=== PATIENT | female | born 1955 | race Caucasian/White ===

== ENCOUNTER → 2016-10-29 | Outpatient (CLI) | payer OTHER ==
[~2016-10-29] MED LIST: ALBU18002 INH; ASPI81TA28 PO; ATOR10TA88 PO; AZITTAB PO; BENZ100C18 PO; BISO10TA14 PO; CHOL20009 PO; CINN1CAP2 PO; CTP/1 PO; DILT120C68 PO; DILT240C9 PO; EFFSR150 PO; EZET10TA47 PO; FLAX1CAP11 PO; GARL500C5 PO; JANUMET PO; LISI-725 PO; LISI40TA PO; LPR50X PO; LRT5 PO; METF1000 PO; METO25TA56 PO; MICARDIS PO; MISCCAP80 PO; MULT-506 PO; NEBI20TA2 PO; OMEP20CA59 PO; POTA550T4 PO; PROAIR INH; SPIR25TA PO; SPR25 PO
[2016-10-29 11:20] LABS: BASO % 0.5 %; BASO ABS # 0.02 K/uL (0-0.2); COMPLETE YES; EOS % 3.2 %; HEMATOCRIT 39.1 % (37-47); IG% 0.2 %; LYMPH % 22.8 %; LYMPH ABS # 0.99 K/uL (1.2-3.4); MEAN CELL VOLUME 82.7 fL (80-100); MEAN CORPUSCULAR HEMOGLOBIN 26.6 pg (25-34); MEAN CORPUSCULAR HGB CONC 32.2 g/dl (32-36); MEAN PLATELET VOLUME 11.6 fL (7.4-10.4); MONO % 7.8 %; NEUT % 65.5 %; PLATELET COUNT 182 K/uL (130-400); RED BLOOD COUNT 4.73 M/uL (4.2-5.4); WHITE BLOOD COUNT 4.35 K/uL (4.8-10.8)
[2016-10-29 11:47] LABS: ESTIMATED AVERAGE GLUCOSE 117 mg/dl; HA1C FLAG Normal (Normal)
[2016-10-29 11:52] LABS: ALT/SGPT 25 U/L (12-78); AST/SGOT 41 U/L (15-37); BLOOD UREA NITROGEN 6 mg/dl (7-18); BUN/CREATININE RATIO 10.2 (10-20); CALCIUM 8.9 mg/dl (8.5-10.1); CARBON DIOXIDE 28 mmol/L (21-32); CHLORIDE 101 mmol/L (98-107); CHOLESTEROL 117 mg/dl (0-200); CREATININE 0.58 mg/dl (0.60-1.20); GLUCOSE 107 mg/dl (70-99); MAGNESIUM 1.5 mg/dl (1.8-2.4); POTASSIUM 3.3 mmol/L (3.5-5.1); SODIUM 138 mmol/L (136-145); TRIGLYCERIDES 93 mg/dl (0-150); VERY LOW DENSITY LIPOPROT CALC 19 mg/dl
[2016-10-29 11:56] LABS: ALB/GLOB RATIO 0.8 (0.9-2); ALKALINE PHOSPHATASE 107 U/L (45-117); CHOLESTEROL/HDL RATIO 5.3; HDL CHOLESTEROL 22 mg/dl; LDL CHOLESTEROL CALCULATED 76 mg/dl
[2016-11-07 15:01] LABS: O&P SOURCE OTHER
== END | disposition home or self-care (01) ==
LOC: C.LAB1850 09:46
PROVIDERS: ATTEND Nurse Practitioner Adult Health
DX: Z00.00 Encounter for general adult medical examination without abnormal findings (principal); Z11.59 Encounter for screening for other viral diseases; R19.7 Diarrhea, unspecified; K21.9 Gastro-esophageal reflux disease without esophagitis; Z51.81 Encounter for therapeutic drug level monitoring

== ENCOUNTER 2016-11-12 19:09 | Inpatient (IN) | payer OTHER ==
[~2016-11-12] VITALS: Ht 167.6 cm; Wt 85.6 kg
[~2016-11-12 19:09] MED LIST changes: -ALBU18002 INH; -ASPI81TA28 PO; -ATOR10TA82 PO; -AZITTAB PO; -BENZ100C18 PO; -BISO10TA14 PO; -CHOL20009 PO; -CINN1CAP2 PO; -CTP/1 PO; -DILT120C68 PO; -EFFSR150 PO; -FLAX1CAP11 PO; -GARL500C5 PO; -LISI-725 PO; -LPR50X PO; -METF1000 PO; -METO25TA56 PO; -MISCCAP80 PO; -OMEP20CA59 PO; -POTA550T4 PO; -PROAIR INH; -SPIR25TA PO; -SPR25 PO
[2016-11-12 20:38] LABS: CKMB/CK RATIO 1.2 (0-3.0)
[2016-11-12] MEDS ORDERED: PROAIR INH (21:00)
[2016-11-12] MEDS ORDERED: ASPI81TA28 PO (21:04)
[2016-11-12] MEDS ORDERED: MISCCAP80 PO (21:04)
[2016-11-12] MEDS ORDERED: ATOR10TA82 PO (21:04)
[2016-11-12] MEDS ORDERED: AZITTAB PO (21:04)
[2016-11-12] MEDS ORDERED: CTP/1 PO (21:13)
[2016-11-12] MEDS ORDERED: LISI-725 PO (21:13)
[2016-11-12] MEDS ORDERED: METO25TA56 PO (21:13)
[2016-11-12] MEDS ORDERED: METF1000 PO (21:13)
[2016-11-12] MEDS ORDERED: BENZ100C18 PO (21:13)
[2016-11-12] MEDS ORDERED: GARL500C5 PO (21:13)
[2016-11-12] MEDS ORDERED: CINN1CAP2 PO (21:13)
[2016-11-12] MEDS ORDERED: FLAX1CAP11 PO (21:13)
[2016-11-12] MEDS ORDERED: DILT120C68 PO (21:13)
[2016-11-12] MEDS ORDERED: POTA550T4 PO (21:13)
[2016-11-12] MEDS ORDERED: OPTIRAY 320 IV PRN (21:15)
[2016-11-12] MEDS ORDERED: ZOLPIDEM TARTRATE 5 MG TAB PO PRN (21:30)
[2016-11-12] MEDS ORDERED: BENZONATATE 100MG CAP PO PRN (21:30)
[2016-11-12] MEDS ORDERED: NITROGLYCERIN 0.4 MG SL PER TAB CHARGE SL PRN (21:30)
[2016-11-12] MEDS ORDERED: LISINOPRIL 20 MG TAB PO STA (21:32)
--- NOTE | 2016-11-12 21:32 | DIAGNOSTIC IMAGING REPORT ---
CT OF THE CHEST WITH IV CONTRAST CLINICAL HISTORY: Unexplained pleural effusion COMPARISON STUDY: Chest x-ray dated 11/12/2016 TECHNIQUE: Following the IV administration of 117 mL of Optiray-320, CT of the thorax was performed from the thoracic inlet to the lung bases. Images are reviewed in the axial, sagittal, and coronal planes. IV contrast was administered without complication. CT DOSE: FINDINGS: Thyroid: There is a large complex left lobe thyroid nodule containing calcifications. This was previously described on sonography. Thoracic aorta: The thoracic aorta is normal in course and caliber, noting standard 3-vessel arch anatomy. No aneurysm or dissection is seen. Pulmonary vasculature: The pulmonary trunk is normal in caliber. There are no central filling defects identified to suggest pulmonary embolus. Note that this examination was not protocoled for the evaluation of pulmonary emboli. HEART: The heart is normal in size and configuration, without pericardial effusion. Lungs and pleural spaces: There is a large right pleural effusion with compressive atelectasis of the right lower middle and upper lobes. There are groundglass opacities within the left upper lobe, statistically inflammatory. Short-term follow-up is recommended. Mediastinum: There is no mediastinal lymphadenopathy. Samira: Clear. Axilla: Clear. Upper abdomen: The liver has a cirrhotic morphology. The spleen is enlarged. There is ascites. Skeletal structures: There are no lytic or blastic osseous lesions. IMPRESSION: 1. Large right pleural effusion with compressive right lung atelectasis 2. Multifocal left upper lobe groundglass opacities, likely inflammatory. Radiographic follow-up is recommended 3. Large complex left lobe thyroid nodule 4. Hepatic steatosis. Cirrhotic morphology of the liver. Splenomegaly. Ascites. Electronically signed by: Jef Viera M.D. 11/12/2016 9:29 PM Dictated Date/Time: 11/12/2016 9:25 PM
[2016-11-12] MEDS ORDERED: METOPROLOL TARTRATE 50 MG TAB PO STA (21:35)
--- NOTE | 2016-11-12 21:40 | DIAGNOSTIC IMAGING REPORT ---
CT ABD/PELVIS IV CONTRAST ONLY CLINICAL HISTORY: Right pleural effusion. Hepatic cirrhosis. COMPARISON STUDY: None. TECHNIQUE: Following the IV administration of 117 mL of Optiray-320, CT scan of the abdomen and pelvis was performed from the lung bases to the proximal femurs. Images are reviewed in the axial, sagittal, and coronal planes. IV contrast was administered without complication. CT DOSE: 1242.49 mGy.cm FINDINGS: Lower chest: There is a large right pleural effusion with compressive right lower lobe atelectasis. Liver: There is hepatic steatosis. The liver has a cirrhotic morphology. The portal vein appears patent. Multiple varices are visualized. Gallbladder: Unremarkable. Spleen: The spleen is enlarged measuring 14.3 cm. Pancreas: Unremarkable. Adrenal glands: Unremarkable. Kidneys: There is symmetric renal cortical enhancement. The kidneys are normal in size without hydronephrosis. Bowel: There are no transition zones indicate bowel obstruction. Inflammatory changes are difficult to assess due to the ascites and mesenteric infiltration Peritoneum: There is a small to moderate amount of ascites present. There is ascitic fluid within an umbilical hernia. Vasculature: The abdominal aorta is normal in course and caliber. Multiple varices are visualized. These are most pronounced in the region of the right paracolic gutter. There are also multiple anterior varices. Multiple varices would elevate the complication risk of paracentesis. Adenopathy: None. Pelvic viscera: The uterus appears surgically absent Skeletal structures: No destructive osseous lesions are seen. IMPRESSION: 1. Hepatic cirrhosis, splenomegaly, and multiple varices. There is also a small to moderate amount of ascites present. Paracentesis would not be recommended, unless strongly indicated due to the relatively low volume of ascites and the multiple varices. Electronically signed by: Jef Viera M.D. 11/12/2016 9:38 PM Dictated Date/Time: 11/12/2016 9:29 PM
[2016-11-12] MEDS ORDERED: CLONIDINE HCL 0.1 MG TAB PO STA (21:42)
[2016-11-12] MEDS ORDERED: DILTIAZEM HCL 120 MG ER CAP PO STA (21:42)
[2016-11-12] MEDS ORDERED: DILTIAZEM HCL 120 MG EXT REL CAP PO STA (21:47)
--- NOTE | 2016-11-12 21:49 | EMERGENCY ROOM VISIT NOTE ---
History Report prepared by Raji: Fei Miller Under the Supervision of: Dr. Remigio Harrington M.D. First contact with patient: 19:38 Chief Complaint: RESPIRATORY PROBLEMS Stated Complaint: LIQUID IN LEFT LUNG History of Present Illness The patient is a 61 year old female who presents to the Emergency Room with complaints of persistent shortness of breath beginning a few days ago. She was seen by her PCP, Dr. Mackenzie at [facility] and had an x-ray , EKG, and blood work. She was noted to have fluid in her right lung. She went to see Dr. Mackenzie for shortness of breath and a cough. Dr. Mackenzie called her later today indicating she needed to present to the ER. She did received prescriptions for an antibiotic. The patient has never had this before. She notes having tightness upon breathing, and some leg swelling. She admits to a history of asthma, bronchitis, and hypertension for which she takes 4 different medications. She adds that she has a hysterectomy. The patient is a former smoker of 25 years. She admits to drinking 2 to 3 glasses of wine each night. Pt denies LOC, headache, fevers, chills, diaphoresis, visual changes, neck pain , chest pain, nausea, vomiting, abdominal pain, back pain, melena, hematochezia , urinary symptoms, numbness, weakness, lymphadenopathy, rash, or other complaints. Source of History: patient Onset: a few days ago Position: other (lungs) Quality: other (shortness of breath) Timing: other (persistent ) Associated Symptoms: + cough Note: The patient notes having leg swelling. Review of Systems See HPI for pertinent positives and negatives. A total of ten systems were reviewed and were otherwise negative. Past Medical & Surgical Medical Problems: (1) Asthma (2) History of asthma (3) History of bronchitis (4) History of hypertension (5) Hypertensive urgency (6) Pleural effusion, right Family History No pertinent family history stated. Social History Smoking Status: Former Smoker Marital Status: Current/Historical Medications Scheduled Aspirin (Aspirin Ec), 81 MG PO HS Atorvastatin (Lipitor), 10 MG PO HS Azithromycin (Zithromax Z-Sathish), 1 PKT PO UD Bisoprolol/Hctz (Ziac 10MG/6.25MG), 1 TAB PO HS Cinnamon (Cinnamon), 500 MG PO DAILY Clonidine Hcl (Catapres), 1 TAB PO HS Diltiazem Hcl Ext Rel (Tiazac), 120 MG PO HS Flaxseed (Linseed) (Flax Seed Oil), 1,000 MG PO HS Garlic (Garlic), 500 MG PO AMPM Lisinopril (Zestril), 20 MG PO BID Metformin Hcl (Glucophage), 1,000 MG PO HS Metoprolol Tartrate (Lopressor) (Lopressor), 25 MG PO BID Omeprazole (Prilosec), 20 MG PO DAILY Potassium Gluconate (Potassium Gluconate), 550 MG PO HS Probiotic Product (Probiotic), 1 CAP PO DAILY Venlafaxine Hcl (Effexor Extended Rel), 150 MG PO DAILY Scheduled PRN Benzonatate (Tessalon Perles), 100 MG PO TID PRN for Cough [Proair], 1-2 PUFFS INH Q4-6HRS PRN for SOB/Wheezing Allergies Coded Allergies: No Known Allergies (Unverified , 11/12/16) Physical Exam Vital Signs Date Time Temp Pulse Resp B/P Pulse Ox O2 Delivery O2 Flow Rate FiO2 11/12/16 19:31 37.0 71 21 219/95 92 Room Air Physical Exam GENERAL: Awake, alert, anxious-appearing, in no distress HENT: Normocephalic, atraumatic. Oropharynx unremarkable. EYES: Normal conjunctiva. Sclera non-icteric. NECK: Supple. No nuchal rigidity. FROM. No JVD. RESPIRATORY: Decreased breath sounds on the right. CARDIAC: Regular rate, normal rhythm. Extremities warm and well perfused. Pulses equal. ABDOMEN: Soft, non-distended. No tenderness to palpation. No rebound or guarding. No masses. RECTAL: Deferred. MUSCULOSKELETAL: Chest examination reveals no tenderness. The back is symmetrical on inspection without obvious abnormality. There is no CVA tenderness to palpation. No joint edema. LOWER EXTREMITIES: Calves are equal size bilaterally and non-tender. No edema. No discoloration. NEURO: Normal sensorium. No sensory or motor deficits noted. SKIN: No rash or jaundice noted. Medical Decision & Procedures Laboratory Results Test 11/12/16 20:00 Total Creatine Kinase 113 U/L (26-192) Creatine Kinase MB 1.4 ng/ml (0.5-3.6) Creatine Kinase MB Ratio 1.2 (0-3.0) Troponin I 0.028 ng/ml (0-0.045) Pro-B-Type Natriuretic Peptide 774 pg/ml (0-900) Laboratory results reviewed by me ECG Indication: SOB/dyspnea Rate (beats per minute): 64 Rhythm: normal sinus Findings: no acute ischemic change, no ectopy, other (Septal Q waves) ED Course 1940: The patient was evaluated in room B12B. A complete history and physical exam was performed. 2044: Discussed the patient's case with Dr. Moy. The patient will be evaluated for further treatment and disposition. Medical Decision Triage Nursing notes reviewed. The patient's presentation and history were concerning for shortness of breath and pleural effusion. Etiologies such as transudate effusion, malignant effusion, pneumonia, COPD, reactive airway disease, CHF, cardiac ischemia, pulmonary embolism, pneumothorax , musculoskeletal, infections, gastrointestinal, as well as others were entertained. The patient was evaluated. She had symptoms of shortness of breath that started recently. She admits to drinking about 2-3 alcoholic beverages a day. She had decreased breath sounds in the right side. X-ray imaging and blood work earlier today revealed a large right-sided pleural effusion. Cardiac markers were unremarkable. ECG was unremarkable. The patient is going to need an extensive workup and treatment for this. Consultation was made with internal medicine. The patient was evaluated in the Emergency Room for further management. The chart was completed utilizing [employer] Speech voice recognition software. Grammatical errors, random word insertions, pronoun errors, and incomplete sentences are an occasional consequence of this system due to software limitations, ambient noise, and hardware issues. Any formal questions or concerns about the content, text, or information contained within the body of this dictation should be directly addressed to the physician for clarification. Consults Time Called: 2029 Consulting Physician: Dr. Moy, [facility] [place] Returned Call: 2044 Discussed the patient's case with Dr. Moy. The patient will be evaluated for further treatment and disposition. Impression Primary Impression: Pleural effusion on right Additional Impression: SOB (shortness of breath) Scribe Attestation The scribe's documentation has been prepared under my direction and personally reviewed by me in its entirety. I confirm that the note above accurately reflects all work, treatment, procedures, and medical decision making performed by me. Departure Information Dispostion Being Evaluated By Hospitalist Referrals Ale Mackenzie CRNP (PCP) Patient Instructions My [facility] Problem Qualifiers
[2016-11-12] MEDS ORDERED: LISINOPRIL 5 MG TAB ONE (21:51)
[2016-11-12] MEDS: MAGNESIUM SULFATE 1GM / D5W 1 GM in PREMIXED IN D5W 100 ML IV SCH ×2 (21:53→23:04)
[2016-11-12] MEDS ORDERED: ONDANSETRON INJ 2 MG/ML 2 ML VIAL IV PRN (22:00)
[2016-11-12 22:35] VITALS: BP 204/71; PULSE 61; TEMP 37; O2SAT 95; Ht 167.6 cm; Wt 85.6 kg
[2016-11-12] MEDS ORDERED: LEVALBUTEROL 1.25MG/0.5ML NEB INH PRN (22:45)
[2016-11-12] MEDS ORDERED: IPRATROPIUM BROMIDE NEB SOLN 0.02% 2.5 ML VIAL INH PRN (22:45)
[2016-11-12] MEDS ORDERED: CEFTRIAXONE SOD INJ 1 GM in DEXTROSE 5% ADD-VANTAGE 50ML 50 ML IV SCH (23:00)
[2016-11-12] MEDS ORDERED: BISO10TA14 PO (23:19)
[2016-11-12] MEDS ORDERED: EFFSR150 PO (23:22)
--- NOTE | 2016-11-12 23:45 | History and Physical ---
History & Physical Date & Time of Service: Nov 12, 2016 at 23:45 Chief Complaint: Hypertensive Urgency, Pleural Effusion, Right Primary Care Physician: Ale Mackenzie CRNP History of Present Illness Source: patient, spouse The patient is a 61-year-old female who presents to the emergency department after being referred by her PCP for abnormal lab work and chest x-ray, performed due to her complaint of shortness of breath over the previous few days. She notes chest tightness at rest and when she is mobile, and has also noted bilateral leg swelling. She reports no recent change in diet, activity level, travel or sick exposures. She is a former smoker 25 years, and has a history of asthma and asthmatic bronchitis. She does drink 2-3 glasses of wine each night. Past Medical/Surgical History Medical Problems: (1) Asthma Status: Chronic Social History Smoking Status: Former Smoker Smokeless Tobacco Use: No Alcohol Use: as noted in the history of present illness, reports 2-3 glasses of wine daily. Drug Use: none Marital Status: Housing status: lives with family Multi-Drug Resistant Organisms History of MDRO: No Allergies Coded Allergies: No Known Allergies (Unverified , 11/12/16) Home Medications Scheduled Aspirin (Aspirin Ec), 81 MG PO HS Atorvastatin (Lipitor), 10 MG PO HS Azithromycin (Zithromax Z-Sathish), 1 PKT PO UD Bisoprolol/Hctz (Ziac 10MG/6.25MG), 1 TAB PO HS Cinnamon (Cinnamon), 500 MG PO DAILY Clonidine Hcl (Catapres), 1 TAB PO HS Diltiazem Hcl Ext Rel (Tiazac), 120 MG PO HS Flaxseed (Linseed) (Flax Seed Oil), 1,000 MG PO HS Garlic (Garlic), 500 MG PO AMPM Lisinopril (Zestril), 20 MG PO BID Metformin Hcl (Glucophage), 1,000 MG PO HS Metoprolol Tartrate (Lopressor) (Lopressor), 25 MG PO BID Omeprazole (Prilosec), 20 MG PO DAILY Potassium Gluconate (Potassium Gluconate), 550 MG PO HS Probiotic Product (Probiotic), 1 CAP PO DAILY Venlafaxine Hcl (Effexor Extended Rel), 150 MG PO DAILY Scheduled PRN Benzonatate (Tessalon Perles), 100 MG PO TID PRN for Cough [Proair], 1-2 PUFFS INH Q4-6HRS PRN for SOB/Wheezing Review of Systems The patient denies palpitations, vision change, hearing change, sore throat, fevers, chills, sweats, weight change, nausea, vomiting, abdominal pain, pelvic pain, blood in urine or stool, dysuria, urinary frequency or urgency, lightheadedness, dizziness, headache, memory loss, rash, abnormal bruising or bleeding, imbalance, focal weakness, numbness or tingling in arms or legs, arthralgias or myalgias, back or neck pain, night sweats, or allergy symptoms. The review of systems is otherwise negative other than for that already noted above, and at least 10 systems have been reviewed. Physical Exam Vital Signs Date Time Temp Pulse Resp B/P Pulse Ox O2 Delivery O2 Flow Rate FiO2 11/12/16 22:35 37.0 61 22 204/71 95 Nasal Cannula 2.0 11/12/16 22:15 82 20 190/95 96 11/12/16 21:50 84 20 208/103 94 Nasal Cannula 2.0 11/12/16 19:31 37.0 71 21 219/95 92 Room Air The patient is awake, well-developed and adequately nourished, alert and oriented 3, normocephalic and atraumatic, lying in bed and in no acute distress. She has a frequent nonproductive cough. HEENT--PERRL, EOMI, mucous membranes and oropharynx dry. Neck--supple, no JVD or bruits, thyroid normal, trachea midline, no adenopathy. Heart--normal S1 and S2, no extra beats, no murmurs, rubs or gallops. Lungs--decreased breath sounds on right side only, no respiratory distress, no accessory muscle use. Abdomen--normal bowel sounds and soft, nontender and mildly distended, umbilical hernia, splenomegaly. Extremities--no cyanosis, clubbing. There is bilaterally pretibial 1+ Edema. There are good distal pulses b/l. Dermatologic--normal skin turgor, normal color, warm and dry, no abnormal lymph nodes, no rash. Neurologic--cranial nerves II through XII grossly intact, motor and sensory examination normal. Rheumatologic--normal range of motion, nontender, muscles and joints. Psychiatric--normal affect. Diagnostics Laboratory Results Results Past 24 Hours Test 11/12/16 20:00 Range/Units Total Creatine Kinase 113 26-192 U/L Creatine Kinase MB 1.4 0.5-3.6 ng/ml Creatine Kinase MB Ratio 1.2 0-3.0 Troponin I 0.028 0-0.045 ng/ml Pro-B-Type Natriuretic Peptide 774 0-900 pg/ml Diagnostic Radiology Patient Name: STEPHAN SUE Unit Number: [id number] Dictated: 11/12/162124 Transcribed: 11/12/162124 ARG Printed Date/Time: [~ rep prt dt]/[~ rep prt tm] [~ rep ct labl] - [~ rep ct ivnm] [facility] Radiology Department [place], [place] [id number] Dictated: 11/12/162124 Transcribed: 11/12/162124 ARG Printed Date/Time: [~ rep prt dt]/[~ rep prt tm] [~ rep ct labl] - [~ rep ct ivnm] CT OF THE CHEST WITH IV CONTRAST CLINICAL HISTORY: Unexplained pleural effusion COMPARISON STUDY: Chest x-ray dated 11/12/2016 TECHNIQUE: Following the IV administration of 117 mL of Optiray-320, CT of the thorax was performed from the thoracic inlet to the lung bases. Images are reviewed in the axial, sagittal, and coronal planes. IV contrast was administered without complication. CT DOSE: FINDINGS: Thyroid: There is a large complex left lobe thyroid nodule containing calcifications. This was previously described on sonography. Thoracic aorta: The thoracic aorta is normal in course and caliber, noting standard 3-vessel arch anatomy. No aneurysm or dissection is seen. Pulmonary vasculature: The pulmonary trunk is normal in caliber. There are no central filling defects identified to suggest pulmonary embolus. Note that this examination was not protocoled for the evaluation of pulmonary emboli. HEART: The heart is normal in size and configuration, without pericardial effusion. Lungs and pleural spaces: There is a large right pleural effusion with compressive atelectasis of the right lower middle and upper lobes. There are groundglass opacities within the left upper lobe, statistically inflammatory. Short-term follow-up is recommended. Mediastinum: There is no mediastinal lymphadenopathy. Samira: Clear. Axilla: Clear. Upper abdomen: The liver has a cirrhotic morphology. The spleen is enlarged. There is ascites. Skeletal structures: There are no lytic or blastic osseous lesions. IMPRESSION: 1. Large right pleural effusion with compressive right lung atelectasis 2. Multifocal left upper lobe groundglass opacities, likely inflammatory. Radiographic follow-up is recommended 3. Large complex left lobe thyroid nodule 4. Hepatic steatosis. Cirrhotic morphology of the liver. Splenomegaly. Ascites. Electronically signed by: Jef Viera M.D. 11/12/2016 9:29 PM Dictated Date/Time: 11/12/2016 9:25 PM The status of this report is Signed. Draft = Not yet reviewed or approved by Radiologist. Signed = Reviewed and approved by Radiologist. <AttendingPhy></AttendingPhy> <FamilyPhy>Ale Mackenzie CRNP</FamilyPhy> < PrimaryPhy>Ale Mackenzie CRNP</PrimaryPhy> <UnitNumber>[id number]</ UnitNumber> <VisitNumber>[id number]</VisitNumber> <PatientName>STEPHAN SUE< /PatientName> <DateOfBirth>1955</DateOfBirth> <Location>C[facility]B</Location> < ServiceDate>11/12/16</ServiceDate> <MNE>ESINDI</MNE> <OrderingPhy>Lan Moy M.D.</OrderingPhy> <OrderingPhyMNE>f rep ord dr diop</OrderingPhyMNE> < DictatingPhyMNE>f rep dict dr diop</DictatingPhyMNE> <CCListMNE>f rep ct chikis</ CCListMNE> <AdmittingPhyMNE>f pt admit dr diop</AdmittingPhyMNE> <AttendingPhyMNE >f pt attend dr diop</AttendingPhyMNE> <ConsultingPhyMNE>f pt consult dr diop</ConsultingPhyMNE> <FamilyPhyMNE>f pt fam dr diop</FamilyPhyMNE> <OtherPhyMNE>f pt other dr diop</OtherPhyMNE> < PrimaryPhyMNE>f pt prim care dr diop</PrimaryPhyMNE> <ReferringPhyMNE>f pt referring dr diop</ReferringPhyMNE> Patient Name: STEPHAN SUE Unit Number: [id number] Dictated: 11/12/162128 Transcribed: 11/12/162128 ARG Printed Date/Time: [~ rep prt dt]/[~ rep prt tm] [~ rep ct labl] - [~ rep ct ivnm] [facility] Radiology Department [place] [id number] Dictated: 11/12/162128 Transcribed: 11/12/162128 ARG Printed Date/Time: [~ rep prt dt]/[~ rep prt tm] [~ rep ct labl] - [~ rep ct ivnm] [~ rep ct add3]] CT ABD/PELVIS IV CONTRAST ONLY CLINICAL HISTORY: Right pleural effusion. Hepatic cirrhosis. COMPARISON STUDY: None. TECHNIQUE: Following the IV administration of 117 mL of Optiray-320, CT scan of the abdomen and pelvis was performed from the lung bases to the proximal femurs. Images are reviewed in the axial, sagittal, and coronal planes. IV contrast was administered without complication. CT DOSE: 1242.49 mGy.cm FINDINGS: Lower chest: There is a large right pleural effusion with compressive right lower lobe atelectasis. Liver: There is hepatic steatosis. The liver has a cirrhotic morphology. The portal vein appears patent. Multiple varices are visualized. Gallbladder: Unremarkable. Spleen: The spleen is enlarged measuring 14.3 cm. Pancreas: Unremarkable. Adrenal glands: Unremarkable. Kidneys: There is symmetric renal cortical enhancement. The kidneys are normal in size without hydronephrosis. Bowel: There are no transition zones indicate bowel obstruction. Inflammatory changes are difficult to assess due to the ascites and mesenteric infiltration Peritoneum: There is a small to moderate amount of ascites present. There is ascitic fluid within an umbilical hernia. Vasculature: The abdominal aorta is normal in course and caliber. Multiple varices are visualized. These are most pronounced in the region of the right paracolic gutter. There are also multiple anterior varices. Multiple varices would elevate the complication risk of paracentesis. Adenopathy: None. Pelvic viscera: The uterus appears surgically absent Skeletal structures: No destructive osseous lesions are seen. IMPRESSION: 1. Hepatic cirrhosis, splenomegaly, and multiple varices. There is also a small to moderate amount of ascites present. Paracentesis would not be recommended, unless strongly indicated due to the relatively low volume of ascites and the multiple varices. Electronically signed by: Jef Viera M.D. 11/12/2016 9:38 PM Dictated Date/Time: 11/12/2016 9:29 PM The status of this report is Signed. Draft = Not yet reviewed or approved by Radiologist. Signed = Reviewed and approved by Radiologist. <AttendingPhy></AttendingPhy> <FamilyPhy>Ale Mackenzie CRNP</FamilyPhy> < PrimaryPhy>Ale Mackenzie CRNP</PrimaryPhy> <UnitNumber>[id number]</ UnitNumber> <VisitNumber>[id number]</VisitNumber> <PatientName>STEPHAN SUE< /PatientName> <DateOfBirth>1955</DateOfBirth> <Location>C.EDB</Location> < ServiceDate>11/12/16</ServiceDate> <MNE>ESINDI</MNE> <OrderingPhy>Lan Moy M.D.</OrderingPhy> <OrderingPhyMNE>f rep ord dr diop</OrderingPhyMNE> < DictatingPhyMNE>f rep dict dr diop</DictatingPhyMNE> <CCListMNE>f rep ct mne</ CCListMNE> <AdmittingPhyMNE>f pt admit dr diop</AdmittingPhyMNE> <AttendingPhyMNE >f pt attend dr diop</AttendingPhyMNE> <ConsultingPhyMNE>f pt consult dr diop</ConsultingPhyMNE> <FamilyPhyMNE>f pt fam dr diop</FamilyPhyMNE> <OtherPhyMNE>f pt other dr diop</OtherPhyMNE> < PrimaryPhyMNE>f pt prim care dr diop</PrimaryPhyMNE> <ReferringPhyMNE>f pt referring dr diop</ReferringPhyMNE> Patient Name: STEPHAN SUE Unit Number: [id number] Dictated: 11/12/16 1109 Transcribed: 11/12/16 1109 MS Printed Date/Time: [~ rep prt dt]/[~ rep prt tm] [~ rep ct labl] - [~ rep ct ivnm] [facility] [place] [place] [address] Dictated: 11/12/161108 Transcribed: 11/12/16 1109 MS Printed Date/Time: [~ rep prt dt]/[~ rep prt tm] [~ rep ct labl] - [~ rep ct ivnm] [~ rep ct add3]] CHEST 2 VIEWS ROUTINE CLINICAL HISTORY: R06.02 SOB (shortness of breath)R05 [id number] dyspnea COMPARISON STUDY: No previous studies for comparison. FINDINGS: Large right pleural effusion. Left lung is generally clear. Pleural thickening right pulmonary apex. Subtle interstitial change throughout the remainder hemithoraces. IMPRESSION: Large right pleural effusion. Electronically signed by: Jamarcus Adkins M.D. 11/12/2016 11:10 AM Dictated Date/Time: 11/12/2016 11:09 AM The status of this report is Signed. Draft = Not yet reviewed or approved by Radiologist. Signed = Reviewed and approved by Radiologist. <AttendingPhy>Ale Mackenzie CRNP</AttendingPhy> <FamilyPhy></FamilyPhy> < PrimaryPhy>Ale Mackenzie CRNP</PrimaryPhy> <UnitNumber>[id number]</ UnitNumber> <VisitNumber>[id number]</VisitNumber> <PatientName>STEPHAN SUE< /PatientName> <DateOfBirth>1955</DateOfBirth> <Location>C.EAB6478</ Location> <ServiceDate>11/12/16</ServiceDate> <MNE>ESINDI</MNE> <OrderingPhy> Ale Mackenzie</OrderingPhy> <OrderingPhyMNE>f rep ord dr diop</ OrderingPhyMNE> <DictatingPhyMNE>f rep dict dr diop</DictatingPhyMNE> <CCListMNE> f rep ct mne</CCListMNE> <AdmittingPhyMNE>f pt admit dr diop</AdmittingPhyMNE> < AttendingPhyMNE>f pt attend dr diop</AttendingPhyMNE> <ConsultingPhyMNE>f pt consult dr idop</ConsultingPhyMNE> <FamilyPhyMNE>f pt fam dr diop</FamilyPhyMNE> <OtherPhyMNE>f pt other dr diop</OtherPhyMNE> < PrimaryPhyMNE>f pt prim care dr diop</PrimaryPhyMNE> <ReferringPhyMNE>f pt referring dr diop</ReferringPhyMNE> EKG EKG shows normal sinus rhythm at 64 bpm, 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 Impression Assessment and Plan Pneumonia--the patient will be placed on vancomycin IV per renal dosing, ceftriaxone 1 g IV daily, levofloxacin 500 mg IV every 24 hours, Solu-Medrol 40 mg IV every 8 hours, guaifenesin extended release 600 mg by mouth twice a day, Xopenex with Atrovent nebulizer every 6 hours while awake and every 2 hours when necessary, nasal cannula 2 L of oxygen titrating to keep pulse ox greater than or equal to 92%. Large right pleural effusion with compressive right lower lobe atelectasis--we' ll consult pulmonology Dr. Castellon to see the patient. Suspect she would benefit from a thoracentesis for both diagnostic and therapeutic purposes. Hypertension/hypertensive urgency--patient has missed her evening medications at this time and will give them now. Continue lisinopril 20 mg by mouth twice a day, diltiazem extended release 120 mg by mouth at at bedtime, clonidine 0.1 mg by mouth at bedtime. Hold bisoprolol/HCTZ 10/6.5 at bedtime. Increase metoprolol tartrate from 25 mg by mouth twice a day to 75 mg by mouth twice a day. Her overall regimen could likely be tightened with a decreased number of medications and increased doses of those medications. Liver cirrhosis/fatty liver/splenomegaly/ascites/multiple varices--we will add acute hepatitis panel to present laboratories, but suspect this may be related to alcohol use. Since it is evident that she has portal hypertension, increasing her beta john as above, and adding spironolactone and furosemide to her regimen will be needed, but will wait until she undergoes possible thoracentesis tomorrow. We'll consult Dr. Al Fernández from gastroenterology. We will hold aspirin 81 mg by mouth at bedtime at this time. Hypercholesterolemia--continue atorvastatin 10 mg by mouth at bedtime. Diabetes mellitus--hold metformin 1000 mg by mouth at bedtime, and cinnamon 500 mg by mouth daily. Place on Accu-Cheks before meals and at bedtime with NovoLog coverage ex GERD--dictated omeprazole 20 mg by mouth daily to pantoprazole 40 mg by mouth daily. Depression--continue venlafaxine ER 150 mg by mouth daily. Level of Care Telemetry Advanced Directives Existing Advance Directive: No Existing Living Will: No Existing Power of Fibreglass Laminator: No Resuscitation Status FULL RESUSCITATION VTE Prophylaxis VTE Risk Assessment Done? Y/N: Yes Risk Level: Low Given or contraindicated: SCD's Social Service Consult None Apply
[2016-11-12] MEDS ORDERED: OMEP20CA59 PO (23:51)
[2016-11-13] VITALS (8 sets, daily range): BP systolic 178–210; BP diastolic 82–90; PULSE 55–67; TEMP 36.4–36.7; O2SAT 91–93
[2016-11-13] MEDS ORDERED: LEVOFLOXACIN / D5W 500 MG in PREMIXED IN D5W 100 ML IV SCH
[2016-11-13] MEDS: METHYLPREDNISOLONE IV 40 MG in SYRINGE 0 ML IV SCH ×3 (00:08→14:29)
[2016-11-13] MEDS: HydrALAZINE HCL 20 MG/ML VIAL IV. PRN ×4 (00:18→16:07)
[2016-11-13] MEDS ORDERED: INFLUENZA ADMINISTRATION CHARGE ONE (01:00)
[2016-11-13] MEDS ORDERED: INFLUENZA VIRUS QUAD VACCINE 0.5 ML SYR IM. ONE (01:00)
[2016-11-13] MEDS: IPRATROPIUM BROMIDE NEB SOLN 0.02% 2.5 ML VIAL INH SCH ×2 (02:28→07:03)
[2016-11-13] MEDS: LEVALBUTEROL 1.25MG/0.5ML NEB INH SCH ×2 (02:28→07:03)
[2016-11-13] MEDS ORDERED: LEVALBUTEROL/IPRATROPIUM NEB INH SCH (03:00)
[2016-11-13] MEDS ORDERED: VANCOMYCIN INJ 1,000 MG in SODIUM CHLORIDE 0.9% 250ML 250 ML IV STA (03:10)
[2016-11-13] MEDS ORDERED: VANCOMYCIN INJ 2,200 MG in SODIUM CHLORIDE 0.9% 500ML 500 ML IV SCH (03:30)
[2016-11-13 07:23] LABS: COMPLETE YES; HEMATOCRIT 38.1 % (37-47); IG% 0.2 %; LYMPH % 10.4 %; LYMPH ABS # 0.53 K/uL (1.2-3.4); MEAN CELL VOLUME 79.9 fL (80-100); MEAN CORPUSCULAR HEMOGLOBIN 26.2 pg (25-34); MEAN CORPUSCULAR HGB CONC 32.8 g/dl (32-36); MEAN PLATELET VOLUME 10.5 fL (7.4-10.4); MONO % 1.4 %; PLATELET COUNT 172 K/uL (130-400); RED BLOOD COUNT 4.77 M/uL (4.2-5.4); WHITE BLOOD COUNT 5.09 K/uL (4.8-10.8)
[2016-11-13 07:36] LABS: INR 1.4 (0.9-1.1); PARTIAL THROMBOPLASTIN RATIO 1.2; PROTHROMBIN TIME (PATIENT) 14.7 SECONDS (9.0-12.0)
[2016-11-13 07:55] LABS: CREATININE 0.45 mg/dl (0.60-1.20)
[2016-11-13 07:56] LABS: CALCIUM 8.6 mg/dl (8.5-10.1); MAGNESIUM 1.9 mg/dl (1.8-2.4); POTASSIUM 3.6 mmol/L (3.5-5.1)
[2016-11-13] MEDS ORDERED: PNEUMOCOCCAL POLYSACCHARIDES 25 MCG/0.5 ML VIAL/SYR IM. ONE (08:00)
[2016-11-13] MEDS ORDERED: PNEUMOCOCCAL ADMINISTRATION CHARGE ONE (08:00)
[2016-11-13] MEDS: LACTOBACILLUS ACIDOPHILUS (FLORANEX) TAB PO SCH ×3 (08:10→17:10)
[2016-11-13] MEDS ORDERED: METOPROLOL TARTRATE 25 MG TAB PO SCH (09:00)
[2016-11-13] MEDS ORDERED: VENLAFAXINE HCL XR 150 MG CAPXR PO SCH (09:00)
[2016-11-13] MEDS ORDERED: LISINOPRIL 20 MG TAB PO SCH (09:00)
[2016-11-13] MEDS ORDERED: PANTOprazole SOD 40 MG TAB PO SCH (09:00)
[2016-11-13] MEDS ORDERED: GUAIFENESIN 600 MG TABCR PO SCH (09:00)
--- NOTE | 2016-11-13 09:02 | Pulmonary Consultation ---
History General Date of Service: Nov 13, 2016. Stated Complaint: Hypertensive Urgency, Pleural Effusion, Right HPI The patient is a 61 year old female who presents to [facility] with complaints of Hypertensive Urgency, Pleural Effusion, Right. The patient's primary care provider is Ale Mackenzie CRNP. 61-year-old female admitted with hypertensive emergency as well as large right- sided pleural effusion. Patient notes increasing dyspnea since Wednesday of last week. Last Wednesday she also experienced chest pressure but associated pain or radiation to the neck or left arm.. Over this time she denies: Fever, chills, pleurisy, classic cardiac chest pain, weight loss, hemoptysis, melena, nausea or vomiting. After reviewing the patient's last twelve-month clinical history the only significant finding per the patient is irritable bowel type symptoms, diarrhea and nausea. Review of Systems Constitutional: reports: weakness Eyes: reports: no symptoms ENT: reports: no symptoms Cardiovascular: reports: as stated in HPI Respiratory: reports: as stated in HPI Gastrointestinal: reports: as stated in HPI Genitourinary - Female: reports: no symptoms Musculoskeletal: reports: no symptoms Integumentary: reports: no symptoms Neurologic: reports: no symptoms Psychiatric: reports: no symptoms Endocrine: no symptoms Hematologic / Lymphatic: no symptoms Allergic / Immunologic: no symptoms Past Medical History Past Medical History: 1. HTN with associated htn urgency 2. GERD 3. Left Ankle Fx 4. DM 5. Asthma 6. Bronchitis 7. right sided pleural effusion 8. Sinus (04/12/2002) Coag Negative Staph/Corynebacterium Species 9. Elevated LFTs 10. Hyperlipidemia 11. Varicose Veins 12. Endometriosis 13. Lymes Disease 14. Thyroid Nodule 15. 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 Nichole Mammogram July 2016: WNL Vaccines: No flu shots. Will need records for other vaccines. Colonoscopy: 2015 Past Surgical History: 1. ORIF of left trimalleolar ankle fracture-dislocation 03/07/2012 2. TAHBO Family History 1. hypertension 2. malignant neoplasm of urinary bladder 3. cerebrovascular accident (CVA) 4. pancreatic cancer 5. ovarian cyst 6. coronary artery disease 7. Elevated cholesterol 8. diabetes mellitus 9. Multiple second-degree relatives with lung cancer Social History Tobacco: : 25 years ago ETOH: 2-3 glass of wine per night Smoking Status: Unknown if Ever Smoked Marital status: Housing status: lives with family History of MDRO History of MDRO: No Allergies Coded Allergies: No Known Allergies (Unverified , 11/12/16) Current Medications Reported Home Medications Medications Dose Route/Sig Max Daily Dose Days Date Category Dose Instructions Potassium Gluconate 550 Mg Tab 550 Mg PO HS 11/12/16 Reported Lopressor (Metoprolol Tartrate) 25 Mg Tab 25 Mg PO BID 11/12/16 Reported Glucophage (Metformin Hcl) 1,000 Mg Tab 1,000 Mg PO HS 11/12/16 Reported Zestril (Lisinopril) 20 Mg Tab 20 Mg PO BID 11/12/16 Reported Garlic 500 Mg Cap 500 Mg PO AMPM 11/12/16 Reported Flax Seed Oil (Flaxseed (Linseed)) 1 Cap Cap 1,000 Mg PO HS 11/12/16 Reported Catapres (Clonidine Hcl) 0.1 Mg Tab 1 Tab PO HS 30 11/12/16 Reported Tiazac (Diltiazem HCl) 120 Mg Capcr 120 Mg PO HS 11/12/16 Reported Cinnamon 500 Mg Cap 500 Mg PO DAILY 11/12/16 Reported Tessalon Perles (Benzonatate) 100 Mg Cap 100 Mg PO TID PRN 11/12/16 Reported Zithromax Z-Sathish (Azithromycin) 250 Mg Tab 1 Pkt PO UD 5 11/12/16 Reported START November Lipitor (Atorvastatin Calcium) 10 Mg Tab 10 Mg PO HS 11/12/16 Reported Aspirin Ec (Aspirin) 81 Mg Tab 81 Mg PO HS 11/12/16 Reported Probiotic (Probiotic Product) 1 Cap Cap 1 Cap PO DAILY 11/12/16 Reported [Proair] 108 (90 BASE)MCG/ACT 1-2 Puffs INH Q4-6HRS PRN 11/12/16 Reported Prilosec (Omeprazole) 20 Mg Capcr 20 Mg PO DAILY 03/05/12 Reported Effexor Extended Rel (Venlafaxine Hcl) 150 Mg Capcr 150 Mg PO DAILY 03/05/12 Reported Ziac 10MG/6.25MG (Bisoprolol Fumarate/HCTZ) Tab 1 Tab PO HS 03/05/12 Reported Physical Physical Exam Vital Signs: Date Time Temp Pulse Resp B/P Pulse Ox O2 Delivery O2 Flow Rate FiO2 11/13/16 07:03 60 16 92 Nasal Cannula 2.0 11/13/16 04:00 Nasal Cannula 2.0 11/13/16 03:08 36.7 58 19 192/82 91 Nasal Cannula 2.0 11/13/16 02:28 58 16 93 Nasal Cannula 2.0 11/13/16 00:00 Nasal Cannula 2.0 11/12/16 22:35 37.0 61 22 204/71 95 Nasal Cannula 2.0 11/12/16 22:35 37.0 61 22 204/71 95 Nasal Cannula 2.0 11/12/16 22:15 82 20 190/95 96 11/12/16 21:50 84 20 208/103 94 Nasal Cannula 2.0 11/12/16 19:31 37.0 71 21 219/95 92 Room Air General Appearance: WELL-APPEARING, WD/WN, NO APPARENT DISTRESS Head: NORMOCEPHALIC, ATRAUMATIC Eyes: PERRLA, NO DISCHARGE, EOMI, SCLERAE NORMAL ENT: NORMAL EAR EXAM, NORMAL NASAL EXAM, NORMAL MOUTH EXAM, NORMAL THROAT EXAM Neck: NORMAL RANGE OF MOTION, NO TENDERNESS, TRACHEA MIDLINE Respiratory: other (right hemithorax clear to auscultation/left hemithorax anteriorly clear to auscultation with dullness to percussion noted approximately mcc up the hemithorax) Cardiovasular: REGULAR RATE/RHYTHM, NORMAL S1S2, NO M/G/R, NO MURMUR, NO GALLOP Abdomen: NON TENDER, NORMAL BOWEL SOUNDS, NO REBOUND, NO MASSES, NO GUARDING Genitourinary - Female: EXTERNAL GENITALIA NORMAL Back: NORMAL INSPECTION, NO MIDLINE TENDERNESS, NO CVA TENDERNESS, NO PARAVERTEBRAL TTP Upper Extremities: NO EDEMA, NO DEFORMITY, NORMAL ROM Lower Extremities: NO EDEMA, other (bilateral lower extremity varicose veins appreciated) Pulses: carotid (R) (2+), carotid (L) (2+), dorsalis pedis (R) (2+), dorsalis pedis (L) (2+) Neuro: ALERT, ORIENTED x 3, NORMAL MOTOR EXAM, NORMAL SENSATION, NORMAL CEREBELLAR EXAM Reflexes: biceps (R) (2+), bicpes (L) (2+), achilles (R) (2+), achilles (L) (2+ ) Babinski Testing: right (downgoing), left (downgoing) Psychiatric: NORMAL AFFECT, NO SUICIDAL IDEATION, CONTRACTS FOR SAFETY Diagnostics Labs Results Past 24 Hours Test 11/12/16 20:00 11/13/16 06:50 Range/Units Total Creatine Kinase 113 26-192 U/L Creatine Kinase MB 1.4 0.5-3.6 ng/ml Creatine Kinase MB Ratio 1.2 0-3.0 Troponin I 0.028 0-0.045 ng/ml Pro-B-Type Natriuretic Peptide 774 0-900 pg/ml White Blood Count 5.09 4.8-10.8 K/uL Red Blood Count 4.77 4.2-5.4 M/uL Hemoglobin 12.5 12.0-16.0 g/dL Hematocrit 38.1 37-47 % Mean Corpuscular Volume 79.9 80-100 fL Mean Corpuscular Hemoglobin 26.2 25-34 pg Mean Corpuscular Hemoglobin Concent 32.8 32-36 g/dl Platelet Count 172 130-400 K/uL Mean Platelet Volume 10.5 7.4-10.4 fL Neutrophils (%) (Auto) 88.0 % Lymphocytes (%) (Auto) 10.4 % Monocytes (%) (Auto) 1.4 % Eosinophils (%) (Auto) 0.0 % Basophils (%) (Auto) 0.0 % Neutrophils # (Auto) 4.48 1.4-6.5 K/uL Lymphocytes # (Auto) 0.53 1.2-3.4 K/uL Monocytes # (Auto) 0.07 0.11-0.59 K/uL Eosinophils # (Auto) 0.00 0-0.5 K/uL Basophils # (Auto) 0.00 0-0.2 K/uL RDW Standard Deviation 48.7 36.4-46.3 fL RDW Coefficient of Variation 16.6 11.5-14.5 % Immature Granulocyte % (Auto) 0.2 % Immature Granulocyte # (Auto) 0.01 0.00-0.02 K/uL Prothrombin Time 14.7 9.0-12.0 SECONDS Prothromb Time International Ratio 1.4 0.9-1.1 Activated Partial Thromboplast Time 30.1 21.0-31.0 SECONDS Partial Thromboplastin Ratio 1.2 Sodium Level 137 136-145 mmol/L Potassium Level 3.6 3.5-5.1 mmol/L Chloride Level 103 98-107 mmol/L Carbon Dioxide Level 25 21-32 mmol/L Anion Gap 9.0 3-11 mmol/L Blood Urea Nitrogen 6 7-18 mg/dl Creatinine 0.45 0.60-1.20 mg/dl Est Creatinine Clear Calc Drug Dose 142.8 ml/min Estimated GFR () 124.5 Estimated GFR (Non- 107.4 BUN/Creatinine Ratio 14.0 10-20 Random Glucose 149 70-99 mg/dl Calcium Level 8.6 8.5-10.1 mg/dl Magnesium Level 1.9 1.8-2.4 mg/dl Total Bilirubin 1.4 0.2-1 mg/dl Direct Bilirubin 0.5 0-0.2 mg/dl Aspartate Amino Transf (AST/SGOT) 35 15-37 U/L Alanine Aminotransferase (ALT/SGPT) 25 12-78 U/L Alkaline Phosphatase 103 45-117 U/L Total Protein 7.2 6.4-8.2 gm/dl Albumin 3.2 3.4-5.0 gm/dl Diagnostic Radiology CT thorax: Large left-sided pleural effusion 1. Large right pleural effusion with compressive right lung atelectasis 2. Multifocal left upper lobe groundglass opacities, likely inflammatory. 3. Large complex left lobe thyroid nodule 4. Hepatic steatosis. Cirrhotic morphology of the liver. Splenomegaly. Ascites. CT abdomen Lower chest: There is a large right pleural effusion with compressive right lower lobe atelectasis. Liver: There is hepatic steatosis. The liver has a cirrhotic morphology. The portal vein appears patent. Multiple varices are visualized. Gallbladder: Unremarkable. Spleen: The spleen is enlarged measuring 14.3 cm. Pancreas: Unremarkable. Impression Assessment and Plan 61-year-old female with acute onset dyspnea: #1 Dyspnea: Dyspnea most likely secondary to large right-sided pleural effusion. Etiology in this age range most likely secondary to infection, malignancy or trauma. As this patient is showing no signs of infection or trauma high likelihood of malignancy from primary lung CA and/or metastatic disease. At this time the patient has agreed to move forward with thoracentesis. We'll initially removed 1.5 L sendoff for evaluation and clinically evaluate the patient's response. I believe this effusion will take 2- 3 thoracentesis to obtain full resolution. It is noted that 3 thoracentesis or equal to one pleural biopsy which will also maximize a workup for cancer at this time. Depending on the reexpansion of the lung bronchoscopy might also be warranted. Thank you very much for this consultation
[2016-11-13] MEDS ORDERED: GLUCAGON FOR INJ 1 MG VIAL SQ PRN (11:15)
[2016-11-13] MEDS ORDERED: GLUCOSE 10 TABS/TUBE PO PRN (11:15)
[2016-11-13] MEDS ORDERED: GLUCOSE 40% GEL 15 GM TUBE PO PRN (11:15)
[2016-11-13] MEDS ORDERED: DEXTROSE 50% 50 ML SYR IV PRN (11:15)
--- NOTE | 2016-11-13 11:29 | Hospitalist Progress Note ---
Hospitalist Progress Note Date of Service Nov 13, 2016. Subjective Pt evaluation today including: conversation w/ patient, physical exam, chart review, lab review, review of studies, review of inpatient medication list Patient seen and evaluated. No acute events overnight. She continues to be orthopneic and short of breath. Plan is for thoracentesis later today. She reports as an outpatient she has taken 2 pills of a Z-Sathish. She has chronic history of allergies/sinusitis. These new symptoms that started Wednesday, she states that she has a productive cough in the morning but as the day goes on it becomes nonproductive. It appears that more likely she is getting postnasal drip in the morning and her current cough is related to her large right pleural effusion. Additional Comments: REVIEW OF SYSTEMS: General/Constitutional: Denies fever/chills, fatigue, weakness, weight gain/loss ENT: + Rhinorrhea, Post-Nasal Drip; Denies visual changes, hearing loss, sore throat, trouble swallowing Cardiovascular: + Chest Tightness; Denies palpitations, edema Respiratory: + Non-productive Cough, SOB, Orthopnea GI: + Chronic IBS Symptoms; Denies nausea, vomiting, abdominal pain, constipation, diarrhea, melena/hematochezia : Denies dysuria, frequency, hematuria Musculoskeletal: Denies joint/muscle aches, weakness, swelling Neurologic: Denies dizziness/lightheadedness, numbness/tingling, weakness Psychiatric: Deferred Endocrine: Deferred Hematologic/Lymphatic: Denies bleeding/clotting abnormalities Skin: Denies rash, itch, new skin changes, easy bruising Allergy/Immunologic: Deferred Medications Current Inpatient Medications Medications (Trade) Dose Ordered Sig/Lisha Route Start Time Stop Time Status Last Admin Dose Admin Ioversol (Optiray 320) 100 ml UD PRN IV 11/12/16 21:15 11/16/16 21:14 Zolpidem Tartrate (Ambien Tab) 5 mg HSZ PRN PO 11/12/16 21:30 12/12/16 21:29 Nitroglycerin (Nitrostat Tab) 0.4 mg UD PRN SL 11/12/16 21:30 12/12/16 21:29 Atorvastatin Calcium (Lipitor Tab) 10 mg HS PO 11/13/16 21:00 12/13/16 20:59 Benzonatate (Tessalon Perles Cap) 100 mg TID PRN PO 11/12/16 21:30 12/12/16 21:29 Clonidine HCl (Catapres Tab) 0.1 mg HS PO 11/13/16 21:00 12/13/16 20:59 Diltiazem HCl (TIAzac CAP) 120 mg HS PO 11/13/16 21:00 12/13/16 20:59 Lisinopril (Zestril Tab) 20 mg BID PO 11/13/16 09:00 12/13/16 08:59 11/13/16 08:12 20 MG Metoprolol Tartrate (Lopressor Tab) 75 mg BID PO 11/13/16 09:00 12/13/16 08:59 11/13/16 08:11 75 MG Venlafaxine HCl (effeXOR EXTENDED REL CAP) 150 mg DAILY PO 11/13/16 09:00 12/13/16 08:59 11/13/16 08:11 150 MG Pantoprazole Sodium (Protonix Tab) 40 mg QAM PO 11/13/16 09:00 12/13/16 08:59 11/13/16 08:12 40 MG Lactobacillus Acidophilus (Floranex Tab) 4 tab TIDM PO 11/13/16 07:30 12/13/16 07:59 11/13/16 08:10 4 TAB Hydralazine HCl 10 mg 10 mg Q4H PRN IV. 11/12/16 21:45 12/12/16 21:44 11/13/16 04:40 10 MG Methylprednisolone Sodium Succinate 40 mg/Syringe 0.64 ml @ 1.5 mls/min Q8H IV 11/12/16 23:00 12/12/16 22:59 11/13/16 06:28 1.5 MLS/MIN Ceftriaxone Sodium 1 gm/ Dextrose 50 ml @ 100 mls/hr Q24H IV 11/12/16 23:00 11/19/16 22:59 11/13/16 00:09 100 MLS/HR Levofloxacin/Prmx (Levaquin / D5W/ Premixed D5W) 100 ml @ 100 mls/hr Q24H IV 11/13/16 00:00 11/20/16 00:00 11/13/16 00:08 100 MLS/HR Guaifenesin (Mucinex Contr Rel Tab) 600 mg Q12 PO 11/13/16 09:00 12/13/16 08:59 11/13/16 08:11 600 MG Ondansetron HCl (Zofran Inj) 4 mg Q6H PRN IV 11/12/16 22:00 12/12/16 21:59 Ipratropium [place] (Atrovent 0.02% 0.5MG/2.5ML Neb) 0.5 mg Q6R INH 11/13/16 03:00 12/13/16 02:59 11/13/16 07:03 0.5 MG Levalbuterol (Xopenex 1.25MG/ 0.5ML Neb) 1.25 mg Q6R INH 11/13/16 03:00 12/13/16 02:59 11/13/16 07:03 1.25 MG Ipratropium [place] (Atrovent 0.02% 0.5MG/2.5ML Neb) 0.5 mg Q2H PRN INH 11/12/16 22:45 12/12/16 22:44 Levalbuterol 1.25 mg 1.25 mg Q2H PRN INH 11/12/16 22:45 12/12/16 22:44 Vancomycin HCl/ Sodium Chloride (Vancomycin Inj/ Nss 250ml) 274 ml @ 125 mls/hr Q10H IV 11/13/16 14:00 11/20/16 13:59 Objective Vital Signs Date Time Temp Pulse Resp B/P Pulse Ox O2 Delivery O2 Flow Rate FiO2 11/13/16 08:47 36.7 60 20 198/89 91 Nasal Cannula 2.0 184/87 11/13/16 08:00 Nasal Cannula 2.0 11/13/16 07:03 60 16 92 Nasal Cannula 2.0 11/13/16 04:00 Nasal Cannula 2.0 11/13/16 03:08 36.7 58 19 192/82 91 Nasal Cannula 2.0 11/13/16 02:28 58 16 93 Nasal Cannula 2.0 11/13/16 00:00 Nasal Cannula 2.0 11/12/16 22:35 37.0 61 22 204/71 95 Nasal Cannula 2.0 11/12/16 22:35 37.0 61 204/71 95 Nasal Cannula 2.0 11/12/16 22:15 82 20 190/95 96 11/12/16 21:50 84 20 208/103 94 Nasal Cannula 2.0 11/12/16 19:31 37.0 71 21 219/95 92 Room Air Physical Exam Notes: PHYSICAL EXAM:: General Appearance: WDWN in NAD who is A&O x 3 HEENT: Head is normocephalic/atraumatic; EOMI; PERRLA; Hearing grossly intact; Mucous membranes moist; Pharynx negative for exudate/lesions Neck: Supple; Trachea midline; Neg JVD; Neg lymphadenopathy Heart: RRR with no M/G/R Lungs: CTA in all lung osborn with diminished breath sounds of R mid-lung to base; Respirations unlabored; Neg accessory muscle use Abdomen: Soft, non-tender, non-distended; Tympanic to percussion; Positive BS x 4 quadrants; Neg organomegaly; Neg caput medusa on visualization Extremities: Capillary refill < 2 seconds; Neg cyanosis or edema Neurological: Speech clear; Gross motor/sensory function intact; Neg focal neurologic deficits Psychiatric: Appropriate mood/affect Skin: Normal Color; Warm/Dry; Neg rashes, ecchymosis, lacerations/ulcerations Laboratory Results Last 24 Hours Test 11/12/16 20:00 11/13/16 06:50 Total Creatine Kinase 113 U/L Creatine Kinase MB 1.4 ng/ml Creatine Kinase MB Ratio 1.2 Troponin I 0.028 ng/ml Pro-B-Type Natriuretic Peptide 774 pg/ml White Blood Count 5.09 K/uL Red Blood Count 4.77 M/uL Hemoglobin 12.5 g/dL Hematocrit 38.1 % Mean Corpuscular Volume 79.9 fL Mean Corpuscular Hemoglobin 26.2 pg Mean Corpuscular Hemoglobin Concent 32.8 g/dl Platelet Count 172 K/uL Mean Platelet Volume 10.5 fL Neutrophils (%) (Auto) 88.0 % Lymphocytes (%) (Auto) 10.4 % Monocytes (%) (Auto) 1.4 % Eosinophils (%) (Auto) 0.0 % Basophils (%) (Auto) 0.0 % Neutrophils # (Auto) 4.48 K/uL Lymphocytes # (Auto) 0.53 K/uL Monocytes # (Auto) 0.07 K/uL Eosinophils # (Auto) 0.00 K/uL Basophils # (Auto) 0.00 K/uL RDW Standard Deviation 48.7 fL RDW Coefficient of Variation 16.6 % Immature Granulocyte % (Auto) 0.2 % Immature Granulocyte # (Auto) 0.01 K/uL Prothrombin Time 14.7 SECONDS Prothromb Time International Ratio 1.4 Activated Partial Thromboplast Time 30.1 SECONDS Partial Thromboplastin Ratio 1.2 Sodium Level 137 mmol/L Potassium Level 3.6 mmol/L Chloride Level 103 mmol/L Carbon Dioxide Level 25 mmol/L Anion Gap 9.0 mmol/L Blood Urea Nitrogen 6 mg/dl Creatinine 0.45 mg/dl Est Creatinine Clear Calc Drug Dose 142.8 ml/min Estimated GFR () 124.5 Estimated GFR (Non- 107.4 BUN/Creatinine Ratio 14.0 Random Glucose 149 mg/dl Calcium Level 8.6 mg/dl Magnesium Level 1.9 mg/dl Total Bilirubin 1.4 mg/dl Direct Bilirubin 0.5 mg/dl Aspartate Amino Transf (AST/SGOT) 35 U/L Alanine Aminotransferase (ALT/SGPT) 25 U/L Alkaline Phosphatase 103 U/L Total Protein 7.2 gm/dl Albumin 3.2 gm/dl Hepatitis B Surface Antigen NEG Hepatitis C Antibody NEG Assessment and Plan Large R Pleural Effusion and Inflammatory vs Infectious Ground Glass Opacity: - DC ceftriaxone and obtain MRSA swab - will DC vancomycin if negative - Continue with levofloxacin 500 mg IV daily - Methylprednisolone 40 mg IV Q8H - Xopenex and Atrovent nebulizers - Wean O2 as necessary to maintain saturations greater than or equal to 92% - Pulmonology following - recommendations reviewed - Dr. Castellon for thoracentesis today -- Will need multiple taps - question malignancy Portal HTN/Varieces/Liver Cirrhosis/Ascites: - Drinks 2-3 glasses wine each night - Increased beta john - Metoprolol 75 mg BID - consideration for adding spironolactone and lasix? - Consult GI HTN/Hypertensive Urgency: Systolic Elevation - Question adjustment of dosing to eliminate multiple medications - Clonidine 0.1 mg daily, diltiazem 120 mg daily, lisinopril 20 mg BID T2DM: - Hold Metformin - BSG AC HS with SSI coverage DVT Prophylaxis: TANMAY/SCDs Code Status: FULL RESUSCITATION Disposition: Hopeful D/C home in 1-2 days
--- NOTE | 2016-11-13 11:53 | Pharmacy Progress Note ---
Pharmacy Antibiotic Consult Date of Service: Nov 13, 2016. Pharmacy Dosing Scope Pharmacy is consulted to initiate Vancomycin IV dosing therapy, order appropriate labs and adjust drug dose/frequency. Subjective The patient is a 61 year old female admitted on Nov 12, 2016 at 21:24 with hypertension urgency & right sided pleural effusion started on Vancomycin and Levaquin for Pneumonia by Dr. Moy. Objective Height (Feet): 5 Height (Inches): 6.00 Weight (Kilograms): 85.600 Lab Results (24hrs): Laboratory Tests Test 11/13/16 06:50 BUN/Creatinine Ratio 14.0 Blood Urea Nitrogen 6 mg/dl Creatinine 0.45 mg/dl White Blood Count 5.09 K/uL Red Blood Count 4.77 M/uL Hemoglobin 12.5 g/dL Hematocrit 38.1 % Mean Corpuscular Volume 79.9 fL Mean Corpuscular Hemoglobin 26.2 pg Mean Corpuscular Hemoglobin Concent 32.8 g/dl Platelet Count 172 K/uL Mean Platelet Volume 10.5 fL Neutrophils (%) (Auto) 88.0 % Lymphocytes (%) (Auto) 10.4 % Monocytes (%) (Auto) 1.4 % Eosinophils (%) (Auto) 0.0 % Basophils (%) (Auto) 0.0 % Neutrophils # (Auto) 4.48 K/uL Lymphocytes # (Auto) 0.53 K/uL Monocytes # (Auto) 0.07 K/uL Eosinophils # (Auto) 0.00 K/uL Basophils # (Auto) 0.00 K/uL Recent Pertinent Medications Item Value Date Time Levofloxacin 500 100 ml @ 100 mls/hr 11/13/16 0000 mg/Prmx Q24H/IV 11/13/16 0008 Assessment & Plan Loading dose: Vancomycin 2200mg (~25mg/kg) IV X 1 dose then: Vancomycin 1200mg (~14mg/kg) IV every 10 hours thereafter. Will check trough level prior to 1000 dose on 11/14/16. Goal trough level estimate: between 15-20 mcg/mL. Pharmacy will continue to follow and will adjust dose/frequency as necessary. Thank you
[2016-11-13] MEDS ORDERED: VANCOMYCIN INJ 1,200 MG in SODIUM CHLORIDE 0.9% 250ML 250 ML IV SCH (14:00)
--- NOTE | 2016-11-13 14:10 | Procedure Note ---
Procedure Note Date of Service Nov 13, 2016. Procedure Note Procedure: Thoracentesis Consent: Obtained to the patient placed into the chart Preprocedural diagnosis: Right pleural effusion Postprocedural diagnosis: Right pleural effusion Analgesia: 7 cc of 1% liquid lidocaine Procedure: Patient was placed in the upright sitting position and ultrasound used for thoracic guidance and marker placement on the right hemithorax. The procedure was performed at the posterior axillary line approximately the seventh intercostal space. After the site was marked a modified Seldinger technique was then used for thoracentesis catheter placement. Mildly ferrara pleural fluid was removed. Approximately 1.5 L was removed. There was no active bleeding at the end of the procedure. Postprocedural evaluation of the apical subsegment of the right upper lobe showed the presence of fluid. Complications: None Follow-up: Patient be followed up in her inpatient room
[2016-11-13 14:37] LABS: PLEURAL FLUID APPEARANCE HAZY; PLEURAL FLUID COLOR YELLOW; PLEURAL FLUID SOURCE RIGHT LUNG; PLEURAL FLUID WBC (A) 1258 /uL
--- NOTE | 2016-11-13 14:56 | DIAGNOSTIC IMAGING REPORT ---
CHEST ONE VIEW PORTABLE CLINICAL HISTORY: S/P Thoracentesis postprocedural evaluation COMPARISON STUDY: 11/12/2016 FINDINGS: Interval right thoracentesis. Interval decrease in volume of a right pleural effusion. No evidence for postprocedural pneumothorax. IMPRESSION: No evidence for postprocedural pneumothorax status post right thoracentesis Electronically signed by: Jamarcus Adkins M.D. 11/13/2016 2:54 PM Dictated Date/Time: 11/13/2016 2:53 PM
[2016-11-13 15:01] LABS: PLEURAL FLUID TOTAL PROTEIN 2.8 g/dl
[2016-11-13] MEDS ORDERED: LPR50X PO (15:59)
[2016-11-13] MEDS ORDERED: SPR25 PO (15:59)
[2016-11-13] MEDS ORDERED: INSULIN ASPART 100 UNITS/ML 3 ML PEN SC SCH (16:15)
--- NOTE | 2016-11-13 16:16 | Discharge Instructions ---
Discharge Instructions Date of Service Nov 13, 2016. Admission Reason for Admission: Hypertensive Urgency, Pleural Effusion, Right Discharge Discharge Diagnosis / Problem: Pleural Effusion Discharge Goals Goal(s): Decrease discomfort, Improve function, Increase independence Activity Recommendations Activity Limitations: as noted below Lifting Limitations: gradually increase as tolerated Exercise/Sports Limitations: gradually increase as tolerated May Resume Sexual Activity: when tolerated Shower/Bathe: no limitations Driving or Machine Use: no limitations . Instructions / Follow-Up Instructions / Follow-Up Right Lung Pleural Effusion: - You were seen by Pulmonology - Dr. Castellon - You had fluid removed from your lung for culturing and further testing to help determine the underlying cause of this fluid accumulation - Initially concern placed for pneumonia. However, your symptoms are related to this fluid and not an infectious source and it would be best to stop further antibiotic use at this time - You may continue to use Tessalon perles to help with the cough as this may continue as there is still fluid to be removed - Continue using the inhaler you were prescribed if you develop intermittent shortness of breath - Due to the amount of fluid in your chest you are not breathing as you normally do. -- At this time you will require oxygen - the two step you performed recommends oxygen at 2 L with rest and 3 L with ambulation Portal Hypertension: - CT of your abdomen revealed some varices (enlarged veins) in the liver which suggests high pressure placed on these vessels - To help reduce this pressure your Metoprolol was increased to 50 mg twice a day and Spironolactone 50 mg daily was added - these medications can help with your blood pressure too Diabetes: - You received contrast to obtain imaging today. - You may resume this on Wednesday11/15/2016 - in the meantime continue a low carbohydrate (sugar) diet and avoid sweets until you can continue your Metformin Follow-Up: - You will be contacted with a follow-up appointment by Dr. Castellon's office -- His office is [address] [place] [address], [place] [id number] - Keep your previously established GI appointment with Dr. Martinez and your family doctor Current Hospital Diet Patient's current hospital diet: Diabetes Type 2 Diet Discharge Diet Recommended Diet: Diabetes Type 2 Diet Pending Studies Studies pending at discharge: yes List of pending studies: Cytology and Culture of Pleural Fluid obtained from Thoracentesis Laboratory Results Hemoglobin A1c Test 10/29/16 09:53 Range/Units Estimated Average Glucose 117 mg/dl Hemoglobin A1c 5.7 H 4.5-5.6 % Lipid Panel Test 10/29/16 09:53 Range/Units Triglycerides Level 93 0-150 mg/dl Cholesterol Level 117 0-200 mg/dl HDL Cholesterol 22 mg/dl Cholesterol/HDL Ratio 5.3 LDL Cholesterol, Calculated 76 mg/dl Medical Emergencies . Who to Call and When: Medical Emergencies: If at any time you feel your situation is an emergency, please call 911 immediately. . Non-Emergent Contact Non-Emergency issues call your: Primary Care Provider Call Non-Emergent contact if: you have a fever, your pain is concerning you, you have any medication questions . . "Provider Documentation" section prepared by Marielena Uriarte. VTE Core Measure Inpt VTE Proph given/why not?: SCD's
--- NOTE | 2016-11-13 16:30 | GASTROINTESTINAL CONSULTATION ---
DATE OF CONSULTATION: 11/13/2016 REASON FOR EVALUATION: Cirrhosis. HISTORY OF PRESENT ILLNESS: The patient is a 61-year-old who I had seen in July for screening colonoscopy and had some polyps removed. The patient was scheduled to see me later this month as a new patient in the office to evaluate her possible liver disease. The patient prior to this was admitted to the hospital here with a right-sided pleural effusion that was drained today, and the results are pending. The patient reports no previous pulmonary disease. She did have a CAT scan that shows a nodular liver and evidence of portal hypertension. There is a scant amount of ascites but not enough to tap. She reports no GI Symptoms. No prior history of liver disease, although she does have metabolic syndrome with hypertension, elevated lipids, diabetes, and elevated BMI. Of 90% of patients with metabolic syndrome end up with fatty liver which can progress to steatohepatitis and this is most likely the underlying cause for her liver disease. Regardless, she needs to be evaluated for other potential causes. She is having no encephalopathy. There is no evidence of hepatoma on her CT scan. There is trace ascites and there is evidence of portal hypertension on her CAT scan. PAST MEDICAL HISTORY: Remarkable for asthma, bronchitis, hypertension, diabetes, elevated lipids, elevated BMI. MEDICATIONS: Per list including metoprolol. ALLERGIES: None. FAMILY HISTORY: Noncontributory. SOCIAL HISTORY: Former smoker. She is , lives at home. REVIEW OF SYSTEMS: Positive for some shortness of breath and some ankle swelling. PHYSICAL EXAMINATION: GENERAL: The patient appears in no acute distress with nasal oxygen on. VITAL SIGNS: Blood pressure is 178/82, pulse 55, temperature is 36.4, O2 saturation is 91% on 2 liters. SKIN: Shows palmar erythema and spider angioma on her face and chest. LUNGS: Showed decreased breath sounds. HEART: Showed a normal S1 and S2, regular rate and rhythm. ABDOMEN: Soft, no palpable ascites. EXTREMITIES: Showed trace edema in her ankles and some stasis dermatitis. NECK: Showed no evidence of encephalopathy or asterixis. LABORATORY DATA: Shows creatinine of 0.45, INR of 1.4 and a bilirubin of 1.4 yielding a relatively low MELD score. Albumin is 3.2. IMPRESSION: The patient appears to have cirrhosis based on CT findings and evidence of nodular liver and portal hypertension, and minimal ascites. The patient has metabolic syndrome and this is a significant risk factor for steatohepatitis, which can lead to cirrhosis. I am planning to order several other tests for potential cause of liver disease including hepatitis B and C serologies, alpha 1 antitrypsin level, iron studies, antinuclear antibody. I will get an alpha fetoprotein and also screen for hepatoma. In addition, I plan on beginning her on Aldactone 50 mg once a day for minimal ascites. We will start her on vitamin E 400 units a day for antioxidant effect. She should also be on a multiple vitamin once a day. We will check vitamin D as well and I would recommend that she change from metoprolol which is a selective beta john to a nonselective beta john to help reduce splanchnic pressure to reduce risks in her portal vein. The nonselective beta john can be propranolol, carvedilol or nadolol. As an outpatient, she will need to have an EGD to evaluate for esophageal varices. Dr. Alvarado will be covering through the weekend.
[2016-11-13 17:02] LABS: FERRITIN 79.2 ng/ml (8.0-388.0)
--- NOTE | 2016-11-13 17:08 | Discharge Summary ---
Discharge Summary Date of Service Nov 13, 2016. (Marielena Uriarte PA-C) Discharge Summary Admission Date: Nov 12, 2016 at 21:24 Discharge Date: Nov 13, 2016 Discharge Disposition: Home Principal Diagnosis: Right Pleural Effusion Problems/Secondary Diagnoses: Medical Problems: (1) Asthma (2) History of asthma (3) History of bronchitis (4) History of hypertension (5) Hypertensive urgency (6) Pleural effusion, right Procedures: 1. CT OF THE CHEST WITH IV CONTRAST CLINICAL HISTORY: Unexplained pleural effusion COMPARISON STUDY: Chest x-ray dated 11/12/2016 TECHNIQUE: Following the IV administration of 117 mL of Optiray-320, CT of the thorax was performed from the thoracic inlet to the lung bases. Images are reviewed in the axial, sagittal, and coronal planes. IV contrast was administered without complication. CT DOSE: FINDINGS: Thyroid: There is a large complex left lobe thyroid nodule containing calcifications. This was previously described on sonography. Thoracic aorta: The thoracic aorta is normal in course and caliber, noting standard 3-vessel arch anatomy. No aneurysm or dissection is seen. Pulmonary vasculature: The pulmonary trunk is normal in caliber. There are no central filling defects identified to suggest pulmonary embolus. Note that this examination was not protocoled for the evaluation of pulmonary emboli. HEART: The heart is normal in size and configuration, without pericardial effusion. Lungs and pleural spaces: There is a large right pleural effusion with compressive atelectasis of the right lower middle and upper lobes. There are groundglass opacities within the left upper lobe, statistically inflammatory. Short-term follow-up is recommended. Mediastinum: There is no mediastinal lymphadenopathy. Samira: Clear. Axilla: Clear. Upper abdomen: The liver has a cirrhotic morphology. The spleen is enlarged. There is ascites. Skeletal structures: There are no lytic or blastic osseous lesions. IMPRESSION: 1. Large right pleural effusion with compressive right lung atelectasis 2. Multifocal left upper lobe groundglass opacities, likely inflammatory. Radiographic follow-up is recommended 3. Large complex left lobe thyroid nodule 4. Hepatic steatosis. Cirrhotic morphology of the liver. Splenomegaly. Ascites. 2. CT ABD/PELVIS IV CONTRAST ONLY CLINICAL HISTORY: Right pleural effusion. Hepatic cirrhosis. COMPARISON STUDY: None. TECHNIQUE: Following the IV administration of 117 mL of Optiray-320, CT scan of the abdomen and pelvis was performed from the lung bases to the proximal femurs. Images are reviewed in the axial, sagittal, and coronal planes. IV contrast was administered without complication. CT DOSE: 1242.49 mGy.cm FINDINGS: Lower chest: There is a large right pleural effusion with compressive right lower lobe atelectasis. Liver: There is hepatic steatosis. The liver has a cirrhotic morphology. The portal vein appears patent. Multiple varices are visualized. Gallbladder: Unremarkable. Spleen: The spleen is enlarged measuring 14.3 cm. Pancreas: Unremarkable. Adrenal glands: Unremarkable. Kidneys: There is symmetric renal cortical enhancement. The kidneys are normal in size without hydronephrosis. Bowel: There are no transition zones indicate bowel obstruction. Inflammatory changes are difficult to assess due to the ascites and mesenteric infiltration Peritoneum: There is a small to moderate amount of ascites present. There is ascitic fluid within an umbilical hernia. Vasculature: The abdominal aorta is normal in course and caliber. Multiple varices are visualized. These are most pronounced in the region of the right paracolic gutter. There are also multiple anterior varices. Multiple varices would elevate the complication risk of paracentesis. Adenopathy: None. Pelvic viscera: The uterus appears surgically absent Skeletal structures: No destructive osseous lesions are seen. IMPRESSION: 1. Hepatic cirrhosis, splenomegaly, and multiple varices. There is also a small to moderate amount of ascites present. Paracentesis would not be recommended, unless strongly indicated due to the relatively low volume of ascites and the multiple varices. 3. CHEST ONE VIEW PORTABLE CLINICAL HISTORY: S/P Thoracentesis postprocedural evaluation COMPARISON STUDY: 11/12/2016 FINDINGS: Interval right thoracentesis. Interval decrease in volume of a right pleural effusion. No evidence for postprocedural pneumothorax. IMPRESSION: No evidence for postprocedural pneumothorax status post right thoracentesis 4. THORACENTESIS Procedure: Thoracentesis Consent: Obtained to the patient placed into the chart Preprocedural diagnosis: Right pleural effusion Postprocedural diagnosis: Right pleural effusion Analgesia: 7 cc of 1% liquid lidocaine Procedure: Patient was placed in the upright sitting position and ultrasound used for thoracic guidance and marker placement on the right hemithorax. The procedure was performed at the posterior axillary line approximately the seventh intercostal space. After the site was marked a modified Seldinger technique was then used for thoracentesis catheter placement. Mildly ferrara pleural fluid was removed. Approximately 1.5 L was removed. There was no active bleeding at the end of the procedure. Postprocedural evaluation of the apical subsegment of the right upper lobe showed the presence of fluid. Complications: None Follow-up: Patient be followed up in her inpatient room Consultations: 1. Pulmonology - Dr. Oreilly 2. Gastroenterology - Dr. Martinez (Marielena Uriarte, TANI) Medication Reconciliation New Medications: Metoprolol Tartrate (Metoprolol Tartrate) 50 Mg Tab 50 MG PO BID for 14 Days Spironolactone (Spironolactone) 25 Mg Tab 50 MG PO QAM for 14 Days, #28 TAB Continued Medications: Aspirin (Aspirin Ec) 81 Mg Tab 81 MG PO HS Atorvastatin (Lipitor) 10 Mg Tab 10 MG PO HS, TAB Benzonatate (Tessalon Perles) 100 Mg Cap 100 MG PO TID PRN for Cough, CAP Bisoprolol/Hctz (Ziac 10MG/6.25MG) Tab 1 TAB PO HS, TAB Cinnamon (Cinnamon) 500 Mg Cap 500 MG PO DAILY Clonidine Hcl (Catapres) 0.1 Mg Tab 1 TAB PO HS for 30 Days, #30 TAB 1 Refill Diltiazem Hcl Ext Rel (Tiazac) 120 Mg Capcr 120 MG PO HS, CAP Flaxseed (Linseed) (Flax Seed Oil) 1 Cap Cap 1000 MG PO HS Garlic (Garlic) 500 Mg Cap 500 MG PO AMPM Lisinopril (Zestril) 20 Mg Tab 20 MG PO BID, TAB Metformin Hcl (Glucophage) 1,000 Mg Tab 1000 MG PO HS, TAB Omeprazole (Prilosec) 20 Mg Capcr 20 MG PO DAILY Potassium Gluconate (Potassium Gluconate) 550 Mg Tab 550 MG PO HS Probiotic Product (Probiotic) 1 Cap Cap 1 CAP PO DAILY Venlafaxine Hcl (Effexor Extended Rel) 150 Mg Capcr 150 MG PO DAILY [Proair] () 108 (90 BASE)MCG/ACT 1-2 PUFFS INH Q4-6HRS PRN for SOB/Wheezing Discontinued Medications: Azithromycin (Zithromax Z-Sathish) 250 Mg Tab 1 PKT PO UD for 5 Days, #1 PKT START November Metoprolol Tartrate (Lopressor) (Lopressor) 25 Mg Tab 25 MG PO BID, TAB Discharge Exam REVIEW OF SYSTEMS: General/Constitutional: Denies fever/chills, fatigue, weakness, weight gain/loss ENT: + Rhinorrhea; Denies visual changes, hearing loss, sore throat, trouble swallowing Cardiovascular: + Chest Tightness; Denies palpitations, edema Respiratory: + Non-productive cough, SOB, orthopnea; Denies sputum, wheezing GI: Denies nausea, vomiting, abdominal pain, constipation, diarrhea, melena/ hematochezia : Denies dysuria, frequency, hematuria Musculoskeletal: Denies joint/muscle aches, weakness, swelling Neurologic: Denies dizziness/lightheadedness, numbness/tingling, weakness Psychiatric: Deferred Endocrine: Deferred Hematologic/Lymphatic: Denies bleeding/clotting abnormalities Skin: Denies rash, itch, new skin changes, easy bruising Allergy/Immunologic: Deferred PHYSICAL EXAM:: General Appearance: WDWN in NAD who is A&O x 3 HEENT: Head is normocephalic/atraumatic; EOMI; PERRLA; Hearing grossly intact; Mucous membranes moist; Pharynx negative for exudate/lesions Neck: Supple; Trachea midline; Neg JVD; Neg lymphadenopathy Heart: RRR with no M/G/R Lungs: Lung lung osborn CTA, R lung osborn from base to mid-lung diminished; Respirations unlabored; Neg accessory muscle use Abdomen: Soft, non-tender, non-distended; Positive BS x 4 quadrants; Neg organomegaly Extremities: Capillary refill < 2 seconds; Neg cyanosis or edema Neurological: Speech clear; Gross motor/sensory function intact; Neg focal neurologic deficits Psychiatric: Appropriate mood/affect Skin: Normal Color; Warm/Dry; Neg rashes, ecchymosis, lacerations/ulcerations (Marielena Uriarte, PADioneC) Hospital Course ADMISSION: The patient is a 61-year-old female who presents to the emergency department after being referred by her PCP for abnormal lab work and chest x-ray , performed due to her complaint of shortness of breath over the previous few days. She notes chest tightness at rest and when she is mobile, and has also noted bilateral leg swelling. She reports no recent change in diet, activity level, travel or sick exposures. She is a former smoker 25 years, and has a history of asthma and asthmatic bronchitis. She does drink 2-3 glasses of wine each night. HOSPITAL COURSE: Ms. Zapien was admitted for R Pleural Effusion. CT with contrast of the chest and abdomen/pelvis performed which suggested large right pleural effusion, groundglass opacity likely inflammatory, and liver cirrhosis/ portal hypertension/varices. Pulmonology and gastroenterology consulted. She was initially started on antibiotic treatment however findings in clinical presentation does not support infectious source. Procalcitonin was negative and patient is afebrile without leukocytosis. Therapeutic and diagnostic thoracentesis completed for approximately 1.5 L. Question of underlying malignancy. Follow-up x-ray revealing no evidence of iatrogenic pneumothorax. Patient will be followed as an outpatient for continued thoracentesis and monitoring. Cytology is pending. Due to the extent of pleural effusions patient is hypoxic. She participated in a two-step which revealed a need for 2 L oxygen at rest and 3 L with ambulation. She was instructed to continue her inhaler and nebulizers as needed if asthma symptoms occur. Reinforced that her current symptoms are related to the fluid in her chest. She was not continued on antibiotics at this time. In addition, exploration of liver cirrhosis, ascites, portal hypertension, varices initiated. Patient is to follow-up with Dr. Martinez as previously established. At this time her metoprolol was increased to 50 mg BID and was initiated on spironolactone 50 mg daily. Hopefully, these conditions will also have added benefit on her blood pressure. Patient noted to be systolically hypertensive however diastolic is largely normal. All other home medications were continued as previously prescribed. Due to IV contrast patient was instructed to stop metformin for 48 hours and to avoid high carbohydrate foods. Patient is stable, oxygenating adequately on supplemental oxygen, and without acute complaints. Patient is optimal for discharge home with outpatient follow-up. Recommendations from GI - Dr. Martinez: Were not initiated in hospital as D/C process finished - Start Vitamin E 400 units a day - Start Multivitamin - Check Vit D - Change Metoprolol to non-selective beta john to reduce splanchnic pressure to reduce risks in portal vein (Propranolol, Carvedilol, Nadolol) - Outpatient EGD - evaluate for esophageal varices Total Time Spent: Greater than 30 minutes This includes examination of the patient, discharge planning, medication reconciliation, and communication with other providers. (Marielena Uriarte, PA-C) i personally examined pt and verified all castano points w A Chapito PAC feeling better wants to go home d/w dr oreilly, f/u CXR no pneumothorax. set up for home O2 A Chapito PAC extensive d/w pt and on f/u care vitals noted, nad breathing unlabored on O2, pleasant, no pallor or icterus, no significant apperance of pain hypoxia / large effusion - worrisome for malignancy but wait on cytology and further pulmonary w/u -w O2 stable for home HTN - ongoing active adjustment of meds, although asymptomatic w markedly high numbers here and likely systolic HTN in some degree acute due to stress. ongoign f/u in short order w PCP for this as well. meds increased here portal HTN -increase in BP meds in part to try to also deal with this - did not yet change to nonselective beta john as felt better done as outpt (than on day of discharge) in case of any side effects stable for home otherwise as above (Stanford Stephens, D.O.) Discharge Instructions Please refer to the electronic Patient Visit Report (Discharge Instructions) for additional information. (Marielena Uriarte, PADioneC) Additional Copies To Ale Mackenzie CRNP
[2016-11-13] MEDS ORDERED: ATORVASTATIN 10 MG TAB PO SCH (21:00)
[2016-11-13] MEDS ORDERED: CLONIDINE HCL 0.1 MG TAB PO SCH (21:00)
[2016-11-13] MEDS ORDERED: DILTIAZEM HCL 120 MG EXT REL CAP PO SCH (21:00)
[2016-11-14] MEDS ORDERED: MULTIVITAMIN TAB PO SCH (09:00)
[2016-11-14] MEDS ORDERED: SPIRONOLACTONE 25 MG TAB PO SCH (09:00)
[2016-11-14] MEDS ORDERED: TOCOPHERYL, DL-ALPHA 400 INTER.UNIT CAP PO SCH (09:00)
[2016-11-14] MEDS ORDERED: VANCOMYCIN TROUGH SCH (09:30)
[2016-11-17 10:09] LABS: AFP TUMOR MARKER SERUM 2.8 NG/ML (<6.1); ALPHA-1-ANTITRYPSIN TC 67710E 345 MG/DL (83-199)
[2016-11-30] MEDS ORDERED: ALBU18002 INH (10:31)
[2016-11-30] MEDS ORDERED: MULT-506 PO (10:31)
[2016-11-30] MEDS ORDERED: CHOL20009 PO (10:31)
[2016-11-30] MEDS ORDERED: SPIR25TA PO (10:31)
== END 2016-11-13 19:38 | disposition home or self-care (01) | DRG 186 ==
LOC: ENRESERVTM → ENRESERVDT → C.EDB 19:10 → C.2T 21:24
PROVIDERS: ADMIT Hospitalist; ATTEND Hospitalist
PROC: 0W993ZX Drainage of Right Pleural Cavity, Percutaneous Approach, Diagnostic (ICD-10-PCS; principal; 2016-11-13)
DX: J90 Pleural effusion, not elsewhere classified (principal); J18.9 Pneumonia, unspecified organism; I85.10 Secondary esophageal varices without bleeding; R18.8 Other ascites; J98.11 Atelectasis; K76.6 Portal hypertension; J45.909 Unspecified asthma, uncomplicated; F32.9 Major depressive disorder, single episode, unspecified; K21.9 Gastro-esophageal reflux disease without esophagitis; K76.0 Fatty (change of) liver, not elsewhere classified; E78.00 Pure hypercholesterolemia, unspecified; E78.5 Hyperlipidemia, unspecified; I16.0 Hypertensive urgency; I10 Essential (primary) hypertension; E11.9 Type 2 diabetes mellitus without complications; K74.60 Unspecified cirrhosis of liver; R09.02 Hypoxemia; R16.1 Splenomegaly, not elsewhere classified; Z79.82 Long term (current) use of aspirin; Z79.84 Long term (current) use of oral hypoglycemic drugs; Z68.30 Body mass index [BMI] 30.0-30.9, adult; Z87.891 Personal history of nicotine dependence; Z79.899 Other long term (current) drug therapy

== ENCOUNTER → 2016-11-12 | Outpatient (CLI) | payer OTHER ==
[~2016-11-12] MED LIST changes: +ATOR10TA82 PO; -ATOR10TA88 PO
--- NOTE | 2016-11-12 11:12 | DIAGNOSTIC IMAGING REPORT ---
CHEST 2 VIEWS ROUTINE CLINICAL HISTORY: R06.02 SOB (shortness of breath)R05 [id number] dyspnea COMPARISON STUDY: No previous studies for comparison. FINDINGS: Large right pleural effusion. Left lung is generally clear. Pleural thickening right pulmonary apex. Subtle interstitial change throughout the remainder hemithoraces. IMPRESSION: Large right pleural effusion. Electronically signed by: Jamarcus Adkins M.D. 11/12/2016 11:10 AM Dictated Date/Time: 11/12/2016 11:09 AM
[2016-11-12 12:22] LABS: BASO % 0.3 %; BASO ABS # 0.02 K/uL (0-0.2); COMPLETE YES; EOS % 2.1 %; HEMATOCRIT 37.8 % (37-47); IG% 0.2 %; LYMPH % 16.3 %; LYMPH ABS # 1.08 K/uL (1.2-3.4); MEAN CELL VOLUME 81.5 fL (80-100); MEAN CORPUSCULAR HEMOGLOBIN 26.1 pg (25-34); MONO % 6.6 %; NEUT % 74.5 %; PLATELET COUNT 186 K/uL (130-400); RED BLOOD COUNT 4.64 M/uL (4.2-5.4); WHITE BLOOD COUNT 6.64 K/uL (4.8-10.8)
[2016-11-12 12:37] LABS: ALT/SGPT 24 U/L (12-78); BLOOD UREA NITROGEN 6 mg/dl (7-18); CALCIUM 8.4 mg/dl (8.5-10.1); CARBON DIOXIDE 27 mmol/L (21-32); CHLORIDE 101 mmol/L (98-107); CREATININE 0.61 mg/dl (0.60-1.20); GLUCOSE 118 mg/dl (70-99); MAGNESIUM 1.6 mg/dl (1.8-2.4); POTASSIUM 3.5 mmol/L (3.5-5.1); SODIUM 136 mmol/L (136-145)
[2016-11-12 12:39] LABS: ALB/GLOB RATIO 0.8 (0.9-2); ALKALINE PHOSPHATASE 105 U/L (45-117); AST/SGOT 40 U/L (15-37)
== END | disposition home or self-care (01) ==
LOC: C.RAD1850 10:42
PROVIDERS: ATTEND Nurse Practitioner Adult Health
DX: R06.02 Shortness of breath (principal); R05 Cough; E83.42 Hypomagnesemia; J90 Pleural effusion, not elsewhere classified

== ENCOUNTER 2016-11-18 07:14 | Day surgery (SDC) | payer OTHER ==
[~2016-11-18] VITALS: Ht 168.9 cm; Wt 85.5 kg
--- NOTE | 2016-11-18 06:44 | History and Physical ---
History & Physical Date Nov 18, 2016. Chief Complaint Right sided pleural effusion History of Present Illness The patient is a 61 year old female with complaints of right sided pleural effusion: 61-year-old female admitted with hypertensive emergency and large right-sided pleural effusion with associated SOB. She underwent right sided thoracentesis with notable relief of her SOB. The fluid is transudative. She represents to day for follow-up transthoracic US evaluation and possible repeat thoracentesis. Past Medical/Surgical History Medical Problems: 1. HTN with associated htn urgency 2. GERD 3. Left Ankle Fx 4. DM 5. Asthma 6. Bronchitis 7. right sided pleural effusion 8. Sinus (04/12/2002) Coag Negative Staph/Corynebacterium Species 9. Elevated LFTs 10. Hyperlipidemia 11. Varicose Veins 12. Endometriosis 13. Lymes Disease 14. Thyroid Nodule 15. 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 Nichole Mammogram July 2016: WNL Vaccines: No flu shots. Will need records for other vaccines. Colonoscopy: 2015 Past Surgical History: 1. ORIF of left trimalleolar ankle fracture-dislocation 03/07/2012 2. TAHBO Additional History Hepatic Disease: No Endocrine Disorder: Yes Kidney Disease: No Hypertension: Yes Heart Disease: No Bleeding Tendencies: No Infectious Diseases: Yes (Lymes ) Allergies Coded Allergies: No Known Allergies (Unverified , 11/12/16) Home Medications Scheduled Aspirin (Aspirin Ec), 81 MG PO HS Atorvastatin (Lipitor), 10 MG PO HS Bisoprolol/Hctz (Ziac 10MG/6.25MG), 1 TAB PO HS Cinnamon (Cinnamon), 500 MG PO DAILY Clonidine Hcl (Catapres), 1 TAB PO HS Diltiazem Hcl Ext Rel (Tiazac), 120 MG PO HS Flaxseed (Linseed) (Flax Seed Oil), 1,000 MG PO HS Garlic (Garlic), 500 MG PO AMPM Lisinopril (Zestril), 20 MG PO BID Metformin Hcl (Glucophage), 1,000 MG PO HS Metoprolol Tartrate (Metoprolol Tartrate), 50 MG PO BID Omeprazole (Prilosec), 20 MG PO DAILY Potassium Gluconate (Potassium Gluconate), 550 MG PO HS Probiotic Product (Probiotic), 1 CAP PO DAILY Spironolactone (Spironolactone), 50 MG PO QAM Venlafaxine Hcl (Effexor Extended Rel), 150 MG PO DAILY Scheduled PRN Benzonatate (Tessalon Perles), 100 MG PO TID PRN for Cough [Proair], 1-2 PUFFS INH Q4-6HRS PRN for SOB/Wheezing Physical Examination Skin: warm/dry, no rash Eyes: normal inspection, EOMI, sclerae normal ENT: normal ENT inspection, pharynx normal Head: normocephalic, atraumatic Neck: supple, no adenopathy, trachea midline Respiratory/Chest: + pertinent finding (decreased BS RLLL) Cardiovascular: regular rate, rhythm, no edema, no murmur Abdomen / GI: normal bowel sounds, non tender Back: normal inspection Extremities: normal inspection, normal range of motion Neurologic/Psych: no motor/sensory deficits, alert, normal reflexes, oriented x 3 Diagnosis Large right sided pleural effusion ASA Classification: ASA Class II Plan of Treatment Right sided thoracentesis
[~2016-11-18 07:14] MED LIST changes: +ASPI81TA28 PO; +ATOR10TA82 PO; +BENZ100C18 PO; +BISO10TA14 PO; +CINN1CAP2 PO; +CTP/1 PO; +DILT120C68 PO; -DILT240C9 PO; +EFFSR150 PO; -EZET10TA47 PO; +FLAX1CAP11 PO; +GARL500C5 PO; -JANUMET PO; +LISI-725 PO; -LISI40TA PO; +LPR50X PO; -LRT5 PO; +METF1000 PO; -MICARDIS PO; +MISCCAP80 PO; -MULT-506 PO; -NEBI20TA2 PO; +OMEP20CA59 PO; +POTA550T4 PO; +PROAIR INH; +SPR25 PO
[2016-11-18 07:58] VITALS: BP 184/80; PULSE 52; TEMP 36.7; O2SAT 97; Ht 168.9 cm; Wt 85.5 kg
[2016-11-18 09:20] VITALS: BP 179/84; PULSE 59; O2SAT 96
--- NOTE | 2016-11-18 09:27 | Procedure Note ---
Procedure Note Date of Service Nov 18, 2016. Procedure Note Procedure: Right Thoracentesis Consent: Obtained to the patient placed into the chart Preprocedural diagnosis: Right pleural effusion Postprocedural diagnosis: Right pleural effusion Analgesia: 7 cc of 1% liquid lidocaine Procedure: Patient was placed in the upright sitting position and ultrasound used for thoracic guidance and marker placement on the right hemithorax. The procedure was performed at the posterior axillary line approximately the seventh intercostal space. After the site was marked a modified Seldinger technique was then used for thoracentesis catheter placement. Mildly ferrara pleural fluid was removed. Approximately 1.6 L was removed. There was no active bleeding at the end of the procedure. Postprocedural thoracic US had pleural motion with b- lines and starry night signs bu M-mode . Complications: None CXR: pending Follow-up: [facility]
[2016-11-18 09:33] VITALS: BP 174/74; PULSE 65; O2SAT 97
--- NOTE | 2016-11-18 09:47 | DIAGNOSTIC IMAGING REPORT ---
CHEST ONE VIEW PORTABLE CLINICAL HISTORY: Status post thoracentesis. COMPARISON STUDY: Chest radiograph November 13, [address] November 12, 2016 FINDINGS: No pneumothorax is identified status post thoracentesis. The right pleural effusion is decreased in size. There is a residual pleural effusion with hazy right hemithorax opacification. Cardiac size is normal. IMPRESSION: No pneumothorax following right thoracentesis. Electronically signed by: Kurtis Rosa M.D. 11/18/2016 9:45 AM Dictated Date/Time: 11/18/2016 9:43 AM
[2016-11-18 09:53] VITALS: BP 188/89; PULSE 56; O2SAT 94
[2016-11-18 10:24] VITALS: BP 161/85; PULSE 54; O2SAT 95
--- NOTE | 2016-11-18 10:51 | Discharge Instructions ---
Discharge Instructions Date of Service Nov 18, 2016. Admission Reason for Admission: Right Pleural Effusion W/Us Guidance Discharge Discharge Diagnosis / Problem: transitive right-sided pleural effusion Discharge Goals Goal(s): Improve function, Diagnostic testing Activity Recommendations Activity Limitations: resume your previous activity . Instructions / Follow-Up Instructions / Follow-Up Follow-up in the [facility] Current Hospital Diet Patient's current hospital diet: Discharge Diet Recommended Diet: Regular Diet Procedures Procedures Performed: Right-sided thoracentesis Pending Studies Studies pending at discharge: yes List of pending studies: Cytologic evaluation of the pleural fluid Laboratory Results Hemoglobin A1c Test 10/29/16 09:53 Range/Units Estimated Average Glucose 117 mg/dl Hemoglobin A1c 5.7 H 4.5-5.6 % Lipid Panel Test 10/29/16 09:53 Range/Units Triglycerides Level 93 0-150 mg/dl Cholesterol Level 117 0-200 mg/dl HDL Cholesterol 22 mg/dl Cholesterol/HDL Ratio 5.3 LDL Cholesterol, Calculated 76 mg/dl Medical Emergencies . Who to Call and When: Medical Emergencies: If at any time you feel your situation is an emergency, please call 911 immediately. . Non-Emergent Contact Non-Emergency issues call your: Road Train Driver Call Non-Emergent contact if: temperature is above 101.5 . . "Provider Documentation" section prepared by Antione Castellon. VTE Core Measure Inpt VTE Proph given/why not?: Treatment not indicated
[2016-11-18 12:22] LABS: PLEURAL FLUID APPEARANCE HAZY; PLEURAL FLUID COLOR PALE YELLOW; PLEURAL FLUID SOURCE RIGHT LUNG; PLEURAL FLUID WBC (A) 929 /uL
[2016-11-18 12:23] LABS: PLEURAL FLUID MONONUC RELAT 98.2 %; PLEURAL FLUID POLYNUC 1.8 %
--- NOTE | 2016-11-18 16:05 | Pulmonology Progress Note ---
Pulmonary Progress Note Date of Service Nov 18, 2016. Attending Dr. Castellon Subjective new onset submandibular fullness Objective patient doing well with no signs of respiratory insufficiency. Mild odynophagia but improving. Denies: fever, chills, productive cough VS: stable on RA Mouth: no signs of active infection Resp: left carmina-thorax: CTA right carmina-thorax: US showing large right pleural effusion Cardiac: S1S2 RRR US: Thorax: large right sided pleural effusion Submandibular region: inflammation and blood flow but no signs of fluid collection Assessment & Plan Submandibular Fullness: The patient has her not this is resolving( starting 4 days prior), she has no airway compromise and no signs of infection. I have consulted ENT at this time and will have her f/u in my office. She is to call my office or go to the ED if her odynophagia increases, she notes dysphagia, aspiration or difficulty breathing Data Vital Signs: Date Time Temp Pulse Resp B/P Pulse Ox O2 Delivery O2 Flow Rate FiO2 11/18/16 10:24 54 20 161/85 95 Nasal Cannula 2 11/18/16 09:53 56 20 188/89 94 Nasal Cannula 2 11/18/16 09:33 65 20 174/74 97 Nasal Cannula 2 11/18/16 09:20 59 20 179/84 96 Nasal Cannula 2 11/18/16 07:58 36.7 52 21 184/80 97 Nasal Cannula 2 Laboratory Results: Last 24 Hours Test 11/18/16 00:00 Pleural Fluid Source RIGHT LUNG Pleural Fluid Color PALE YELLOW Pleural Fluid Appearance HAZY Pleural Fluid WBC 929 /uL Pleural Fluid RBC < 3000 /uL Pleural Fluid Polynuclear WBCs % 1.8 % Pleural Fluid Mononuclear WBCs % 98.2 %
[2016-11-30] MEDS ORDERED: ALBU18002 INH (10:31)
[2016-11-30] MEDS ORDERED: SPIR25TA PO (10:31)
[2016-11-30] MEDS ORDERED: MULT-506 PO (10:31)
[2016-11-30] MEDS ORDERED: CHOL20009 PO (10:31)
== END 2016-11-18 11:03 | disposition home or self-care (01) ==
LOC: C.ACU 07:14
PROVIDERS: ATTEND Internal Medicine Critical Care Medicine
DX: J90 Pleural effusion, not elsewhere classified (principal); I10 Essential (primary) hypertension; E11.9 Type 2 diabetes mellitus without complications; J45.909 Unspecified asthma, uncomplicated; E78.5 Hyperlipidemia, unspecified; Z79.899 Other long term (current) drug therapy

== ENCOUNTER → 2016-11-27 | Outpatient (CLI) | payer OTHER ==
[~2016-11-27] MED LIST changes: +ALBU18002 INH; +CHOL20009 PO; +MULT-506 PO; +SPIR25TA PO
== END | disposition home or self-care (01) ==
LOC: C.PAPS 14:07
PROVIDERS: ATTEND Obstetrics & Gynecology
DX: Z01.419 Encounter for gynecological examination (general) (routine) without abnormal findings (principal)

== ENCOUNTER → 2016-11-30 | Day surgery (SDC) | payer OTHER ==
[~2016-11-30] VITALS: Ht 167.6 cm; Wt 81.8 kg
[~2016-11-30] MED LIST changes: +LIDOCAINE HCL 2% 2 ML VIAL (20MG/ML) ONE; +PROPOFOL IV EMULSION 10 MG/ML 20 ML VIAL IV ONE
[2016-11-30 10:32] VITALS: BMI 29.0
--- NOTE | 2016-11-30 14:03 | Endo History and Physical ---
History & Physical Date of Service: Nov 30, 2016. Chief Complaint: Cirrhosis, dyspepsia Referring Physician: sebastian mari History of Present Illness For EGD Past Surgical History Hx Cardiac Surgery: No Hx Internal Defibrillator: No Hx Pacemaker: No Hx Abdominal Surgery: Yes (LOREN BSO, D&C) Hx of Implantable Prosthesis: No Hx Post-Op Nausea and Vomiting: No Hx Cancer Surgery: No Hx Thoracic Surgery: No Hx Orthopedic: Yes (ORIF LEFT ANKLE) Hx Urinary Tract Surgery: No Family History None Social History Smoking Status: Former Smoker Hx Substance Use: No Hx Alcohol Use: Yes (2 GLASSES OF WINE DAILY) Allergies Coded Allergies: No Known Allergies (Unverified , 11/30/16) Current Medications Reported Home Medications Medications Dose Route/Sig Max Daily Dose Days Date Category Proair Respiclick (Albuterol Sulfate) 108 Mcg/Act Aer 2 Puff INH Q6H PRN 11/30/16 Reported Vitamin D (Cholecalciferol) 2,000 Unit Tab 1 Tab PO QAM 11/30/16 Reported Multivitamin (Multivitamins) Tab 1 Tab PO HS 11/30/16 Reported Aldactone (Spironolactone) 25 Mg Tab 25 Mg PO BID 11/30/16 Reported Metoprolol Tartrate 50 Mg Tab 50 Mg PO BID 14 11/13/16 Rx Potassium Gluconate 550 Mg Tab 550 Mg PO HS 11/12/16 Reported Glucophage (Metformin Hcl) 1,000 Mg Tab 1,000 Mg PO HS 11/12/16 Reported Zestril (Lisinopril) 20 Mg Tab 20 Mg PO BID 11/12/16 Reported Garlic 500 Mg Cap 500 Mg PO AMPM 11/12/16 Reported Flax Seed Oil (Flaxseed (Linseed)) 1 Cap Cap 1,000 Mg PO HS 11/12/16 Reported Catapres (Clonidine Hcl) 0.1 Mg Tab 1 Tab PO HS 30 11/12/16 Reported Tiazac (Diltiazem HCl) 120 Mg Capcr 120 Mg PO HS 11/12/16 Reported Cinnamon 500 Mg Cap 500 Mg PO HS 11/12/16 Reported Lipitor (Atorvastatin Calcium) 10 Mg Tab 10 Mg PO HS 11/12/16 Reported Aspirin Ec (Aspirin) 81 Mg Tab 81 Mg PO HS 11/12/16 Reported Probiotic (Probiotic Product) 1 Cap Cap 1 Cap PO QAM 11/12/16 Reported Prilosec (Omeprazole) 20 Mg Capcr 20 Mg PO QAM 03/05/12 Reported Effexor Extended Rel (Venlafaxine Hcl) 150 Mg Capcr 150 Mg PO HS 03/05/12 Reported Ziac 10MG/6.25MG (Bisoprolol Fumarate/HCTZ) Tab 1 Tab PO HS 03/05/12 Reported Vital Signs Weight (Kilograms): 81.82 Height (Feet): 5 Height (Inches): 6 Physical Exam General Appearance: WD/WN Respiratory/Chest: Respiratory effort: no dyspnea Cardiovascular: Heart Auscultation: RRR Abdomen: Bowel Sounds: pertinent finding (Hepatomegaly) Assessment and Plan Cirrhosis, dyspepsia for EGD
[2016-11-30 14:04] VITALS: Ht 167.6 cm; Wt 81.8 kg
--- NOTE | 2016-11-30 14:38 | Discharge Instructions ---
Endoscopy Patient Instructions Date / Procedure(s) Performed Nov 30, 2016. EGD Allergy Information Coded Allergies: No Known Allergies (Unverified , 11/30/16) Discharge Date / Findings Nov 30, 2016. Grade 1 varices, portal HTN gastropathy, gastric polyp-bx Medication Instructions Restart Stopped Medication(s): resume meds Reported Home Medications Medications Dose Route/Sig Max Daily Dose Days Date Category Proair Respiclick (Albuterol Sulfate) 108 Mcg/Act Aer 2 Puff INH Q6H PRN 11/30/16 Reported Vitamin D (Cholecalciferol) 2,000 Unit Tab 1 Tab PO QAM 11/30/16 Reported Multivitamin (Multivitamins) Tab 1 Tab PO HS 11/30/16 Reported Aldactone (Spironolactone) 25 Mg Tab 25 Mg PO BID 11/30/16 Reported Metoprolol Tartrate 50 Mg Tab 50 Mg PO BID 14 11/13/16 Rx Potassium Gluconate 550 Mg Tab 550 Mg PO HS 11/12/16 Reported Glucophage (Metformin Hcl) 1,000 Mg Tab 1,000 Mg PO HS 11/12/16 Reported Zestril (Lisinopril) 20 Mg Tab 20 Mg PO BID 11/12/16 Reported Garlic 500 Mg Cap 500 Mg PO AMPM 11/12/16 Reported Flax Seed Oil (Flaxseed (Linseed)) 1 Cap Cap 1,000 Mg PO HS 11/12/16 Reported Catapres (Clonidine Hcl) 0.1 Mg Tab 1 Tab PO HS 30 11/12/16 Reported Tiazac (Diltiazem HCl) 120 Mg Capcr 120 Mg PO HS 11/12/16 Reported Cinnamon 500 Mg Cap 500 Mg PO HS 11/12/16 Reported Lipitor (Atorvastatin Calcium) 10 Mg Tab 10 Mg PO HS 11/12/16 Reported Aspirin Ec (Aspirin) 81 Mg Tab 81 Mg PO HS 11/12/16 Reported Probiotic (Probiotic Product) 1 Cap Cap 1 Cap PO QAM 11/12/16 Reported Prilosec (Omeprazole) 20 Mg Capcr 20 Mg PO QAM 03/05/12 Reported Effexor Extended Rel (Venlafaxine Hcl) 150 Mg Capcr 150 Mg PO HS 03/05/12 Reported Ziac 10MG/6.25MG (Bisoprolol Fumarate/HCTZ) Tab 1 Tab PO HS 03/05/12 Reported Provider Instructions Activity Restrictions - No exercising or heavy lifting for 24 hours. - Do not drink alcohol the day of the procedure. - Do not drive a car or operate machinery until the day after the procedure. - Do not make any important decisions or sign important papers in 24 hours after the procedure. Following Day: - Return to full activity which may include returning to work/school. Diet Start your diet with liquids and light foods (jello, soup, juice, toast). Then eat your usual diet if not nauseated. Treatment For Common After Affects For mild abdominal pain, bloating, or excessive gas: - Rest - Eat lightly - Lie on right side Follow-Up Information Follow-up with as scheduled Anesthesia Information What You Should Know You have had a procedure that required some medicine to reduce anxiety and discomfort. This treatment is called moderate sedation. After receiving the treatment, you may be sleepy, but you will be able to breathe on your own. The effects of the treatment may last for several hours. Follow these instructions along with Activity/Diet recommendations noted above: * Do NOT do anything where dizziness or clumsiness would be dangerous. * Rest quietly at home today, then you can be up and about tomorrow. * Have a responsible person stay with you the rest of today. * You may have had an I.V. today. If so, you may take the dressing off later today. Recommendations Call your doctor if: * Trouble breathing * Continuous vomiting for more than 24 hours * Temperature above 101 degrees * Severe abdominal pain or bloating * Pain not relieved by pain medicine ordered * There is increased drainage or redness from any incision * A large amount of rectal bleeding greater than 2-3 tablespoons. (If you had a polyp/s removed or have hemorrhoids, a small amount of blood - from the rectum is to be expected.) * You have any unanswered questions or concerns. IN THE EVENT OF A SERIOUS EMERGENCY, GO TO THE NEAREST EMERGENCY ROOM Your discharge instructions were prepared by provider Quan Martinez. Patient Instructions Signature Page Harjinder Zapien Patient (or Guardian) Signature/Date: I have read and understand the instructions given to me by my caregivers. Caregiver/RN/Doctor Signature/Date: The above-named patient and/or guardian has received patient instructions on this date. + Original Patient Signature Page (only) stays with chart. Please make copy for patient.
--- NOTE | 2016-11-30 14:43 | GI REPORT ---
Procedure Date: 11/30/2016 2:27 PM Procedure: Upper GI endoscopy Indications: Dyspepsia, Cirrhosis Medicines: Propofol total dose 270 mg IV, Lidocaine 40 mg IV Complications: No immediate complications. Estimated Blood Loss: Estimated blood loss was minimal. Procedure: Pre-Anesthesia Assessment: - Prior to the procedure, a History and Physical was performed, and patient medications, allergies and sensitivities were reviewed. The patient's tolerance of previous anesthesia was reviewed. - The risks and benefits of the procedure and the sedation options and risks were discussed with the patient. All questions were answered and informed consent was obtained. After obtaining informed consent, the endoscope was passed under direct vision. Throughout the procedure, the patient's blood pressure, pulse, and oxygen saturations were monitored continuously. The scope was introduced through the mouth, and advanced to the second part of duodenum. The upper GI endoscopy was accomplished without difficulty. The patient tolerated the procedure well. Findings: Grade I varices were found in the lower third of the esophagus. One 7 mm pedunculated polyp with no bleeding and no stigmata of recent bleeding was found in the cardia. Biopsies were taken with a cold forceps for histology. Estimated blood loss was minimal. Diffuse mildly erythematous mucosa without bleeding was found in the entire examined stomach. The examined duodenum was normal. Impression: - Grade I esophageal varices. - One gastric polyp. Biopsied. - Erythematous mucosa in the stomach. - Normal examined duodenum. Recommendation: - Discharge patient to home (ambulatory). - Continue present medications. - Await pathology results. - Return to GI office as previously scheduled. Quan Martinez M.D. Quan Martinez MD 11/30/2016 2:41:45 PM This report has been signed electronically. Note Initiated On: 11/30/2016 2:27 PM I attest to the content of the Intraoperative Record and orders documented therein, exceptions below
--- NOTE | 2016-11-30 15:08 | Anesthesiology Progress Note ---
Anesthesia Post Op Note Date & Time Nov 30, 2016 at 15:07 Vital Signs Pain Intensity: 0 Vital Signs Past 12 Hours Date Time Temp Pulse Resp B/P Pulse Ox O2 Delivery O2 Flow Rate FiO2 11/30/16 14:57 58 20 139/67 95 Room Air 11/30/16 14:42 64 20 135/54 96 Room Air 11/30/16 14:03 36.7 56 20 165/86 98 Room Air Notes Mental Status: alert / awake / arousable, participated in evaluation Pt Amnestic to Procedure: Yes Nausea / Vomiting: adequately controlled Pain: adequately controlled Airway Patency, RR, SpO2: stable & adequate BP & HR: stable & adequate Hydration State: stable & adequate Anesthetic Complications: no major complications apparent
[2016-11-30 15:16] VITALS: BP 179/80; PULSE 53; O2SAT 97
== END | disposition home or self-care (01) ==
LOC: C.GI 13:41
PROVIDERS: ATTEND Internal Medicine Gastroenterology
DX: R10.13 Epigastric pain (principal); K74.60 Unspecified cirrhosis of liver; I85.00 Esophageal varices without bleeding; K31.7 Polyp of stomach and duodenum; E11.9 Type 2 diabetes mellitus without complications; J45.909 Unspecified asthma, uncomplicated; F17.200 Nicotine dependence, unspecified, uncomplicated

== ENCOUNTER → 2016-12-08 | Day surgery (SDC) | payer OTHER ==
[~2016-12-08] VITALS: Ht 167.6 cm; Wt 81.7 kg
[~2016-12-08] MED LIST changes: -BENZ100C18 PO; -LIDOCAINE HCL 2% 2 ML VIAL (20MG/ML) ONE; -PROAIR INH; -PROPOFOL IV EMULSION 10 MG/ML 20 ML VIAL IV ONE; -SPR25 PO
--- NOTE | 2016-12-08 06:01 | History and Physical ---
History & Physical Date December 08, 2016. Chief Complaint The patient is a 61 year old female with complaints of transudative right-sided pleural effusion of unknown etiology History of Present Illness The patient is a 61 year old female with complaints of transudative right-sided pleural effusion of unknown etiology: 61-year-old female with transudative right-sided pleural effusion: Right-sided transudative pleural effusion: Etiology of the pleural effusion is not known at this time. It is possible secondary to cirrhotic changes but liver does not show any signs of severe portal hypertension or end-stage liver disease at this time. I do suggest that we repeat thoracentesis as 3 thoracentesis or equal to 1 pleural biopsy for ruling out malignant etiologies. After the next thoracentesis I suggest we obtain a noncontract CT of the chest for full evaluation of the carmina-thorax. Past Medical/Surgical History Medical Problems: (1) Asthma (2) History of asthma (3) History of bronchitis (4) History of hypertension (5) Hypertensive urgency (6) Pleural effusion, right Additional History Hepatic Disease: Yes (SANCHEZ) Endocrine Disorder: No Kidney Disease: No Hypertension: Yes Heart Disease: No Bleeding Tendencies: No Infectious Diseases: No Allergies Coded Allergies: No Known Allergies (Verified , 11/30/16) Home Medications Scheduled Aspirin (Aspirin Ec), 81 MG PO HS Atorvastatin (Lipitor), 10 MG PO HS Bisoprolol/Hctz (Ziac 10MG/6.25MG), 1 TAB PO HS Cholecalciferol (Vitamin D), 1 TAB PO QAM Cinnamon (Cinnamon), 500 MG PO HS Clonidine Hcl (Catapres), 1 TAB PO HS Diltiazem Hcl Ext Rel (Tiazac), 120 MG PO HS Flaxseed (Linseed) (Flax Seed Oil), 1,000 MG PO HS Garlic (Garlic), 500 MG PO AMPM Lisinopril (Zestril), 20 MG PO BID Metformin Hcl (Glucophage), 1,000 MG PO HS Metoprolol Tartrate (Metoprolol Tartrate), 50 MG PO BID Multivitamin (Multivitamin), 1 TAB PO HS Omeprazole (Prilosec), 20 MG PO QAM Potassium Gluconate (Potassium Gluconate), 550 MG PO HS Probiotic Product (Probiotic), 1 CAP PO QAM Spironolactone (Aldactone), 25 MG PO BID Venlafaxine Hcl (Effexor Extended Rel), 150 MG PO HS Scheduled PRN Albuterol Sulfate (Proair Respiclick), 2 PUFF INH Q6H PRN for Shortness of Breath Physical Examination Skin: warm/dry, no rash Eyes: normal inspection, EOMI, sclerae normal ENT: normal ENT inspection, pharynx normal Head: normocephalic, atraumatic Neck: supple, no adenopathy, trachea midline Respiratory/Chest: + pertinent finding (decreased BS with dullnees to percution of the RLL ) Cardiovascular: regular rate, rhythm, no edema, no murmur Abdomen / GI: normal bowel sounds, non tender Back: normal inspection Extremities: normal inspection, normal range of motion Neurologic/Psych: no motor/sensory deficits, alert, normal reflexes, oriented x 3 Diagnosis Transudative right-sided pleural effusion of unknown etiology ASA Classification: ASA Class II Plan of Treatment Right sided thoracentesis and thoracic US evaluation
[2016-12-08 11:04] VITALS: BP 141/57; PULSE 48; TEMP 36.5; O2SAT 97; Ht 167.6 cm; Wt 81.7 kg
--- NOTE | 2016-12-08 12:20 | Procedure Note ---
Procedure Note Date of Service December 08, 2016. Procedure Note Procedure: Right sided thoracentesis Consent: obtained via the patient and placed into the chart Pre-procedural Dx: Transudative Right sided pleural effusion Post-procedural Dx: Transudative Right sided pleural effusion Analgesia: 8cc of 1% liquid lidocaine Procedure: Thoracic US was used to define the entri-point. While the patient was in an up right position a sight, with the US, was marked at the posterior right axillary line at the 8th inter-costal space. The patient was then draped and prepped in a sterile fashion. A modified Seldinger technique was then used for catheter placement. Approximally 1.5L of ferrara pleural fluid was removed. Post procedural US and CXR should no signs of right sided PTX. Complications: none EBL: 2cc F/U: at the [facility]
--- NOTE | 2016-12-08 12:59 | Discharge Instructions ---
Discharge Instructions Date of Service December 08, 2016. Admission Reason for Admission: *Dr Castellon Doing* Right Pleural Effusion Discharge Discharge Diagnosis / Problem: Right sided pleural effusion Discharge Goals Goal(s): Improve function, Diagnostic testing Activity Recommendations Activity Limitations: resume your previous activity . Instructions / Follow-Up Instructions / Follow-Up Follow-up Pulmonary Clinic Current Hospital Diet Patient's current hospital diet: Discharge Diet Recommended Diet: Regular Diet Procedures Procedures Performed: Right sided thoracentesis Pending Studies Studies pending at discharge: yes List of pending studies: cytologic analysis of pleural fluid Laboratory Results Hemoglobin A1c Test 10/29/16 09:53 Range/Units Estimated Average Glucose 117 mg/dl Hemoglobin A1c 5.7 H 4.5-5.6 % Lipid Panel Test 10/29/16 09:53 Range/Units Triglycerides Level 93 0-150 mg/dl Cholesterol Level 117 0-200 mg/dl HDL Cholesterol 22 mg/dl Cholesterol/HDL Ratio 5.3 LDL Cholesterol, Calculated 76 mg/dl Medical Emergencies . Who to Call and When: Medical Emergencies: If at any time you feel your situation is an emergency, please call 911 immediately. . Non-Emergent Contact Non-Emergency issues call your: Operating Room Coordinator Call Non-Emergent contact if: temperature is above 101.5 . . "Provider Documentation" section prepared by Antione Castellon. . VTE Core Measure Inpt VTE Proph given/why not?: Treatment not indicated
[2016-12-08 13:06] VITALS: BP 137/76; PULSE 55; TEMP 37; O2SAT 97
--- NOTE | 2016-12-08 13:13 | DIAGNOSTIC IMAGING REPORT ---
CHEST ONE VIEW PORTABLE CLINICAL HISTORY: S/P Thoracentesis COMPARISON STUDY: 11/18/2016 FINDINGS: The cardiac and mediastinal contours remain stable. There is a decreasing right pleural effusion. There are persistent right basilar airspace opacities, likely atelectatic. The left lung is clear. No pneumothorax is visualized.[ IMPRESSION: No evidence of pneumothorax status post thoracentesis. Electronically signed by: Jef Viera M.D. 12/08/2016 1:11 PM Dictated Date/Time: 12/08/2016 1:11 PM
== END | disposition home or self-care (01) ==
LOC: C.ACU 10:20
PROVIDERS: ATTEND Internal Medicine Critical Care Medicine
DX: J90 Pleural effusion, not elsewhere classified (principal); J45.909 Unspecified asthma, uncomplicated; I10 Essential (primary) hypertension; Z79.82 Long term (current) use of aspirin; Z79.899 Other long term (current) drug therapy

== ENCOUNTER → 2016-12-08 | Outpatient (CLI) | payer OTHER ==
--- NOTE | 2016-12-08 14:22 | DIAGNOSTIC IMAGING REPORT ---
CT OF THE CHEST WITHOUT IV CONTRAST CLINICAL HISTORY: COUGH, SOB, PLEURAL EFFUSION COMPARISON STUDY: 11/12/2016 CT DOSE: 351.59 mGycm TECHNIQUE: CT of the thorax was performed from the thoracic inlet to the lung bases. Images are reviewed in the axial, sagittal, and coronal planes. IV contrast was not administered for this examination. FINDINGS: Thyroid: The left of the thyroid gland remains enlarged Thoracic aorta: The thoracic aorta is normal in course and caliber, noting standard 3 vessel arch anatomy. Heart: The heart is normal in size and configuration, without pericardial effusion. Lungs and pleural spaces: There is a small right pleural effusion which is markedly decreased in volume as compared the preceding study. There are right lower lobe airspace opacities likely representing compressive atelectasis. The lungs are otherwise clear. No pneumothorax is visualized. Mediastinum: There is a minimally enlarged precarinal lymph node measuring 11 mm in short axis. Samira: There is no evidence of pathologic hilar adenopathy given the limitations of a noncontrast study Axilla: Clear. Upper abdomen: Possible splenomegaly, there is suspected hepatic cirrhosis Skeletal structures: There are no lytic or blastic osseous lesions. IMPRESSION: 1. Marked interval decrease in the size of the right pleural effusion status post thoracentesis 2. No evidence of pneumothorax 3. Suspected hepatic cirrhosis and splenomegaly 4. Minimally enlarged precarinal lymph node 5. Enlarged left lobe of the thyroid gland. Electronically signed by: Jef Viera M.D. 12/08/2016 2:21 PM Dictated Date/Time: 12/08/2016 2:11 PM
== END | disposition home or self-care (01) ==
LOC: C.CTS 13:19
PROVIDERS: ATTEND Internal Medicine Critical Care Medicine
DX: J90 Pleural effusion, not elsewhere classified (principal); R59.0 Localized enlarged lymph nodes; E04.9 Nontoxic goiter, unspecified

== ENCOUNTER → 2017-03-12 | Outpatient (CLI) | payer OTHER ==
[~2017-03-12] MED LIST changes: -ATOR10TA82 PO; +ATOR10TA88 PO
--- NOTE | 2017-03-12 11:00 | DIAGNOSTIC IMAGING REPORT ---
CHEST 2 VIEWS ROUTINE CLINICAL HISTORY: R06.02 SOB (shortness of breath)[id number] Pleural effusion, [id number] COMPARISON STUDY: 12/08/2016 FINDINGS: Small right pleural effusion. Lungs otherwise appear clear. Mild stable cardiomegaly. Left hemidiaphragm is smooth. IMPRESSION: Minimal pleural effusion right base. Otherwise negative study The above report was generated using voice recognition software. It may contain grammatical, syntax or spelling errors. Electronically signed by: Jamarcus Adkins M.D. 03/12/2017 10:59 AM Dictated Date/Time: 03/12/2017 10:58 AM
== END | disposition home or self-care (01) ==
LOC: C.RAD1850 10:39
PROVIDERS: ATTEND Internal Medicine Critical Care Medicine
DX: J90 Pleural effusion, not elsewhere classified (principal); R06.02 Shortness of breath

== ENCOUNTER → 2017-04-01 | Outpatient (CLI) | payer OTHER ==
--- NOTE | 2017-04-01 15:42 | DIAGNOSTIC IMAGING REPORT ---
CHEST 2 VIEWS ROUTINE HISTORY: 61 years-old Female acute cough. COMPARISON: Chest radiograph 03/12/2017. TECHNIQUE: Portable AP view of the chest. FINDINGS: Cardiomediastinal and hilar silhouettes are within normal limits. There is atherosclerosis of the aorta. No pneumothorax or focal airspace consolidation. Persistent small right pleural effusion is seen. Bones are grossly intact. IMPRESSION: Unchanged small right pleural effusion with otherwise negative study. The above report was generated using voice recognition software. It may contain grammatical, syntax or spelling errors. Electronically signed by: Fred Kerr M.D. 04/01/2017 3:40 PM Dictated Date/Time: 04/01/2017 3:39 PM
== END | disposition home or self-care (01) ==
LOC: C.RAD1850 13:13
PROVIDERS: ATTEND Physician Assistant
DX: J90 Pleural effusion, not elsewhere classified (principal)

== ENCOUNTER → 2017-09-09 | Outpatient (CLI) | payer OTHER ==
[~2017-09-09] MED LIST changes: +ATOR10TA82 PO; -ATOR10TA88 PO
[2017-09-09 15:40] LABS: BASO % 0.4 %; BASO ABS # 0.02 K/uL (0-0.2); EOS % 4.9 %; EOS ABS # 0.24 K/uL (0-0.5); HEMATOCRIT 38.8 % (37-47); HEMOGLOBIN 13.1 g/dL (12.0-16.0); IG# 0.01 K/uL (0.00-0.02); LYMPH % 27.8 %; LYMPH ABS # 1.36 K/uL (1.2-3.4); MEAN CELL VOLUME 91.9 fL (80-100); MEAN CORPUSCULAR HGB CONC 33.8 g/dl (32-36); MEAN PLATELET VOLUME 11.2 fL (7.4-10.4); MONO % 9.8 %; MONO ABS # 0.48 K/uL (0.11-0.59); NEUT % 56.9 %; NEUT ABS # 2.79 K/uL (1.4-6.5); PLATELET COUNT 139 K/uL (130-400); RED CELL DISTRIBUTION WIDTH CV 15.6 % (11.5-14.5); RED CELL DISTRIBUTION WIDTH SD 52.8 fL (36.4-46.3)
[2017-09-09 16:02] LABS: ALBUMIN 3.6 gm/dl (3.4-5.0); ALT/SGPT 38 U/L (12-78); BLOOD UREA NITROGEN 17 mg/dl (7-18); CALCIUM 9.4 mg/dl (8.5-10.1); CARBON DIOXIDE 28 mmol/L (21-32); CHOLESTEROL 151 mg/dl (0-200); CREATININE 0.94 mg/dl (0.60-1.20); GLUCOSE 101 mg/dl (70-99); SODIUM 134 mmol/L (136-145)
[2017-09-09 16:10] LABS: ALKALINE PHOSPHATASE 62 U/L (45-117); AST/SGOT 40 U/L (15-37); LDL CHOLESTEROL CALCULATED 82 mg/dl; TOTAL PROTEIN 7.7 gm/dl (6.4-8.2)
[2017-09-10 06:45] LABS: HEMOGLOBIN A1C 5.9 % (4.5-5.6)
== END | disposition home or self-care (01) ==
LOC: C.LAB1850 14:08
PROVIDERS: ATTEND Nurse Practitioner Adult Health
DX: E78.5 Hyperlipidemia, unspecified (principal); I10 Essential (primary) hypertension; E11.9 Type 2 diabetes mellitus without complications; E87.6 Hypokalemia; R74.8 Abnormal levels of other serum enzymes; K75.81 Nonalcoholic steatohepatitis (NASH); F41.9 Anxiety disorder, unspecified; R06.02 Shortness of breath; E83.42 Hypomagnesemia

== ENCOUNTER → 2017-09-30 | Outpatient (CLI) | payer OTHER ==
--- NOTE | 2017-10-01 14:44 | MAMMOGRAPHY REPORT ---
BILATERAL DIGITAL SCREENING MAMMOGRAM TOMOSYNTHESIS WITH CAD: 09/30/2017 CLINICAL HISTORY: Routine screening. Patient has no complaints. TECHNIQUE: Breast tomosynthesis in addition to standard 2D mammography was performed. Current study was also evaluated with a Computer Aided Detection (CAD) system. COMPARISON: Comparison is made to exams dated: 07/24/2016 mammogram, 07/22/2015 mammogram, 4 mammogram, 05/22/2013 mammogram, 05/19/2012 mammogram, and 05/12/2011 mammogram - [facility]. BREAST COMPOSITION: The tissue of both breasts is almost entirely fatty. FINDINGS: There is a stable intramammary lymph node in the upper outer middle one third of the left b reast, unchanged in size and appearance dating back to at least 06/15/2008, therefore likely benign. There are a few small benign oil cysts scattered in the breasts, and minimal vascular calcification. No suspicious mass, architectural distortion or cluster of microcalcifications is seen. IMPRESSION: ACR BI-RADS CATEGORY 1: NEGATIVE There is no mammographic evidence of malignancy. A 1 year screening mammogram is recommended. The pa tient will receive written notification of the results. Approximately 10% of breast cancers are not detected with mammography. A negative mammographic report should not delay biopsy if a clinically suggestive mass is present. Deepali Woodruff M.D. ay/:09/30/2017 15:50:47 Blender Laborer: Maeve LOPEZ)(Pema), [facility] letter sent: Normal 1/2 BI-RADS Code: ACR BI-RADS Category 1: Negative
== END | disposition home or self-care (01) ==
LOC: C.MAMM 14:32
PROVIDERS: ATTEND Obstetrics & Gynecology
DX: Z12.31 Encounter for screening mammogram for malignant neoplasm of breast (principal)

== ENCOUNTER → 2017-12-02 | Outpatient (CLI) | payer OTHER | END | disposition home or self-care (01) | LOC: C.PAPS 16:34 | PROVIDERS: ATTEND Obstetrics & Gynecology | DX: Z12.4 Encounter for screening for malignant neoplasm of cervix (principal) ==

== ENCOUNTER → 2018-03-28 | Outpatient (CLI) | payer OTHER ==
--- NOTE | 2018-03-28 14:18 | DIAGNOSTIC IMAGING REPORT ---
CHEST 2 VIEWS ROUTINE CLINICAL HISTORY: [id number] COMPARISON STUDY: June 10, 2017 FINDINGS: The cardiac and mediastinal contours remain stable. There is slight tracheal shift to the right the thoracic inlet consistent with the patient's known thyroid goiter. There is an increasing right pleural effusion with associated right basilar airspace opacities likely atelectatic.[ IMPRESSION: Further increase in the size of the small right pleural effusion with associated right basilar airspace opacities likely atelectatic Electronically signed by: Jef Viera M.D. 03/28/2018 2:16 PM Dictated Date/Time: 03/28/2018 2:15 PM
[2018-03-28 16:00] LABS: BASO % 0.4 %; BASO ABS # 0.02 K/uL (0-0.2); EOS ABS # 0.28 K/uL (0-0.5); HEMATOCRIT 36.9 % (37-47); HEMOGLOBIN 12.3 g/dL (12.0-16.0); IG# 0.01 K/uL (0.00-0.02); LYMPH % 20.1 %; LYMPH ABS # 0.93 K/uL (1.2-3.4); MEAN CELL VOLUME 97.1 fL (80-100); MEAN CORPUSCULAR HEMOGLOBIN 32.4 pg (25-34); MEAN CORPUSCULAR HGB CONC 33.3 g/dl (32-36); MEAN PLATELET VOLUME 11.1 fL (7.4-10.4); MONO % 13.8 %; MONO ABS # 0.64 K/uL (0.11-0.59); NEUT % 59.5 %; NEUT ABS # 2.75 K/uL (1.4-6.5); PLATELET COUNT 141 K/uL (130-400); RED CELL DISTRIBUTION WIDTH CV 13.3 % (11.5-14.5); RED CELL DISTRIBUTION WIDTH SD 47.1 fL (36.4-46.3); WHITE BLOOD COUNT 4.63 K/uL (4.8-10.8)
[2018-03-28 16:11] LABS: ALBUMIN 3.5 gm/dl (3.4-5.0); ALKALINE PHOSPHATASE 86 U/L (45-117); ALT/SGPT 52 U/L (12-78); AST/SGOT 59 U/L (15-37); BLOOD UREA NITROGEN 13 mg/dl (7-18); CALCIUM 8.9 mg/dl (8.5-10.1); CARBON DIOXIDE 27 mmol/L (21-32); CREATININE 0.96 mg/dl (0.60-1.20); GLUCOSE 116 mg/dl (70-99); POTASSIUM 4.5 mmol/L (3.5-5.1); SODIUM 129 mmol/L (136-145); TOTAL PROTEIN 7.6 gm/dl (6.4-8.2)
== END | disposition home or self-care (01) ==
LOC: C.RAD1850 14:05
PROVIDERS: ATTEND Nurse Practitioner Adult Health
DX: R05 Cough (principal)

== ENCOUNTER 2022-02-02 07:27 | Inpatient (IN) ==
[~2022-02-02 07:27] MED LIST changes: -ALBU18002 INH; -ASPI81TA28 PO; -ATOR10TA82 PO; -BISO10TA14 PO; -CHOL20009 PO; -CINN1CAP2 PO; -CTP/1 PO; -DILT120C68 PO; -EFFSR150 PO; +ETOMIDATE 2 MG/ML 20 ML VIAL IV ONE; -FLAX1CAP11 PO; -GARL500C5 PO; -LISI-725 PO; -LPR50X PO; -METF1000 PO; -MISCCAP80 PO; -MULT-506 PO; -OMEP20CA59 PO; -POTA550T4 PO; +ROCURONIUM BROMIDE 10 MG/ML 5 ML VIAL IV ONE; -SPIR25TA PO
[2022-02-02] MEDS ORDERED: RAPID SEQUENCE INDUCTION BAG ONE (07:29)
[2022-02-02] MEDS ORDERED: PIPERACILLIN/TAZOBACTAM 4.5 GM/120 ML BAG IV ONE (07:49)
--- NOTE | 2022-02-02 07:50 | Emergency Department Note ---
Impression & Plan Acute hypoxemic respiratory failure, Acidosis, Acute hyponatremia, Seizure, Hypomagnesemia ED Provider Note NAME: STEPHAN SUE AGE: 66 SEX: F : 1955 ARRIVES VIA: Ambulance INFORMANT: Patient, ED PROVIDER(S): Edgard Chapin MD Chief Complaint: Altered mental status, seizure HPI: Patient presents due to concern for altered mental status. The patient's last known well was sometime last evening per report to EMS. He had tried to awaken her this morning but was unable to do so. No reported falls or trauma the patient does not take any blood thinning medications. Patient's BSG at the time of EMS was 190s. The patient did have a 2-minute generalized tonic- clonic seizure for which the patient did receive IM Versed 5 mg in route. Patient did have more sonorous breath sounds and there was concern upon arrival for the patient's respiratory status. Review of the patient's chart she has a history of type 2 diabetes, esophageal varices GERD, hepatic cirrhosis secondary to [place]. upon presentation states that she had a scream like episode but was unable to be aroused thereafter. He called 911. Patient did have a seizure- like episode and was subsequently brought to the emergency department ROS: Unable to obtain secondary to the patient's clinical status GCS 3 Past medical history: See below Surgical history: See below Social history: See below Physical Exam: GENERAL: Ill in appearance, sonorous breath sounds. Nasal cannula in place EYE EXAM: Normal conjunctiva. PERRL, no anisocoria and EOM's grossly intact w/o pain. OROPHARYNX: Moist mucus membranes. Grossly normal dentition. NECK: Supple, no nuchal rigidity, no adenopathy, non-tender. No signs of meningismus. LUNGS: Sonorous breath sounds. Bradypnic. HEART: NSR, no MRG. ABDOMEN: Abdomen soft, non-tender, normo-active bowel sounds, no masses, no rebound or guarding. BACK: No CVA TTP. SKIN: No rashes and no bruising. UPPER EXTREMITIES: Upper extremities are grossly normal. LOWER EXTREMITIES: Grossly normal, no edema. NEURO EXAM: GCS of 3. Differential diagnoses: Infection, dehydration, metabolic abnormality, hypo/hyperglycemia, electrolyte disturbance, anemia, hypoxia, cardiac sources, intracerebral event, toxicologic, neurologic, as well as other pathologies. Course: Patient was seen and evaluated the bedside. Full history physical exam was performed. EKG interpreted by me Normal sinus rhythm, rate of 65, normal intervals, normal axis, no obvious ST elevations. Imaging Studies: See Below Cardiac monitoring: An order was placed for continuous cardiac monitoring. The monitor shows a rate of 64 with sinus rhythm. Procedures: Endotracheal Intubation performed by Dr. Chapin Indication: Airway protection, altered mental status. The patient was on 100% oxygen via NRB prior to the procedure. Suction, airway equipment, RSI drugs, respiratory equipment, and appropriate personnel were prepared prior to the initiation of the procedure. A time out was taken. Induction was performed with etomidate 30 mg and 100 mg of rocuronium After observing the clinical benefit of the medications, the airway was easily visualized utilizing a MAC 4 video laryngoscope. Patient did have amount of secretions. A 7.5 size ETT tube was placed atraumatically to 27 cm using standard technique. The cuff inflated without signs of malfunction. Patient had good color change. Initially there were decreased breath sounds in the left side so the patient's endotracheal tube was retracted 2 cm and then there were bilateral breath sounds, positive colormetric change, no gastric sounds, a good capnography waveform, and post procedure pulse oximetry was 100%. Post intubation sedation and paralysis was administered using propofol gtt and fentanyl PRN boluses. There were no complications. MDM Patient was seen due to concern for seizure and altered mental status. A stroke alert was initiated after intubating the patient. Blood work was obtained. Patient did have a lower bicarb and low sodium at 122. I did contact her she telestroke neurology immediately and the patient was to be taken over for CT head and CT angiography of the head and neck. ABG obtained. Patient did have a lower bicarb which may be secondary to seizure but given the concern of possibility of infection blood cultures were ordered and Zosyn was ordered. I did briefly speak with the patient's who stated that she had woken up with a screaming type episode or at least he thought that she was awake but he was unable to arouse her after the screaming like episode. No reported headache no issues last evening. No falls or trauma. [id number] BMP showed the hyponatremia 122 with a bicarb of 18. The patient's ABG showed a pH is 7.25 PCO2 of 43 and a PO2 of 169. I did ask respiratory to obtain a repeat in 1 hour to increase her rate. I discussed the case with the on-call telestroke neurologist Bhupendra Nichole and that the patient had negative imaging studies thus far. No additional intervention at this time. Patient's blood work does show the hyponatremia. Patient did have urine and serum electrolytes and osms ordered. The patient was ordered additional IV fluids.The patient does have chronic elevations in her bilirubin. The patient did have mild hypomagnesemia which was ordered for replacement. Troponin is not detectable. The patient's repeat ABG showed improvement in her pH. CT head and CT angiography head and neck were negative. I did speak with on-call neurology Dr. Garcia who stated that given the patient's clinical history did not think she was necessarily in status and did not require transfer for continuous EEG monitoring. I subsequently did speak the on-call hospitalist Dr. Paredes. Patient was admitted to the medicine service in the intensive care unit. I did speak and convey all the findings to the at bedside. He is comfortable with plan of care. Critical Care: I have personally spent 125 minutes of critical care time in direct management of this patient. This includes bedside care, interpretation of diagnostic studies, and testing, discussion with consultants, patient, and family members, and other require inpatient management activities. This 125 minutes is in excess of all separately billable procedures. Past Med/Surg History Medical History Anemia Asthma USES PRN INH 3 X WK ON AVG Diabetes mellitus, type 2 NIDDM Esophageal varices 2016 GERD (gastroesophageal reflux disease) Hepatic cirrhosis History of benign breast biopsy History of pleural effusion RT 2/2 HEPATIC CIRRHOSIS - S/P THORACENTESIS CAMARENA (nonalcoholic steatohepatitis) Pleural effusion associated with hepatic disorder Right-2017 Surgical History History of ankle surgery LT History of cataract surgery bilt History of colonoscopy W/ POLYPECTOMY History of esophagogastroduodenoscopy (EGD) History of thoracentesis RT 2017 History of tooth extraction History of total abdominal hysterectomy and bilateral salpingo-oophorectomy History of tubal ligation Family History Grandfather (Maternal) Diabetes Coronary heart disease Dyslipidemia Hypercholesterolemia Hypertension Grandmother (Maternal) Ovarian cyst Stroke Father Pancreatic cancer Hypertension Stroke Mother Bladder cancer Hypertension Sister Hypertension Other No family history of adverse response to anesthesia Denies family history of Ovarian cancer Prostate cancer Myocardial infarction Breast cancer Social History Smoking Status: Former smoker Second Hand Exposure: Yes ( A CHILD); Hx Alcohol Use: Yes Alcohol type: wine Hx Substance Use: No Preferred Language: Indonesian Communication Ability: Effective Visual Impairment: No Limitations Hearing Ability: Normal Assistant Portfolio Manager Required: No Beliefs That Will Affect Care: None marital status: Current Living Situation: Spouse current occupational status: employed Feels Safe at Home: Yes Physical Activity Frequency: 1-2 Times per Week Seatbelt Use: always Assistive Devices: Glasses Allergies Allergies Allergy/AdvReac Type Severity Reaction Status Date / Time CASANDRA Inhibitors Allergy Severe Angioedema Verified 01/31/21 15:30 Home Meds Home Medications Medication Instructions Recorded Confirmed cholecalciferol (vitamin D3) 25 1,000 unit PO HS 10/28/19 01/31/21 mcg (1,000 unit) tablet garlic 1,000 mg capsule 1,000 mg PO HS 11/05/20 01/31/21 cinnamon bark 500 mg capsule 1,000 mg PO HS cap 11/29/20 01/31/21 turmeric root extract 500 mg 500 mg PO HS 11/29/20 01/31/21 capsule ascorbic acid (vitamin C) 500 mg 500 mg PO HS 12/23/20 01/31/21 tablet (Vitamin C) ferrous sulfate 325 mg (65 mg 325 mg PO HS 12/23/20 01/31/21 iron) tablet loratadine 10 mg tablet 10 mg PO HS 12/23/20 01/31/21 Previous Rx's Medication Instructions Recorded albuterol sulfate 90 mcg/actuation 2 puff INHALATION Q6H PRN #18 gm 10/23/19 aerosol inhaler (Ventolin HFA) metformin 500 mg tablet,extended 1,000 mg PO HS #180 tab 01/13/21 release 24 hr venlafaxine 150 mg 150 mg PO HS #90 cap 01/13/21 capsule,extended release 24 hr fluticasone propionate 50 2 spray INTRANASAL DAILY #9.9 ml 01/14/21 mcg/actuation nasal spray,suspension (Flonase Allergy Relief) propranolol 40 mg tablet 40 mg PO BID #60 tab 11/07/21 omeprazole 20 mg capsule,delayed 20 mg PO QAM #90 cap 12/08/21 release hydrochlorothiazide 25 mg tablet 25 mg PO QAM #90 tab 01/19/22 spironolactone 50 mg tablet 50 mg PO BID #180 tab 01/19/22 Results & Data (ED) Vital Signs Vital Signs - 24 hr 02/02/22 07:46 02/02/22 07:50 02/02/22 08:09 Pulse Rate 78 71 68 Pulse Rate from SpO2 Sensor 68 Pulse Rhythm Regular Pulse Strength Normal Respiratory Rate 16 18 18 Blood Pressure Blood Pressure Mean Blood Pressure Position Lying Pulse Oximetry 90 99 98 Oxygen Delivery Method Non-rebreather Mechanical Vent Fraction of Inspired Oxygen 60 Sepsis Recent Fever Within 48 Hours No Sepsis New/Unexplained Change in Mental Status Yes Sepsis Action Taken by Nursing No Action Required End-Tidal CO2 40 41 02/02/22 08:10 02/02/22 08:15 02/02/22 08:17 Pulse Rate 71 65 Pulse Rate from SpO2 Sensor 71 66 Pulse Rhythm Pulse Strength Respiratory Rate 18 18 18 Blood Pressure 191/85 H Blood Pressure Mean 120 Blood Pressure Position Pulse Oximetry 99 98 Oxygen Delivery Method Fraction of Inspired Oxygen 40 Sepsis Recent Fever Within 48 Hours Sepsis New/Unexplained Change in Mental Status Sepsis Action Taken by Nursing End-Tidal CO2 43 40 41 02/02/22 08:20 02/02/22 08:30 02/02/22 08:31 Pulse Rate 66 66 Pulse Rate from SpO2 Sensor 66 66 64 Pulse Rhythm Pulse Strength Respiratory Rate 18 18 18 Blood Pressure 198/96 H 210/100 H Blood Pressure Mean 130 136 Blood Pressure Position Pulse Oximetry 97 99 99 Oxygen Delivery Method Fraction of Inspired Oxygen Sepsis Recent Fever Within 48 Hours Sepsis New/Unexplained Change in Mental Status Sepsis Action Taken by Nursing End-Tidal CO2 40 34 35 02/02/22 08:33 02/02/22 08:40 02/02/22 08:45 Pulse Rate 60 60 57 L Pulse Rate from SpO2 Sensor 61 60 58 L Pulse Rhythm Pulse Strength Respiratory Rate 18 18 18 Blood Pressure 213/90 H 206/90 H Blood Pressure Mean 131 128 Blood Pressure Position Pulse Oximetry 98 99 99 Oxygen Delivery Method Fraction of Inspired Oxygen Sepsis Recent Fever Within 48 Hours Sepsis New/Unexplained Change in Mental Status Sepsis Action Taken by Nursing End-Tidal CO2 39 37 36 02/02/22 08:50 02/02/22 09:00 02/02/22 09:06 Pulse Rate 58 L 56 L Pulse Rate from SpO2 Sensor 58 L 55 L Pulse Rhythm Pulse Strength Respiratory Rate 18 18 Blood Pressure 200/85 H 192/85 H Blood Pressure Mean 123 120 Blood Pressure Position Pulse Oximetry 98 98 Oxygen Delivery Method Fraction of Inspired Oxygen 35 Sepsis Recent Fever Within 48 Hours Sepsis New/Unexplained Change in Mental Status Sepsis Action Taken by Nursing End-Tidal CO2 35 34 02/02/22 09:11 02/02/22 09:15 02/02/22 09:20 Pulse Rate 54 L 54 L 55 L Pulse Rate from SpO2 Sensor 54 L 54 L 54 L Pulse Rhythm Pulse Strength Respiratory Rate 18 18 18 Blood Pressure 184/84 H 185/82 H Blood Pressure Mean 117 116 Blood Pressure Position Pulse Oximetry 97 97 97 Oxygen Delivery Method Fraction of Inspired Oxygen Sepsis Recent Fever Within 48 Hours Sepsis New/Unexplained Change in Mental Status Sepsis Action Taken by Nursing End-Tidal CO2 36 35 32 Home Medications Current Medication List: was personally reviewed by me Laboratory Data Attestation: I reviewed the patient's lab results. Result diagrams: 02/02/22 07:40 02/02/22 07:40 Lab Results 02/02/22 02/02/22 02/02/22 Range/Units 07:40 07:40 07:40 WBC 5.18 (4.8-10.8) K/uL RBC 3.55 L (4.2-5.4) M/uL Hgb 12.4 (12.0-16.0) g/dL POC Hgb (12.0-16.0) g/dl Hct 35.3 L (37-47) % POC Hct (37-47) % MCV 99.4 (80-100) fL MCH 34.9 H (25-34) pg MCHC 35.1 (32-36) g/dL RDW Std Deviation 49.4 H (36.4-46.3) fL RDW Coeff of Bianca 13.6 (11.5-14.5) % Plt Count 112 L (130-400) K/uL MPV 11.1 H (7.4-10.4) fL Immature Gran % (Auto) 0.4 % Neut % (Auto) 78.3 % Lymph % (Auto) 9.1 % [place] % (Auto) 6.8 % Eos % (Auto) 5.0 % Baso % (Auto) 0.4 % Neut # (Auto) 4.06 (1.4-6.5) K/uL Lymph # (Auto) 0.47 L (1.2-3.4) K/uL [place] # (Auto) 0.35 (0.11-0.59) K/uL Eos # (Auto) 0.26 (0-0.5) K/uL Baso # (Auto) 0.02 (0-0.2) K/uL Immature Gran # (Auto) 0.02 (0.00-0.02) K/uL PT 12.1 H (9.0-12.0) Seconds INR 1.1 (0.9-1.1) APTT 26.9 (21.0-31.0) Seconds PTT Ratio 1.0 POC pH (7.35-7.45) POC pCO2 (35-46) mmHg POC pO2 (80-95) mmHg POC HCO3 (19-24) ger/L POC Base Excess (-9-1.8) ger/L POC ABG O2 Sat (90-95) % POC Sodium (135-144) mmol/L Sodium 122 L (136-145) mmol/L POC Potassium (3.3-5.0) mmol/L Potassium 5.0 (3.5-5.1) mmol/L POC Chloride (101-112) mmol/L Chloride 89 L (98-107) mmol/L Carbon Dioxide 17 L (21-32) mmol/L POC Total CO2 (24-31) mmol/L Anion Gap 16 H (3-11) POC Anion Gap (16-25) mmol/L POC BUN (7-18) mg/dl BUN 20 (6-23) mg/dl Creatinine 1.02 (0.6-1.2) mg/dl POC Creatinine (0.6-1.3) mg/dl Est Cr Clr Drug Dosing Not Reportable Est GFR ( Amer) 65.9 ml/min Est GFR (Non-Af Amer) 56.9 ml/min BUN/Creatinine Ratio 19.6 (10-20) Glucose 224 H (70-99(Fasting)) mg/dl POC Glucose (other) (70-99) mg/dl Osmolality (280-300) mOsm/kg Calcium 9.3 (8.5-10.1) mg/dl POC Ioniz Calcium Augusto (1.12-1.32) mmol/l Phosphorus 3.2 (2.5-4.9) mg/dl Magnesium 1.3 L (1.7-2.4) mg/dl Total Bilirubin 1.8 H (0.2-1.0) mg/dl AST 56 H (13-39) U/L ALT 34 (7-52) U/L Alkaline Phosphatase 44 (34-104) U/L Troponin I High Sens 7.2 (0-14) pg/ml Total Protein 6.9 (6.0-8.3) gm/dl Albumin 3.9 (3.4-5.0) gm/dl Globulin 3.0 (2.5-4.0) gm/dl Albumin/Globulin Ratio 1.3 (0.9-2) SARS-CoV-2, RNA, NAAT (NEGATIVE) Blood Type Antibody Screen 02/02/22 02/02/22 02/02/22 Range/Units 07:40 07:43 07:50 WBC (4.8-10.8) K/uL RBC (4.2-5.4) M/uL Hgb (12.0-16.0) g/dL POC Hgb 12.6 (12.0-16.0) g/dl Hct (37-47) % POC Hct 37 (37-47) % MCV (80-100) fL MCH (25-34) pg MCHC (32-36) g/dL RDW Std Deviation (36.4-46.3) fL RDW Coeff of Bianca (11.5-14.5) % Plt Count (130-400) K/uL MPV (7.4-10.4) fL Immature Gran % (Auto) % Neut % (Auto) % Lymph % (Auto) % [place] % (Auto) % Eos % (Auto) % Baso % (Auto) % Neut # (Auto) (1.4-6.5) K/uL Lymph # (Auto) (1.2-3.4) K/uL [place] # (Auto) (0.11-0.59) K/uL Eos # (Auto) (0-0.5) K/uL Baso # (Auto) (0-0.2) K/uL Immature Gran # (Auto) (0.00-0.02) K/uL PT (9.0-12.0) Seconds INR (0.9-1.1) APTT (21.0-31.0) Seconds PTT Ratio POC pH (7.35-7.45) POC pCO2 (35-46) mmHg POC pO2 (80-95) mmHg POC HCO3 (19-24) ger/L POC Base Excess (-9-1.8) ger/L POC ABG O2 Sat (90-95) % POC Sodium 122 L (135-144) mmol/L Sodium (136-145) mmol/L POC Potassium 5.1 H (3.3-5.0) mmol/L Potassium (3.5-5.1) mmol/L POC Chloride 91 L (101-112) mmol/L Chloride (98-107) mmol/L Carbon Dioxide (21-32) mmol/L POC Total CO2 18 L (24-31) mmol/L Anion Gap (3-11) POC Anion Gap 20.0 (16-25) mmol/L POC BUN 20 H (7-18) mg/dl BUN (6-23) mg/dl Creatinine (0.6-1.2) mg/dl POC Creatinine 0.8 (0.6-1.3) mg/dl Est Cr Clr Drug Dosing Est GFR ( Amer) ml/min Est GFR (Non-Af Amer) ml/min BUN/Creatinine Ratio (10-20) Glucose (70-99(Fasting)) mg/dl POC Glucose (other) 231 H (70-99) mg/dl Osmolality 274 L (280-300) mOsm/kg Calcium (8.5-10.1) mg/dl POC Ioniz Calcium Augusto 1.16 (1.12-1.32) mmol/l Phosphorus (2.5-4.9) mg/dl Magnesium (1.7-2.4) mg/dl Total Bilirubin (0.2-1.0) mg/dl AST (13-39) U/L ALT (7-52) U/L Alkaline Phosphatase (34-104) U/L Troponin I High Sens (0-14) pg/ml Total Protein (6.0-8.3) gm/dl Albumin (3.4-5.0) gm/dl Globulin (2.5-4.0) gm/dl Albumin/Globulin Ratio (0.9-2) SARS-CoV-2, RNA, NAAT (NEGATIVE) Blood Type A Positive Antibody Screen NEGATIVE 02/02/22 02/02/22 Range/Units 08:17 08:58 WBC (4.8-10.8) K/uL RBC (4.2-5.4) M/uL Hgb (12.0-16.0) g/dL POC Hgb 11.6 L (12.0-16.0) g/dl Hct (37-47) % POC Hct 34 L (37-47) % MCV (80-100) fL MCH (25-34) pg MCHC (32-36) g/dL RDW Std Deviation (36.4-46.3) fL RDW Coeff of Bianca (11.5-14.5) % Plt Count (130-400) K/uL MPV (7.4-10.4) fL Immature Gran % (Auto) % Neut % (Auto) % Lymph % (Auto) % [place] % (Auto) % Eos % (Auto) % Baso % (Auto) % Neut # (Auto) (1.4-6.5) K/uL Lymph # (Auto) (1.2-3.4) K/uL [place] # (Auto) (0.11-0.59) K/uL Eos # (Auto) (0-0.5) K/uL Baso # (Auto) (0-0.2) K/uL Immature Gran # (Auto) (0.00-0.02) K/uL PT (9.0-12.0) Seconds INR (0.9-1.1) APTT (21.0-31.0) Seconds PTT Ratio POC pH 7.32 L (7.35-7.45) POC pCO2 40 (35-46) mmHg POC pO2 104 H (80-95) mmHg POC HCO3 20 (19-24) ger/L POC Base Excess -6.0 (-9-1.8) ger/L POC ABG O2 Sat 97.0 H (90-95) % POC Sodium 120 L (135-144) mmol/L Sodium (136-145) mmol/L POC Potassium 4.7 (3.3-5.0) mmol/L Potassium (3.5-5.1) mmol/L POC Chloride (101-112) mmol/L Chloride (98-107) mmol/L Carbon Dioxide (21-32) mmol/L POC Total CO2 21 L (24-31) mmol/L Anion Gap (3-11) POC Anion Gap (16-25) mmol/L POC BUN (7-18) mg/dl BUN (6-23) mg/dl Creatinine (0.6-1.2) mg/dl POC Creatinine (0.6-1.3) mg/dl Est Cr Clr Drug Dosing Est GFR ( Amer) ml/min Est GFR (Non-Af Amer) ml/min BUN/Creatinine Ratio (10-20) Glucose (70-99(Fasting)) mg/dl POC Glucose (other) (70-99) mg/dl Osmolality (280-300) mOsm/kg Calcium (8.5-10.1) mg/dl POC Ioniz Calcium Augusot (1.12-1.32) mmol/l Phosphorus (2.5-4.9) mg/dl Magnesium (1.7-2.4) mg/dl Total Bilirubin (0.2-1.0) mg/dl AST (13-39) U/L ALT (7-52) U/L Alkaline Phosphatase (34-104) U/L Troponin I High Sens (0-14) pg/ml Total Protein (6.0-8.3) gm/dl Albumin (3.4-5.0) gm/dl Globulin (2.5-4.0) gm/dl Albumin/Globulin Ratio (0.9-2) SARS-CoV-2, RNA, NAAT NEGATIVE (NEGATIVE) Blood Type Antibody Screen Administered Medications Fentanyl Citrate (Fentanyl Citrate 100 Mcg/2 Ml Vial) 50 mcg IV Q15M PRN PRN Reason: Pain Stop: 02/16/22 09:11 Last Admin: 02/02/22 12:07 Dose: 50 mcg Documented by: [id number] Admin: 02/02/22 09:57 Dose: 50 mcg Documented by: [id number] Admin: 02/02/22 09:33 Dose: 50 mcg Documented by: [id number] Propofol (Diprivan) 1,000 mg in 100 mls @ 14.85 mls/hr IV .Q6H45M [facility]; Protocol Stop: 02/05/22 07:44 Last Titration: 02/02/22 11:24 Dose: 30 mcg/kg/min, 17.8 mls/hr Documented by: [id number] Admin: 02/02/22 10:25 Dose: 30 mcg/kg/min, 17.8 mls/hr Documented by: [id number] Cosigned by: [id number] Discontinued Medications Levetiracetam 2,000 mg/ Sodium (Chloride) 270 mls @ 999 mls/hr IV NOW STA Stop: 02/02/22 07:58 Last Infusion: 02/02/22 08:32 Dose: 0 mls/hr Documented by: [id number] Admin: 02/02/22 08:15 Dose: 999 mls/hr Documented by: [id number] Piperacillin Sod/Tazobactam Sod (Zosyn) 4.5 gm in 120 mls @ 240 mls/hr IV NOW ONE Stop: 02/02/22 08:18 Last Infusion: 02/02/22 09:07 Dose: 0 mls/hr Documented by: [id number] Admin: 02/02/22 08:37 Dose: 240 mls/hr Documented by: [id number] Magnesium Sulfate/Dextrose (Magnesium Sulfate / D5w) 1 gm in 100 mls @ 200 mls/hr IV Q30M [facility] Stop: 02/02/22 09:44 Last Infusion: 02/02/22 10:25 Dose: 0 mls/hr Documented by: [id number] Admin: 02/02/22 09:53 Dose: 200 mls/hr Documented by: [id number] Infusion: 02/02/22 09:47 Dose: 0 mls/hr Documented by: [id number] Admin: 02/02/22 09:17 Dose: 200 mls/hr Documented by: [id number] Sodium Chloride (Nss 1000ml) 1,000 mls @ 999 mls/hr IV .Q1H1M ONE Stop: 02/02/22 09:45 Last Infusion: 02/02/22 10:02 Dose: 0 mls/hr Documented by: [id number] Admin: 02/02/22 09:01 Dose: 999 mls/hr Documented by: [id number] Sodium Chloride (Nss 1000ml) 1,000 mls @ 999 mls/hr IV .Q1H1M ONE Stop: 02/02/22 10:18 Last Infusion: 02/02/22 12:28 Dose: 0 mls/hr Documented by: [id number] Admin: 02/02/22 09:33 Dose: 999 mls/hr Documented by: [id number] Ioversol (Optiray 320 125ml) 120 ml IV ONCE ONE Stop: 02/02/22 07:57 Last Admin: 02/02/22 08:03 Dose: 120 ml Documented by: [id number] Miscellaneous (Rapid Sequence Induction Bag) Confirm Administered Dose 1 ea .ROUTE .STK-MED ONE Stop: 02/02/22 07:30 Last Admin: 02/02/22 12:27 Dose: Not Given Documented by: [id number] Propofol (Propofol Iv Emulsion 10 Mg/Ml 100 Ml Vial) Confirm Administered Dose 1,000 mg IV .STK-MED ONE Stop: 02/02/22 08:25 Last Admin: 02/02/22 08:38 Dose: 1,000 mg Documented by: [id number] Cosigned by: [id number] Imaging Data Radiologist's Impression: Chest X-Ray 02/02/22 07:42 XR chest 1V portable CLINICAL HISTORY: post intubation TECHNIQUE: Single frontal radiograph of the chest was obtained. Comparison: Comparison is made to chest radiograph 10/28/2019 FINDINGS: Endotracheal tube tip is 16 mm from the eusebia. The cardiomediastinal silhouette is stable. There is prominence and cephalization of the vasculature with Kanwal B lines seen. No evidence of pleural effusion or pneumothorax. IMPRESSION: Endotracheal tube tip is 16 mm from the eusebia and can be withdrawn approximately 1.5 cm for improved positioning. ACT 112: Negative or not required by law. Electronically signed by: Gary Shaffer M.D. 02/02/2022 8:[address] 02/02/22 07:42 CT head/brain wo con CLINICAL HISTORY: 66 years-old Female with Stroke Like Symptoms. Acute strokelike symptoms TECHNIQUE: Multiple axial CT images of the head were obtained without contrast. A dose lowering technique was utilized adhering to the principles of ALARA. COMPARISON: CTA head and neck of same day FINDINGS: No acute intracranial hemorrhage, midline shift, intracranial mass, hydroce phalus, territorial ischemia or abnormal extra-axial collection. Involutional changes. White matter hypodensities are suggestive of chronic microvascular ischemic disease. There is a subcentimeter chronic appearing lacunar infarct of the mid right cerebellar hemisphere. The calvarium is intact. Prior bilateral lens replacement. The paranasal sinuses, mastoid air cells, and middle ear cavities are clear. IMPRESSION: No acute intracranial abnormality. ACT 112: Negative or not required by law. The above report was generated using voice recognition software. It may contain grammatical, syntax or spelling errors. Electronically signed by: Rodolfo Kerr M.D. 02/02/2022 8:20 AM Head CTA 02/02/22 07:42 CT angio neck with con, CT angio head w con CLINICAL HISTORY: Stroke Like Symptoms TECHNIQUE: CT angiography of the head and neck was performed following intravenous administration of iodinated contrast. Coronal and sagittal MIPS were obtained from the axial data set and were submitted for review. Automated dose lowering techniques and/or adjustment according to patient size were utilized for this examination. All measurements were calculated based on NASCET criteria. CT DOSE: 1176.67 mGy.cm Comparison: None available at the time of this dictation. FINDINGS: Small thyroid nodules are seen which do not require follow-up by ACR criteria. CTA Neck: Direct origin of the left vertebral artery from the aortic arch is seen. There is no significant atherosclerotic plaque in the aortic arch or the origins of the innominate, left common carotid, and left subclavian arteries. The common carotid, external carotid, cervical segments of the internal carotid arteries, and the cervical segments of the vertebral arteries are patent without hemodynamically significant stenosis. The left vertebral artery is dominant. CTA Head: The anterior and posterior cerebral circulations are patent. No hemodynamically significant stenosis, aneurysm, dissection, or arteriovenous malformation is shown. origin of the bilateral posterior cerebral arteries noted. IMPRESSION: 1. No occlusion, hemodynamically significant stenosis, aneurysm, dissection, or arteriovenous malformation in the major intracranial arteries. 2. No occlusion, hemodynamically significant stenosis, or dissection in the major cervical arteries. Assessment of stenosis of the internal carotid arteries is based on NASCET criteria. ACT 112: Negative or not required by law. Electronically signed by: Gary Shaffer M.D. 02/02/2022 8:28 AM Neck CTA 02/02/22 07:42 CT angio neck with con, CT angio head w con CLINICAL HISTORY: Stroke Like Symptoms TECHNIQUE: CT angiography of the head and neck was performed following intravenous administration of iodinated contrast. Coronal and sagittal MIPS were obtained from the axial data set and were submitted for review. Automated dose lowering techniques and/or adjustment according to patient size were utilized for this examination. All measurements were calculated based on NASCET criteria. CT DOSE: 1176.67 mGy.cm Comparison: None available at the time of this dictation. FINDINGS: Small thyroid nodules are seen which do not require follow-up by ACR criteria. CTA Neck: Direct origin of the left vertebral artery from the aortic arch is seen. There is no significant atherosclerotic plaque in the aortic arch or the origins of the innominate, left common carotid, and left subclavian arteries. The common carotid, external carotid, cervical segments of the internal carotid arteries, and the cervical segments of the vertebral arteries are patent without hemodynamically significant stenosis. The left vertebral artery is dominant. CTA Head: The anterior and posterior cerebral circulations are patent. No hemodynamically significant stenosis, aneurysm, dissection, or arteriovenous malformation is shown. origin of the bilateral posterior cerebral arteries noted. IMPRESSION: 1. No occlusion, hemodynamically significant stenosis, aneurysm, dissection, or arteriovenous malformation in the major intracranial arteries. 2. No occlusion, hemodynamically significant stenosis, or dissection in the major cervical arteries. Assessment of stenosis of the internal carotid arteries is based on NASCET criteria. ACT 112: Negative or not required by law. Electronically signed by: Gary Shaffer M.D. 02/02/2022 8:28 AM Discharge Plan Visit Data Chief Complaint: Seizure ED Provider: Edgard Chapin Discharge Problem: Acute hypoxemic respiratory failure, Acidosis, Acute hyponatremia, Seizure, Hypomagnesemia Patient Disposition: Admitted As Inpatient Discharge Instructions Interventions: ED Discharge Assessment Last Done: 02/02/22 10:45
[2022-02-02 07:56] LABS: iSTAT Creatinine 0.8 mg/dl (0.6-1.3); iSTAT Hemoglobin 12.6 g/dl (12.0-16.0); iSTAT Ionized Calcium 1.16 mmol/l (1.12-1.32); iSTAT Potassium 5.1 mmol/L (3.3-5.0)
[2022-02-02] MEDS ORDERED: OPTIRAY 320 125ml IV ONE (07:56)
[2022-02-02 08:03] LABS: Basophils # (auto) 0.02 K/uL (0-0.2); Basophils % (auto) 0.4 %; Eosinophils # (auto) 0.26 K/uL (0-0.5); Hematocrit (blood only) 35.3 % (37-47); Hemoglobin 12.4 g/dL (12.0-16.0); Immature Granulocytes # (auto) 0.02 K/uL (0.00-0.02); Immature Granulocytes % (auto) 0.4 %; Lymphocytes # (auto) 0.47 K/uL (1.2-3.4); Lymphocytes % (auto) 9.1 %; Mean Corpuscular Hemoglobin 34.9 pg (25-34); Mean Corpuscular Hgb Conc 35.1 g/dL (32-36); Mean Corpuscular Volume 99.4 fL (80-100); Mean Platelet Volume 11.1 fL (7.4-10.4); Monocytes # (auto) 0.35 K/uL (0.11-0.59); Monocytes % (auto) 6.8 %; Neutrophils # (auto) 4.06 K/uL (1.4-6.5); Neutrophils % (auto) 78.3 %; Platelet Count 112 K/uL (130-400); RDW Coefficient of Variation 13.6 % (11.5-14.5); RDW Standard Deviation 49.4 fL (36.4-46.3); Red Blood Count 3.55 M/uL (4.2-5.4); White Blood Count 5.18 K/uL (4.8-10.8)
--- NOTE | 2022-02-02 08:21 | CT Scan Report ---
CT head/brain wo con CLINICAL HISTORY: 66 years-old Female with Stroke Like Symptoms. Acute strokelike symptoms TECHNIQUE: Multiple axial CT images of the head were obtained without contrast. A dose lowering tech nique was utilized adhering to the principles of ALARA. COMPARISON: CTA head and neck of same day FINDINGS: No acute intracranial hemorrhage, midline shift, intracranial mass, hydrocephalus, territorial ischem ia or abnormal extra-axial collection. Involutional changes. White matter hypodensities are suggestiv e of chronic microvascular ischemic disease. There is a subcentimeter chronic appearing lacunar infar ct of the mid right cerebellar hemisphere. The calvarium is intact. Prior bilateral lens replacement. The paranasal sinuses, mastoid air cells, and middle ear cavities are clear. IMPRESSION: No acute intracranial abnormality. ACT 112: Negative or not required by law. The above report was generated using voice recognition software. It may contain grammatical, syntax o r spelling errors. Electronically signed by: Rodolfo Kerr M.D. 02/02/2022 8:20 AM
[2022-02-02 08:23] LABS: INR 1.1 (0.9-1.1); Partial Thromboplastin Time 26.9 Seconds (21.0-31.0); Prothrombin Time 12.1 Seconds (9.0-12.0)
[2022-02-02] MEDS ORDERED: PROPOFOL IV EMULSION 10 MG/ML 100 ML VIAL IV ONE (08:24)
[2022-02-02 08:25] LABS: Alanine Aminotransferase 34 U/L (7-52); Albumin Globulin Ratio 1.3 (0.9-2); Albumin Level 3.9 gm/dl (3.4-5.0); Alkaline Phosphatase 44 U/L (34-104); Anion Gap 16 (3-11); Aspartate Aminotransferase 56 U/L (13-39); BUN Creatinine Ratio 19.6 (10-20); Bilirubin,Total 1.8 mg/dl (0.2-1.0); Blood Urea Nitrogen 20 mg/dl (6-23); Calcium 9.3 mg/dl (8.5-10.1); Carbon Dioxide 17 mmol/L (21-32); Chloride 89 mmol/L (98-107); Est GFR (African American) 65.9 ml/min; Est GFR (Non-African American) 56.9 ml/min; Glucose 224 mg/dl (70-99(Fasting)); Magnesium 1.3 mg/dl (1.7-2.4); Phosphorus 3.2 mg/dl (2.5-4.9); Sodium 122 mmol/L (136-145); Total Protein 6.9 gm/dl (6.0-8.3)
--- NOTE | 2022-02-02 08:30 | CT Scan Report ---
CT angio neck with con, CT angio head w con CLINICAL HISTORY: Stroke Like Symptoms TECHNIQUE: CT angiography of the head and neck was performed following intravenous administration of iodinated contrast. Coronal and sagittal MIPS were obtained from the axial data set and were submitte d for review. Automated dose lowering techniques and/or adjustment according to patient size were ut ilized for this examination. All measurements were calculated based on NASCET criteria. CT DOSE: 1176.67 mGy.cm Comparison: None available at the time of this dictation. FINDINGS: Small thyroid nodules are seen which do not require follow-up by ACR criteria. CTA Neck: Direct origin of the left vertebral artery from the aortic arch is seen. There is no signi ficant atherosclerotic plaque in the aortic arch or the origins of the innominate, left common caroti d, and left subclavian arteries. The common carotid, external carotid, cervical segments of the int ernal carotid arteries, and the cervical segments of the vertebral arteries are patent without hemody namically significant stenosis. The left vertebral artery is dominant. CTA Head: The anterior and posterior cerebral circulations are patent. No hemodynamically significan t stenosis, aneurysm, dissection, or arteriovenous malformation is shown. origin of the bilater al posterior cerebral arteries noted. IMPRESSION: 1. No occlusion, hemodynamically significant stenosis, aneurysm, dissection, or arteriovenous malfor mation in the major intracranial arteries. 2. No occlusion, hemodynamically significant stenosis, or dissection in the major cervical arteries. Assessment of stenosis of the internal carotid arteries is based on NASCET criteria. ACT 112: Negative or not required by law. Electronically signed by: Gary Shaffer M.D. 02/02/2022 8:28 AM
[2022-02-02 08:31] LABS: Troponin I High Sensitivity 7.2 pg/ml (0-14)
--- NOTE | 2022-02-02 08:41 | XRay Report ---
XR chest 1V portable CLINICAL HISTORY: post intubation TECHNIQUE: Single frontal radiograph of the chest was obtained. Comparison: Comparison is made to chest radiograph 10/28/2019 FINDINGS: Endotracheal tube tip is 16 mm from the eusebia. The cardiomediastinal silhouette is stable. There is prominence and cephalization of the vasculature with Kanwal B lines seen. No evidence of pleural effu shantanu or pneumothorax. IMPRESSION: Endotracheal tube tip is 16 mm from the eusebia and can be withdrawn approximately 1.5 cm for improved positioning. ACT 112: Negative or not required by law. Electronically signed by: Gary Shaffer M.D. 02/02/2022 8:40 AM
[2022-02-02] MEDS ORDERED: SODIUM CHLORIDE 0.9% 1000ML 1,000 ML IV ONE ×2 (08:45→09:18)
[2022-02-02 09:16] LABS: iSTAT Arterial Blood Gas HCO3 20 meg/L (19-24); iSTAT Arterial Blood Gas pCO2 40 mmHg (35-46); iSTAT Arterial Blood Gas pH 7.32 (7.35-7.45); iSTAT Arterial Blood Gas pO2 104 mmHg (80-95); iSTAT Carbon Dioxide 21 mmol/L (24-31); iSTAT Hematocrit 34 % (37-47); iSTAT Hemoglobin 11.6 g/dl (12.0-16.0); iSTAT Potassium 4.7 mmol/L (3.3-5.0); iSTAT Sodium 120 mmol/L (135-144)
[2022-02-02] MEDS: MAGNESIUM SULFATE / D5W 1 GM/100 ML BAG IV SCH ×2 (09:17→09:53)
[2022-02-02] MEDS: fentaNYL citrate 100 MCG/2 ML VIAL IV PRN ×3 (09:33→12:07)
[2022-02-02 10:15] LABS: Appearance Urine Clear (Clear); Bilirubin Urine Negative (Negative); Blood Urine Negative (Negative); Color Urine Yellow; Glucose Urine UA Negative (Negative); Ketones Urine Negative (Negative); Leukocyte Esterase Urine Negative (Negative); Nitrite Urine Negative (Negative); Protein Urine Negative (Negative); Specific Gravity Urine 1.026 (1.000-1.030); Urobilinogen Urine Negative (Negative); pH Urine 5.5 (4.5-7.5)
[2022-02-02] MEDS: propofoL 1,000 MG/100 ML VIAL IV SCH ×2 (10:25→13:41)
--- NOTE | 2022-02-02 10:39 | Electrocardiogram Report ---
Test Reason : Blood Pressure : / mmHG Vent. Rate : 065 BPM Atrial Rate : 065 BPM P-R Int : 178 ms QRS Dur : 100 ms QT Int : 414 ms P-R-T Axes : 049 -20 017 degrees QTc Int : 430 ms Poor data quality, interpretation may be adversely affected Normal sinus rhythm Left ventricular hypertrophy with QRS widening Abnormal ECG When compared with ECG of 28-OCT-2019 15:33, QRS duration has increased Confirmed by Ty Chan ([id number]) on 02/02/2022 10:38:46 AM Referred By: REFERRED SELF Confirmed By:Ty Chan
[2022-02-02 10:41] LABS: Urine Potassium 21.3 mmol/L
[2022-02-02] MEDS ORDERED: CARBOHYDRATES FOR HYPOGLYCEMIA PO PRN (12:01)
[2022-02-02] MEDS ORDERED: ONDANSETRON INJ 2 MG/ML 2 ML VIAL IV PRN (12:01)
[2022-02-02] MEDS ORDERED: DEXTROSE 50% 50 ML SYRINGE IV PRN (12:01)
[2022-02-02] MEDS ORDERED: GLUCOSE 40% GEL 15 GM TUBE PO PRN (12:01)
[2022-02-02] MEDS ORDERED: ACETAMINOPHEN 325 MG TAB PO PRN (12:01)
[2022-02-02] MEDS ORDERED: GLUCAGON FOR INJ 1 MG VIAL SQ PRN (12:01)
[2022-02-02] MEDS ORDERED: GLUCOSE 10 TABS/TUBE PO PRN (12:01)
[2022-02-02] MEDS ORDERED: GADOBUTROL 65ML VIAL IV ONE (13:38)
[2022-02-02] MEDS: INSULIN ASPART PER UNIT SC SCH ×3 (13:45→20:34)
--- NOTE | 2022-02-02 14:01 | Magnetic Resonance Report ---
MRI OF THE BRAIN COMBO CLINICAL HISTORY: Seizure. COMPARISON STUDY: CT of the brain dated 02/02/2022. TECHNIQUE: MRI of the brain was performed utilizing various T1 and T2-weighted sequences in the axial , sagittal, and coronal planes. Contrast-enhanced sequences were acquired following the administratio n of 10 cc of Gadavist. FINDINGS: Brain parenchyma: There is age-advanced involutional change noting advanced confluent subcortical and periventricular microangiopathic disease. There is no hemorrhage or mass effect. There is no restric elizabeth diffusion to suggest acute ischemia. No enhancing mass lesion is identified on the postcontrast i mages. Ibanez-white matter differentiation is preserved. 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 No extra-axial fluid collection is seen. The cerebellar ton sils are normal in configuration. Ventricles, sulci, and cisterns: Prominent secondary to involutional change. Pituitary and sella: Unremarkable. Intracranial vasculature: Normal flow voids are maintained at the skull base. Orbits: The bony orbits are grossly intact. Orbital contents are normal in appearance noting bilatera l ocular lens implants. Sinuses and mastoids: There is trace fluid in the right maxillary antrum. Mild mucosal thickening is seen in the right sphenoid sinus. The remaining paranasal sinuses are clear. The mastoid air cells ar e well pneumatized. Fluid is noted in the pharynx. Calvarium: Unremarkable. Cervical cord: Partially visualized cervical spinal cord is normal in morphology and signal intensity . IMPRESSION: No acute intracranial abnormality is identified. ACT 112: Negative or not required by law. Electronically signed by: Austin Ward M.D. 02/02/2022 2:00 PM
--- NOTE | 2022-02-02 14:07 | History & Physical Report ---
Date of Service February 02, 2022 Assessment & Plan (1) Seizure: Plan: Witnessed by EMS. Received IM Versed en route to ER. Loaded with Keppra in ER per neurology. - Continue Keppra - Intubated for airway protection in ER -> Transfer to ICU - MRI brain pending - Correct Na per ICU team (2) Acute hyponatremia: Plan: Has chronic hyponatremia per prior nephrology notes. However, usually in the 129 - 134 range. - Correction per ICU team (3) Hypertension: Plan: BP was 160/80 in the ER. - Hold HCTZ for hyponatremia - Continue beta-john (4) SANCHEZ (nonalcoholic steatohepatitis): Plan: With cirrhosis and varices on EGD on 12/24/2020. - Continue PPI (5) Diabetes mellitus, type 2: Plan: Last A1c was 6.0% in 2020. - Sliding scale insulin - Repeat A1c (6) Hyperlipidemia: Plan: Not on statin at baseline. - No acute needs (7) DVT prophylaxis: Plan: SCDs - Heparin per ICU team Admission and Anticipated Discharge Date Admission Date: February 02, 2022 History of Present Illness Primary Care Provider: AMELIA Carpio 66yo F w/ hx of HTN, cirrhosis who presents with likely seizure. Per the 's report, she was in a normal state of health yesterday. Overnight, he felt she was more twitchy than usual. This morning, she had a "screaming" incident and the could not wake her up. He called EMS, and when she was getting loaded up in the car, there is a report she had a generalized tonic- clonic seizure. She received IM Versed. In the ER, she was obtunded with a lowe red GCS. Though her oxygenation was good, the ER physician felt her airway was compromised, and she required intubation. Allergies Allergy/AdvReac Type Severity Reaction Status Date / Time CASANDRA Inhibitors Allergy Severe Angioedema Verified 01/31/21 15:30 Home Medications Medication Instructions Recorded Confirmed Type albuterol sulfate 90 mcg/actuation 2 puff INHALATION Q6H PRN #18 gm 10/23/19 01/31/21 Rx aerosol inhaler (Ventolin HFA) cholecalciferol (vitamin D3) 25 1,000 unit PO HS 10/28/19 01/31/21 History mcg (1,000 unit) tablet garlic 1,000 mg capsule 1,000 mg PO HS 11/05/20 01/31/21 History cinnamon bark 500 mg capsule 1,000 mg PO HS cap 11/29/20 01/31/21 History turmeric root extract 500 mg 500 mg PO HS 11/29/20 01/31/21 History capsule ascorbic acid (vitamin C) 500 mg 500 mg PO HS 12/23/20 01/31/21 History tablet (Vitamin C) ferrous sulfate 325 mg (65 mg 325 mg PO HS 12/23/20 01/31/21 History iron) tablet loratadine 10 mg tablet 10 mg PO HS 12/23/20 01/31/21 History metformin 500 mg tablet,extended 1,000 mg PO HS #180 tab 01/13/21 01/31/21 Rx release 24 hr venlafaxine 150 mg 150 mg PO HS #90 cap 01/13/21 01/31/21 Rx capsule,extended release 24 hr fluticasone propionate 50 2 spray INTRANASAL DAILY #9.9 ml 01/14/21 01/31/21 Rx mcg/actuation nasal spray,suspension (Flonase Allergy Relief) propranolol 40 mg tablet 40 mg PO BID #60 tab 11/07/21 Rx omeprazole 20 mg capsule,delayed 20 mg PO QAM #90 cap 12/08/21 Rx release hydrochlorothiazide 25 mg tablet 25 mg PO QAM #90 tab 01/19/22 Rx spironolactone 50 mg tablet 50 mg PO BID #180 tab 01/19/22 Rx Past Med/Surg History Medical History Anemia Asthma USES PRN INH 3 X WK ON AVG Diabetes mellitus, type 2 NIDDM Esophageal varices 2016 GERD (gastroesophageal reflux disease) Hepatic cirrhosis History of benign breast biopsy History of pleural effusion RT 2/2 HEPATIC CIRRHOSIS - S/P THORACENTESIS SANCHEZ (nonalcoholic steatohepatitis) Pleural effusion associated with hepatic disorder Right-2017 Surgical History History of ankle surgery LT History of cataract surgery bilt History of colonoscopy W/ POLYPECTOMY History of esophagogastroduodenoscopy (EGD) History of thoracentesis RT 2017 History of tooth extraction History of total abdominal hysterectomy and bilateral salpingo-oophorectomy History of tubal ligation Family History Grandfather (Maternal) Diabetes Coronary heart disease Dyslipidemia Hypercholesterolemia Hypertension Grandmother (Maternal) Ovarian cyst Stroke Father Pancreatic cancer Hypertension Stroke Mother Bladder cancer Hypertension Sister Hypertension Other No family history of adverse response to anesthesia Denies family history of Ovarian cancer Prostate cancer Myocardial infarction Breast cancer Social History Smoking Status: Former smoker Second Hand Exposure: Yes ( A CHILD); Hx Alcohol Use: Yes Alcohol type: wine Hx Substance Use: No Preferred Language: Dutch Communication Ability: Unable Communication Ability Comment: intubated and sedated Visual Impairment: No Limitations Hearing Ability: Normal Hospital Nurse Liaison Required: No Beliefs That Will Affect Care: None marital status: Current Living Situation: Spouse Current Living Situation Comment: unknown current occupational status: employed Feels Safe at Home: Yes Physical Activity Frequency: 1-2 Times per Week Seatbelt Use: always Assistive Devices: Glasses Review of Systems Review of Systems: Unobtainable due to endotracheal tube and Unobtainable due to reduced consciousness Physical Exam Constitutional: WD/WN, vitals as above Eyes: no conjunctival abnormality and + EOM not intact (But only due to participation, no deviation noted.) ENMT: external ear and nose normal, oropharynx normal Intubated Neck: trachea midline, no thyromegaly normal visual inspection Respiratory: normal respiratory effort, lungs clear to auscultation no respiratory distress Cardiovascular: Rate/Rhythm: regular rate and regular rhythm Gastrointestinal (Abdomen): Inspection/Auscultation: abdomen normal to inspection; abdomen not distended Musculoskeletal: no cyanosis or clubbing, extremities motor strength 5/5 Skin: no rashes, warm and dry Neurologic: + does not move all extremities and + not awake Psychiatric: Orientation: + not alert and + not oriented to place Results & Data Results & Data ([facility]) Vital Signs (Past 12 Hours) Vital Signs Pulse Resp BP Pulse Ox 02/02/22 13:45 53 L 18 158/79 H 02/02/22 13:42 53 L 18 165/77 H 02/02/22 13:31 14 02/02/22 12:00 50 L 18 131/64 100 02/02/22 11:45 50 L 18 127/63 100 02/02/22 11:31 51 L 18 143/67 H 100 02/02/22 11:30 51 L 18 100 02/02/22 11:19 56 L 20 161/74 H 84 L 02/02/22 11:15 53 L 16 88 L 02/02/22 11:05 54 L 18 171/77 H 100 02/02/22 10:45 47 L 18 97 02/02/22 10:41 48 L 18 188/78 H 97 02/02/22 10:30 47 L 22 180/81 H 98 02/02/22 10:21 48 L 18 153/72 H 98 02/02/22 10:15 48 L 18 96 02/02/22 10:10 49 L 18 180/73 H 96 02/02/22 10:01 48 L 20 156/71 H 97 02/02/22 10:00 48 L 18 98 02/02/22 09:50 49 L 18 172/80 H 97 02/02/22 09:45 49 L 18 97 02/02/22 09:40 50 L 18 169/77 H 97 02/02/22 09:31 54 L 18 173/83 H 97 02/02/22 09:30 54 L 18 97 02/02/22 09:20 55 L 18 185/82 H 97 02/02/22 09:15 54 L 18 97 02/02/22 09:11 54 L 18 184/84 H 97 02/02/22 09:00 56 L 18 192/85 H 98 02/02/22 08:50 58 L 18 200/85 H 98 02/02/22 08:45 57 L 18 99 02/02/22 08:40 60 18 206/90 H 99 02/02/22 08:33 60 18 213/90 H 98 02/02/22 08:31 18 210/100 H 99 02/02/22 08:30 66 18 99 02/02/22 08:20 66 18 198/96 H 97 02/02/22 08:17 18 02/02/22 08:15 65 18 98 02/02/22 08:10 71 18 191/85 H 99 02/02/22 08:09 68 18 98 02/02/22 07:50 71 18 99 02/02/22 07:46 78 16 90 Code Status & VTE Plan VTE Prophylaxis Plan VTE Prophylaxis will be ordered: Yes PG Care Time/CCT Total # of Minutes Spent Total Time Spent with Patient: Total time spent is greater than 50% in coordination of care (as documented) at patient's floor/unit and/or counseling patient: Coding Level of Care Code 14467 Initial Inpt Care Lvl 3 Diagnoses Seizure R56.9 Acute hyponatremia E87.1 Hypertension I10 SANCHEZ (nonalcoholic steatohepatitis) K75.81 Diabetes mellitus, type 2 E11.9 Hyperlipidemia E78.5 DVT prophylaxis Z29.9
--- NOTE | 2022-02-02 14:15 | Critical Care Consultation ---
Date of Consultation February 02, 2022 Assessment & Plan (1) Acute hyponatremia: Reason Critically Ill: 66-year-old female with a history of nonalcoholic steatohepatitis, hypertension, diabetes, who presented with seizure-like activity and somnolence requiring intubation. PLAN: Neuro: Acute encephalopathy -MRI: Unremarkable CTA and CT of head: Unremarkable -EEG pending -Sedation vacation to evaluate for baseline mental status Resp: Respiratory failure -On minimal settings, anticipate being able to liberate from ventilator soon CV: Troponins negative Fluids/Renal: Acidosis -Repeat VBG pending Acute hyponatremia -Every 6 hours BMPs Hypomagnesemia -Received supplementation in ED ID: No white count, no fever -LP attempted: Unsuccessful -Anaplasmosis screen and Lyme titers GI/Nutrition: N.p.o. Heme: Relative thrombocytopenia: Mild DVT prophylaxis: Heparin 5000 units twice daily Endocrine: ICU hyperglycemia protocol Vascular access: Peripheral IVs Code Status: Full code Disposition: ICU (2) Acute encephalopathy: (3) Seizure-like activity: Supervising Physician Co-Signing Physician Notes I have personally spent 65 minutes of critical care time in the direct management of this patient. This is a life/limb threatening event. This includes time spent evaluating patient, direct bedside care, chart review, placing orders, interpretation of diagnostic studies, discussion with consultants, patient, and/or family members regarding treatment decisions, as well as other required patient management activities. This time is exclusive of all separately billable procedures, and teaching time and separate from and in addition to any other critical care service time. History of Present Illness Reason for Consultation: Acute respiratory failure Requesting Physician: Ty Paredes MD Attending Physician: Ty Paredes MD History of Present Illness History is obtained from prior records, additional information obtained from patient's . reports that patient was in her normal state of health none this morning she was in bed partially awakening and then started screaming. He was unable to reorient the patient's and she had violent arm thrashing. She was unresponsive, reports that she opened her eyes for paramedics however was not able to be reoriented. In the emergency department she was intubated. She was found to have a low sodium. She has received a CT of the head, CTA as well as MRI which did not demonstrate acute findings. Ar[place] and [place] she [place] not go out frequently, she was treated for Lyme disease several years ago after she developed a target lesion after tick bite. They do have a dog which goes outside and then returns and they checked the dog for ticks regularly. did not believe she soiled her self during this event. Allergies Allergy/AdvReac Type Severity Reaction Status Date / Time CASANDRA Inhibitors Allergy Severe Angioedema Verified 01/31/21 15:30 Home Medications Medication Instructions Recorded Confirmed Type albuterol sulfate 90 mcg/actuation 2 puff INHALATION Q6H PRN #18 gm 10/23/19 01/31/21 Rx aerosol inhaler (Ventolin HFA) cholecalciferol (vitamin D3) 25 1,000 unit PO HS 10/28/19 01/31/21 History mcg (1,000 unit) tablet garlic 1,000 mg capsule 1,000 mg PO HS 11/05/20 01/31/21 History cinnamon bark 500 mg capsule 1,000 mg PO HS cap 11/29/20 01/31/21 History turmeric root extract 500 mg 500 mg PO HS 11/29/20 01/31/21 History capsule ascorbic acid (vitamin C) 500 mg 500 mg PO HS 12/23/20 01/31/21 History tablet (Vitamin C) ferrous sulfate 325 mg (65 mg 325 mg PO HS 12/23/20 01/31/21 History iron) tablet loratadine 10 mg tablet 10 mg PO HS 12/23/20 01/31/21 History metformin 500 mg tablet,extended 1,000 mg PO HS #180 tab 01/13/21 01/31/21 Rx release 24 hr venlafaxine 150 mg 150 mg PO HS #90 cap 01/13/21 01/31/21 Rx capsule,extended release 24 hr fluticasone propionate 50 2 spray INTRANASAL DAILY #9.9 ml 01/14/21 01/31/21 Rx mcg/actuation nasal spray,suspension (Flonase Allergy Relief) propranolol 40 mg tablet 40 mg PO BID #60 tab 11/07/21 Rx omeprazole 20 mg capsule,delayed 20 mg PO QAM #90 cap 12/08/21 Rx release hydrochlorothiazide 25 mg tablet 25 mg PO QAM #90 tab 01/19/22 Rx spironolactone 50 mg tablet 50 mg PO BID #180 tab 01/19/22 Rx Patient History Medical History Anemia Asthma USES PRN INH 3 X WK ON AVG Diabetes mellitus, type 2 NIDDM Esophageal varices 2017 GERD (gastroesophageal reflux disease) Hepatic cirrhosis History of benign breast biopsy History of pleural effusion RT 2/2 HEPATIC CIRRHOSIS - S/P THORACENTESIS SANCHEZ (nonalcoholic steatohepatitis) Pleural effusion associated with hepatic disorder Right-2017 Surgical History History of ankle surgery LT History of cataract surgery bilt History of colonoscopy W/ POLYPECTOMY History of esophagogastroduodenoscopy (EGD) History of thoracentesis RT 2017 History of tooth extraction History of total abdominal hysterectomy and bilateral salpingo-oophorectomy History of tubal ligation Family History Grandfather (Maternal) Diabetes Coronary heart disease Dyslipidemia Hypercholesterolemia Hypertension Grandmother (Maternal) Ovarian cyst Stroke Father Pancreatic cancer Hypertension Stroke Mother Bladder cancer Hypertension Sister Hypertension Other No family history of adverse response to anesthesia Denies family history of Ovarian cancer Prostate cancer Myocardial infarction Breast cancer Social History Smoking Status: Former smoker Second Hand Exposure: Yes ( A CHILD); Hx Alcohol Use: Yes Alcohol type: wine Hx Substance Use: No Preferred Language: Botswan[place] Communication Ability: Unable Communication Ability Comment: intubated and sedated Visual Impairment: No Limitations Hearing Ability: Normal Fire Regulator Required: No Beliefs That Will Affect Care: None marital status: Current Living Situation: Spouse Current Living Situation Comment: unknown current occupational status: employed Feels Safe at Home: Yes Physical Activity Frequency: 1-2 Times per Week Seatbelt Use: always Assistive Devices: Glasses Review of Systems Review of Systems: Unobtainable due to endotracheal tube Physical Exam Physical Exam: General: Sedated. nontoxic. Skin: Warm, dry, Head: Atraumatic Ears, nose, mouth and throat: airway obscured by endotracheal tube Cardiovascular: Normal peripheral perfusion Respiratory: Ventilator settings reviewed Gastrointestinal: Non distended Musculoskeletal: No deformity Results & Data Results & Data ([facility]) Vital Signs (Past 12 Hours) Vital Signs Pulse Resp BP Pulse Ox 02/02/22 13:45 53 L 18 158/79 H 02/02/22 13:42 53 L 18 165/77 H 02/02/22 13:31 14 02/02/22 12:00 50 L 18 131/64 100 02/02/22 11:45 50 L 18 127/63 100 02/02/22 11:31 51 L 18 143/67 H 100 02/02/22 11:30 51 L 18 100 02/02/22 11:19 56 L 20 161/74 H 84 L 02/02/22 11:15 53 L 16 88 L 02/02/22 11:05 54 L 18 171/77 H 100 02/02/22 10:45 47 L 18 97 02/02/22 10:41 48 L 18 188/78 H 97 02/02/22 10:30 47 L 22 180/81 H 98 02/02/22 10:21 48 L 18 153/72 H 98 02/02/22 10:15 48 L 18 96 02/02/22 10:10 49 L 18 180/73 H 96 02/02/22 10:01 48 L 20 156/71 H 97 02/02/22 10:00 48 L 18 98 02/02/22 09:50 49 L 18 172/80 H 97 02/02/22 09:45 49 L 18 97 02/02/22 09:40 50 L 18 169/77 H 97 02/02/22 09:31 54 L 18 173/83 H 97 02/02/22 09:30 54 L 18 97 02/02/22 09:20 55 L 18 185/82 H 97 02/02/22 09:15 54 L 18 97 02/02/22 09:11 54 L 18 184/84 H 97 02/02/22 09:00 56 L 18 192/85 H 98 02/02/22 08:50 58 L 18 200/85 H 98 02/02/22 08:45 57 L 18 99 02/02/22 08:40 60 18 206/90 H 99 02/02/22 08:33 60 18 213/90 H 98 02/02/22 08:31 18 210/100 H 99 02/02/22 08:30 66 18 99 02/02/22 08:20 66 18 198/96 H 97 02/02/22 08:17 18 02/02/22 08:15 65 18 98 02/02/22 08:10 71 18 191/85 H 99 02/02/22 08:09 68 18 98 02/02/22 07:50 71 18 99 02/02/22 07:46 78 16 90 Critical Care Results & Data Vital Signs (Past 12 Hours) Vital Signs Temp Pulse Pulse Resp BP BP Pulse Ox 02/02/22 16:00 54 L 20 142/64 H 100 02/02/22 15:05 53 L 18 96 02/02/22 13:45 53 L 18 158/79 H 02/02/22 13:42 53 L 18 165/77 H 02/02/22 13:31 14 02/02/22 12:00 36.5 C 50 L 54 L 18 131/64 171/77 H 98 02/02/22 11:45 50 L 18 127/63 100 02/02/22 11:31 51 L 18 143/67 H 100 02/02/22 11:30 51 L 18 100 02/02/22 11:19 56 L 20 161/74 H 84 L 02/02/22 11:15 53 L 16 88 L 02/02/22 11:05 54 L 18 171/77 H 100 02/02/22 10:45 47 L 18 97 02/02/22 10:41 48 L 18 188/78 H 97 02/02/22 10:30 47 L 22 180/81 H 98 02/02/22 10:21 48 L 18 153/72 H 98 02/02/22 10:15 48 L 18 96 02/02/22 10:10 49 L 18 180/73 H 96 02/02/22 10:01 48 L 20 156/71 H 97 02/02/22 10:00 48 L 18 98 02/02/22 09:50 49 L 18 172/80 H 97 02/02/22 09:45 49 L 18 97 02/02/22 09:40 50 L 18 169/77 H 97 02/02/22 09:31 54 L 18 173/83 H 97 02/02/22 09:30 54 L 18 97 02/02/22 09:20 55 L 18 185/82 H 97 02/02/22 09:15 54 L 18 97 02/02/22 09:11 54 L 18 184/84 H 97 02/02/22 09:00 56 L 18 192/85 H 98 06/27/22 08:50 58 L 18 200/85 H 98 02/02/22 08:45 57 L 18 99 02/02/22 08:40 60 18 206/90 H 99 02/02/22 08:33 60 18 213/90 H 98 02/02/22 08:31 18 210/100 H 99 02/02/22 08:30 66 18 99 02/02/22 08:20 66 18 198/96 H 97 02/02/22 08:17 18 02/02/22 08:15 65 18 98 02/02/22 08:10 71 18 191/85 H 99 02/02/22 08:09 68 18 98 02/02/22 07:50 71 18 99 02/02/22 07:46 78 16 90 Lab & Micro Results (Past 24 Hours) RBC 3.55 M/uL (4.2-5.4) L 02/02/22 WBC 5.18 K/uL (4.8-10.8) 02/02/22 Hgb 12.4 g/dL (12.0-16.0) 02/02/22 Hct 35.3 % (37-47) L 02/02/22 MCV 99.4 fL (80-100) 02/02/22 MCH 34.9 pg (25-34) H 02/02/22 MCHC 35.1 g/dL (32-36) 02/02/22 RDW Standard Deviation 49.4 fL (36.4-46.3) H 02/02/22 RDW Coefficient of Variation 13.6 % (11.5-14.5) 02/02/22 Plt Count 112 K/uL (130-400) L 02/02/22 MPV 11.1 fL (7.4-10.4) H 02/02/22 Neutrophils (%) (Auto) 78.3 % 02/02/22 Lymphocytes (%) (Auto) 9.1 % 02/02/22 Monocytes # (Auto) 0.35 K/uL (0.11-0.59) 02/02/22 Eosinophils # (Auto) 0.26 K/uL (0-0.5) 02/02/22 Immature Granulocyte % (Auto) 0.4 % 02/02/22 Neutrophils # (Auto) 4.06 K/uL (1.4-6.5) 02/02/22 Lymphocytes # (Auto) 0.47 K/uL (1.2-3.4) L 02/02/22 Monocytes # (Auto) 0.35 K/uL (0.11-0.59) 02/02/22 Eosinophils # (Auto) 0.26 K/uL (0-0.5) 02/02/22 Basophils # (Auto) 0.02 K/uL (0-0.2) 02/02/22 Immature Granulocyte # (Auto) 0.02 K/uL (0.00-0.02) 02/02/22 Na 122 mmol/L (136-145) L 02/02/22 K 5.0 mmol/L (3.5-5.1) 02/02/22 Cl 89 mmol/L (98-107) L 02/02/22 CO2 17 mmol/L (21-32) L 02/02/22 Anion Gap 16 (3-11) H 02/02/22 BUN 20 mg/dl (6-23) 02/02/22 Creatinine 1.02 mg/dl (0.6-1.2) 02/02/22 Estimated GFR ( Amer) 65.9 ml/min 02/02/22 Estimated GFR (Non-Af Amer) 56.9 ml/min 02/02/22 BUN/Creatinine Ratio 19.6 (10-20) 02/02/22 Glu 224 mg/dl (70-99(Fasting)) H 02/02/22 Ca 9.3 mg/dl (8.5-10.1) 02/02/22 Phosphorus Level 3.2 mg/dl (2.5-4.9) 02/02/22 Total Bilirubin 1.8 mg/dl (0.2-1.0) H 02/02/22 AST 56 U/L (13-39) H 02/02/22 ALT 34 U/L (7-52) 02/02/22 Alkaline Phosphatase 44 U/L (34-104) 02/02/22 TP 6.9 gm/dl (6.0-8.3) 02/02/22 Albumin 3.9 gm/dl (3.4-5.0) 02/02/22 Globulin 3.0 gm/dl (2.5-4.0) 02/02/22 Albumin/Globulin Ratio 1.3 (0.9-2) 02/02/22 Mg 1.3 mg/dl (1.7-2.4) L 02/02/22 07:40 02/02/22 Calcium Level 9.3 mg/dl (8.5-10.1) 02/02/22 07:40 02/02/22 Prothromb Time International Ratio 1.1 (0.9-1.1) 02/02/22 07:40 02/02/22 Venous Blood pH Pending 02/02/22 16:13 02/02/22 Venous Blood Partial Pressure CO2 Pending 02/02/22 16:13 02/02/22 Venous Blood Partial Pressure O2 Pending 02/02/22 16:13 02/02/22 Venous Blood HCO3 Pending 02/02/22 16:13 02/02/22 Venous Blood Base Excess Pending 02/02/22 16:13 02/02/22 Venous Blood Oxygen Saturation Pending 02/02/22 16:13 02/02/22 Diagnostic Findings (Past 24 Hours) Chest X-Ray 02/02/22 07:42 XR chest 1V portable CLINICAL HISTORY: post intubation TECHNIQUE: Single frontal radiograph of the chest was obtained. Comparison: Comparison is made to chest radiograph 10/28/2019 FINDINGS: Endotracheal tube tip is 16 mm from the eusebia. The cardiomediastinal silhouette is stable. There is prominence and cephalization of the vasculature with Kanwal B lines seen. No evidence of pleural effusion or pneumothorax. IMPRESSION: Endotracheal tube tip is 16 mm from the eusebia and can be withdrawn approximately 1.5 cm for improved positioning. ACT 112: Negative or not required by law. Electronically signed by: Gary Shaffer M.D. 02/02/2022 8:[address] 02/02/22 07:42 CT head/brain wo con CLINICAL HISTORY: 66 years-old Female with Stroke Like Symptoms. Acute strokelike symptoms TECHNIQUE: Multiple axial CT images of the head were obtained without contrast. A dose lowering technique was utilized adhering to the principles of ALARA. COMPARISON: CTA head and neck of same day FINDINGS: No acute intracranial hemorrhage, midline shift, intracranial mass, hydrocephalus, territorial ischemia or abnormal extra-axial collection. Inv olutional changes. White matter hypodensities are suggestive of chronic microvascular ischemic disease. There is a subcentimeter chronic appearing lacunar infarct of the mid right cerebellar hemisphere. The calvarium is intact. Prior bilateral lens replacement. The paranasal sinuses, mastoid air cells, and middle ear cavities are clear. IMPRESSION: No acute intracranial abnormality. ACT 112: Negative or not required by law. The above report was generated using voice recognition software. It may contain grammatical, syntax or spelling errors. Electronically signed by: Rodolfo Kerr M.D. 02/02/2022 8:20 AM Head CTA 02/02/22 07:42 CT angio neck with con, CT angio head w con CLINICAL HISTORY: Stroke Like Symptoms TECHNIQUE: CT angiography of the head and neck was performed following intravenous administration of iodinated contrast. Coronal and sagittal MIPS were obtained from the axial data set and were submitted for review. Automated dose lowering techniques and/or adjustment according to patient size were utilized for this examination. All measurements were calculated based on NASCET criteria. CT DOSE: 1176.67 mGy.cm Comparison: None available at the time of this dictation. FINDINGS: Small thyroid nodules are seen which do not require follow-up by ACR criteria. CTA Neck: Direct origin of the left vertebral artery from the aortic arch is seen. There is no significant atherosclerotic plaque in the aortic arch or the origins of the innominate, left common carotid, and left subclavian arteries. The common carotid, external carotid, cervical segments of the internal carotid arteries, and the cervical segments of the vertebral arteries are patent without hemodynamically significant stenosis. The left vertebral artery is dominant. CTA Head: The anterior and posterior cerebral circulations are patent. No hemodynamically significant stenosis, aneurysm, dissection, or arteriovenous malformation is shown. origin of the bilateral posterior cerebral arteries noted. IMPRESSION: 1. No occlusion, hemodynamically significant stenosis, aneurysm, dissection, or arteriovenous malformation in the major intracranial arteries. 2. No occlusion, hemodynamically significant stenosis, or dissection in the major cervical arteries. Assessment of stenosis of the internal carotid arteries is based on NASCET criteria. ACT 112: Negative or not required by law. Electronically signed by: Gary Shaffer M.D. 02/02/2022 8:28 AM Neck CTA 02/02/22 07:42 CT angio neck with con, CT angio head w con CLINICAL HISTORY: Stroke Like Symptoms TECHNIQUE: CT angiography of the head and neck was performed following intravenous administration of iodinated contrast. Coronal and sagittal MIPS were obtained from the axial data set and were submitted for review. Automated dose lowering techniques and/or adjustment according to patient size were utilized for this examination. All measurements were calculated based on NASCET criteria. CT DOSE: 1176.67 mGy.cm Comparison: None available at the time of this dictation. FINDINGS: Small thyroid nodules are seen which do not require follow-up by ACR criteria. CTA Neck: Direct origin of the left vertebral artery from the aortic arch is seen. There is no significant atherosclerotic plaque in the aortic arch or the origins of the innominate, left common carotid, and left subclavian arteries. The common carotid, external carotid, cervical segments of the internal carotid arteries, and the cervical segments of the vertebral arteries are patent without hemodynamically significant stenosis. The left vertebral artery is dominant. CTA Head: The anterior and posterior cerebral circulations are patent. No hemodynamically significant stenosis, aneurysm, dissection, or arteriovenous malformation is shown. origin of the bilateral posterior cerebral arteries noted. IMPRESSION: 1. No occlusion, hemodynamically significant stenosis, aneurysm, dissection, or arteriovenous malformation in the major intracranial arteries. 2. No occlusion, hemodynamically significant stenosis, or dissection in the major cervical arteries. Assessment of stenosis of the internal carotid arteries is based on NASCET criteria. ACT 112: Negative or not required by law. Electronically signed by: Gary Shaffer M.D. 02/02/2022 8:28 AM Brain MRI 02/02/22 08:53 MRI OF THE BRAIN COMBO CLINICAL HISTORY: Seizure. COMPARISON STUDY: CT of the brain dated 02/02/2022. TECHNIQUE: MRI of the brain was performed utilizing various T1 and T2-weighted sequences in the axial, sagittal, and coronal planes. Contrast-enhanced sequences were acquired following the administration of 10 cc of Gadavist. FINDINGS: Brain parenchyma: There is age-advanced involutional change noting advanced confluent subcortical and periventricular microangiopathic disease. There is no hemorrhage or mass effect. There is no restricted diffusion to suggest acute ischemia. No enhancing mass lesion is identified on the postcontrast images. Ibanez-white matter differentiation is preserved. 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 No extra-axial fluid collection is seen. The cerebellar tonsils are normal in configuration. Ventricles, sulci, and cisterns: Prominent secondary to involutional change. Pituitary and sella: Unremarkable. Intracranial vasculature: Normal flow voids are maintained at the skull base. Orbits: The bony orbits are grossly intact. Orbital contents are normal in appearance noting bilateral ocular lens implants. Sinuses and mastoids: There is trace fluid in the right maxillary antrum. Mild mucosal thickening is seen in the right sphenoid sinus. The remaining paranasal sinuses are clear. The mastoid air cells are well pneumatized. Fluid is noted in the pharynx. Calvarium: Unremarkable. Cervical cord: Partially visualized cervical spinal cord is normal in morphology and signal intensity. IMPRESSION: No acute intracranial abnormality is identified. ACT 112: Negative or not required by law. Electronically signed by: Austin Ward M.D. 02/02/2022 2:00 PM I & O Totals 24 Hours 02/01/22 02/02/22 02/03/22 06:59 06:59 06:59 Intake Total 2648.146 / 2648.146 Output Total 650 / 650 Balance 1997.146 / 1997.146 Cumulative 02/02/22 07:16 thru 02/02/22 13:41 Intake Total 2648.146 Output Total 650 Balance 1997.146 RT Ventilator Mngmt (Last Documented) Ventilator Ordered Settings Ventilator Support Mode Assist Control 02/02/22 15:05 Respiratory Rate 20 02/02/22 16:00 Ventilator Tidal Volume 440 02/02/22 15:05 Setting Minute Ventilation 7.9 02/02/22 15:05 Positive End Expiratory 5 02/02/22 15:05 Pressure Fraction of Inspired Oxygen 30 02/02/22 16:41 Machine Comment changed fio2 after abg 02/02/22 09:06 Ventilator - PT Measurements Respiratory Rate 20 Exhaled Tidal Volume 440 Minute Ventilation 7.9 Peak Inspiratory Airway 20 Pressure Plateau Pressure 16 Respiratory Cycle Inspiratory: 1:3.2 Expiratory Ratio Inspiratory Phase Time 0.8 End-Tidal CO2 29 Static Lung Compliance 40.00 Dynamic Lung Compliance 29.33 Normal Static Lung Compliance 47.00 Patient Measurements Comment No end tidal hooked up Coding Level of Care Code Critical Care 1st 30-74 mins Diagnoses Acute hyponatremia E87.1 Acute encephalopathy G93.40 Seizure-like activity R56.9
[2022-02-02] MEDS ORDERED: LIDOCAINE 2% LOCAL 50 ML VIAL ONE (16:21)
[2022-02-02 16:49] LABS: Base Excess VBG 1.7 mEq/L; HCO3 VBG 27 mmol/L; Oxygen Saturation VBG < 60.0 %; PCO2 VBG 42 mmHg (38-50); PO2 VBG 28 mmHg; pH VBG 7.41 (7.36-7.41)
[2022-02-02 16:54] LABS: BUN Creatinine Ratio 16.3 (10-20); Calcium 8.9 mg/dl (8.5-10.1); Creatinine Clr Calc Pharmacy 62.3 ml/min; Est GFR (African American) 64.4 ml/min; Est GFR (Non-African American) 55.6 ml/min; Magnesium 1.7 mg/dl (1.7-2.4); Phosphorus 2.3 mg/dl (2.5-4.9); Potassium 4.1 mmol/L (3.5-5.1)
--- NOTE | 2022-02-02 17:00 | Procedure Note ---
Procedure Note Date of Service February 02, 2022 Note Procedure Date: Noted above Procedure: Lumbar puncture Pre-procedure Diagnosis: Acute encephalopathy Post-procedure Diagnosis: same as above Prior to Procedure: Informed Consent: The risks, benefits, indications, potential complications, and alternatives were explained to the patient's and informed consent obtained. Attending Staff: Leigha Beaulieu DO Resident/Physician Director Informatics: Not applicable Indications: Patient is a 66-year-old female with acute encephalopathy The identity of the patient was confirmed and a bedside time out was performed. Description of Procedure: Patient was positioned in the right lateral decubitus position, prepped and draped in usual sterile fashion. The L4-5 space located with bilateral iliac crests as landmarks. 1% Lidocaine without epinephrine was used to anesthetize the area. A 20 gauge spinal needle was introduced I was unable to enter the subarachnoid space and further attempts were discontinued, the procedure was aborted Aborted attempted lumbar puncture Coding CPT Codes Neurology - Neurology: 86640 Lumbar Puncture, diagnostic ([id number]) [facility] [place] Procedure Codes (Charges) Neurology Neurology: 13054 Lumbar Puncture, diagnostic (53 modifer)
[2022-02-02 17:10] LABS: Lyme Ab IgM w/WB Rflx Negative (Negative)
[2022-02-02 17:12] LABS: Lyme Ab IgG w/WB Rflx Positive (Negative)
[2022-02-02] MEDS: PROPRANOLOL HCL 20 MG TAB PO SCH ×2 (20:17→21:23)
[2022-02-02] MEDS: levETIRAcetam 500 MG in 0.9 % SODIUM CHLORIDE 100 ML IV SCH (20:17)
[2022-02-02] MEDS: HEPARIN SOD 5,000 UNIT/0.5 ML VIAL SQ SCH (20:17)
[2022-02-02] MEDS ORDERED: LEVETIRACETAM IV SCH (21:00)
[2022-02-02] MEDS ORDERED: SODIUM CHLORIDE 0.9% IV SCH (21:00)
[2022-02-03 00:36] LABS: BUN Creatinine Ratio 17.2 (10-20); Calcium 8.9 mg/dl (8.5-10.1); Creatinine Clr Calc Pharmacy 69.7 ml/min; Est GFR (African American) 73.7 ml/min; Est GFR (Non-African American) 63.6 ml/min; Potassium 4.1 mmol/L (3.5-5.1)
[2022-02-03] MEDS: INSULIN ASPART PER UNIT SC SCH ×7 (01:09→20:46)
[2022-02-03 05:06] LABS: Hemoglobin 11.4 g/dL (12.0-16.0); Mean Corpuscular Hemoglobin 34.9 pg (25-34); Mean Corpuscular Hgb Conc 35.6 g/dL (32-36); Mean Corpuscular Volume 97.9 fL (80-100); RDW Coefficient of Variation 13.9 % (11.5-14.5); RDW Standard Deviation 49.9 fL (36.4-46.3); Red Blood Count 3.27 M/uL (4.2-5.4); White Blood Count 5.21 K/uL (4.8-10.8)
[2022-02-03 05:22] LABS: BUN Creatinine Ratio 16.7 (10-20); Calcium 8.9 mg/dl (8.5-10.1); Est GFR (African American) 76.7 ml/min; Est GFR (Non-African American) 66.2 ml/min; Magnesium 1.4 mg/dl (1.7-2.4); Phosphorus 2.6 mg/dl (2.5-4.9); Potassium 3.8 mmol/L (3.5-5.1)
[2022-02-03 05:28] LABS: Mean Platelet Volume 9.6 fL (7.4-10.4); Platelet Count 83 K/uL (130-400)
[2022-02-03 08:12] LABS: Estimated Average Glucose 120 mg/dl; Hemoglobin A1C 5.8 % (4.5-5.6)
[2022-02-03] MEDS: HEPARIN SOD 5,000 UNIT/0.5 ML VIAL SQ SCH ×2 (08:28→20:25)
[2022-02-03] MEDS: levETIRAcetam 500 MG in 0.9 % SODIUM CHLORIDE 100 ML IV SCH (08:28)
[2022-02-03] MEDS: PROPRANOLOL HCL 20 MG TAB PO SCH ×3 (08:29→20:33)
--- NOTE | 2022-02-03 09:27 | Critical Care Progress Note ---
Date of Service February 03, 2022 Assessment & Plan (1) Acute hyponatremia: Plan: Reason Critically Ill: 66-year-old female with a history of nonalcoholic steatohepatitis, hypertension, diabetes, who presented with seizure-like activity and somnolence requiring intubation. PLAN: Neuro: Acute encephalopathy: Resolved -MRI: Unremarkable CTA and CT of head: Unremarkable -EEG: Formal report pending Resp: Respiratory failure: Resolved CV: Troponins negative Fluids/Renal: Acidosis: Resolved Acute hyponatremia: Improved -Auto correcting Hypomagnesemia -Supplementation: Magnesium oxide 400 mg nightly ID: No white count, no fever -LP attempted: Unsuccessful -Anaplasmosis screen and Lyme titers GI/Nutrition: Diabetic diet Heme: Relative thrombocytopenia: Mild DVT prophylaxis: Heparin 5000 units twice daily Endocrine: ICU hyperglycemia protocol -Checking TSH Vascular access: Peripheral IVs Code Status: Full code Disposition: Stable for downgrade (2) Acute encephalopathy: (3) Seizure-like activity: Admission and Anticipated Discharge Date Admission Date: February 02, 2022 Subjective No events overnight. No complaints of headache chest pain or shortness of breath. Feels at her baseline does not remember any events from yesterday Physical Exam Physical Exam: General: Alert. nontoxic. Skin: Warm, dry, Head: Atraumatic Ears, nose, mouth and throat: airway patent Cardiovascular: Normal peripheral perfusion Respiratory: no respiratory distress Gastrointestinal: Non distended Musculoskeletal: No deformity Results & Data Results & Data ([facility]) Vital Signs (Past 12 Hours) Vital Signs Temp Pulse Resp BP Pulse Ox 02/03/22 08:00 61 18 132/60 93 02/03/22 07:45 60 17 92 02/03/22 07:30 61 14 97 02/03/22 07:15 62 17 97 02/03/22 07:00 61 19 136/62 93 02/03/22 06:45 61 17 96 02/03/22 06:30 61 19 96 02/03/22 06:15 59 L 19 96 02/03/22 06:00 63 21 139/61 97 02/03/22 05:00 37.2 C 61 17 132/63 97 02/03/22 04:00 65 20 150/65 H 95 02/03/22 03:00 66 31 H 145/57 H 02/03/22 02:01 66 19 161/75 H 95 02/03/22 01:01 144/58 H 99 02/03/22 00:00 37.2 C 59 L 137/67 99 02/02/22 23:00 61 19 155/73 H 100 02/02/22 22:05 58 L 15 157/54 H 100 Critical Care Results & Data Vital Signs (Past 12 Hours) Vital Signs Temp Pulse Resp BP Pulse Ox 02/03/22 08:00 61 18 132/60 93 02/03/22 07:45 60 17 92 02/03/22 07:30 61 14 97 02/03/22 07:15 62 17 97 02/03/22 07:00 61 19 136/62 93 02/03/22 06:45 61 17 96 02/03/22 06:30 61 19 96 02/03/22 06:15 59 L 19 96 02/03/22 06:00 63 21 139/61 97 02/03/22 05:00 37.2 C 61 17 132/63 97 02/03/22 04:00 65 20 150/65 H 95 02/03/22 03:00 66 31 H 145/57 H 02/03/22 02:01 66 19 161/75 H 95 02/03/22 01:01 144/58 H 99 02/03/22 00:00 37.2 C 59 L 137/67 99 02/02/22 23:00 61 19 155/73 H 100 02/02/22 22:05 58 L 15 157/54 H 100 Lab & Micro Results (Past 24 Hours) RBC 3.27 M/uL (4.2-5.4) L 02/03/22 WBC 5.21 K/uL (4.8-10.8) 02/03/22 Hgb 11.4 g/dL (12.0-16.0) L 02/03/22 Hct 32.0 % (37-47) L 02/03/22 MCV 97.9 fL (80-100) 02/03/22 MCH 34.9 pg (25-34) H 02/03/22 MCHC 35.6 g/dL (32-36) 02/03/22 RDW Standard Deviation 49.9 fL (36.4-46.3) H 02/03/22 RDW Coefficient of Variation 13.9 % (11.5-14.5) 02/03/22 Plt Count 83 K/uL (130-400) L 02/03/22 MPV 9.6 fL (7.4-10.4) 02/03/22 Na 127 mmol/L (136-145) L 02/03/22 K 3.8 mmol/L (3.5-5.1) 02/03/22 Cl 95 mmol/L (98-107) L 02/03/22 CO2 24 mmol/L (21-32) 02/03/22 Anion Gap 8 (3-11) 02/03/22 BUN 15 mg/dl (6-23) 02/03/22 Creatinine 0.90 mg/dl (0.6-1.2) 02/03/22 Estimated GFR ( Amer) 76.7 ml/min 02/03/22 Estimated GFR (Non-Af Amer) 66.2 ml/min 02/03/22 BUN/Creatinine Ratio 16.7 (10-20) 02/03/22 Glu 139 mg/dl (70-99(Fasting)) H 02/03/22 Ca 8.9 mg/dl (8.5-10.1) 02/03/22 Phosphorus Level 2.6 mg/dl (2.5-4.9) 02/03/22 Mg 1.4 mg/dl (1.7-2.4) L 02/03/22 04:46 02/03/22 Calcium Level 8.9 mg/dl (8.5-10.1) 02/03/22 04:46 02/03/22 Venous Blood pH 7.41 (7.36-7.41) 02/02/22 16:13 02/02/22 Venous Blood Partial Pressure CO2 42 mmHg (38-50) 02/02/22 16:13 02/02/22 Venous Blood Partial Pressure O2 28 mmHg 02/02/22 16:13 02/02/22 Venous Blood HCO3 27 mmol/L 02/02/22 16:13 02/02/22 Venous Blood Base Excess 1.7 mEq/L 02/02/22 16:13 02/02/22 Venous Blood Oxygen Saturation < 60.0 % 02/02/22 16:13 02/02/22 Microbiology 02/02/22 08:16 Aerobic Blood Culture - Preliminary Blood No growth in Aerobic bottle after 24 hours. 02/02/22 08:08 Aerobic Blood Culture - Preliminary Blood No growth in Aerobic bottle after 24 hours. Diagnostic Findings (Past 24 Hours) Brain MRI 02/02/22 08:53 MRI OF THE BRAIN COMBO CLINICAL HISTORY: Seizure. COMPARISON STUDY: CT of the brain dated 02/02/2022. TECHNIQUE: MRI of the brain was performed utilizing various T1 and T2-weighted sequences in the axial, sagittal, and coronal planes. Contrast-enhanced sequences were acquired following the administration of 10 cc of Gadavist. FINDINGS: Brain parenchyma: There is age-advanced involutional change noting advanced confluent subcortical and periventricular microangiopathic disease. There is no hemorrhage or mass effect. There is no restricted diffusion to suggest acute ischemia. No enhancing mass lesion is identified on the postcontrast images. Ibanez-white matter differentiation is preserved. 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 No extra-axial fluid collection is seen. The cerebellar tonsils are normal in configuration. Ventricles, sulci, and cisterns: Prominent secondary to involutional change. Pituitary and sella: Unremarkable. Intracranial vasculature: Normal flow voids are maintained at the skull base. Orbits: The bony orbits are grossly intact. Orbital contents are normal in appearance noting bilateral ocular lens implants. Sinuses and mastoids: There is trace fluid in the right maxillary antrum. Mild mucosal thickening is seen in the right sphenoid sinus. The remaining paranasal sinuses are clear. The mastoid air cells are well pneumatized. Fluid is noted in the pharynx. Calvarium: Unremarkable. Cervical cord: Partially visualized cervical spinal cord is normal in morphology and signal intensity. IMPRESSION: No acute intracranial abnormality is identified. ACT 112: Negative or not required by law. Electronically signed by: Austin Ward M.D. 02/02/2022 2:00 PM I & O Totals 24 Hours 02/02/22 02/03/22 02/04/22 06:59 06:59 06:59 Intake Total 2803.283 / 2803.283 105 / 105 Output Total 2850 / 2850 Balance -46.717 / -46.717 105 / 105 Cumulative 02/02/22 07:16 thru 02/03/22 08:54 Intake Total 2908.283 Output Total 2850 Balance 58.283 RT Ventilator Mngmt (Last Documented) Ventilator Ordered Settings Ventilator Support Mode Assist Control 02/02/22 16:00 Respiratory Rate 18 02/03/22 08:00 Ventilator Tidal Volume 440 02/02/22 16:00 Setting Minute Ventilation 7.9 02/02/22 15:05 Ventilator Positive Pressure 5 02/02/22 16:00 Support Setting Positive End Expiratory 5 02/02/22 15:05 Pressure Fraction of Inspired Oxygen 30 02/02/22 16:41 Machine Comment changed fio2 after abg 02/02/22 09:06 Ventilator - PT Measurements Respiratory Rate 18 Exhaled Tidal Volume 440 Minute Ventilation 7.9 Peak Inspiratory Airway 20 Pressure Plateau Pressure 16 Respiratory Cycle Inspiratory: 1:3.2 Expiratory Ratio Inspiratory Phase Time 0.8 End-Tidal CO2 29 Static Lung Compliance 40.00 Dynamic Lung Compliance 29.33 Normal Static Lung Compliance 47.00 Patient Measurements Comment pt extubated per verbal order from Dr. Beaulieu. no stridor post extubation. placed on oxymask post extubation, pt wouldn't keep mask on. SpO2 remained 92-98% on room air. RN aware Coding Level of Care Code 38085 Subseq Hosp Care Lvl 3 Diagnoses Acute hyponatremia E87.1 Acute encephalopathy G93.40 Seizure-like activity R56.9
--- NOTE | 2022-02-03 10:27 | Electroencephalogram ---
EEG Procedure Note Date of Service February 03, 2022 Start / End Times Start Time: 9:05 AM End Time: 9:[address] Beaulieu History Encephalopathy, seizure-like activity Home Medication List Medication Instructions Recorded Confirmed Type albuterol sulfate 90 mcg/actuation 2 puff INHALATION Q6H PRN #18 gm 10/23/19 01/31/21 Rx aerosol inhaler (Ventolin HFA) cholecalciferol (vitamin D3) 25 1,000 unit PO HS 10/28/19 01/31/21 History mcg (1,000 unit) tablet garlic 1,000 mg capsule 1,000 mg PO HS 11/05/20 01/31/21 History cinnamon bark 500 mg capsule 1,000 mg PO HS cap 11/29/20 01/31/21 History turmeric root extract 500 mg 500 mg PO HS 11/29/20 01/31/21 History capsule ascorbic acid (vitamin C) 500 mg 500 mg PO HS 12/23/20 01/31/21 History tablet (Vitamin C) ferrous sulfate 325 mg (65 mg 325 mg PO HS 12/23/20 01/31/21 History iron) tablet loratadine 10 mg tablet 10 mg PO HS 12/23/20 01/31/21 History metformin 500 mg tablet,extended 1,000 mg PO HS #180 tab 01/13/21 01/31/21 Rx release 24 hr venlafaxine 150 mg 150 mg PO HS #90 cap 01/13/21 01/31/21 Rx capsule,extended release 24 hr fluticasone propionate 50 2 spray INTRANASAL DAILY #9.9 ml 01/14/21 01/31/21 Rx mcg/actuation nasal spray,suspension (Flonase Allergy Relief) propranolol 40 mg tablet 40 mg PO BID #60 tab 11/07/21 Rx omeprazole 20 mg capsule,delayed 20 mg PO QAM #90 cap 12/08/21 Rx release hydrochlorothiazide 25 mg tablet 25 mg PO QAM #90 tab 01/19/22 Rx spironolactone 50 mg tablet 50 mg PO BID #180 tab 01/19/22 Rx Inpatient Medication List Heparin Sodium (Porcine) (Heparin Sod 5,000 Unit/0.5 Ml Vial) 5,000 units SQ Q12 LIANA Stop: 03/04/22 20:59 Last Admin: 02/03/22 08:28 Dose: 5,000 units Documented by: [id number] Admin: 02/02/22 20:17 Dose: 5,000 units Documented by: [id number] Levetiracetam 500 mg/ Sodium (Chloride) 105 mls @ 420 mls/hr IV BID [facility] Stop: 03/04/22 20:59 Last Infusion: 02/03/22 08:54 Dose: 0 mls/hr Documented by: [id number] Admin: 02/03/22 08:28 Dose: 420 mls/hr Documented by: [id number] Infusion: 02/02/22 20:35 Dose: 0 mls/hr Documented by: [id number] Admin: 02/02/22 20:17 Dose: 420 mls/hr Documented by: [id number] Insulin Aspart (Insulin Aspart Per Unit) 0 units SC Q4H [facility] Stop: 03/04/22 12:00 Last Admin: 02/03/22 08:26 Dose: Not Given Documented by: [id number] Cosigned by: [id number] Admin: 02/03/22 04:52 Dose: Not Given Documented by: [id number] Admin: 02/03/22 01:09 Dose: Not Given Documented by: [id number] Admin: 02/02/22 20:34 Dose: Not Given Documented by: [id number] Admin: 02/02/22 17:21 Dose: Not Given Documented by: [id number] Admin: 02/02/22 13:45 Dose: 1 units Documented by: [id number] Cosigned by: [id number] Propranolol HCl (Propranolol Hcl 20 Mg Tab) 40 mg PO BID [facility] Stop: 03/04/22 20:59 Last Admin: 02/03/22 08:29 Dose: 40 mg Documented by: [id number] Admin: 02/02/22 21:23 Dose: Not Given Documented by: [id number] Discontinued Medications Fentanyl Citrate (Fentanyl Citrate 100 Mcg/2 Ml Vial) 50 mcg IV Q15M PRN PRN Reason: Pain Stop: 02/16/22 09:11 Last Admin: 02/02/22 12:07 Dose: 50 mcg Documented by: [id number] Admin: 02/02/22 09:57 Dose: 50 mcg Documented by: [id number] Admin: 02/02/22 09:33 Dose: 50 mcg Documented by: [id number] Gadobutrol (Gadobutrol 65ml Vial) 10 ml IV ONCE ONE Stop: 02/02/22 13:39 Last Admin: 02/02/22 13:10 Dose: 10 ml Documented by: [id number] Levetiracetam 2,000 mg/ Sodium (Chloride) 270 mls @ 999 mls/hr IV NOW STA Stop: 02/02/22 07:58 Last Infusion: 02/02/22 08:32 Dose: 0 mls/hr Documented by: [id number] Admin: 02/02/22 08:15 Dose: 999 mls/hr Documented by: [id number] Propofol (Diprivan) 1,000 mg in 100 mls @ 0 mls/hr IV .Q0M LIANA; Protocol Stop: 02/05/22 07:44 Last Titration: 02/02/22 17:10 Dose: 0 mcg/kg/min, 0 mls/hr Documented by: [id number] Titration: 02/02/22 16:30 Dose: 0 mcg/kg/min, 0 mls/hr Documented by: [id number] Admin: 02/02/22 13:41 Dose: 30 mcg/kg/min, 17.8 mls/hr Documented by: [id number] Cosigned by: [id number] Titration: 02/02/22 13:41 Dose: 30 mcg/kg/min, 17.8 mls/hr Documented by: [id number] Cosigned by: [id number] Titration: 02/02/22 11:24 Dose: 30 mcg/kg/min, 17.8 mls/hr Documented by: [id number] Admin: 02/02/22 10:25 Dose: 30 mcg/kg/min, 17.8 mls/hr Documented by: [id number] Cosigned by: [id number] Piperacillin Sod/Tazobactam Sod (Zosyn) 4.5 gm in 120 mls @ 240 mls/hr IV NOW ONE Stop: 02/02/22 08:18 Last Infusion: 02/02/22 09:07 Dose: 0 mls/hr Documented by: [id number] Admin: 02/02/22 08:37 Dose: 240 mls/hr Documented by: [id number] Magnesium Sulfate/Dextrose (Magnesium Sulfate / D5w) 1 gm in 100 mls @ 200 mls/hr IV Q30M LIANA Stop: 02/02/22 09:44 Last Infusion: 02/02/22 10:25 Dose: 0 mls/hr Documented by: [id number] Admin: 02/02/22 09:53 Dose: 200 mls/hr Documented by: [id number] Infusion: 02/02/22 09:47 Dose: 0 mls/hr Documented by: [id number] Admin: 02/02/22 09:17 Dose: 200 mls/hr Documented by: [id number] Sodium Chloride (Nss 1000ml) 1,000 mls @ 999 mls/hr IV .Q1H1M ONE Stop: 02/02/22 09:45 Last Infusion: 02/02/22 10:02 Dose: 0 mls/hr Documented by: [id number] Admin: 02/02/22 09:01 Dose: 999 mls/hr Documented by: [id number] Sodium Chloride (Nss 1000ml) 1,000 mls @ 999 mls/hr IV .Q1H1M ONE Stop: 02/02/22 10:18 Last Infusion: 02/02/22 12:28 Dose: 0 mls/hr Documented by: [id number] Admin: 02/02/22 09:33 Dose: 999 mls/hr Documented by: [id number] Ioversol (Optiray 320 125ml) 120 ml IV ONCE ONE Stop: 02/02/22 07:57 Last Admin: 02/02/22 08:03 Dose: 120 ml Documented by: [id number] Lidocaine HCl (Lidocaine 2% Local 50 Ml Vial) Confirm Administered Dose 50 ml .ROUTE .STK-MED ONE Stop: 02/02/22 16:22 Last Admin: 02/02/22 17:23 Dose: Not Given Documented by: [id number] Miscellaneous (Rapid Sequence Induction Bag) Confirm Administered Dose 1 ea .ROUTE .STK-MED ONE Stop: 02/02/22 07:30 Last Admin: 02/02/22 12:27 Dose: Not Given Documented by: [id number] Propofol (Propofol Iv Emulsion 10 Mg/Ml 100 Ml Vial) Confirm Administered Dose 1,000 mg IV .STK-MED ONE Stop: 02/02/22 08:25 Last Admin: 02/02/22 08:38 Dose: 1,000 mg Documented by: [id number] Cosigned by: [id number] Description This is a 21 electrode EEG with a single channel dedicated to limited EKG. The electrodes were placed in accordance with the International 10-20 system. The background rhythm consists of low to moderate amplitude 5 to 7 Hz activity throughout the majority of the study. Photic stimulation is unremarkable. Hyperventilation is not performed. There is a prominent symmetric beta rhythm. There is no focal slowing. There are no epileptiform abnormalities. Interpretation Abnormal awake/drowsy EEG with findings suggestive of a mild to moderate encephalopathy. No epileptiform abnormalities. [facility] EEG Procedure Codes Indication for Procedure (1) Acute encephalopathy: (2) Seizure-like activity: Neurology Neurology: 77701 EEG include record awake & drowsy
[2022-02-03 11:53] LABS: BUN Creatinine Ratio 16.9 (10-20); Calcium 8.6 mg/dl (8.5-10.1); Creatinine Clr Calc Pharmacy 72.8 ml/min; Est GFR (African American) 77.7 ml/min; Est GFR (Non-African American) 67.1 ml/min
--- NOTE | 2022-02-03 11:58 | Hospitalist Progress Note ---
Date of Service February 03, 2022 Assessment & Plan (1) Seizure: Plan: Witnessed by EMS. Received IM Versed en route to ER. Loaded with Keppra in ER per neurology. - Continue Keppra 500 mg PO BID - Intubated for airway protection in ER -> Extubated on 02/02. - MRI brain & CTA head/neck on 02/02 without acute issues. - Corrected Na by ~8 mEq over 24 hours -> Now Na is 129. - EEG done this morning; results pending - Consult neurology (2) Acute hyponatremia: Plan: Has chronic hyponatremia per prior nephrology notes. However, usually in the 129 - 134 range. - Corrected to 129 today as above (3) Hypertension: Plan: BP was 160/80 in the ER. Today it is 130/60. - Hold HCTZ for hyponatremia - Continue beta-john (4) SANCHEZ (nonalcoholic steatohepatitis): Plan: With cirrhosis and varices on EGD on 12/24/2020. - Continue PPI (5) Diabetes mellitus, type 2: Plan: Last A1c was 6.0% in 2020. Repeat this admission was 5.8%. - Sliding scale insulin (6) Hyperlipidemia: Plan: Not on statin at baseline. - No acute needs (7) DVT prophylaxis: Plan: Heparin 5,000 units SQ BID Admission and Anticipated Discharge Date Admission Date: February 02, 2022 Subjective Doing well this AM. No pain. Reports no fevers/chills, chest pain, shortness of breath, abdominal pain, nausea, or vomiting. She does not remember yesterday at all, and obviously doesn't remember me as she was intubated. However, she reports being back to her baseline. Her at bedside supports that she is back to her baseline self. Physical Exam Constitutional: WD/WN, vitals as above Eyes: EOM intact bilaterally; no conjunctival abnormality ENMT: external ear and nose normal, oropharynx normal Neck: trachea midline, no thyromegaly normal visual inspection Respiratory: normal respiratory effort, lungs clear to auscultation no respiratory distress Cardiovascular: Rate/Rhythm: regular rate and regular rhythm Gastrointestinal (Abdomen): Inspection/Auscultation: abdomen normal to inspection; abdomen not distended Musculoskeletal: no cyanosis or clubbing, extremities motor strength 5/5 Skin: no rashes, warm and dry Neurologic: moves all extremities and awake Psychiatric: Orientation: alert and oriented to place Results & Data Results & Data ([facility]) Vital Signs (Past 12 Hours) Vital Signs Temp Pulse Resp BP Pulse Ox 02/03/22 08:00 61 18 132/60 93 02/03/22 07:45 60 17 92 02/03/22 07:30 61 14 97 02/03/22 07:15 62 17 97 02/03/22 07:00 61 19 136/62 93 02/03/22 06:45 61 17 96 02/03/22 06:30 61 19 96 02/03/22 06:15 59 L 19 96 02/03/22 06:00 63 21 139/61 97 02/03/22 05:00 37.2 C 61 17 132/63 97 02/03/22 04:00 65 20 150/65 H 95 02/03/22 03:00 66 31 H 145/57 H 02/03/22 02:01 66 19 161/75 H 95 02/03/22 01:01 144/58 H 99 02/03/22 00:00 37.2 C 59 L 137/67 99 PG Care Time/CCT Total # of Minutes Spent Total Time Spent with Patient: Total time spent is greater than 50% in coordination of care (as documented) at patient's floor/unit and/or counseling patient: Coding Level of Care Code 89230 Subseq Hosp Care Lvl 3 Diagnoses Seizure R56.9 Acute hyponatremia E87.1 Hypertension I10 SANCHEZ (nonalcoholic steatohepatitis) K75.81 Diabetes mellitus, type 2 E11.9 Hyperlipidemia E78.5 DVT prophylaxis Z29.9
[2022-02-03] MEDS ORDERED: Nursing to Pharmacy Communication SCH (16:15)
[2022-02-03] MEDS: levETIRAcetam 500 MG TAB PO SCH (20:25)
[2022-02-03] MEDS ORDERED: MAGNESIUM OXIDE 400 MG TAB PO SCH (21:00)
[2022-02-04 04:59] LABS: Hematocrit (blood only) 32.6 % (37-47); Hemoglobin 11.3 g/dL (12.0-16.0); Mean Corpuscular Hemoglobin 35.1 pg (25-34); Mean Corpuscular Hgb Conc 34.7 g/dL (32-36); Mean Corpuscular Volume 101.2 fL (80-100); RDW Coefficient of Variation 13.6 % (11.5-14.5); RDW Standard Deviation 50.9 fL (36.4-46.3); Red Blood Count 3.22 M/uL (4.2-5.4); White Blood Count 6.19 K/uL (4.8-10.8)
[2022-02-04 05:18] LABS: Mean Platelet Volume 10.2 fL (7.4-10.4); Platelet Count 96 K/uL (130-400)
[2022-02-04 05:41] LABS: BUN Creatinine Ratio 18.7 (10-20); Calcium 8.7 mg/dl (8.5-10.1); Creatinine Clr Calc Pharmacy 71.2 ml/min; Est GFR (African American) 75.7 ml/min; Est GFR (Non-African American) 65.3 ml/min; Magnesium 1.4 mg/dl (1.7-2.4); Potassium 3.9 mmol/L (3.5-5.1)
--- NOTE | 2022-02-04 07:35 | Hospitalist Progress Note ---
Date of Service February 04, 2022 Assessment & Plan (1) Seizure: Plan: Witnessed by EMS. Received IM Versed en route to ER. Loaded with Keppra in ER per neurology. - Keppra 500 mg PO BID - Intubated for airway protection in ER -> Extubated on 02/02. - MRI brain & CTA head/neck on 02/02 without acute issues. - Corrected Na by ~8 mEq over 24 hours -> Now Na is 128. - EEG done this morning;abnormal results (2) Acute hyponatremia: Plan: Has chronic hyponatremia per prior nephrology notes. However, usually in the 129 - 134 range. (3) Hypertension: Plan: - Hold HCTZ for hyponatremia - Continue beta-john (4) SANCHEZ (nonalcoholic steatohepatitis): Plan: With cirrhosis and varices on EGD on 12/24/2020. - Continue PPI (5) Diabetes mellitus, type 2: Plan: Last A1c was 6.0% in 2020. Repeat this admission was 5.8%. - Sliding scale insulin (6) Hyperlipidemia: Plan: Not on statin at baseline. - No acute needs (7) DVT prophylaxis: Plan: Heparin 5,000 units SQ BID (8) Acute hypoxemic respiratory failure: Plan: resolved, extubated 02/02/22 now on room air, but slightly tachypneic Admission and Anticipated Discharge Date Admission Date: February 02, 2022 Results & Data Results & Data ([facility]) Vital Signs (Past 12 Hours) Vital Signs Pulse BP Pulse Ox 02/04/22 06:00 56 L 124/63 91 02/04/22 05:00 54 L 95 02/04/22 04:00 53 L 130/64 92 02/04/22 03:00 58 L 96 02/04/22 02:01 57 L 135/67 97 02/04/22 01:00 52 L 97 02/04/22 00:00 60 148/75 H 92 02/03/22 23:00 53 L 97 02/03/22 22:00 59 L 146/68 H 97 02/03/22 21:00 56 L 131/70 96 02/03/22 20:00 56 L 136/59 L 95 PG Care Time/CCT Total # of Minutes Spent Total Time Spent with Patient: Total time spent is greater than 50% in coordination of care (as documented) at patient's floor/unit and/or counseling patient: Coding Diagnoses Seizure R56.9 Acute hyponatremia E87.1 Hypertension I10 SANCHEZ (nonalcoholic steatohepatitis) K75.81 Diabetes mellitus, type 2 E11.9 Hyperlipidemia E78.5 DVT prophylaxis Z29.9 Acute hypoxemic respiratory failure J96.01
[2022-02-04] MEDS: INSULIN ASPART PER UNIT SC SCH ×2 (08:04→12:07)
[2022-02-04] MEDS: levETIRAcetam 500 MG TAB PO SCH (08:07)
[2022-02-04] MEDS: HEPARIN SOD 5,000 UNIT/0.5 ML VIAL SQ SCH (08:07)
[2022-02-04] MEDS: PROPRANOLOL HCL 20 MG TAB PO SCH (08:07)
[2022-02-04] MEDS ORDERED: PANTOprazole 40 MG TAB PO SCH (09:00)
--- NOTE | 2022-02-04 09:38 | Neurology Consultation ---
Date of Consultation February 04, 2022 Assessment & Plan (1) Seizure: (2) Acute hyponatremia: (3) Cerebrovascular disease: First-ever provoked seizure, likely related to acute on chronic hyponatremia. No evidence of acute process on CT of the head or gadolinium enhanced brain MRI. No significant vascular lesion on CT angiography of the head and neck. No epileptiform abnormalities on recent EEG. Patient does have chronic age advanced microvascular ischemic disease on brain MRI. Risk factors for cerebrovascular disease include type 2 diabetes mellitus, hypertension, and hyperlipidemia. Patient is currently back to baseline, neurologically intact. No worrisome neurologic signs or symptoms at this time. No need to continue with Keppra at this point in time. Keppra may be discontinued. The patient or to present with another convulsive episode going forward, would reassess at that time. History of Present Illness Reason for Consultation: seizure Requesting Physician: Ty Paredes MD Attending Physician: Antione Camargo MD History of Present Illness The patient is a 66-year-old female who presented to the emergency department February 02, 2022, 2 mornings ago, for further evaluation and management of a generalized convulsive episode followed by prolonged altered mental status requiring intubation for airway support. The episode was preceded by a loud scream according to her . The patient is amnestic for the episode. She remembers going to bed the night prior and otherwise denies any recent illness or acute medical issue. She denies a prior history of loss of consciousness, syncopal episodes, or seizure. This morning she is feeling well and denies headache, neck stiffness, vision disturbance, focal weakness, poor coordination, or sensory loss. She does not think she bit her tongue although she does appear to have some ecchymosis along the tip of the tongue and may have a mild laceration along the left side of the tongue. Past medical history notable for chronic hyponatremia, hypertension, hyperlipidemia, nonalcoholic steatohepatitis. She is prescribed venlafaxine for mood. She reports that she has been taking her medications consistently. No family history of epilepsy. Allergies Allergy/AdvReac Type Severity Reaction Status Date / Time CASANDRA Inhibitors Allergy Severe Angioedema Verified 01/31/21 15:30 Home Medications Medication Instructions Recorded Confirmed Type albuterol sulfate 90 mcg/actuation 2 puff INHALATION Q6H PRN #18 gm 10/23/19 01/31/21 Rx aerosol inhaler (Ventolin HFA) cholecalciferol (vitamin D3) 25 1,000 unit PO HS 10/28/19 01/31/21 History mcg (1,000 unit) tablet garlic 1,000 mg capsule 1,000 mg PO HS 11/05/20 01/31/21 History cinnamon bark 500 mg capsule 1,000 mg PO HS cap 11/29/20 01/31/21 History turmeric root extract 500 mg 500 mg PO HS 11/29/20 01/31/21 History capsule ascorbic acid (vitamin C) 500 mg 500 mg PO HS 12/23/20 01/31/21 History tablet (Vitamin C) ferrous sulfate 325 mg (65 mg 325 mg PO HS 12/23/20 01/31/21 History iron) tablet loratadine 10 mg tablet 10 mg PO HS 12/23/20 01/31/21 History metformin 500 mg tablet,extended 1,000 mg PO HS #180 tab 01/13/21 01/31/21 Rx release 24 hr venlafaxine 150 mg 150 mg PO HS #90 cap 01/13/21 01/31/21 Rx capsule,extended release 24 hr fluticasone propionate 50 2 spray INTRANASAL DAILY #9.9 ml 01/14/21 01/31/21 Rx mcg/actuation nasal spray,suspension (Flonase Allergy Relief) propranolol 40 mg tablet 40 mg PO BID #60 tab 11/07/21 Rx omeprazole 20 mg capsule,delayed 20 mg PO QAM #90 cap 12/08/21 Rx release hydrochlorothiazide 25 mg tablet 25 mg PO QAM #90 tab 01/19/22 Rx spironolactone 50 mg tablet 50 mg PO BID #180 tab 01/19/22 Rx Patient History Medical History Anemia Asthma USES PRN INH 3 X WK ON AVG Diabetes mellitus, type 2 NIDDM Esophageal varices 2016 GERD (gastroesophageal reflux disease) Hepatic cirrhosis History of benign breast biopsy History of pleural effusion RT 2/2 HEPATIC CIRRHOSIS - S/P THORACENTESIS SANCHEZ (nonalcoholic steatohepatitis) Pleural effusion associated with hepatic disorder Right-2017 Surgical History History of ankle surgery LT History of cataract surgery bilt History of colonoscopy W/ POLYPECTOMY History of esophagogastroduodenoscopy (EGD) History of thoracentesis RT 2017 History of tooth extraction History of total abdominal hysterectomy and bilateral salpingo-oophorectomy History of tubal ligation Family History Grandfather (Maternal) Diabetes Coronary heart disease Dyslipidemia Hypercholesterolemia Hypertension Grandmother (Maternal) Ovarian cyst Stroke Father Pancreatic cancer Hypertension Stroke Mother Bladder cancer Hypertension Sister Hypertension Other No family history of adverse response to anesthesia Denies family history of Ovarian cancer Prostate cancer Myocardial infarction Breast cancer Social History Smoking Status: Former smoker Second Hand Exposure: Yes ( A CHILD); Hx Alcohol Use: Yes Alcohol type: wine Hx Substance Use: No Preferred Language: Malagasy Communication Ability: Unable Visual Impairment: No Limitations Hearing Ability: Normal Counter Person Required: No Beliefs That Will Affect Care: None marital status: Current Living Situation: Spouse Current Living Situation Comment: unknown current occupational status: employed Feels Safe at Home: Yes Physical Activity Frequency: 1-2 Times per Week Seatbelt Use: always Assistive Devices: Glasses Review of Systems Constitutional: no fever and no chills Eyes: no blind spots and no diplopia Ear, Nose, Mouth, Throat: no ear pain and no hearing loss Respiratory: no cough and no dyspnea Cardiovascular: no chest pain and no palpitations Gastrointestinal: no constipation and no diarrhea/loose stools Genitourinary: no urinary urgency and no urinary incontinence Musculoskeletal: no muscle weakness and no muscle atrophy Integumentary: no rash and no lesions Neurologic: as per Subjective / HPI Psychiatric: no behavioral changes, no depression, no abnormal sleep pattern and no anxiety Hematologic / Lymphatic: no easy bruising and no lymphadenopathy Exam (Neuro) Constitutional: well developed and well nourished; no acute distress Eyes: normal visual osborn by confrontation, PERRL, normal accommodation and EOM intact bilaterally; no fundoscopic abnormality, no nystagmus and no papilledema Cardiovascular: Vessels: normal carotid upstroke; no carotid bruit Neurologic: Oriented to:: Person, Place and Time Memory: Short Term Intact and Remote Intact Attention: Span Intact and Concentration Intact Language: Naming Objects and Repeating Phrases Speech Fluency: negative Dysarthria Speech Aphasia: negative Aphasia Fund of Knowledge: Current Events, Past History and Vocabulary Cranial Nerves: Normal II (Visual osborn full to confrontation, visual acuity normal), III, IV, (Pupils equal round reactive to light and accommodation, eye movements normal), V (Facial sensation intact), VII (There is no facial droop or weakness), VIII (Hearing intact), IX, X (Palate elevates to midline), XI (Shoulder shrug intact) and XII (Tongue protrudes to midline) Motor Strength: Normal Lower Extremities and Normal Upper Extremities; negative Pronator Drift Motor Tone: Normal Lower Extremities and Normal Upper Extremities Muscle Bulk/Involuntary Movements: No Involuntary Movements; negative Muscle Atrophy Sensation: Light Touch Intact, Pain/Temperature Intact, Vibration Intact and Proprioception Intact Coordination: Normal; negative Limited Balance, Dysdiadochokinesia, Finger-Nose Abnormal or Heel-Burton Abnormal Deep Tendon Reflexes: Rt Triceps: 1+, Lt Triceps: 1+, Rt Biceps: 1+, Lt Biceps: 1+, Rt Brachioradialis: 1+, Lt Brachioradialis: 1+, Rt Patellar: 1+, Lt Patellar: 1+, Rt Ankle: 1+ and Lt Ankle: 1+ Special Tests: negative Babinski Present Gait: Normal Station and Gait Results & Data ([facility]) Vital Signs (Past 12 Hours) Vital Signs Pulse BP Pulse Ox 02/04/22 09:00 60 95 02/04/22 08:00 58 L 154/83 H 96 02/04/22 07:00 50 L 94 02/04/22 06:00 56 L 124/63 91 02/04/22 05:00 54 L 95 02/04/22 04:00 53 L 130/64 92 02/04/22 03:00 58 L 96 02/04/22 02:01 57 L 135/67 97 02/04/22 01:00 52 L 97 02/04/22 00:00 60 148/75 H 92 02/03/22 23:00 53 L 97 02/03/22 22:00 59 L 146/68 H 97 Laboratory Results WBC 6.19, hemoglobin 11.3, hematocrit 32.6, MCV 101.2, platelet count 96, sodium 128, potassium 3.9, BUN 17, creatinine 0.91, glucose 125, hemoglobin A1c 5.8, calcium 8.7, magnesium 1.4, TSH 1.433, ammonia 37 I do note that patient's serum sodium was 122 at the time of presentation. Her serum sodium was 129 last November, 132 last April, 131 last December, [address] Diagnostic Findings [address] of the head negative for hemorrhage or acute process. CT angiogram of the head and neck unremarkable. 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 There is moderately advanced chronic small vessel ischemic disease throughout the cerebral hemispheres and jose alejandro. I independently reviewed the images as well as the radiologist's interpretation of these tests and was able to appreciate the above findings. Electrocardiogram reveals normal sinus rhythm, left ventricular hypertrophy with QRS widening, 65 bpm. An EEG completed February 03, 2022 revealed a mild to moderate encephalopathy, no epileptiform abnormalities. Coding Level of Care Code 44156 Initial Inpt Care Lvl 3 Diagnoses Seizure R56.9 Acute hyponatremia E87.1 Cerebrovascular disease I67.9
--- NOTE | 2022-02-04 15:15 | Discharge Summary ---
Date of Service February 04, 2022 Admission HPI Per Admitting Provider 66yo F w/ hx of HTN, cirrhosis who presents with likely seizure. Per the 's report, she was in a normal state of health yesterday. Overnight, he felt she was more twitchy than usual. This morning, she had a "screaming" incident and the could not wake her up. He called EMS, and when she was getting loaded up in the car, there is a report she had a generalized tonic- clonic seizure. She received IM Versed. In the ER, she was obtunded with a lowered GCS. Though her oxygenation was good, the ER physician felt her airway was compromised, and she required intubation. Principal Diagnosis Hyponatremia Provoked seizure-like activity Discharge Exam The patient appeared stable Vital signs as documented. Lungs are clear to auscultation and appear unlabored Cardiac exam, Rhythm is regular.. No murmurs, rubs or gallops. Abdominal exam reveals normal bowel sounds, soft non tender, no masses Extremities are nonedematous and both pedal pulses are normal. Neurologic exam is alert and oriented, no focal loss of strength or sensation Skin is without bruises or rashes Psychologically is without concerns for anxiety or depression. Discharge Data Allergies Allergy/AdvReac Type Severity Reaction Status Date / Time CASANDRA Inhibitors Allergy Severe Angioedema Verified 01/31/21 15:30 Consultations 02/02/22 09:18 ED Decision to Admit Stat 02/02/22 12:01 Consult Auto Cleaner Routine 02/03/22 11:58 Consult Neurology Routine Ordered Studies 02/02/22 07:42 CT angio head w con Stat CT angio neck with con Stat CT head/brain wo con Stat 02/02/22 08:53 MR brain wo/w con Stat Hospital Course (1) Transition of care performed with sharing of clinical summary: Patient presented with hyponatremia which is improved but not perfect at time of discharge. She will be asked to avoid free water intake with outpatient blood work checked on February 06 With concern for SIADH the patient had her hydrochlorothiazide stopped and spironolactone reduced to once nightly her volume status will be assessed in the office Neurology saw the patient and feels that she is not can need continued epileptic medications. I asked the patient not to drive until follow-up with primary care (2) Seizure: Witnessed by EMS. Received IM Versed en route to ER. Loaded with Keppra in ER per neurology. - Keppra 500 mg PO BID - Intubated for airway protection in ER -> Extubated on 02/02. - MRI brain & CTA head/neck on 02/02 without acute issues. - Corrected Na by ~8 mEq over 24 hours -> Now Na is 128. Asked to avoid free water intake reduce diuretic use - EEG done this morning; neurology does not feel continued epileptic medication is warranted (3) Acute hyponatremia: Has chronic hyponatremia per prior nephrology notes. However, usually in the 129 - 134 range. (4) Hypertension: - Discontinue HCTZ for hyponatremia - Continue beta-john (5) SANCHEZ (nonalcoholic steatohepatitis): With cirrhosis and varices on EGD on 12/24/2020. - Continue PPI -Reduce spironolactone to once nightly (6) Diabetes mellitus, type 2: Last A1c was 6.0% in 2020. Repeat this admission was 5.8%. -Resume outpatient care (7) Hyperlipidemia: Not on statin at baseline. - No acute needs (8) Acute hypoxemic respiratory failure: resolved, extubated 02/02/22 now on room air, now back to her baseline Total Time Total Time Spent Total Time Spent (In Minutes): greater than 30 minutes were required to complete the discharge process Discharge Plan Discharge Items Patient Disposition: Home - Self-Care Reason For Visit: SEIZURE, HYPOATREMIA Discharge Diagnosis: hyponatremia provoked seizure, neurology does not feel need for continued antiepiliptic medication Activity: Per Instructions section Activity Comment: slowly increase activity , consider no driving until seen in follow up Non-emergency contact: Primary Care Provider Call non-emergency contact if: you have any medication questions and your symptoms worsen Follow-up/Referrals: Ale Mackenzie CRNP [Primary Care Provider] - 02/06/22 11:00 am ([address] with Brenda Flood PA-C) Diet: Carb Consistent or DM2 Ambulatory Orders: Basic Metabolic Panel (Routine) Timeframe: 2 Days Location: Determined by Patient Ordered By: Antione Camargo Magnesium (Routine) Timeframe: 2 Days Location: Determined by Patient Ordered By: Antione Camargo Addtl Attending Provider Instructions: Is believe you had a seizure likely based on your low sodium levels. Your sodium levels are usually not low because of low sodium in your body but because of too much water. Considering limiting your intake of plain water. For liquid intake consider mineral containing substance such as Gatorade Powerade fruit juices or soft drinks but be wary of the carbohydrate content given your sensitivity to sugars. Although your sodium is not perfect at the time of discharge it is improved we will ask you have your blood checked on February 06 with results sent to your primary care provider. Because your medications can affect your body's balance of water and salt we have held your hydrochlorothiazide and reduce your spironolactone to once a day at the time of discharge. Further advice of these medications can be gleaned by your primary care provider as we look at your blood work that will be checked on February 06. Pending Studies at Discharge: No Stand-Alone Forms: My [facility] [employer], Smoking Cessation Medications and DC Order Prescriptions: New magnesium oxide 400 mg (241.3 mg magnesium) Tablet 400 mg PO QPM Qty: 30 RF: 0 Continued albuterol sulfate [Ventolin HFA] 90 mcg/actuation HFA aerosol inhaler 2 puff INHALATION Q6H PRN (Reason: Shortness Of Breath) Qty: 18 RF: 0 fluticasone propionate [Flonase Allergy Relief] 50 mcg/actuation spray,susp ension 2 spray intranasal DAILY Qty: 9.9 RF: 3 propranolol 40 mg tablet 40 mg PO BID Qty: 60 RF: 2 omeprazole 20 mg capsule,delayed release(DR/EC) 20 mg PO QAM Qty: 90 RF: 3 metformin 500 mg tablet extended release 24 hr 1,000 mg PO HS Qty: 180 RF: 3 venlafaxine 150 mg capsule,extended release 24hr 150 mg PO HS Qty: 90 RF: 3 garlic 1,000 mg capsule 1,000 mg PO HS RF: 0 cinnamon bark 500 mg capsule 1,000 mg PO HS RF: 0 turmeric root extract 500 mg capsule 500 mg PO HS RF: 0 cholecalciferol (vitamin D3) 25 mcg (1,000 unit) Tablet 1,000 unit PO HS RF: 0 ascorbic acid (vitamin C) [Vitamin C] 500 mg Tablet 500 mg PO HS RF: 0 loratadine 10 mg Tablet 10 mg PO HS RF: 0 ferrous sulfate 325 mg (65 mg iron) tablet 325 mg PO HS RF: 0 Changed spironolactone 50 mg tablet 50 mg PO HS Qty: 180 RF: 3 Discontinued hydrochlorothiazide 25 mg tablet 25 mg PO QAM Qty: 90 RF: 3 Discharge Orders: Discharge Order (Routine); Ordered 02/04/22 Ordered By: Antione Camargo Admission Data Admit Date/Time: 02/02/22 09:29 Attending Provider: Antione Camargo Admit Provider: Ty Paredes Primary Care Provider: Ale Mackenzie Other Providers: Ty Paredes ; Fei Beaulieu ; Fei Gracia Coding Level of Care Code D/C DAY MANAGEMENT >30 MINS Diagnoses Seizure R56.9 Acute hyponatremia E87.1 Hypertension I10 SANCHEZ (nonalcoholic steatohepatitis) K75.81 Diabetes mellitus, type 2 E11.9 Hyperlipidemia E78.5 Acute hypoxemic respiratory failure J96.01 Transition of care performed with sharing of clinical summary
[2022-02-06 03:46] LABS: 18KDIGG Band NON-REACTIVE; 23KDIGG Band NON-REACTIVE; 23KDIGM Band NON-REACTIVE; 28KDIGG Band NON-REACTIVE; 30KDIGG Band NON-REACTIVE; 39KDIGG Band NON-REACTIVE; 39KDIGM Band NON-REACTIVE; 41KDIGG Band REACTIVE; 41KDIGM Band NON-REACTIVE; 45KDIGG Band NON-REACTIVE; 58KDIGG Band REACTIVE; 66KDIGG Band NON-REACTIVE; 93KDIGG Band NON-REACTIVE; Lyme Antibodies, WB IgG NEGATIVE (NEGATIVE); Lyme Antibodies, WB IgM NEGATIVE (NEGATIVE)
== END 2022-02-04 16:32 | disposition home or self-care (01) | DRG 643 ==
LOC: ED 07:27 → SUATTDRO 09:29 → 1E 09:29 → 3N 02-04 12:46

== ENCOUNTER 2022-03-30 12:17 | Observation (INO) ==
[2022-03-30] MEDS ORDERED: levETIRAcetam 1,000 MG in 0.9 % SODIUM CHLORIDE 100 ML IV STA (12:55)
[2022-03-30] MEDS ORDERED: SODIUM CHLORIDE 0.9% 1000ML 1,000 ML IV SCH (13:00)
[2022-03-30] MEDS ORDERED: levETIRAcetam 1,000 MG in 0.9 % SODIUM CHLORIDE 100 ML IV ONE (13:15)
--- NOTE | 2022-03-30 13:19 | CT Scan Report ---
CT head/brain wo con CLINICAL HISTORY: 66 years-old Female with Seizure. Acute seizure like activity TECHNIQUE: Multiple axial CT images of the head were obtained without contrast. A dose lowering tech nique was utilized adhering to the principles of ALARA. CT DOSE: 537.48 mGy.cm COMPARISON: Head CT 02/02/2022 FINDINGS: No acute intracranial hemorrhage, midline shift, intracranial mass, hydrocephalus, territorial ischem ia or abnormal extra-axial collection. Mild involutional changes. White matter hypodensities suggest chronic microvascular ischemic disease. Cerebral vascular calcifications. Ill-defined hypodensity inv olving the left paramedian jose alejandro is favored be artifactual. The calvarium is intact. Prior bilateral lens repair. The paranasal sinuses, mastoid air cells, and m iddle ear cavities are clear. IMPRESSION: No acute intracranial abnormality. ACT 112: Negative or not required by law. The above report was generated using voice recognition software. It may contain grammatical, syntax o r spelling errors. Electronically signed by: Rodolfo Kerr M.D. 03/30/2022 1:17 PM
[2022-03-30] MEDS ORDERED: MULTI-VITAMIN INFUSION 10 ML, THIAMINE HCL 100 MG, FOLIC ACID 1 MG in SODIUM CHLORIDE 0... IV ONE (13:35)
[2022-03-30 13:54] LABS: INR 1.2 (0.9-1.1); Partial Thromboplastin Time 26.2 Seconds (21.0-31.0); Prothrombin Time 12.4 Seconds (9.0-12.0)
[2022-03-30 14:01] LABS: Appearance Urine Turbid (Clear); Bacteria Urine Automated 2+ (Negative); Bilirubin Urine Negative (Negative); Blood Urine 1+ (Negative); Color Urine Yellow; Epithelial Cell Urine Auto >30 /lpf (0-5); Glucose Urine UA Negative (Negative); Ketones Urine Negative (Negative); Leukocyte Esterase Urine Trace (Negative); Nitrite Urine Negative (Negative); Protein Urine Negative (Negative); Specific Gravity Urine 1.011 (1.000-1.030); Urobilinogen Urine Negative (Negative)
[2022-03-30 14:11] LABS: Albumin Globulin Ratio 1.2 (0.9-2); Albumin Level 3.6 gm/dl (3.4-5.0); BUN Creatinine Ratio 14.4 (10-20); Bilirubin,Total 2.1 mg/dl (0.2-1.0); Calcium 9.4 mg/dl (8.5-10.1); Creatinine Clr Calc Pharmacy 76.2 ml/min; Est GFR (African American) 76.7 ml/min; Est GFR (Non-African American) 66.2 ml/min; Magnesium 1.5 mg/dl (1.7-2.4); Phosphorus 3.1 mg/dl (2.5-4.9); Potassium 4.8 mmol/L (3.5-5.1); Total Protein 6.6 gm/dl (6.0-8.3)
--- NOTE | 2022-03-30 14:17 | Emergency Department Note ---
Impression & Plan Seizure, SANCHEZ (nonalcoholic steatohepatitis), Hypomagnesemia, Hypophosphatemia ED Provider Note CHIEF COMPLAINT: Seizure HISTORY OF PRESENT ILLNESS: This 66-year-old female patient presents to the emergency department with complaints of a seizure episode. The patient was sleeping in bed today and her was downstairs. He heard her snoring and making unusual sounds and went upstairs to check on her. He found her unresponsive in the bed with frothy saliva around her mouth. The patient was fairly unresponsive and confused upon awakening. This happened 1 month ago and the patient was noted to have "electrolyte imbalance." Patient states she does drink 2 glasses of wine daily. Has a history of "fatty liver" but has not seen gastroenterology. REVIEW OF SYSTEMS: A review of systems was performed with positives and pertinent negatives listed in the history of present illness. 10 systems were reviewed and are otherwise negative. ALLERGIES: see below MEDICATIONS: see below PMH: see below SOCIAL HISTORY: see below DDx: Epilepsy, infection, hypoglycemia, electrolyte abnormalities, cardiac sources, intracerebral event, trauma, toxicologic, ETOH w/d, neurologic, syncope, as well as other pathologies. PHYSICAL EXAM: Vital signs reviewed. Hypertension noted. General: Chronically ill-appearing 66-year-old female, in no significant distress. HEENT: No scleral icterus, PERRLA, neck supple. Atraumatic. Cardiovascular: Regular rate and rhythm, no extra sounds. Pulmonary: Clear to auscultation bilaterally, normal work of breathing. Abdomen: Soft, obese, nontender, nondistended, positive bowel sounds. Musculoskeletal: Atraumatic, minimal peripheral edema. Neurologic: Patient awake alert and answers most questions appropriately, but takes a few seconds to focus on questions asked. Skin: Warm, dry, telangiectasias noted to the anterior chest EMERGENCY DEPARTMENT COURSE/MDM: This patient was evaluated and appeared to be in no significant distress. IV access was obtained and laboratory work was drawn. The patient was placed on seizure precautions and noted to be hypertensive. Medical history was reviewed. The patient is noted to be in a normal sinus rhythm at 61 beats per minute. Patient was hydrated with normal saline solution. She was loaded with 1 g of IV Keppra. Patient's laboratory work reveals a hypomagnesemia and she was given IV mag and repletion. Patient was also given a banana bag. CT imaging of the head was performed and reveals no evidence of acute intracranial abnormality. The patient was discussed with the hospitalist service for admission and further management due to the potential for an alcohol withdrawal seizure, hyponatremia and hypomagnesemia. She and her have expressed understanding of the plan and agreed. MONITORING: An order for cardiac monitoring was placed and the patient is noted to be in a NSR at 60 beats per minute. RADIOLOGY: See below EKG: NSR at 60 bpm, LVH, QTc 420, no PVC, no PAC. No significant change from February 02, 2022. DISPOSITION: Admission Past Med/Surg History Medical History Anemia Asthma USES PRN INH 3 X WK ON AVG Diabetes mellitus, type 2 NIDDM Esophageal varices 2016 GERD (gastroesophageal reflux disease) Hepatic cirrhosis History of benign breast biopsy History of pleural effusion RT 09/10 HEPATIC CIRRHOSIS - S/P THORACENTESIS SANCHEZ (nonalcoholic steatohepatitis) Pleural effusion associated with hepatic disorder Right-2017 Surgical History History of ankle surgery LT History of cataract surgery bilt History of colonoscopy W/ POLYPECTOMY History of esophagogastroduodenoscopy (EGD) History of thoracentesis RT 2017 History of tooth extraction History of total abdominal hysterectomy and bilateral salpingo-oophorectomy History of tubal ligation Family History Grandfather (Maternal) Diabetes Coronary heart disease Dyslipidemia Hypercholesterolemia Hypertension Grandmother (Maternal) Ovarian cyst Stroke Father Pancreatic cancer Hypertension Stroke Mother Bladder cancer Hypertension Sister Hypertension Other No family history of adverse response to anesthesia Denies family history of Ovarian cancer Prostate cancer Myocardial infarction Breast cancer Social History Smoking Status: Never smoker Second Hand Exposure: Yes ( A CHILD); Hx Alcohol Use: Yes Alcohol type: wine Hx Substance Use: No Preferred Language: Swedish Communication Ability: Effective Visual Impairment: No Limitations Hearing Ability: Normal Tmh Teacher Required: No Beliefs That Will Affect Care: None marital status: Current Living Situation: Spouse Current Living Situation Comment: unknown current occupational status: employed Feels Safe at Home: Yes Physical Activity Frequency: 1-2 Times per Week Seatbelt Use: always Assistive Devices: None Allergies Allergies Allergy/AdvReac Type Severity Reaction Status Date / Time CASANDRA Inhibitors Allergy Severe Angioedema Verified 03/11/22 14:24 Home Meds Home Medications Medication Instructions Recorded Confirmed cholecalciferol (vitamin D3) 25 1,000 unit PO HS 10/28/19 03/11/22 mcg (1,000 unit) tablet garlic 1,000 mg capsule 1,000 mg PO HS 11/05/20 03/11/22 cinnamon bark 500 mg capsule 1,000 mg PO HS 11/29/20 03/11/22 turmeric root extract 500 mg 500 mg PO HS 11/29/20 03/11/22 capsule ascorbic acid (vitamin C) 500 mg 500 mg PO HS 12/23/20 03/11/22 tablet (Vitamin C) ferrous sulfate 325 mg (65 mg 325 mg PO HS 12/23/20 03/11/22 iron) tablet loratadine 10 mg tablet 10 mg PO HS 12/23/20 03/11/22 Previous Rx's Medication Instructions Recorded fluticasone propionate 50 2 spray intranasal DAILY #9.9 mL 01/14/21 mcg/actuation nasal spray,suspension (Flonase Allergy Relief) magnesium oxide 400 mg (241.3 mg 400 mg PO QPM #30 tabs 02/04/22 magnesium) tablet albuterol sulfate 90 mcg/actuation 2 puff inhalation Q6H PRN 02/06/22 aerosol inhaler (Ventolin HFA) Shortness Of Breath #18 grams propranolol 40 mg tablet 40 mg PO BID #180 tabs 02/11/22 venlafaxine 150 mg 150 mg PO HS #90 caps 02/18/22 capsule,extended release 24 hr famotidine 40 mg tablet 40 mg PO .QOD #30 tabs 03/11/22 metformin 500 mg tablet,extended 1,000 mg PO HS #180 tabs 03/11/22 release 24 hr omeprazole 20 mg capsule,delayed 20 mg PO .QOD #90 caps 03/11/22 release spironolactone 25 mg tablet 25 mg PO BID #60 tabs 03/11/22 levetiracetam 500 mg tablet 500 mg PO BID #60 tabs 03/31/22 (Keppra) Results & Data (ED) Vital Signs Vital Signs - 24 hr 03/30/22 12:27 03/30/22 13:54 03/30/22 13:54 Temperature 36.9 C Temperature Source Oral Pulse Rate 60 Pulse Rate [Apical] 59 L Pulse Rhythm Regular Pulse Strength Normal Respiratory Rate 16 16 Respiratory Effort / Characteristics Non-Labored Spontaneous Non-Labored Spontaneous Respiratory Depth Normal Normal Blood Pressure 175/80 H Blood Pressure [Right Arm] 157/109 H Blood Pressure Mean 111 Blood Pressure Mean [Right Arm] 125 Blood Pressure Position Sitting Pulse Oximetry 93 99 97 Oxygen Delivery Method Room Air Room Air Room Air Sepsis Recent Fever Within 48 Hours No Sepsis New/Unexplained Change in Mental Status N/A Sepsis Action Taken by Nursing No Action Required Home Medications Current Medication List: was personally reviewed by me Laboratory Data Attestation: I reviewed the patient's lab results. Result diagrams: 03/31/22 06:13 03/31/22 06:13 Lab Results 03/30/22 03/30/22 03/30/22 Range/Units 13:21 13:21 13:21 WBC 4.92 (4.8-10.8) K/ul RBC 3.61 L (3.93-5.22) M/uL Hgb 12.0 (12.0-16.0) g/dl Hct 35.6 (34.1-44.9) % MCV 98.6 (80.0-100.0) fL MCH 33.2 (25.0-34.0) pg MCHC 33.7 (32.0-36.0) g/dL RDW Std Deviation 48.7 H (36.4-46.3) fL RDW Coeff of Bianca 13.4 (11.5-14.5) % Plt Count 100 L (130-400) K/uL MPV 11.2 (9.4-12.3) fL Immature Gran % (Auto) 0.4 % Neut % (Auto) 80.0 % Lymph % (Auto) 7.9 % [place] % (Auto) 8.1 % Eos % (Auto) 3.0 % Baso % (Auto) 0.6 % Neut # (Auto) 3.93 (1.4-6.5) K/uL Lymph # (Auto) 0.39 L (1.2-3.4) K/uL [place] # (Auto) 0.40 (0.24-0.82) K/uL Eos # (Auto) 0.15 (0-0.50) K/uL Baso # (Auto) 0.03 (0-0.2) K/uL Immature Gran # (Auto) 0.02 (0.00-0.02) K/uL PT (9.0-12.0) Seconds INR (0.9-1.1) APTT (21.0-31.0) Seconds PTT Ratio Sodium 130 L (136-145) mmol/L Potassium 4.8 (3.5-5.1) mmol/L Chloride 98 (98-107) mmol/L Carbon Dioxide 25 (21-32) mmol/L Anion Gap 7 (3-11) BUN 13 (6-23) mg/dl Creatinine 0.90 (0.6-1.2) mg/dl Est Cr Clr Drug Dosing 76.2 ml/min Est GFR ( Amer) 76.7 ml/min Est GFR (Non-Af Amer) 66.2 ml/min BUN/Creatinine Ratio 14.4 (10-20) Glucose 178 H (70-99(Fasting)) mg/dl Calcium 9.4 (8.5-10.1) mg/dl Phosphorus 3.1 (2.5-4.9) mg/dl Magnesium 1.5 L (1.7-2.4) mg/dl Total Bilirubin 2.1 H (0.2-1.0) mg/dl AST 48 H (13-39) U/L ALT 30 (7-52) U/L Alkaline Phosphatase 64 (34-104) U/L Ammonia (18-72) umol/L Total Protein 6.6 (6.0-8.3) gm/dl Albumin 3.6 (3.4-5.0) gm/dl Globulin 3.0 (2.5-4.0) gm/dl Albumin/Globulin Ratio 1.2 (0.9-2) Urine Color Urine Appearance (Clear) Urine pH (4.5-7.5) Ur Specific [place] (1.000-1.030) Urine Protein (Negative) Urine Glucose (UA) (Negative) Urine Ketones (Negative) Urine Blood (Negative) Urine Nitrite (Negative) Urine Bilirubin (Negative) Urine Urobilinogen (Negative) Ur Leukocyte Esterase (Negative) Urine WBC (Auto) (0-5) /hpf Urine RBC (Auto) (0-4) /hpf U Hyaline Cast (Auto) (0-5) /lpf U Epithel Cells (Auto) (0-5) /lpf Urine Bacteria (Auto) (Negative) Urine Opiates Screen (Neg) Ur Methadone, Qual (Neg) Urine Barbiturates (Neg) Ur Phencyclidine (PCP) (Neg) U Amphetamin/Meth Scrn (Neg) MDMA (Ecstasy) Screen (Neg) U Benzodiazepines Scrn (Neg) Ur Cocaine Metabolite (Neg) U Marijuana (THC) Screen (Neg) U Marijuana THC Carboxy (<5) ng/mL Drug Screen Comment Ethyl Alcohol mg/dL < 10.0 (<10.0) mg/dl SARS-CoV-2, RNA, NAAT (NEGATIVE) 03/30/22 03/30/22 03/30/22 Range/Units 13:21 13:21 13:45 WBC (4.8-10.8) K/ul RBC (3.93-5.22) M/uL Hgb (12.0-16.0) g/dl Hct (34.1-44.9) % MCV (80.0-100.0) fL MCH (25.0-34.0) pg MCHC (32.0-36.0) g/dL RDW Std Deviation (36.4-46.3) fL RDW Coeff of Bianca (11.5-14.5) % Plt Count (130-400) K/uL MPV (9.4-12.3) fL Immature Gran % (Auto) % Neut % (Auto) % Lymph % (Auto) % [place] % (Auto) % Eos % (Auto) % Baso % (Auto) % Neut # (Auto) (1.4-6.5) K/uL Lymph # (Auto) (1.2-3.4) K/uL [place] # (Auto) (0.24-0.82) K/uL Eos # (Auto) (0-0.50) K/uL Baso # (Auto) (0-0.2) K/uL Immature Gran # (Auto) (0.00-0.02) K/uL PT 12.4 H (9.0-12.0) Seconds INR 1.2 H (0.9-1.1) APTT 26.2 (21.0-31.0) Seconds PTT Ratio 1.0 Sodium (136-145) mmol/L Potassium (3.5-5.1) mmol/L Chloride (98-107) mmol/L Carbon Dioxide (21-32) mmol/L Anion Gap (3-11) BUN (6-23) mg/dl Creatinine (0.6-1.2) mg/dl Est Cr Clr Drug Dosing ml/min Est GFR ( Amer) ml/min Est GFR (Non-Af Amer) ml/min BUN/Creatinine Ratio (10-20) Glucose (70-99(Fasting)) mg/dl Calcium (8.5-10.1) mg/dl Phosphorus (2.5-4.9) mg/dl Magnesium (1.7-2.4) mg/dl Total Bilirubin (0.2-1.0) mg/dl AST (13-39) U/L ALT (7-52) U/L Alkaline Phosphatase (34-104) U/L Ammonia 65.0 (18-72) umol/L Total Protein (6.0-8.3) gm/dl Albumin (3.4-5.0) gm/dl Globulin (2.5-4.0) gm/dl Albumin/Globulin Ratio (0.9-2) Urine Color Urine Appearance (Clear) Urine pH (4.5-7.5) Ur Specific [place] (1.000-1.030) Urine Protein (Negative) Urine Glucose (UA) (Negative) Urine Ketones (Negative) Urine Blood (Negative) Urine Nitrite (Negative) Urine Bilirubin (Negative) Urine Urobilinogen (Negative) Ur Leukocyte Esterase (Negative) Urine WBC (Auto) (0-5) /hpf Urine RBC (Auto) (0-4) /hpf U Hyaline Cast (Auto) (0-5) /lpf U Epithel Cells (Auto) (0-5) /lpf Urine Bacteria (Auto) (Negative) Urine Opiates Screen (Neg) Ur Methadone, Qual (Neg) Urine Barbiturates (Neg) Ur Phencyclidine (PCP) (Neg) U Amphetamin/Meth Scrn (Neg) MDMA (Ecstasy) Screen (Neg) U Benzodiazepines Scrn (Neg) Ur Cocaine Metabolite (Neg) U Marijuana (THC) Screen (Neg) U Marijuana THC Carboxy (<5) ng/mL Drug Screen Comment Ethyl Alcohol mg/dL (<10.0) mg/dl SARS-CoV-2, RNA, NAAT NEGATIVE (NEGATIVE) 03/30/22 03/30/22 03/30/22 Range/Units 13:50 13:50 13:50 WBC (4.8-10.8) K/ul RBC (3.93-5.22) M/uL Hgb (12.0-16.0) g/dl Hct (34.1-44.9) % MCV (80.0-100.0) fL MCH (25.0-34.0) pg MCHC (32.0-36.0) g/dL RDW Std Deviation (36.4-46.3) fL RDW Coeff of Bianca (11.5-14.5) % Plt Count (130-400) K/uL MPV (9.4-12.3) fL Immature Gran % (Auto) % Neut % (Auto) % Lymph % (Auto) % [place] % (Auto) % Eos % (Auto) % Baso % (Auto) % Neut # (Auto) (1.4-6.5) K/uL Lymph # (Auto) (1.2-3.4) K/uL [place] # (Auto) (0.24-0.82) K/uL Eos # (Auto) (0-0.50) K/uL Baso # (Auto) (0-0.2) K/uL Immature Gran # (Auto) (0.00-0.02) K/uL PT (9.0-12.0) Seconds INR (0.9-1.1) APTT (21.0-31.0) Seconds PTT Ratio Sodium (136-145) mmol/L Potassium (3.5-5.1) mmol/L Chloride (98-107) mmol/L Carbon Dioxide (21-32) mmol/L Anion Gap (3-11) BUN (6-23) mg/dl Creatinine (0.6-1.2) mg/dl Est Cr Clr Drug Dosing ml/min Est GFR ( Amer) ml/min Est GFR (Non-Af Amer) ml/min BUN/Creatinine Ratio (10-20) Glucose (70-99(Fasting)) mg/dl Calcium (8.5-10.1) mg/dl Phosphorus (2.5-4.9) mg/dl Magnesium (1.7-2.4) mg/dl Total Bilirubin (0.2-1.0) mg/dl AST (13-39) U/L ALT (7-52) U/L Alkaline Phosphatase (34-104) U/L Ammonia (18-72) umol/L Total Protein (6.0-8.3) gm/dl Albumin (3.4-5.0) gm/dl Globulin (2.5-4.0) gm/dl Albumin/Globulin Ratio (0.9-2) Urine Color Yellow Urine Appearance Turbid A (Clear) Urine pH 8.0 H (4.5-7.5) Ur Specific [place] 1.011 (1.000-1.030) Urine Protein Negative (Negative) Urine Glucose (UA) Negative (Negative) Urine Ketones Negative (Negative) Urine Blood 1+ H (Negative) Urine Nitrite Negative (Negative) Urine Bilirubin Negative (Negative) Urine Urobilinogen Negative (Negative) Ur Leukocyte Esterase Trace H (Negative) Urine WBC (Auto) 10-30 H (0-5) /hpf Urine RBC (Auto) 5-10 H (0-4) /hpf U Hyaline Cast (Auto) 1-5 (0-5) /lpf U Epithel Cells (Auto) >30 H (0-5) /lpf Urine Bacteria (Auto) 2+ H (Negative) Urine Opiates Screen Neg (Neg) Ur Methadone, Qual Neg (Neg) Urine Barbiturates Neg (Neg) Ur Phencyclidine (PCP) Neg (Neg) U Amphetamin/Meth Scrn Neg (Neg) MDMA (Ecstasy) Screen Neg (Neg) U Benzodiazepines Scrn Neg (Neg) Ur Cocaine Metabolite Neg (Neg) U Marijuana (THC) Screen Pos H (Neg) U Marijuana THC Carboxy 21 H (<5) ng/mL Drug Screen Comment SEE NOTE Ethyl Alcohol mg/dL (<10.0) mg/dl SARS-CoV-2, RNA, NAAT (NEGATIVE) Administered Medications Discontinued Medications Acetaminophen (Acetaminophen 325 Mg Tab) 650 mg PO Q4H PRN PRN Reason: Pain or Fever Stop: 04/29/22 15:40 Last Admin: 03/31/22 08:22 Dose: 650 mg Documented By: YECENIA Enoxaparin Sodium (Enoxaparin Inj 40 Mg/0.4 Ml Syr) 40 mg SQ Q24H LIANA Stop: 04/29/22 15:59 Last Admin: 03/31/22 16:03 Dose: 40 mg Documented By: Admin: 03/30/22 18:52 Dose: 40 mg Documented By: BHARAT Ferrous Sulfate (Ferrous Sulfate 325 Mg Tab) 325 mg PO QDD LIANA Stop: 04/29/22 16:29 Last Admin: 03/31/22 16:03 Dose: 325 mg Documented By: Admin: 03/30/22 20:03 Dose: 325 mg Documented By: ROSE MARY Fluticasone Propionate (Fluticasone Propionate Na Spr 16 Gm Btl) 2 sprays NA DAILY LIANA Stop: 04/30/22 08:59 Last Admin: 03/31/22 07:59 Dose: Not Given Documented By: YECENIA Folic Acid (Folic Acid 1 Mg Tab) 1 mg PO QAM LIANA Stop: 04/30/22 08:59 Last Admin: 03/31/22 07:58 Dose: 1 mg Documented By: YECENIA Sodium Chloride (Nss 1000ml) 1,000 mls @ 100 mls/hr IV .Q10H LIANA Stop: 03/30/22 22:59 Last Infusion: 03/30/22 17:23 Dose: 0 mls/hr Documented By: Admin: 03/30/22 13:50 Dose: 100 mls/hr Documented By: KENNA Levetiracetam 1,000 mg/ Sodium (Chloride) 110 mls @ 440 mls/hr IV TODAY@1315 ONE Stop: 03/30/22 13:29 Last Infusion: 03/30/22 14:38 Dose: 0 mls/hr Documented By: Admin: 03/30/22 13:50 Dose: 440 mls/hr Documented By: KENNA Multivitamins 10 ml/ Thiamine HCl 100 mg/ Folic Acid 1 mg/Sodium Chloride 1,011.2 mls @ 1,011.2 mls/hr IV .Q1H ONE Stop: 03/30/22 14:34 Last Infusion: 03/30/22 15:34 Dose: 0 mls/hr Documented By: Admin: 03/30/22 13:53 Dose: 1,011.2 mls/hr Documented By: KENNA Magnesium Sulfate/Dextrose (Magnesium Sulfate / D5w) 1 gm in 100 mls @ 200 mls/hr IV Q30M LIANA Stop: 03/30/22 15:11 Last Infusion: 03/30/22 17:23 Dose: 0 mls/hr Documented By: Admin: 03/30/22 15:29 Dose: 200 mls/hr Documented By: Infusion: 03/30/22 15:00 Dose: 200 mls/hr Documented By: Admin: 03/30/22 14:30 Dose: 200 mls/hr Documented By: KENNA Magnesium Sulfate/Dextrose (Magnesium Sulfate / D5w) 1 gm in 100 mls @ 50 mls/hr IV Q2H LIANA Stop: 03/30/22 20:29 Last Infusion: 03/30/22 22:28 Dose: 0 mls/hr Documented By: Admin: 03/30/22 18:52 Dose: 50 mls/hr Documented By: Infusion: 03/30/22 18:52 Dose: 0 mls/hr Documented By: Admin: 03/30/22 16:06 Dose: 50 mls/hr Documented By: ELLIE Thiamine HCl 500 mg/ Sodium (Chloride) 55 mls @ 220 mls/hr IV Q8H LIANA Stop: 04/29/22 15:59 Last Infusion: 03/31/22 16:08 Dose: 0 mls/hr Documented By: Infusion: 03/31/22 15:55 Dose: 220 mls/hr Documented By: Infusion: 03/31/22 15:30 Dose: 0 mls/hr Documented By: Admin: 03/31/22 15:27 Dose: 220 mls/hr Documented By: Infusion: 03/31/22 08:28 Dose: 0 mls/hr Documented By: Admin: 03/31/22 08:13 Dose: 220 mls/hr Documented By: Infusion: 03/31/22 00:10 Dose: 0 mls/hr Documented By: Admin: 03/30/22 23:55 Dose: 220 mls/hr Documented By: Infusion: 03/30/22 17:22 Dose: 0 mls/hr Documented By: Admin: 03/30/22 16:37 Dose: 220 mls/hr Documented By: ELLIE Insulin Aspart (Insulin Aspart Per Unit) 0 units SC ACHS LIANA Stop: 04/29/22 16:29 Last Admin: 03/31/22 16:55 Dose: Not Given Documented By: Admin: 03/31/22 12:12 Dose: 4 units Documented By: CHADD Co-signed By: YECENIA Admin: 03/31/22 08:14 Dose: 2 units Documented By: YECENIA Co-signed By: [id number] Admin: 03/30/22 21:56 Dose: Not Given Documented By: Admin: 03/30/22 19:45 Dose: 4 units Documented By: ROSE MARY Co-signed By: MELVIN Levetiracetam (Levetiracetam 500 Mg Tab) 500 mg PO BID LIANA Stop: 04/29/22 20:59 Last Admin: 03/31/22 07:58 Dose: 500 mg Documented By: Admin: 03/30/22 21:46 Dose: 500 mg Documented By: DOV Loratadine (Loratadine 10 Mg Tab) 10 mg PO HS LIANA Stop: 04/29/22 20:59 Last Admin: 03/30/22 21:45 Dose: 10 mg Documented By: DOV Melatonin (Melatonin 3 Mg Tab) 3 mg PO HS PRN PRN Reason: Sleep Stop: 04/29/22 21:15 Last Admin: 03/30/22 21:52 Dose: 3 mg Documented By: DOV Propranolol HCl (Propranolol Hcl 20 Mg Tab) 40 mg PO BID LIANA Stop: 04/29/22 20:59 Last Admin: 03/31/22 07:59 Dose: 40 mg Documented By: Admin: 03/30/22 21:51 Dose: 40 mg Documented By: DOV Venlafaxine HCl (Venlafaxine Hcl Xr 150 Mg Capxr) 150 mg PO HS LIANA Stop: 04/29/22 20:59 Last Admin: 03/30/22 21:46 Dose: 150 mg Documented By: DOV Vitamin D (Cholecalciferol 1,000 Units 25 Mcg Tab) 1,000 units PO HS LIANA Stop: 04/29/22 20:59 Last Admin: 03/30/22 21:46 Dose: 1,000 units Documented By: DOV Imaging Data Radiologist's Impression: Head CT 03/30/22 12:55 CT head/brain wo con CLINICAL HISTORY: 66 years-old Female with Seizure. Acute seizure like activity TECHNIQUE: Multiple axial CT images of the head were obtained without contrast. A dose lowering technique was utilized adhering to the principles of ALARA. CT DOSE: 537.48 mGy.cm COMPARISON: Head CT 02/02/2022 FINDINGS: No acute intracranial hemorrhage, midline shift, intracranial mass, hydrocephalus, territorial ischemia or abnormal extra-axial collection. Mild involutional changes. White matter hypodensities suggest chronic microvascular ischemic disease. Cerebral vascular calcifications. Ill-defined hypodensity involving the left paramedian jose alejandro is favored be artifactual. The calvarium is intact. Prior bilateral lens repair. The paranasal sinuses, mastoid air cells, and middle ear cavities are clear. IMPRESSION: No acute intracranial abnormality. ACT 112: Negative or not required by law. The above report was generated using voice recognition software. It may contain grammatical, syntax or spelling errors. Electronically signed by: Rodolfo Krer M.D. 03/30/2022 1:17 PM Blood Pressure Blood Pressure Findings: Elevated blood pressure Blood Pressure Disposition: further management by hospitalist Discharge Plan Visit Data Chief Complaint: Seizure ED Provider: Deisy Gregorio Discharge Problem: Seizure, SANCHEZ (nonalcoholic steatohepatitis), Hypomagnesemia, Hypophosphatemia Patient Disposition: Admitted As Inpatient Discharge Instructions Interventions: ED Discharge Assessment Last Done: 03/30/22 20:00
[2022-03-30 14:19] LABS: Amphetamines+Metham, Urine Neg (Neg); Barbiturates, Urine Neg (Neg); Benzodiazepine, Urine Neg (Neg); Cocaine, Urine Neg (Neg); MDMA (Ecstacy), Urine Neg (Neg); Methadone, Urine Neg (Neg); Opiate, Urine Neg (Neg); Phencyclidine, Urine Neg (Neg)
[2022-03-30] MEDS: MAGNESIUM SULFATE / D5W 1 GM/100 ML BAG IV SCH ×4 (14:30→18:52)
[2022-03-30 14:43] LABS: Hematocrit (blood only) 35.6 % (34.1-44.9); Mean Corpuscular Hemoglobin 33.2 pg (25.0-34.0); Mean Corpuscular Hgb Conc 33.7 g/dL (32.0-36.0); Mean Corpuscular Volume 98.6 fL (80.0-100.0); Mean Platelet Volume 11.2 fL (9.4-12.3); Platelet Count 100 K/uL (130-400); RDW Coefficient of Variation 13.4 % (11.5-14.5); RDW Standard Deviation 48.7 fL (36.4-46.3); Red Blood Count 3.61 M/uL (3.93-5.22); White Blood Count 4.92 K/ul (4.8-10.8)
[2022-03-30 14:44] LABS: Basophils # (auto) 0.03 K/uL (0-0.2); Basophils % (auto) 0.6 %; Eosinophils # (auto) 0.15 K/uL (0-0.50); Immature Granulocytes # (auto) 0.02 K/uL (0.00-0.02); Immature Granulocytes % (auto) 0.4 %; Lymphocytes # (auto) 0.39 K/uL (1.2-3.4); Lymphocytes % (auto) 7.9 %; Monocytes % (auto) 8.1 %; Neutrophils # (auto) 3.93 K/uL (1.4-6.5)
--- NOTE | 2022-03-30 14:51 | History & Physical Report ---
Date of Service March 30, 2022 Assessment & Plan (1) Seizure-like activity: Plan: Patient arrives for seizure like activity at home that consisted with loud sonorous respirations and frothy sputum at the mouth- followed by period of confusion is possible. Has returned to baseline without encephalopathy this episode. DDX: Electrolyte related vs. metabolic vs. toxic (drugs/ETOH) - Repeat episode in January 28- Keppra was not recommended to continue at discharge - Keppra 1, 000 mg IV given in EMD- continue with Keppra 500mg PO BID - EEG- pending - MRI will hold as patient just had this performed in January - CT non con without acute process- CTA head and neck - 02/02 without occlusion or significant stenosis/dissection or malformations - Afebrile and without encephalopathy - Causes at this time- electrolyte disturbances, vs. ETOH misuse vs. seizure disorder vs. Other - Neurology consulted appreciate recommendations (2) Acute hyponatremia: Plan: Mild with corrected sodium for glucose level at 132 - previously she was 122 in January - Likely related to potomania however will send Serum OSMO, UOSMO, MEAGAN - Contributing factors- ETOh use, hyperglycemia, Venlafaxine - follow no acute intervention needed at this time (3) Hypomagnesemia: Plan: Patient endorses eating at home Mag 1.5 on admission; may be contributing to #1 but would expect this to be much lower to cause this - replete 4GM Mag IV (4) Hyperlipidemia: Plan: Not on statin hold home herbals (5) Hypertension: Plan: Continnue propranolol Hold Spironalactone tonight- likely able to restart in AM (6) Iron (Fe) deficiency anemia: Plan: Continue Ferrous Sulfate (7) SANCHEZ (nonalcoholic steatohepatitis): Plan: LFTs normal- INR 1.2 - follow in AM - With cirrhosis and hepatic varicies (8) GERD (gastroesophageal reflux disease): Plan: Continue PPI (9) Esophageal varices: Plan: BP control follow INR non acute (10) Asthma: Plan: Cotninue Albuterol, Loratidine, (11) Diabetes mellitus, type 2: Plan: Aspart sliding scale - CF 20; Carb ration 1:12 - hold metformin History of Present Illness Primary Care Provider: Madie Mendieta MD 66 YOF with medical history of: Alcohol use, Seizure like activity, SANCHEZ, Hyponatremia, electrolyte disturbances, DM, Cerebrovascular disease, GERD, DMII. Patient was brought to the EMD today via EMS for concerns of seizure at home. Reportedly the patient's was down stairs reading the paper and heard loud snoring upstairs where Harjinder was sleeping. He went upstairs and found her with "frothy sputum" around her mouth, denies any tonic clonic movements or incontinence. Endorses that she was difficult to arouse so EMS was called. There is some question of whether she did awaken with EMS arrival. Patient states that she woke up in the ambulance " based on the conversations that the elementary classroom teacher were having she figured she had another event." Patient states that she does drink 2-3 glasses of wine daily and her drinking has not increased or decreased. She endorses smoking marijuana once a week and reports she used this on Wednesday. Denies any changes to medications. She reports that she is compliant with medication listing at home. Patient was admitted in January for seizure like activity at that time that was associated with hyponatremia, encephalopathy, and seizure. She had LP attempted at that time without success, MRI of the brain, EEG completed and evaluation by neurology. Her EEG was negative, and MRI of the brain with contrast was negative for any acute process. She was also noted to not have significant vascular lesions on her CTA of the head and neck. In the EMD the patient had CT scan of the head performed, routine blood work completed, and urine tox screen. She was noted to by hyponatremic to 130, and hypomagnesemic at 1.5. She received a banana bag and will replete her magnesium with total of 4GM of mag. Patient will be admitted to medical telemetry. Continue with Keppra 500mg PO BID, increase if another episode occurs. COVID: NEGATIVE on admission Allergies Allergy/AdvReac Type Severity Reaction Status Date / Time CASANDRA Inhibitors Allergy Severe Angioedema Verified 03/11/22 14:24 Home Medications Medication Instructions Recorded Confirmed Type cholecalciferol (vitamin D3) 25 1,000 unit PO HS 10/28/19 03/11/22 History mcg (1,000 unit) tablet garlic 1,000 mg capsule 1,000 mg PO HS 11/05/20 03/11/22 History cinnamon bark 500 mg capsule 1,000 mg PO HS 11/29/20 03/11/22 History turmeric root extract 500 mg 500 mg PO HS 11/29/20 03/11/22 History capsule ascorbic acid (vitamin C) 500 mg 500 mg PO HS 12/23/20 03/11/22 History tablet (Vitamin C) ferrous sulfate 325 mg (65 mg 325 mg PO HS 12/23/20 03/11/22 History iron) tablet loratadine 10 mg tablet 10 mg PO HS 12/23/20 03/11/22 History fluticasone propionate 50 2 spray intranasal DAILY #9.9 mL 01/14/21 03/11/22 Rx mcg/actuation nasal spray,suspension (Flonase Allergy Relief) magnesium oxide 400 mg (241.3 mg 400 mg PO QPM #30 tabs 02/04/22 03/11/22 Rx magnesium) tablet albuterol sulfate 90 mcg/actuation 2 puff inhalation Q6H PRN 02/06/22 03/11/22 Rx aerosol inhaler (Ventolin HFA) Shortness Of Breath #18 grams propranolol 40 mg tablet 40 mg PO BID #180 tabs 02/11/22 03/11/22 Rx venlafaxine 150 mg 150 mg PO HS #90 caps 02/18/22 03/11/22 Rx capsule,extended release 24 hr famotidine 40 mg tablet 40 mg PO .QOD #30 tabs 03/11/22 03/11/22 Rx metformin 500 mg tablet,extended 1,000 mg PO HS #180 tabs 03/11/22 03/11/22 Rx release 24 hr omeprazole 20 mg capsule,delayed 20 mg PO .QOD #90 caps 03/11/22 03/11/22 Rx release spironolactone 25 mg tablet 25 mg PO BID #60 tabs 03/11/22 03/11/22 Rx furosemide 20 mg tablet 20 mg PO DAILY #30 tabs 03/12/22 03/12/22 Rx Past Med/Surg History Medical History Anemia Asthma USES PRN INH 3 X WK ON AVG Diabetes mellitus, type 2 NIDDM Esophageal varices 2016 GERD (gastroesophageal reflux disease) Hepatic cirrhosis History of benign breast biopsy History of pleural effusion RT 2/2 HEPATIC CIRRHOSIS - S/P THORACENTESIS SANCHEZ (nonalcoholic steatohepatitis) Pleural effusion associated with hepatic disorder Right-2017 Surgical History History of ankle surgery LT History of cataract surgery bilt History of colonoscopy W/ POLYPECTOMY History of esophagogastroduodenoscopy (EGD) History of thoracentesis RT 2017 History of tooth extraction History of total abdominal hysterectomy and bilateral salpingo-oophorectomy History of tubal ligation Family History Grandfather (Maternal) Diabetes Coronary heart disease Dyslipidemia Hypercholesterolemia Hypertension Grandmother (Maternal) Ovarian cyst Stroke Father Pancreatic cancer Hypertension Stroke Mother Bladder cancer Hypertension Sister Hypertension Other No family history of adverse response to anesthesia Denies family history of Ovarian cancer Prostate cancer Myocardial infarction Breast cancer Social History Smoking Status: Former smoker Second Hand Exposure: Yes ( A CHILD); Hx Alcohol Use: Yes Alcohol type: wine Hx Substance Use: No Preferred Language: Brazilian Communication Ability: Effective Visual Impairment: No Limitations Hearing Ability: Normal Baker Second Required: No Beliefs That Will Affect Care: None marital status: Current Living Situation: Spouse Current Living Situation Comment: unknown current occupational status: employed Feels Safe at Home: Yes Physical Activity Frequency: 1-2 Times per Week Seatbelt Use: always Assistive Devices: None Review of Systems Review of Systems: REVIEW OF SYSTEMS: Constitutional: No fever, sweats or chills Eyes: No diplopia, no worsening or blurred vision ENT: normal hearing, no trouble swallowing Respiratory: No cough, sputum, dyspnea at rest or on exertion Cardiovascular: No chest pain, tightness or palpitations Abdomen: No pain, nausea, vomiting, diarrhea or constipation Musculoskeletal: No joint pain, calf pain, swelling Neurologic: (+) seizure like activity, no weakness, numbness/tingling, or balance problems Psychiatric: No anxiety or depression Skin: No rash or itch Physical Exam Physical Exam: PHYSICAL EXAM: General: awake, alert, no apparent distress Head: Normocephalic, atraumatic ENT: PERRL, EOMI, no pharyngeal exudate, mucous membranes dry Neuro: AAO x 3, speech clear and appropriate, strength intact bilaterally 5/5, sensation intact and equal all extremities and dermatomes, no pronator drift, endorses front 1/3rd tongue numbness without any other symptom. Negative nystagmus, negative clonus, no visual field deficit Chest: equal rise and fall of the chest, no accessory muscle use, no heaves or thrills, Clear to auscultation, on room air, Cardiac: Regular rate and rhythm, telemetry reviewed, skin warm dry, cap refill <3 seconds, peripheral pulses +2 no JVD, no murmur,, no edema GI: NABS x 4 quadrants, soft, nontender to palpation, no rebound, guarding or tenderness : Spontaneously voiding, no pain, no CVA tenderness, Extremities: Normal inspection, no peripheral edema or erythema, calfs nontender to palpation Psych: Normal mood and affect Skin: no rash or erythema Results & Data Results & Data ([facility]) Vital Signs (Past 12 Hours) Vital Signs Temp Pulse Pulse Resp BP BP Pulse Ox 03/30/22 13:54 97 03/30/22 13:54 59 L 16 157/109 H 99 03/30/22 12:27 36.9 C 60 16 175/80 H 93 O2 Del Method 03/30/22 13:54 Room Air 03/30/22 13:54 Room Air 03/30/22 12:27 Room Air Laboratory Results Laboratory Results - last 24 hr 03/30/22 03/30/22 03/30/22 13:21 13:21 13:21 WBC 4.92 RBC 3.61 L Hgb 12.0 Hct 35.6 MCV 98.6 MCH 33.2 MCHC 33.7 RDW Std Deviation 48.7 H RDW Coeff of Bianca 13.4 Plt Count 100 L MPV 11.2 Immature Gran % (Auto) 0.4 Neut % (Auto) 80.0 Lymph % (Auto) 7.9 [place] % (Auto) 8.1 Eos % (Auto) 3.0 Baso % (Auto) 0.6 Neut # (Auto) 3.93 Lymph # (Auto) 0.39 L [place] # (Auto) 0.40 Eos # (Auto) 0.15 Baso # (Auto) 0.03 Immature Gran # (Auto) 0.02 PT INR APTT PTT Ratio Sodium 130 L Potassium 4.8 Chloride 98 Carbon Dioxide 25 Anion Gap 7 BUN 13 Creatinine 0.90 Est Cr Clr Drug Dosing 76.2 Est GFR ( Amer) 76.7 Est GFR (Non-Af Amer) 66.2 BUN/Creatinine Ratio 14.4 Glucose 178 H Calcium 9.4 Phosphorus 3.1 Magnesium 1.5 L Total Bilirubin 2.1 H AST 48 H ALT 30 Alkaline Phosphatase 64 Ammonia Total Protein 6.6 Albumin 3.6 Globulin 3.0 Albumin/Globulin Ratio 1.2 Urine Color Urine Appearance Urine pH Ur Specific [place] Urine Protein Urine Glucose (UA) Urine Ketones Urine Blood Urine Nitrite Urine Bilirubin Urine Urobilinogen Ur Leukocyte Esterase Urine WBC (Auto) Urine RBC (Auto) U Hyaline Cast (Auto) U Epithel Cells (Auto) Urine Bacteria (Auto) Urine Opiates Screen Ur Methadone, Qual Urine Barbiturates Ur Phencyclidine (PCP) U Amphetamin/Meth Scrn MDMA (Ecstasy) Screen U Benzodiazepines Scrn Ur Cocaine Metabolite U Marijuana (THC) Screen U Marijuana THC Carboxy Drug Screen Comment Ethyl Alcohol mg/dL < 10.0 SARS-CoV-2, RNA, NAAT 03/30/22 03/30/22 03/30/22 13:21 13:21 13:45 WBC RBC Hgb Hct MCV MCH MCHC RDW Std Deviation RDW Coeff of Bianca Plt Count MPV Immature Gran % (Auto) Neut % (Auto) Lymph % (Auto) [place] % (Auto) Eos % (Auto) Baso % (Auto) Neut # (Auto) Lymph # (Auto) [place] # (Auto) Eos # (Auto) Baso # (Auto) Immature Gran # (Auto) PT 12.4 H INR 1.2 H APTT 26.2 PTT Ratio 1.0 Sodium Potassium Chloride Carbon Dioxide Anion Gap BUN Creatinine Est Cr Clr Drug Dosing Est GFR ( Amer) Est GFR (Non-Af Amer) BUN/Creatinine Ratio Glucose Calcium Phosphorus Magnesium Total Bilirubin AST ALT Alkaline Phosphatase Ammonia 65.0 Total Protein Albumin Globulin Albumin/Globulin Ratio Urine Color Urine Appearance Urine pH Ur Specific [place] Urine Protein Urine Glucose (UA) Urine Ketones Urine Blood Urine Nitrite Urine Bilirubin Urine Urobilinogen Ur Leukocyte Esterase Urine WBC (Auto) Urine RBC (Auto) U Hyaline Cast (Auto) U Epithel Cells (Auto) Urine Bacteria (Auto) Urine Opiates Screen Ur Methadone, Qual Urine Barbiturates Ur Phencyclidine (PCP) U Amphetamin/Meth Scrn MDMA (Ecstasy) Screen U Benzodiazepines Scrn Ur Cocaine Metabolite U Marijuana (THC) Screen U Marijuana THC Carboxy Drug Screen Comment Ethyl Alcohol mg/dL SARS-CoV-2, RNA, NAAT NEGATIVE 03/30/22 03/30/22 03/30/22 13:50 13:50 13:50 WBC RBC Hgb Hct MCV MCH MCHC RDW Std Deviation RDW Coeff of Bianca Plt Count MPV Immature Gran % (Auto) Neut % (Auto) Lymph % (Auto) [place] % (Auto) Eos % (Auto) Baso % (Auto) Neut # (Auto) Lymph # (Auto) [place] # (Auto) Eos # (Auto) Baso # (Auto) Immature Gran # (Auto) PT INR APTT PTT Ratio Sodium Potassium Chloride Carbon Dioxide Anion Gap BUN Creatinine Est Cr Clr Drug Dosing Est GFR ( Amer) Est GFR (Non-Af Amer) BUN/Creatinine Ratio Glucose Calcium Phosphorus Magnesium Total Bilirubin AST ALT Alkaline Phosphatase Ammonia Total Protein Albumin Globulin Albumin/Globulin Ratio Urine Color Yellow Urine Appearance Turbid A Urine pH 8.0 H Ur Specific [place] 1.011 Urine Protein Negative Urine Glucose (UA) Negative Urine Ketones Negative Urine Blood 1+ H Urine Nitrite Negative Urine Bilirubin Negative Urine Urobilinogen Negative Ur Leukocyte Esterase Trace H Urine WBC (Auto) 10-30 H Urine RBC (Auto) 5-10 H U Hyaline Cast (Auto) 1-5 U Epithel Cells (Auto) >30 H Urine Bacteria (Auto) 2+ H Urine Opiates Screen Neg Ur Methadone, Qual Neg Urine Barbiturates Neg Ur Phencyclidine (PCP) Neg U Amphetamin/Meth Scrn Neg MDMA (Ecstasy) Screen Neg U Benzodiazepines Scrn Neg Ur Cocaine Metabolite Neg U Marijuana (THC) Screen Pos H U Marijuana THC Carboxy Pending Drug Screen Comment Pending Ethyl Alcohol mg/dL SARS-CoV-2, RNA, NAAT Diagnostic Findings Head CT 03/30/22 12:55 CT head/brain wo con CLINICAL HISTORY: 66 years-old Female with Seizure. Acute seizure like activity TECHNIQUE: Multiple axial CT images of the head were obtained without contrast. A dose lowering technique was utilized adhering to the principles of ALARA. CT DOSE: 537.48 mGy.cm COMPARISON: Head CT 02/02/2022 FINDINGS: No acute intracranial hemorrhage, midline shift, intracranial mass, hydrocephalus, territorial ischemia or abnormal extra-axial collection. Mild involutional changes. White matter hypodensities suggest chronic microvascular ischemic disease. Cerebral vascular calcifications. Ill-defined hypodensity involving the left paramedian jose alejandro is favored be artifactual. The calvarium is intact. Prior bilateral lens repair. The paranasal sinuses, mastoid air cells, and middle ear cavities are clear. IMPRESSION: No acute intracranial abnormality. ACT 112: Negative or not required by law. The above report was generated using voice recognition software. It may contain grammatical, syntax or spelling errors. Electronically signed by: Rodolfo Kerr M.D. 03/30/2022 1:17 PM Medications Administered Home Medications cholecalciferol (vitamin D3) 25 mcg (1,000 unit) tablet 1,000 unit PO HS 10/28/19 [History Confirmed 03/11/22] garlic 1,000 mg capsule 1,000 mg PO HS 11/05/20 [History Confirmed 03/11/22] cinnamon bark 500 mg capsule 1,000 mg PO HS 11/29/20 [History Confirmed 03/11/22] turmeric root extract 500 mg capsule 500 mg PO HS 11/29/20 [History Confirmed 03/11/22] ascorbic acid (vitamin C) 500 mg tablet (Vitamin C) 500 mg PO HS 12/23/20 [History Confirmed 03/11/22] ferrous sulfate 325 mg (65 mg iron) tablet 325 mg PO HS 12/23/20 [History Confirmed 03/11/22] loratadine 10 mg tablet 10 mg PO HS 12/23/20 [History Confirmed 03/11/22] fluticasone propionate 50 mcg/actuation nasal spray,suspension (Flonase Allergy Relief) 2 spray intranasal DAILY #9.9 mL 01/14/21 [Rx Confirmed 03/11/22] magnesium oxide 400 mg (241.3 mg magnesium) tablet 400 mg PO QPM #30 tabs 02/04/22 [Rx Confirmed 03/11/22] albuterol sulfate 90 mcg/actuation aerosol inhaler (Ventolin HFA) 2 puff inhalation Q6H PRN Shortness Of Breath #18 grams 02/06/22 [Rx Confirmed 03/11/22] propranolol 40 mg tablet 40 mg PO BID #180 tabs 02/11/22 [Rx Confirmed 03/11/22] venlafaxine 150 mg capsule,extended release 24 hr 150 mg PO HS #90 caps 02/18/22 [Rx Confirmed 03/11/22] famotidine 40 mg tablet 40 mg PO .QOD #30 tabs 03/11/22 [Rx Confirmed 03/11/22] metformin 500 mg tablet,extended release 24 hr 1,000 mg PO HS #180 tabs 03/11/22 [Rx Confirmed 03/11/22] omeprazole 20 mg capsule,delayed release 20 mg PO .QOD #90 caps 03/11/22 [Rx Confirmed 03/11/22] spironolactone 25 mg tablet 25 mg PO BID #60 tabs 03/11/22 [Rx Confirmed 2] furosemide 20 mg tablet 20 mg PO DAILY #30 tabs 03/12/22 [Rx Confirmed 03/12/22] Active Medications Sodium Chloride (Nss 1000ml) 1,000 mls @ 100 mls/hr IV .Q10H LIANA Stop: 03/30/22 22:59 Last Admin: 03/30/22 13:50 Dose: 100 mls/hr Magnesium Sulfate/Dextrose (Magnesium Sulfate / D5w) 1 gm in 100 mls @ 50 mls/hr IV Q2H LIANA Stop: 03/30/22 20:29 ECG Additional Comments: Normal sinus rhythm Moderate voltage criteria for LVH, may be normal variant Borderline ECG When compared with ECG of 02-FEB-2022 07:32, No significant change was found QT/QTc 420/420 ms Code Status & VTE Plan Code Status CODE: FULL VTE: SCDS, Lovenox 40mg sub q q24 VTE Prophylaxis Plan VTE Prophylaxis will be ordered: Yes Supervising Physician Co-Signing Physician Notes Patient seen and examined, chart reviewed, case discussed with AMELIA Suqires and I agree with the assessment and plan as above except as otherwise noted Labs and images reviewed Harjinder Zapien is a 60-year-old female with a past medical history of alcohol abuse, marijuana use who presents with a episode of nonobserved shaking and frothing with following period of confusion/weakness concerning for seizure. She was in her home when her heard strange noises from above, when he checked on her she was unresponsive and frothing at the mouth and then progressively awoke confused and weak. At ER assessment marijuana THC screen is positive, magnesium is 1.5, patient is mildly hyponatremic to 130, and medical alcohol was negative.Hemodynamically stable on bedside assessment. /At bedside patient reports she feels okay, no further seizure activity. Does not remember the event that brought her in. Is that she drinks 2-3 drinks per day, but does not usually drink more than this. Last drink yesterday. No shortness of breath, difficulty breathing at time of bedside. His shifting legs in bed, is able to pause this with intention but somewhat tired I have an appearance. last drink yesterday seizure: Suspicious for in the setting of history of alcohol use. Patient reports drinking 2 drinks a day and has a negative alcohol on admission. Hypomagnesemic. Loaded with Keppra. Magnesium being repleted. Received banana bag. EEG pending. Continue on CIWA protocol and follow. Continue Keppra. PG Care Time/CCT Total # of Minutes Spent Total Time Spent with Patient: Total time spent is greater than 50% in coordination of care (as documented) at patient's floor/unit and/or counseling patient: Coding Level of Care Code 43920 Initial Inpt Care Lvl 3 Diagnoses Seizure-like activity R56.9 Acute hyponatremia E87.1 Hypomagnesemia E83.42 Hyperlipidemia E78.5 Hypertension I10 Iron (Fe) deficiency anemia D50.9 SANCHEZ (nonalcoholic steatohepatitis) K75.81 GERD (gastroesophageal reflux disease) K21.9 Esophageal varices I85.00 Asthma J45.909 Diabetes mellitus, type 2 E11.9
[2022-03-30] MEDS ORDERED: DEXTROSE 50% 50 ML SYRINGE IV PRN (15:41)
[2022-03-30] MEDS ORDERED: GLUCOSE 10 TAB/TUBE PO PRN (15:41)
[2022-03-30] MEDS ORDERED: ALBUTEROL HFA 8 GM INHALER INH PRN (15:41)
[2022-03-30] MEDS ORDERED: CARBOHYDRATES FOR HYPOGLYCEMIA PO PRN (15:41)
[2022-03-30] MEDS ORDERED: GLUCAGON FOR INJ 1 MG VIAL SQ PRN (15:41)
[2022-03-30] MEDS ORDERED: GLUCOSE 40% GEL 15 GM TUBE PO PRN (15:41)
[2022-03-30] MEDS ORDERED: ACETAMINOPHEN 325 MG TAB PO PRN (15:41)
--- NOTE | 2022-03-30 16:10 | Electrocardiogram Report ---
Test Reason : Blood Pressure : / mmHG Vent. Rate : 060 BPM Atrial Rate : 060 BPM P-R Int : 162 ms QRS Dur : 092 ms QT Int : 420 ms P-R-T Axes : 048 -10 008 degrees QTc Int : 420 ms Normal sinus rhythm Moderate voltage criteria for LVH, may be normal variant Borderline ECG When compared with ECG of 02-FEB-2022 07:32, No significant change was found Confirmed by Ty Chan ([id number]) on 03/30/2022 4:10:12 PM Referred By: REFERRED SELF Confirmed By:Ty Chan
[2022-03-30] MEDS: THIAMINE HCL 500 MG in SODIUM CHLORIDE 0.9% 50 ML IV SCH ×2 (16:37→23:55)
[2022-03-30] MEDS: ENOXAPARIN INJ 40 MG/0.4 ML SYR SQ SCH (18:52)
[2022-03-30] MEDS: INSULIN ASPART PER UNIT SC SCH ×2 (19:45→21:56)
[2022-03-30] MEDS: FERROUS SULFATE 325 MG TAB PO SCH (20:03)
[2022-03-30] MEDS ORDERED: CHOLECALCIFEROL 1,000 UNITS 25 MCG TAB PO SCH (21:00)
[2022-03-30] MEDS ORDERED: LORATADINE 10 MG TAB PO SCH (21:00)
[2022-03-30] MEDS ORDERED: VENLAFAXINE HCL XR 150 MG CAPXR PO SCH (21:00)
[2022-03-30] MEDS ORDERED: MELATONIN 3 MG TAB PO PRN (21:16)
[2022-03-30] MEDS: levETIRAcetam 500 MG TAB PO SCH (21:46)
[2022-03-30] MEDS: PROPRANOLOL HCL 20 MG TAB PO SCH (21:51)
[2022-03-31 06:52] LABS: Hemoglobin 10.7 g/dl (12.0-16.0); Mean Corpuscular Hemoglobin 33.3 pg (25.0-34.0); Mean Corpuscular Hgb Conc 33.4 g/dL (32.0-36.0); Mean Corpuscular Volume 99.7 fL (80.0-100.0); Mean Platelet Volume 10.2 fL (9.4-12.3); Platelet Count 101 K/uL (130-400); RDW Coefficient of Variation 13.4 % (11.5-14.5); RDW Standard Deviation 49.3 fL (36.4-46.3); Red Blood Count 3.21 M/uL (3.93-5.22); White Blood Count 5.54 K/ul (4.8-10.8)
[2022-03-31 06:53] LABS: INR 1.2 (0.9-1.1); Prothrombin Time 12.9 Seconds (9.0-12.0)
[2022-03-31 07:13] LABS: BUN Creatinine Ratio 13.8 (10-20); Calcium 8.7 mg/dl (8.5-10.1); Est GFR (African American) 72.8 ml/min; Est GFR (Non-African American) 62.8 ml/min; Magnesium 1.7 mg/dl (1.7-2.4); Potassium 3.9 mmol/L (3.5-5.1)
[2022-03-31 07:20] LABS: Basophils # (auto) 0.02 K/uL (0-0.2); Basophils % (auto) 0.4 %; Eosinophils % (auto) 3.6 %; Immature Granulocytes # (auto) 0.02 K/uL (0.00-0.02); Immature Granulocytes % (auto) 0.4 %; Lymphocytes # (auto) 0.49 K/uL (1.2-3.4); Lymphocytes % (auto) 8.8 %; Monocytes # (auto) 0.59 K/uL (0.24-0.82); Monocytes % (auto) 10.6 %; Neutrophils # (auto) 4.22 K/uL (1.4-6.5); Neutrophils % (auto) 76.2 %
[2022-03-31] MEDS: levETIRAcetam 500 MG TAB PO SCH (07:58)
[2022-03-31] MEDS: PROPRANOLOL HCL 20 MG TAB PO SCH (07:59)
[2022-03-31] MEDS: THIAMINE HCL 500 MG in SODIUM CHLORIDE 0.9% 50 ML IV SCH ×2 (08:13→15:27)
[2022-03-31] MEDS: INSULIN ASPART PER UNIT SC SCH ×3 (08:14→16:55)
[2022-03-31] MEDS ORDERED: FLUTICASONE PROPIONATE NA SPR 16 GM BTL SCH (09:00)
[2022-03-31] MEDS ORDERED: FOLIC ACID 1 MG TAB PO SCH (09:00)
[2022-03-31] MEDS: ENOXAPARIN INJ 40 MG/0.4 ML SYR SQ SCH (16:03)
[2022-03-31] MEDS: FERROUS SULFATE 325 MG TAB PO SCH (16:03)
--- NOTE | 2022-03-31 16:36 | Communication Note ---
Date of Service: March 31, 2022 By CMS guidelines, a determination that the admission or continued stay is not medically necessary has been made by a member of the UR committee and a phy sician for this hospital stay, therefore a Code 44 will be completed and the Inpatient admission will be changed to outpatient.
--- NOTE | 2022-03-31 19:04 | Discharge Summary ---
Date of Service March 31, 2022 Admission HPI Per Admitting Provider [id number] YOF with medical history of: Alcohol use, Seizure like activity, SANCHEZ, Hyponatremia, electrolyte disturbances, DM, Cerebrovascular disease, GERD, DMII. Patient was brought to the EMD today via EMS for concerns of seizure at home. Reportedly the patient's was down stairs reading the paper and heard loud snoring upstairs where Harjinder was sleeping. He went upstairs and found her with "frothy sputum" around her mouth, denies any tonic clonic movements or incontinence. Endorses that she was difficult to arouse so EMS was called. There is some question of whether she did awaken with EMS arrival. 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 She endorses smoking marijuana once a week and reports she used this on Wednesday. Denies any changes to medications. She reports that she is compliant with medication listing at home. Patient was admitted in January for seizure like activity at that time that was associated with hyponatremia, encephalopathy, and seizure. She had LP attempted at that time without success, MRI of the brain, EEG completed and evaluation by neurology. Her EEG was negative, and MRI of the brain with contrast was negative for any acute process. She was also noted to not have significant vascular lesions on her CTA of the head and neck. In the EMD the patient had CT scan of the head performed, routine blood work completed, and urine tox screen. She was noted to by hyponatremic to 130, and hypomagnesemic at 1.5. She received a banana bag and will replete her magnesium with total of 4GM of mag. Patient will be admitted to medical telemetry. Continue with Keppra 500mg PO BID, increase if another episode occurs. COVID: NEGATIVE on admission Principal Diagnosis Seizure Discharge Exam General tremor No distress RRR CTA b/l Discharge Data Allergies Allergy/AdvReac Type Severity Reaction Status Date / Time CASANDRA Inhibitors Allergy Severe Angioedema Verified 03/11/22 14:24 Consultations 03/30/22 15:41 Consult Neurology Routine Ordered Studies 03/30/22 12:55 CT head/brain wo con Stat Hospital Course (1) Seizure-like activity: Patient arrives for seizure like activity at home that consisted with loud sonorous respirations and frothy sputum at the mouth- followed by period of con fusion is possible. Has returned to baseline without encephalopathy this episode. DDX: Electrolyte related vs. metabolic vs. toxic (drugs/ETOH) - Repeat episode in January 28- Keppra was not recommended to continue at discharge - Keppra 1, 000 mg IV given in EMD- continue with Keppra 500mg PO BID - EEG- pending - MRI will hold as patient just had this performed in January - CT non con without acute process- CTA head and neck - 02/02 without occlusion or significant stenosis/dissection or malformations - Afebrile and without encephalopathy - Causes at this time- electrolyte disturbances, vs. ETOH misuse vs. seizure disorder vs. Other - Back to baseline by 03/31. Discussed with neurology who did not see her due to number of consults. He reviewed MRI, EEG, and discussed the two presenting scen anderson. He felt that seizure disorder was more likely. Recommended continuing Keppra 500 mg PO BID, and he did not feel she had to stay in the hospital longer. (2) Acute hyponatremia: Mild with corrected sodium for glucose level at 132 - previously she was 122 in January - Likely related to potomania & medications. - Contributing factors - EToH use, hyperglycemia, venlafaxine - Follow no acute intervention needed at this time (3) Hypomagnesemia: Patient endorses eating at home Mag 1.5 on admission; may be contributing to #1 but would expect this to be much lower to cause this - replete 4GM Mag IV -> Normalized. (4) Hyperlipidemia: Not on statin hold home herbals (5) Hypertension: - Continue propranolol - Hold spironolactone tonight- likely able to restart in AM (6) Iron (Fe) deficiency anemia: - Continue Ferrous Sulfate (7) SANCHEZ (nonalcoholic steatohepatitis): LFTs normal- INR 1.2 - follow in AM - With cirrhosis and hepatic varicies (8) GERD (gastroesophageal reflux disease): Continue PPI (9) Esophageal varices: BP control follow INR non acute (10) Asthma: Cotninue Albuterol, Loratidine, (11) Diabetes mellitus, type 2: Aspart sliding scale - CF 20; Carb ration 1:12 - hold metformin Total Time Total Time Spent Total Time Spent (In Minutes): 35 Discharge Plan Discharge Items Patient Disposition: Home - Self-Care Reason For Visit: SEIZURE LIKE ACTIVITY Discharge Diagnosis: Seizure Activity: Resume your previous activity Non-emergency contact: Primary Care Provider and Neurologist Call non-emergency contact if: your symptoms worsen Follow-up/Referrals: Madie Mendieta MD [Primary Care Provider] - Nadir Guzmán MD [Physician] - (Please see a provider in the neurology office in 3-4 weeks.) Diet: Regular Addtl Attending Provider Instructions: Ms. Zapien, You were admitted to the hospital with your second seizure. The first one was though to maybe be due to low sodium in your blood, and the team did not think you needed an anti-epilepsy medication. However, this time, your sodium was/is stable from your priors, so we do not think this is the case for this episode. The neurology team reviewed your tests from the prior admission and did not think you needed additional work-up or testing. However, because this is the second episode, they would like you to start a medication to help prevent further episodes and then follow up with the neurology team in 3-4 weeks to see how you are doing. Please see a provider in the neurology office in 3-4 weeks. Please keep your appointment with your new PCP. If you have any other seizures, please contact the PCP's office, or if you have concerns about your safety, call 911. I am sorry to report this, but you are not allowed to drive until cleared by neurology. I am required by law to report this episode to [place]. Pending Studies at Discharge: No Stand-Alone Forms: My [facility] [employer], Smoking Cessation Medications and DC Order Prescriptions: New levetiracetam [Keppra] 500 mg Tablet 500 mg PO BID Qty: 60 0RF Continued fluticasone propionate [Flonase Allergy Relief] 50 mcg/actuation spray ,suspension 2 spray intranasal DAILY Qty: 9.9 3RF Rx Instructions: 2 sniffs in each nostril daily propranolol 40 mg tablet 40 mg PO BID Qty: 180 1RF venlafaxine 150 mg capsule,extended release 24hr 150 mg PO HS Qty: 90 3RF omeprazole 20 mg capsule,delayed release(DR/EC) 20 mg PO .QOD Qty: 90 3RF famotidine 40 mg tablet 40 mg PO .QOD Qty: 30 2RF metformin 500 mg tablet extended release 24 hr 1,000 mg PO HS Qty: 180 3RF Rx Instructions: 2 tablets per day with biggest meal. spironolactone 25 mg tablet 25 mg PO BID Qty: 60 3RF garlic 1,000 mg capsule 1,000 mg PO HS cinnamon bark 500 mg capsule 1,000 mg PO HS turmeric root extract 500 mg capsule 500 mg PO HS albuterol sulfate [Ventolin HFA] 90 mcg/actuation HFA aerosol inhaler 2 puff INHALATION Q6H PRN (Reason: Shortness Of Breath) Qty: 18 0RF cholecalciferol (vitamin D3) 25 mcg (1,000 unit) Tablet 1,000 unit PO HS ascorbic acid (vitamin C) [Vitamin C] 500 mg Tablet 500 mg PO HS loratadine 10 mg Tablet 10 mg PO HS ferrous sulfate 325 mg (65 mg iron) tablet 325 mg PO HS Rx Instructions: 1 tablet with food/ Vit C magnesium oxide 400 mg (241.3 mg magnesium) Tablet 400 mg PO QPM Qty: 30 0RF Discontinued furosemide 20 mg tablet 20 mg PO DAILY Qty: 30 2RF Discharge Orders: Discharge Order (Routine); Ordered 03/31/22 Ordered By: Ty Nieves/Other Patient Handouts: High Blood Sugar (Hyperglycemia), Hypoglycemia (Low Blood Sugar), Managing Type 2 Diabetes Admission Data Admit Date/Time: 03/30/22 14:32 Attending Provider: Ty Paredes Admit Provider: John Hutson Primary Care Provider: Madie Mendieta Other Providers: Nadir Guzmán Other Interventions: Discharge Summary Assessment (RN) Last Done: 03/31/22 17:35 Coding Level of Care Code 66677 OBS Care - Discharge Diagnoses Seizure-like activity R56.9 Acute hyponatremia E87.1 Hypomagnesemia E83.42 Hyperlipidemia E78.5 Hypertension I10 Iron (Fe) deficiency anemia D50.9 SANCHEZ (nonalcoholic steatohepatitis) K75.81 GERD (gastroesophageal reflux disease) K21.9 Esophageal varices I85.00 Asthma J45.909 Diabetes mellitus, type 2 E11.9
[2022-04-01] MEDS ORDERED: PANTOprazole 40 MG TAB PO SCH (09:00)
[2022-04-02 00:21] LABS: Marijuana Quant, GCMS Urine 21 ng/mL (<5)
== END 2022-03-31 18:00 | disposition home or self-care (01) ==
LOC: ED 12:17 → EDINP 14:32 → INTOOBSV 14:32 → SUATTDRO 14:32 → 2N 20:00

== ENCOUNTER 2024-12-08 12:34 | Inpatient (IN) ==
--- NOTE | 2024-12-08 13:25 | Emergency Department Note ---
Impression & Plan Acute confusion, Closed head injury, Acute neck pain, Acute thoracic back pain, Fall, Acute UTI ED Provider Note CHIEF COMPLAINT: Fall HISTORY OF PRESENTING ILLNESS: This 69-year-old female patient presents to the emergency department for evaluation of a fall. The patient fell 8 days ago and is continue to have upper back pain. The patient states that she was in the bathroom and lost her balance. She states that it was a mechanical fall and denies any symptoms prior to the fall. She hit the corner of the wall when she fell. The patient saw her PCP and was referred to the ER for further evaluation because of the continued back pain and because she hit her head and seemed pretty confused in the office per her . There was no LOC. The patient thinks that she is on Plavix, but cannot remember. She denies any chest pain, SOB, or abdominal pain. Mild pain to the left front side of the forehead where she hit. Denies dizziness, change in vision, nausea, vomiting, or change in personality. Denies pain of her arms or legs. The patient's has been having trouble transferring her in and out of the bathroom at home recently because of her symptoms. REVIEW OF SYSTEMS: See HPI for pertinent positives and pertinent negatives. ALLERGIES: CASANDRA inhibitors MEDICATIONS: See below PAST MEDICAL HISTORY: See below PHYSICAL EXAM: VITALS: Vitals are noted on the nurse's note and reviewed by myself. GENERAL: No acute distress, non-diaphoretic. SKIN: The skin was without obvious lacerations or abrasions. Capillary reflex less than 2 seconds. HEAD: Normocephalic. No scalp tenderness or step-offs felt. EYES: Pupils equal round and reactive to light and accommodation. Conjunctivae without injection, sclerae without icterus. Extraocular movements intact. No nystagmus. NOSE: Patent without discharge. No sinus tenderness. No septal hematoma or bleeding. FACE: No facial bone tenderness. Full range of motion of the jaw without tenderness. MOUTH: Mucous membranes moist. Pharynx without erythema or exudate. Uvula midline. Airway patent. Tongue does not deviate. NECK: Supple without nuchal rigidity. Cervical spine is nontender, but the patient is tender to palpation along the left-sided paraspinal muscles and the left-sided trapezius muscles. Full range of motion of the neck with minimal tenderness with extreme range of motion. HEART: Regular rate and rhythm without murmurs gallops or rubs. LUNGS: Clear to auscultation bilaterally without wheezes, rales or rhonchi. No retractions or accessory muscle use. CHEST: No chest wall tenderness. ABDOMEN: Positive bowel sounds x 4. Normal tympanic percussion. Soft, nontender, without masses or organomegaly. No guarding or rebound tenderness. MUSCULOSKELETAL: The patient is tender to palpation over the mid and upper thoracic spine and left-sided paraspinal muscles. No tenderness to palpation over the lumbar spine or paraspinal muscles. No tenderness with pelvic rocking. No tenderness to palpation in the remainder of the extremities. Peripheral pulses 2+. NEURO: The patient initially seemed to answer my questions, but then throughout the examination and throughout different points in her stay, the patient did appear confused and acting a little strangely. The patient still was alert and oriented to person place and time, but did not seem at her baseline per her . DIFFERENTIAL DIAGNOSIS: Differential diagnosis includes concussion, contusion, fracture, subluxation, dislocation, subdural hematoma, epidural hematoma, intraparenchymal hemorrhage, contusion, ligamentous injury, neurovascular, compartment syndrome, rhabdomyolysis, intra-abdominal injury, splenic rupture, hepatic rupture, rib fractures, cardiac contusion, pneumothorax, hemothorax, cardiac tamponade, intrathoracic injury, neurologic, as well as other pathologies. ED COURSE AND MEDICAL DECISION MAKING: HISTORY FROM INDEPENDENT HISTORIAN: Additional history obtained for the patient's MEDICATIONS GIVEN: 500 mL normal saline solution bolus. Rocephin 2 g IV. INTERPRETATION OF LABS: I interpreted the labs with full lab results as below in the lab section of this note. Laboratory results pertinent to the emergent complaint are discussed in the MDM section below. The patient was advised to follow up with their PCP and/or specialist(s) for further outpatient monitoring and management of any abnormal results. INTERPRETATION OF IMAGING: Imaging studies were interpreted by myself and read by radiology as per the imaging section of this note. The patient was advised to follow up with their PCP and/or specialist(s) for further outpatient management of any non-emergent abnormal findings. Chest x-ray negative for acute cardiopulmonary etiology or acute traumatic etiology. CT scan of the head was negative for acute intracranial abnormalities or fractures. CT scan of the cervical spine without contrast was negative for acute cervical spine fracture or subluxation. There is progressively worsened degenerative changes of the cervical spine compared to the 2021 exam. Anterolisthesis of C3 on C4 and C4 on C5 is new/progressed from the prior exam which is likely secondary to associated severe facet arthrosis at these levels. CT scan of the thoracic spine was negative for acute fracture or subluxation. There is chronic mild T3 and T4 compression fractures. CONSULTATIONS: On-call hospitalist [facility] SUMMARY: I examined the patient. The patient fell 8 days ago in her bathroom. She states it was a mechanical fall. She is still having pain to the left side of her upper back near her neck and thoracic spine. She also hit her head, but there was no loss of consciousness. It is not on her medication list, but the patient thinks that she is on Plavix. The patient states that she was seen by her PCP who was concerned about her confusion and was concerned she had a head injury and advised her to come to the ER. The patient's states that she has been more confused over the past 1 to 2 days and that her urine has smelled stronger than normal. He has also had to help her a lot more with ambulation and transferring and he is having more difficulty getting her around at home. Initially chest x-ray and CT scans of the head, cervical spine, and thoracic spine without contrast were ordered as well as urinalysis. CT scans and chest x-ray were negative for acute traumatic abnormalities, but did show the chronic findings as above. The patient's urinalysis came back with 3+ leukocyte Esterase, greater than 50 white blood cells, and 4+ bacteria concerning for UTI. I suspect the patient's confusion is secondary to the UTI with possible encephalopathy rather than from the fall and head injury. Therefore, an IV lock was placed and labs were drawn. White blood cell count normal at 4.92. Hemoglobin low at 9.1. Platelet count normal at 158. PT 12.2, but other coags were normal. Sodium 131, glucose 116, total bilirubin 2.6, and AST 41. CMP without other significantly concerning abnormalities. I had a meaningful discussion about this patient with Dr. Tapia who agrees with my assessment and the treatment plan. The patient's states that he does not feel that he can continue taking care of her at home at this time because of her confusion and difficulty ambulating/transferring by herself. Therefore, blood cultures were obtained and the patient was given Rocephin 2 g IV. I spoke with the on-call hospitalist who agreed to admit the patient for further evaluation and treatment. Please refer to their dictation for further details. The patient's care was transferred in stable condition. DIAGNOSIS: Confusion UTI Closed head injury Cervical and thoracic back pain Fall Past Med/Surg History Problem List (Updated 12/08/24 @ 20:04 by Nasima Tillman PA-C) Acute UTI (Acute) Fall (Acute) Acute thoracic back pain (Acute) Acute neck pain (Acute) Closed head injury (Acute) Acute confusion (Acute) History of colon polyps Hypophosphatemia (Acute) Hypomagnesemia (Acute) Cerebrovascular disease Seizure (Acute) Leg cramping (Acute) Tubular adenoma of colon Vitamin deficiency (Chronic) Lower extremity edema (Chronic) Anemia (Chronic) hx Allergic rhinitis (Chronic) Esophageal varices 2017 Hyperlipidemia (Chronic) Hypertension (Chronic) Hyponatremia SANCHEZ (nonalcoholic steatohepatitis) (Chronic) Hepatic cirrhosis (Chronic) GERD (gastroesophageal reflux disease) (Chronic) Asthma (Chronic) USES INHALER BEFORE EXERCISE Diabetes mellitus, type 2 (Chronic) NIDDM Medical History History of colon polyps Hx of esophageal varices (~2017) History of anemia Hepatitis A Seizure-like activity Pleural effusion associated with hepatic disorder History of pleural effusion History of benign breast biopsy Surgical History Hx of bilateral cataract extraction Hx of colonoscopy with polypectomy History of ankle surgery History of total abdominal hysterectomy and bilateral salpingo-oophorectomy History of tubal ligation History of thoracentesis History of esophagogastroduodenoscopy (EGD) History of tooth extraction Family History Grandfather (Maternal) Diabetes Coronary heart disease Dyslipidemia Hypercholesterolemia Hypertension Grandmother (Maternal) Ovarian cyst Stroke Father Pancreatic cancer Hypertension Stroke Mother Bladder cancer Hypertension Sister Hypertension Other No family history of adverse response to anesthesia Denies family history of Ovarian cancer Prostate cancer Myocardial infarction Breast cancer Social History Smoking Status: Former smoker Tobacco Type: Cigarettes Age Started Using Tobacco: 14; Age Quit Using Tobacco: 39; packs per day: 1; Cigarettes Per Day: 5 cigs/day; Second Hand Exposure: No; Do You Dip or Chew Tobacco: No; Hx Alcohol Use: Yes Alcohol type: wine Hx Substance Use: No Preferred Language: Yemeni Communication Ability: Effective Communication Ability Comment: intubated and sedated Visual Impairment: No Limitations Hearing Ability: Normal Commercial Litigation Attorney Required: No Beliefs That Will Affect Care: None marital status: Current Living Situation: Spouse Current Living Situation Comment: unknown current occupational status: employed Feels Safe at Home: Yes Physical Activity Frequency: 1-2 Times per Week Seatbelt Use: always Assistive Devices: Glasses Allergies Allergies Allergy/AdvReac Type Severity Reaction Status Date / Time CASANDRA Inhibitors Allergy Severe Angioedema Verified 12/08/24 17:31 Home Meds Home Medications Medication Instructions Recorded Confirmed cholecalciferol (vitamin D3) 25 1,000 unit PO HS 10/28/19 12/08/24 mcg (1,000 unit) tablet fluticasone propionate 50 2 spray intranasal DAILY PRN 02/16/23 12/08/24 mcg/actuation nasal Allergy Symptoms spray,suspension (Flonase Allergy Relief) albuterol sulfate 90 mcg/actuation 1 puff inhalation DIRECTED PRN 12/08/24 12/08/24 aerosol inhaler Shortness Of Breath Or Wheezing famotidine 40 mg tablet 40 mg PO Q OTHER DAY 12/08/24 12/08/24 omeprazole 20 mg capsule,delayed 20 mg PO Q OTHER DAY 12/08/24 12/08/24 release Previous Rx's Medication Instructions Recorded amlodipine 5 mg tablet 5 mg PO QAM #90 tabs 10/23/24 atorvastatin 10 mg tablet 10 mg PO QPM #90 tabs 10/23/24 buspirone 10 mg tablet 10 mg PO BID PRN anxiety #180 tabs 10/23/24 furosemide 20 mg tablet 20 mg PO QAM #90 tabs 10/23/24 levetiracetam 500 mg tablet 500 mg PO BID #180 tabs 10/23/24 (Keppra) metformin 500 mg tablet,extended 1,000 mg (2 x 500 mg) PO HS #180 10/23/24 release 24 hr tabs propranolol 40 mg tablet 40 mg PO BID #180 tabs 03/17/25 spironolactone 25 mg tablet 25 mg PO BID #180 tabs 10/23/24 venlafaxine 150 mg 150 mg PO HS #90 caps 10/23/24 capsule,extended release 24 hr magnesium 250 mg tablet 250 mg PO HS #90 tabs 10/24/24 Results & Data (ED) Vital Signs Vital Signs - 24 hr 12/08/24 12:55 12/08/24 15:17 12/08/24 17:00 Temperature 36.0 C L Temperature Source Oral Pulse Rate 61 Pulse Rate [Right Finger] 58 L 60 Respiratory Rate 20 18 20 Respiratory Effort / Characteristics Non-Labored Spontaneous Non-Labored Respiratory Depth Normal Normal Blood Pressure 138/76 Blood Pressure [Right Arm] 139/90 163/61 H Blood Pressure Mean 96 Blood Pressure Mean [Right Arm] 106 95 Pulse Oximetry 95 98 97 Oxygen Delivery Method Room Air Room Air Room Air Sepsis Recent Fever Within 48 Hours No Sepsis New/Unexplained Change in Mental Status N/A Sepsis Action Taken by Nursing No Action Required Laboratory Data 12/08/24 15:15 12/08/24 15:15 Lab Results 12/08/24 12/08/24 12/08/24 Range/Units 13:45 15:15 17:57 WBC 4.92 (4.8-10.8) K/ul RBC 2.84 L (4.20-5.40) M/uL Hgb 9.1 L (12.0-16.0) g/dl Hct 27.1 L (37.0-47.0) % MCV 95.4 (80.0-100.0) fL MCH 32.0 (25.0-34.0) pg MCHC 33.6 (32.0-36.0) g/dL RDW Std Deviation 47.7 H (36.4-46.3) fL RDW Coeff of Bianca 13.7 (11.5-14.5) % Plt Count 158 (130-400) K/uL MPV 9.3 L (9.4-12.4) fL Immature Gran % (Auto) 0.4 % Neut % (Auto) 73.8 % Lymph % (Auto) 7.7 % Mingo % (Auto) 12.4 % Eos % (Auto) 5.3 % Baso % (Auto) 0.4 % Neut # (Auto) 3.63 (1.40-6.50) K/uL Lymph # (Auto) 0.38 L (1.20-3.40) K/uL Mingo # (Auto) 0.61 H (0.11-0.59) K/uL Eos # (Auto) 0.26 (0.00-0.50) K/uL Baso # (Auto) 0.02 (0.00-0.20) K/uL Immature Gran # (Auto) 0.02 (0.01-0.20) K/uL PT 12.2 H (9.0-12.0) Seconds INR 1.1 (0.9-1.1) APTT 28 (21-31) Seconds PTT Ratio 1.0 Sodium 131 L (136-145) mmol/L Potassium 4.0 (3.5-5.1) mmol/L Chloride 97 L (98-107) mmol/L Carbon Dioxide 27 (21-32) mmol/L Anion Gap 7 (3-11) BUN 16 (6-23) mg/dl Creatinine 0.83 (0.6-1.2) mg/dl Est Cr Clr Drug Dosing Not Reportable eGFR 75.79 BUN/Creatinine Ratio 19.3 (10-20) Glucose 116 H (70-99(Fasting)) mg/dl Calcium 9.3 (8.6-10.3) mg/dl Total Bilirubin 2.6 H (0.2-1.0) mg/dl AST 41 H (13-39) U/L ALT 17 (7-52) U/L Alkaline Phosphatase 59 (34-104) U/L Ammonia 58.0 (18-72) umol/L Total Creatine Kinase 159 (26-192) U/L Total Protein 7.2 (6.0-8.3) gm/dl Albumin 3.3 L (3.4-5.0) gm/dl Globulin 3.9 (2.5-4.0) gm/dl Albumin/Globulin Ratio 0.8 L (0.9-2) TSH 5.021 H (0.300-4.500) uIu/ml Free T4 1.21 (0.61-1.60) ng/dl Urine Color Yellow Urine Appearance Cloudy A (Clear) Urine pH 6.0 (4.5-7.5) Ur Specific [place] 1.011 (1.000-1.030) Urine Protein Negative (Negative) Urine Glucose (UA) Negative (Negative) Urine Ketones Negative (Negative) Urine Blood Negative (Negative) Urine Nitrite Negative (Negative) Urine Bilirubin Negative (Negative) Urine Urobilinogen Negative (Negative) Ur Leukocyte Esterase 3+ H (Negative) Urine WBC (Auto) >50 H (0-5) /hpf Urine RBC (Auto) 0-2 (0-2) /hpf U Hyaline Cast (Auto) 0-2 (0-2) /lpf U Epithel Cells (Auto) 0-2 (0-2) /hpf Urine Bacteria (Auto) 4+ H (None Seen) Administered Medications Discontinued Medications Sodium Chloride (Nss) 500 mls @ 999 mls/hr IV .Q31M ONE Stop: 12/08/24 15:00 Last Infusion: 12/08/24 16:43 Dose: Infused Documented By: Admin: 12/08/24 15:27 Dose: 999 mls/hr Documented By: CTK Ceftriaxone Sodium (Rocephin) 2,000 mg in 50 mls @ 100 mls/hr IV NOW STA Stop: 12/08/24 16:23 Last Infusion: 12/08/24 17:13 Dose: Infused Documented By: Admin: 12/08/24 16:39 Dose: 100 mls/hr Documented By: ALEJA Imaging Data Radiologist's Impression: Cervical Spine CT 12/08/24 13:33 CT cervical spine wo con CLINICAL HISTORY: 69 years-old Female with Trauma. Acute posttraumatic neck pain COMPARISON: Head CT of same day, CT neck 02/02/2022. TECHNIQUE: Multiple axial CT images of the cervical spine were obtained without contrast. A dose lowering technique was utilized adhering to the principles of ALARA. FINDINGS: Progressively worsening multilevel degenerative changes of the cervical spine compared to the 2021 study. This includes moderate to severe disc space narrowing and C5-C6 and C6/C7 along with severe facet arthropathy at C3-C4 and C4-C5. 6 mm anterolisthesis C3 on C4 and 3 mm anterolisthesis C4 on C5 is new/progressed. C1-C2 articulation is similar to the prior study. Minimal superior endplate compression of the T3 vertebral body is chronic and unchanged. Multilevel neural foraminal narrowing, suboptimally evaluated by CT technique. The cervical soft tissues appear unremarkable. Peripherally calcified 2.6 cm left-sided thyroid nodule. Prominent calcified plaque of the carotid bulbs. The visualized lung apices appear clear. IMPRESSION: 1. No acute cervical spine fracture identified. 2. Progressively worsened degenerative changes of the cervical spine compared to the 02/02/2022 exam. 3. Anterolisthesis C3 on C4 and C4 on C5 is new/progressed from the prior exam, likely secondary to associated severe facet arthrosis at these levels. ACT 112: Negative or not required by law. The above report was generated using voice recognition software. It may contain grammatical, syntax or spelling errors. Electronically signed by: Rodolfo Kerr M.D. 12/08/2024 2:54 PM Chest X-Ray 12/08/24 13:33 XR chest 1V portable CLINICAL HISTORY: Trauma COMPARISON STUDY: Chest radiograph February 02, 2022. FINDINGS: Patient is rotated. Lung volumes are normal. Lungs are clear. There is no pneumothorax or pleural effusion. Mild cardiomegaly is unchanged. Mediastinal contours are normal. There is no evidence for pulmonary edema. IMPRESSION: No acute cardiopulmonary findings. Rotated study. ACT 112: Negative or not required by law. Electronically signed by: Kurtis Rosa M.D. 12/08/2024 2:[address] 12/08/24 13:33 CT SCAN OF THE BRAIN WITHOUT IV CONTRAST CLINICAL HISTORY: Fall. COMPARISON STUDY: MRI of the brain February 02, 2022. Head CT March 30, 2022. TECHNIQUE: Unenhanced axial CT scan of the brain was performed from the vertex to the skull base. A dose lowering technique was utilized adhering to the principles of ALARA. FINDINGS: Brain parenchyma: No acute intracranial hemorrhage, midline shift or mass effect is present. Ibanez-white matter differentiation is preserved. There are no extra- axial fluid collections. There are no findings to suggest acute dural sinus thrombosis or acute territorial infarct. White matter hypodensities are suggestive of small vessel disease. Ventricles, sulci, cisterns: There is no hydrocephalus. The basal cisterns are patent. Calvarium: There are no calvarial fractures. Sinuses and mastoids: The visualized paranasal sinuses are clear. The mastoid air cells are well pneumatized. Orbits: The bony orbits are grossly intact. IMPRESSION: 1. No acute intracranial findings. 2. No calvarial fractures. ACT 112: Negative or not required by law. Electronically signed by: Kurtis Rosa M.D. 12/08/2024 2:[address] 12/08/24 13:33 CT OF THE THORACIC SPINE CLINICAL HISTORY: Trauma. COMPARISON STUDY: CTA of the neck February 02, 2022. Chest CT December 08, 2016. TECHNIQUE: Helical axial images of the thoracic spine were obtained. Sagittal and coronal reconstructions were viewed. Automated exposure control was utilized for the study. A dose lowering technique was utilized adhering to the principles of ALARA. FINDINGS: This exam is mildly compromised given difficulty positioning. There is mild loss of height of the superior endplates of T3 and T4. These are chronic and unchanged and CT of February 02, 2022. No acute cervical spine fractures are present. There is mild multilevel endplate osteophytosis. There are no osseous lesions within the cervical spine. A small amount of perihepatic ascites is incidentally noted. IMPRESSION: 1. No acute thoracic spine fracture or subluxation. 2. Chronic mild T3 and T4 compression fractures, as described above. ACT 112: Negative or not required by law. Electronically signed by: Kurtis Rosa M.D. 12/08/2024 2:50 PM Discharge Plan Visit Data Chief Complaint: Fall Stated Complaint: FALL, BACK PAIN, HIT HEAD ED Provider: Jamarcus Tapia ED Midlevel Provider: Nasima Tillman Discharge Problem: Acute confusion, Closed head injury, Acute neck pain, Acute thoracic back pain, Fall, Acute UTI Patient Disposition: Admitted As Inpatient Condition: Fair Forms Stand Alone Forms: [facility] Prescriptions Prescriptions: No Action magnesium 250 mg tablet 250 mg PO HS Qty: 90 1RF Hold Instructions: Not taking 10/2024 amlodipine 5 mg tablet 5 mg PO QAM Qty: 90 1RF atorvastatin 10 mg tablet 10 mg PO QPM Qty: 90 1RF propranolol 40 mg tablet 40 mg PO BID Qty: 180 1RF spironolactone 25 mg tablet 25 mg PO BID Qty: 180 1RF venlafaxine 150 mg capsule,extended release 24hr 150 mg PO HS Qty: 90 1RF metformin 500 mg tablet extended release 24 hr 1,000 mg PO HS Qty: 180 1RF levetiracetam [Keppra] 500 mg tablet 500 mg PO BID Qty: 180 1RF furosemide 20 mg tablet 20 mg PO QAM Qty: 90 1RF buspirone 10 mg tablet 10 mg PO BID PRN (Reason: anxiety) Qty: 180 1RF fluticasone propionate [Flonase Allergy Relief] 50 mcg/actuation spray,suspension 2 spray intranasal DAILY PRN (Reason: Allergy Symptoms) Rx Instructions: 2 sniffs in each nostril daily cholecalciferol (vitamin D3) 25 mcg (1,000 unit) Tablet 1,000 unit PO HS famotidine 40 mg tablet 40 mg PO Q OTHER DAY Rx Instructions: Alternate w/ Omeprazole every other day albuterol sulfate 90 mcg/actuation HFA aerosol inhaler 1 puff INHALATION DIRECTED PRN (Reason: Shortness Of Breath Or Wheezing) omeprazole 20 mg capsule,delayed release(DR/EC) 20 mg PO Q OTHER DAY Rx Instructions: Alternates w/ famotidine every other day Referrals Referrals: Madie Aguilar MD [Primary Care Provider] - Discharge Problem: Closed head injury Qualifiers: Encounter type: initial encounter Qualified Code(s): S09.90XA - Unspecified injury of head, initial encounter Acute thoracic back pain Qualifiers: Back pain laterality: bilateral Qualified Code(s): M54.6 - Pain in thoracic spine Fall Qualifiers: Encounter type: initial encounter Qualified Code(s): W19.XXXA - Unspecified fall, initial encounter
[2024-12-08 14:08] LABS: Appearance Urine Cloudy (Clear); Bacteria Urine Automated 4+ (None Seen); Bilirubin Urine Negative (Negative); Blood Urine Negative (Negative); Cast Urine Automated 0-2 /lpf (0-2); Color Urine Yellow; Epithelial Cell Urine Auto 0-2 /hpf (0-2); Glucose Urine UA Negative (Negative); Ketones Urine Negative (Negative); Leukocyte Esterase Urine 3+ (Negative); Nitrite Urine Negative (Negative); Protein Urine Negative (Negative); RBC Urine Automated 0-2 /hpf (0-2); Specific Gravity Urine 1.011 (1.000-1.030); Urobilinogen Urine Negative (Negative); WBC Urine Automated >50 /hpf (0-5)
--- NOTE | 2024-12-08 14:44 | CT Scan Report ---
CT SCAN OF THE BRAIN WITHOUT IV CONTRAST CLINICAL HISTORY: Fall. COMPARISON STUDY: MRI of the brain February 02, 2022. Head CT March 30, 2022. TECHNIQUE: Unenhanced axial CT scan of the brain was performed from the vertex to the skull base. A dose lowering technique was utilized adhering to the principles of ALARA. FINDINGS: Brain parenchyma: No acute intracranial hemorrhage, midline shift or mass effect is present. Ibanez-whi te matter differentiation is preserved. There are no extra-axial fluid collections. There are no find ings to suggest acute dural sinus thrombosis or acute territorial infarct. White matter hypodensities are suggestive of small vessel disease. Ventricles, sulci, cisterns: There is no hydrocephalus. The basal cisterns are patent. Calvarium: There are no calvarial fractures. Sinuses and mastoids: The visualized paranasal sinuses are clear. The mastoid air cells are well pneu matized. Orbits: The bony orbits are grossly intact. IMPRESSION: 1. No acute intracranial findings. 2. No calvarial fractures. ACT 112: Negative or not required by law. Electronically signed by: Kurtis Rosa M.D. 12/08/2024 2:43 PM
--- NOTE | 2024-12-08 14:52 | CT Scan Report ---
CT OF THE THORACIC SPINE CLINICAL HISTORY: Trauma. COMPARISON STUDY: CTA of the neck February 02, 2022. Chest CT December 08, 2016. TECHNIQUE: Helical axial images of the thoracic spine were obtained. Sagittal and coronal reconstru ctions were viewed. Automated exposure control was utilized for the study. A dose lowering techniqu e was utilized adhering to the principles of ALARA. FINDINGS: This exam is mildly compromised given difficulty positioning. There is mild loss of height of the superior endplates of T3 and T4. These are chronic and unchanged and CT of February 02, 2022. No a cute cervical spine fractures are present. There is mild multilevel endplate osteophytosis. There are no osseous lesions within the cervical spine. A small amount of perihepatic ascites is incidentally noted. IMPRESSION: 1. No acute thoracic spine fracture or subluxation. 2. Chronic mild T3 and T4 compression fractures, as described above. ACT 112: Negative or not required by law. Electronically signed by: Kurtis Rosa M.D. 12/08/2024 2:50 PM
--- NOTE | 2024-12-08 14:55 | CT Scan Report ---
CT cervical spine wo con CLINICAL HISTORY: 69 years-old Female with Trauma. Acute posttraumatic neck pain COMPARISON: Head CT of same day, CT neck 02/02/2022. TECHNIQUE: Multiple axial CT images of the cervical spine were obtained without contrast. A dose low ering technique was utilized adhering to the principles of ALARA. FINDINGS: Progressively worsening multilevel degenerative changes of the cervical spine compared to 2021 study. This includes moderate to severe disc space narrowing and C5-C6 and C6/C7 along with s evere facet arthropathy at C3-C4 and C4-C5. 6 mm anterolisthesis C3 on C4 and 3 mm anterolisthesis C4 on C5 is new/progressed. C1-C2 articulation is similar to the prior study. Minimal superior endplate compression of the T3 vertebral body is chronic and unchanged. Multilevel neural foraminal narrowing , suboptimally evaluated by CT technique. The cervical soft tissues appear unremarkable. Peripherally calcified 2.6 cm left-sided thyroid nodul e. Prominent calcified plaque of the carotid bulbs. The visualized lung apices appear clear. IMPRESSION: 1. No acute cervical spine fracture identified. 2. Progressively worsened degenerative changes of the cervical spine compared to the 02/02/2022 exam. 3. Anterolisthesis C3 on C4 and C4 on C5 is new/progressed from the prior exam, likely secondary to a ssociated severe facet arthrosis at these levels. ACT 112: Negative or not required by law. The above report was generated using voice recognition software. It may contain grammatical, syntax o r spelling errors. Electronically signed by: Rodolfo Kerr M.D. 12/08/2024 2:54 PM
--- NOTE | 2024-12-08 14:58 | XRay Report ---
XR chest 1V portable CLINICAL HISTORY: Trauma COMPARISON STUDY: Chest radiograph February 02, 2022. FINDINGS: Patient is rotated. Lung volumes are normal. Lungs are clear. There is no pneumothorax or p leural effusion. Mild cardiomegaly is unchanged. Mediastinal contours are normal. There is no evidenc e for pulmonary edema. IMPRESSION: No acute cardiopulmonary findings. Rotated study. ACT 112: Negative or not required by law. Electronically signed by: Kurtis Rosa M.D. 12/08/2024 2:56 PM
[2024-12-08 15:27] LABS: Basophils # (auto) 0.02 K/uL (0.00-0.20); Basophils % (auto) 0.4 %; Eosinophils # (auto) 0.26 K/uL (0.00-0.50); Eosinophils % (auto) 5.3 %; Hematocrit (blood only) 27.1 % (37.0-47.0); Hemoglobin 9.1 g/dl (12.0-16.0); Immature Granulocytes # (auto) 0.02 K/uL (0.01-0.20); Immature Granulocytes % (auto) 0.4 %; Lymphocytes # (auto) 0.38 K/uL (1.20-3.40); Lymphocytes % (auto) 7.7 %; Mean Corpuscular Hgb Conc 33.6 g/dL (32.0-36.0); Mean Corpuscular Volume 95.4 fL (80.0-100.0); Mean Platelet Volume 9.3 fL (9.4-12.4); Monocytes # (auto) 0.61 K/uL (0.11-0.59); Monocytes % (auto) 12.4 %; Neutrophils # (auto) 3.63 K/uL (1.40-6.50); Neutrophils % (auto) 73.8 %; Platelet Count 158 K/uL (130-400); RDW Coefficient of Variation 13.7 % (11.5-14.5); RDW Standard Deviation 47.7 fL (36.4-46.3); Red Blood Count 2.84 M/uL (4.20-5.40); White Blood Count 4.92 K/ul (4.8-10.8)
[2024-12-08] MEDS: SODIUM CHLORIDE 0.9% 500 ML IV ONE (15:27)
[2024-12-08 15:45] LABS: Alanine Aminotransferase 17 U/L (7-52); Albumin Globulin Ratio 0.8 (0.9-2); Albumin Level 3.3 gm/dl (3.4-5.0); Alkaline Phosphatase 59 U/L (34-104); Anion Gap 7 (3-11); Aspartate Aminotransferase 41 U/L (13-39); BUN Creatinine Ratio 19.3 (10-20); Bilirubin,Total 2.6 mg/dl (0.2-1.0); Blood Urea Nitrogen 16 mg/dl (6-23); Calcium 9.3 mg/dl (8.6-10.3); Carbon Dioxide 27 mmol/L (21-32); Chloride 97 mmol/L (98-107); Globulin 3.9 gm/dl (2.5-4.0); Glucose 116 mg/dl (70-99(Fasting)); Sodium 131 mmol/L (136-145); Total Protein 7.2 gm/dl (6.0-8.3)
[2024-12-08 15:55] LABS: INR 1.1 (0.9-1.1); Partial Thromboplastin Time 28 Seconds (21-31); Prothrombin Time 12.2 Seconds (9.0-12.0)
--- NOTE | 2024-12-08 15:55 | Emergency Department Note ---
ED Visit Note I was consulted in regards to the patient's presentation and plan of care by the Advanced Practice Provider. I engaged in a detailed/meaningful discussion with the Advanced Practice Provider in regards to this patient's workup and plan of care. I performed a substantiative portion of the medical decision making following discussion with the Advanced Practice Provider. Please see the Advanced Practice Provider's separate documentation for full details of the patient's visit. I agree with the assessment and plan of Nasima Tillman PA-C. Jamarcus Tapia, DO Emergency Medicine .
[2024-12-08] MEDS: cefTRIAXone SODIUM 2,000 MG/50 ML BAG IV STA (16:39)
--- NOTE | 2024-12-08 16:44 | History & Physical Report ---
Date of Service December 08, 2024 Assessment & Plan (1) Metabolic encephalopathy: Plan: Metabolic encephalopathy in a 69 yo female with cirrhosis concern over hyperammonia will check ammonia level will treat for a UTI as UA will check TSH and a reflex Free T4 Seizures: will resume home meds. Hypertension: Plan: Continue propranolol and spironolactone SANCHEZ (nonalcoholic steatohepatitis): Plan: LFTs normal- INR 1.2 - follow in AM - With cirrhosis and hepatic varicies GERD (gastroesophageal reflux disease): Plan: Continue PPI Esophageal varices: Plan: BP control follow INR non acute Asthma: Plan: Continue Albuterol, Loratidine, Diabetes mellitus, type 2: Plan: Aspart sliding scale - CF 20; Carb ration 1:12 - hold metformin (2) Hepatic cirrhosis: History of Present Illness Chief Complaint: change in mental status Primary Care Provider: Madie Aguilar MD 69 yo F with medical history of: SANCHEZ, Hyponatremia, Cerebrovascular disease, GERD, DMII. She presents to the hospital for change of mental status. Patient currently is a poor historian. History obtained by discussing case with ED provider and chart review. Patient was in the bathroom and lost her balance. She state that this was a mechanical fall and denies any symptoms prior to the fall. Patient wennt to see the PCP and was referred to the ED as patient appears confused. Patient has mild pain on the left frontal side of her forehead. Patient denies any change in vision, nausea, vomiting, or change in personality. reported patient was having foul smelling urine. Allergies Allergy/AdvReac Type Severity Reaction Status Date / Time CASANDRA Inhibitors Allergy Severe Angioedema Verified 12/08/24 17:31 Home Medications Medication Instructions Recorded Confirmed Type cholecalciferol (vitamin D3) 25 1,000 unit PO HS 10/28/19 12/08/24 History mcg (1,000 unit) tablet fluticasone propionate 50 2 spray intranasal DAILY PRN 02/16/23 12/08/24 History mcg/actuation nasal Allergy Symptoms spray,suspension (Flonase Allergy Relief) amlodipine 5 mg tablet 5 mg PO QAM #90 tabs 10/23/24 12/08/24 Rx atorvastatin 10 mg tablet 10 mg PO QPM #90 tabs 10/23/24 12/08/24 Rx buspirone 10 mg tablet 10 mg PO BID PRN anxiety #180 tabs 10/23/24 12/08/24 Rx furosemide 20 mg tablet 20 mg PO QAM #90 tabs 10/23/24 12/08/24 Rx levetiracetam 500 mg tablet 500 mg PO BID #180 tabs 10/23/24 12/08/24 Rx (Keppra) metformin 500 mg tablet,extended 1,000 mg (2 x 500 mg) PO HS #180 10/23/24 12/08/24 Rx release 24 hr tabs propranolol 40 mg tablet 40 mg PO BID #180 tabs 10/23/24 12/08/24 Rx spironolactone 25 mg tablet 25 mg PO BID #180 tabs 10/23/24 12/08/24 Rx venlafaxine 150 mg 150 mg PO HS #90 caps 10/23/24 12/08/24 Rx capsule,extended release 24 hr magnesium 250 mg tablet 250 mg PO HS #90 tabs 10/24/24 12/08/24 Rx albuterol sulfate 90 mcg/actuation 1 puff inhalation DIRECTED PRN 12/08/24 12/08/24 History aerosol inhaler Shortness Of Breath Or Wheezing famotidine 40 mg tablet 40 mg PO Q OTHER DAY 12/08/24 12/08/24 History omeprazole 20 mg capsule,delayed 20 mg PO Q OTHER DAY 12/08/24 12/08/24 History release Past Med/Surg History Problem List Metabolic encephalopathy Acute UTI (Acute) Fall (Acute) Acute thoracic back pain (Acute) Acute neck pain (Acute) Closed head injury (Acute) Acute confusion (Acute) History of colon polyps Hypophosphatemia (Acute) Hypomagnesemia (Acute) Cerebrovascular disease Seizure (Acute) Leg cramping (Acute) Tubular adenoma of colon Vitamin deficiency (Chronic) Lower extremity edema (Chronic) Anemia (Chronic) hx Allergic rhinitis (Chronic) Esophageal varices 2017 Hyperlipidemia (Chronic) Hypertension (Chronic) Hyponatremia SANCHEZ (nonalcoholic steatohepatitis) (Chronic) Hepatic cirrhosis (Chronic) GERD (gastroesophageal reflux disease) (Chronic) Asthma (Chronic) USES INHALER BEFORE EXERCISE Diabetes mellitus, type 2 (Chronic) NIDDM Medical History History of colon polyps Hx of esophageal varices (~2017) History of anemia Hepatitis A hx 1960's - treated. Seizure-like activity 03/30/22>[facility] Neurology in the past. PCP manages currently. STARTED ON KEPPRA (PT THINKS ELECTROLYTE PROBLEMS RELATED d/t low sodium and low magnesium) no seizures since starting Keppra. Last seizure January 2023 Pleural effusion associated with hepatic disorder Right-2017 History of pleural effusion RT 2/2 HEPATIC CIRRHOSIS - S/P THORACENTESIS History of benign breast biopsy Surgical History Hx of bilateral cataract extraction Hx of colonoscopy with polypectomy History of ankle surgery LT History of total abdominal hysterectomy and bilateral salpingo-oophorectomy History of tubal ligation History of thoracentesis RT 2017 History of esophagogastroduodenoscopy (EGD) History of tooth extraction Family History Grandfather (Maternal) Diabetes Coronary heart disease Dyslipidemia Hypercholesterolemia Hypertension Grandmother (Maternal) Ovarian cyst Stroke Father Pancreatic cancer Hypertension Stroke Mother Bladder cancer Hypertension Sister Hypertension Other No family history of adverse response to anesthesia Denies family history of Ovarian cancer Prostate cancer Myocardial infarction Breast cancer Social History Smoking Status: Former smoker Tobacco Type: Cigarettes Age Started Using Tobacco: 14; Age Quit Using Tobacco: 39; packs per day: 1; Cigarettes Per Day: 5 cigs/day; Second Hand Exposure: No; Do You Dip or Chew Tobacco: No; Hx Alcohol Use: Yes Alcohol type: wine Hx Substance Use: No Preferred Language: [place] Islander Communication Ability: Impaired Communication Ability Comment: intubated and sedated Visual Impairment: No Limitations Hearing Ability: Normal Rig Builder Required: No Beliefs That Will Affect Care: None marital status: Current Living Situation: Spouse Current Living Situation Comment: unknown current occupational status: employed Other Information That Helps Us Care for You: No Feels Safe at Home: Yes Safety Concerns: Feels Safe At This Time Physical Activity Frequency: 1-2 Times per Week Seatbelt Use: always Assistive Devices: Walker and Wheelchair Assistive Devices Comment: pt. reports recently borrowed walker and wheelchair from someone Review of Systems Constitutional: no fever and no body aches Eyes: no blind spots and no discharge Ear, Nose, Mouth, Throat: no ear pain and no tinnitus Respiratory: no cough and no dyspnea Cardiovascular: no chest pain Gastrointestinal: no abdominal pain and no early satiety Musculoskeletal: + back pain Integumentary: no acne Neurologic: + falls Psychiatric: + confusion Endocrine: no polyphagia Hematologic / Lymphatic: no easy bleeding Physical Exam Constitutional: WD/WN, vitals as above Eyes: PERRL, conjunctivae normal, anicteric sclerae ENMT: external ear and nose normal, oropharynx normal Neck: trachea midline, no thyromegaly Respiratory: normal respiratory effort, lungs clear to auscultation Cardiovascular: RRR, no murmur, no edema Gastrointestinal (Abdomen): normal bowel sounds, soft, nontender, no hepatosplenomegaly Musculoskeletal: no cyanosis or clubbing, extremities motor strength 5/5 Skin: no rashes, warm and dry Neurologic: PERRL, EOMI, accommodation nl, no face palsy, no dysarthria Psychiatric: Orientation: oriented to person and oriented to place; + not oriented to time Results & Data Results & Data Vital Signs (Past 12 Hours) Vital Signs Temp Pulse Pulse Resp BP BP Pulse Ox 12/08/24 15:17 58 L 18 139/90 98 12/08/24 12:55 36.0 C L 61 20 138/76 95 O2 Del Method 12/08/24 15:17 Room Air 12/08/24 12:55 Room Air PG Care Time/CCT Total # of Minutes Spent Total Time Spent with Patient: Total time spent is greater than 50% in coordination of care (as documented) at patient's floor/unit and/or counseling patient: Coding Level of Care Code 06702 INT INP/OBS CARE 3/75MIN Diagnoses Metabolic encephalopathy G93.41 Hepatic cirrhosis K74.60
[2024-12-08] MEDS ORDERED: ACETAMINOPHEN 325 MG TAB PO PRN (16:53)
[2024-12-08] MEDS ORDERED: POLYETHYLENE (MIRALAX) 17 GM PACK PO PRN (16:53)
[2024-12-08] MEDS ORDERED: FLUTICASONE PROPIONATE NA SPR 16 GM BTL PRN (16:59)
[2024-12-08 17:19] LABS: Creatine Kinase 159 U/L (26-192)
[2024-12-08 17:34] LABS: Thyroid Stimulating Hormone 5.021 uIu/ml (0.300-4.500)
[2024-12-08 18:09] LABS: T4 Free Thyroxine 1.21 ng/dl (0.61-1.60)
[2024-12-08] MEDS: levETIRAcetam 500 MG TAB PO SCH (22:03)
[2024-12-08] MEDS: SPIRONOLACTONE 25 MG TAB PO SCH (22:03)
[2024-12-08] MEDS: VENLAFAXINE HCL XR 150 MG CAPXR PO SCH (22:04)
[2024-12-08] MEDS: CHOLECALCIFEROL 25 MCG (1000 UNITS) TAB PO SCH (22:04)
[2024-12-08] MEDS: ATORVASTATIN 10 MG TAB PO SCH (22:04)
[2024-12-08] MEDS: PROPRANOLOL HCL 20 MG TAB PO SCH (22:08)
[2024-12-08] MEDS ORDERED: PHARMACY GLYCEMIC MGMT CONSULT PRN (23:06)
[2024-12-08] MEDS ORDERED: GLUCOSE 10 TAB/TUBE PO PRN (23:06)
[2024-12-08] MEDS ORDERED: GLUCOSE 40% GEL 15 GM TUBE PO PRN (23:06)
[2024-12-08] MEDS ORDERED: CARBOHYDRATES FOR HYPOGLYCEMIA PO PRN (23:06)
[2024-12-08] MEDS ORDERED: DEXTROSE 50% 50 ML SYRINGE IV PRN (23:06)
[2024-12-08] MEDS ORDERED: GLUCAGON FOR INJ 1 MG VIAL SQ PRN (23:06)
[2024-12-09 06:56] LABS: Hematocrit (blood only) 23.5 % (37.0-47.0); Mean Corpuscular Hemoglobin 32.1 pg (25.0-34.0); Mean Corpuscular Volume 94.4 fL (80.0-100.0); Mean Platelet Volume 9.2 fL (9.4-12.4); Platelet Count 131 K/uL (130-400); RDW Coefficient of Variation 13.6 % (11.5-14.5); RDW Standard Deviation 46.9 fL (36.4-46.3); Red Blood Count 2.49 M/uL (4.20-5.40); White Blood Count 4.38 K/ul (4.8-10.8)
[2024-12-09 07:21] LABS: BUN Creatinine Ratio 19.2 (10-20); Calcium 8.6 mg/dl (8.6-10.3); Potassium 3.9 mmol/L (3.5-5.1)
[2024-12-09 08:19] LABS: Estimated Average Glucose 88 mg/dl; Hemoglobin A1C 4.7 % (4.5-5.6)
[2024-12-09] MEDS: INSULIN ASPART PER UNIT CHARGE SC SCH (09:28)
[2024-12-09] MEDS: FUROSEMIDE 20 MG TAB PO SCH (09:30)
[2024-12-09] MEDS: FAMOTIDINE 40 MG TABLET PO SCH (09:30)
[2024-12-09] MEDS: amLODIPine BESYLATE 5 MG TAB PO SCH (09:31)
[2024-12-09] MEDS: FLUTICASONE/VILANTEROL 200/25MCG 14 PUFFS/INHALER INH SCH (09:31)
--- NOTE | 2024-12-09 11:18 | CT Scan Report ---
Clinical History: Ascites and cirrhosis Technique: Axial computed tomography images were obtained of the abdomen and pelvis without intravenous contrast. Comparison is made to the prior CT dated 11/12/2016 Findings: The liver is shrunken and nodular in contour, consistent with advanced cirrhosis. This appears worsened. No definite liver mass lesion is seen on this noncontrast study. There are prominent abdominal varices. Gallstones are present, without definite acute cholecystitis. No bile duct dilatation is noted. The spleen is mildly enlarged measuring 14.3 cm. No focal splenic lesion is evident. The pancreas appears normal with no sign of acute or chronic pancreatitis and no mass lesion noted. The pancreatic duct is of normal caliber. The adrenal glands appear unremarkable. No renal or proximal ureteral calculi are seen. There is no hydronephrosis or perinephric stranding. No definite renal mass lesion is identified. The aorta is of normal caliber. There is multifocal atherosclerotic plaque. There is a suspected moderate severity stenosis of the infrarenal abdominal aorta. No abdominal adenopathy is seen. There is a small right paracentral ventral hernia containing fluid The stomach appears normal. There is no sign of small bowel obstruction. There is mild diverticulosis without definite diverticulitis. No free intraperitoneal air is identified. There is a moderate amount of ascites No distal ureteral or bladder calculi are seen. No obvious bladder mass lesion is evident. The iliac arteries are of normal caliber. No pelvic adenopathy is noted. The uterus has been removed The lungs bases appear clear. There is diffuse body wall edema. No fracture is identified. No focal osseous lesion is seen Impression: 1. Advanced cirrhosis, worsened since 2017. There is associated portal hypertension 2. Moderate amount of ascites 3. Cholelithiasis without definite acute cholecystitis 4. Mild splenomegaly 5. Mild diverticulosis without definite diverticulitis 6. Small right paracentral ventral hernia containing ascites 7. Atherosclerosis with a suspected moderate severity stenosis of the infrarenal abdominal aorta ACT 112: Positive. There are findings on this exam that require communication between the performing entity and the patient following Patient Test Result Information Act ([place] ACT 112) guidelines. Electronically signed by Feroz Loza 12-09-2024 11:18 AM
--- NOTE | 2024-12-09 14:58 | Pharmacy Report ---
Pharmacy Glycemic Short Note 2 - Date of Service December 09, 2024 - Glycemic Short BSG Results (Last 24 hours): 12/08/24 12/09/24 12/09/24 15:15 06:39 07:52 Glucose 116 H 91 POC Glucose 101 H 12/09/24 11:47 Glucose POC Glucose 146 H OUTPATIENT ANTIDIABETIC REGIMEN: * metformin ER 1000mg po Q HS HbA1c: 5% on 10/23/24 ASSESSMENT: * Harjinder is a 69 year old female admitted yesterday for pain secondary to a fall. This [facility], pharmacy was consulted for glycemic management while she is admitted. * Fasting BSG was 101mg/dL. No basal insulin is needed at this time. A conservative bolus insulin regimen was started with only a correction factor (no carb coverage). PLAN FOR INPATIENT GLYCEMIC CONTROL: * Hold outpatient oral diabetes medications * Basal insulin * none * Bolus insulin * NovoLog per scale ACHS or Q6hrs while NPO * Goal Range: Low 110 mg/dL - High 140 mg/dL * Correction Factor: 30 mg/dL/unit * Nutritional / Prandial insulin per carb ratio : NONE
[2024-12-09] MEDS: cefTRIAXone SODIUM 2,000 MG/50 ML BAG IV SCH (16:14)
--- NOTE | 2024-12-09 19:04 | Hospitalist Progress Note ---
Date of Service December 09, 2024 Assessment & Plan (1) Metabolic encephalopathy: Plan: Metabolic encephalopathy in a 69 yo female with cirrhosis concern over hyperammonia: this was negative will treat for a UTI as UA TSH at goal. will continue to provide supportive care and await urine culture. H/O Seizures: will resume home meds. Hypertension: Plan: Continue propranolol and spironolactone SANCHEZ (nonalcoholic steatohepatitis): Plan: LFTs normal- INR 1.2 - follow in AM - With cirrhosis and hepatic varicies GERD (gastroesophageal reflux disease): Plan: Continue PPI Esophageal varices: Plan: BP control follow INR non acute Asthma: Plan: Continue Albuterol, Loratidine, Diabetes mellitus, type 2: Plan: Aspart sliding scale - CF 20; Carb ration 1:12 - hold metformin (2) Hepatic cirrhosis: Admission and Anticipated Discharge Date Admission Date: December 08, 2024 Subjective Patient remains condused. Physical Exam Constitutional: WD/WN, vitals as above Eyes: PERRL, conjunctivae normal, anicteric sclerae ENMT: external ear and nose normal, oropharynx normal Neck: trachea midline, no thyromegaly Respiratory: normal respiratory effort, lungs clear to auscultation Cardiovascular: RRR, no murmur, no edema Gastrointestinal (Abdomen): normal bowel sounds, soft, nontender, no hepatosplenomegaly Musculoskeletal: no cyanosis or clubbing, extremities motor strength 5/5 Skin: no rashes, warm and dry Neurologic: PERRL, EOMI, accommodation nl, no face palsy, no dysarthria Psychiatric: Orientation: oriented to person and oriented to place; + not oriented to time Results & Data Results & Data Vital Signs (Past 12 Hours) Vital Signs Temp Pulse Resp BP Pulse Ox O2 Del Method 12/09/24 17:01 36.6 C 66 18 137/70 94 Room Air 12/09/24 14:45 36.6 C 55 L 16 115/57 L 97 Room Air 12/09/24 07:27 Room Air PG Care Time/CCT Total # of Minutes Spent Total Time Spent with Patient: Total time spent is greater than 50% in coordination of care (as documented) at patient's floor/unit and/or counseling patient: Coding Level of Care Code 16656 SUB INP/OBS CARE 3/50MIN Diagnoses Metabolic encephalopathy G93.41 Hepatic cirrhosis K74.60
[2024-12-09] MEDS: MAGNESIUM OXIDE 400 MG TAB PO SCH (20:50)
[2024-12-10 12:24] LABS: Basophils # (auto) 0.02 K/uL (0.00-0.20); Basophils % (auto) 0.4 %; Eosinophils # (auto) 0.23 K/uL (0.00-0.50); Eosinophils % (auto) 4.4 %; Hematocrit (blood only) 26.7 % (37.0-47.0); Hemoglobin 9.1 g/dl (12.0-16.0); Immature Granulocytes # (auto) 0.03 K/uL (0.01-0.20); Immature Granulocytes % (auto) 0.6 %; Lymphocytes # (auto) 0.36 K/uL (1.20-3.40); Lymphocytes % (auto) 6.9 %; Mean Corpuscular Hemoglobin 32.3 pg (25.0-34.0); Mean Corpuscular Hgb Conc 34.1 g/dL (32.0-36.0); Mean Corpuscular Volume 94.7 fL (80.0-100.0); Mean Platelet Volume 9.4 fL (9.4-12.4); Monocytes # (auto) 0.75 K/uL (0.11-0.59); Monocytes % (auto) 14.3 %; Neutrophils # (auto) 3.86 K/uL (1.40-6.50); Neutrophils % (auto) 73.4 %; Platelet Count 148 K/uL (130-400); RDW Coefficient of Variation 13.9 % (11.5-14.5); RDW Standard Deviation 47.9 fL (36.4-46.3); Red Blood Count 2.82 M/uL (4.20-5.40); White Blood Count 5.25 K/ul (4.8-10.8)
[2024-12-10 12:39] LABS: Albumin Globulin Ratio 0.8 (0.9-2); Albumin Level 2.9 gm/dl (3.4-5.0); BUN Creatinine Ratio 19.5 (10-20); Bilirubin,Total 1.8 mg/dl (0.2-1.0); Calcium 8.9 mg/dl (8.6-10.3); Creatinine Clr Calc Pharmacy 77.8 ml/min; Globulin 3.7 gm/dl (2.5-4.0); Total Protein 6.6 gm/dl (6.0-8.3)
[2024-12-10 12:52] LABS: INR 1.2 (0.9-1.1); Prothrombin Time 12.6 Seconds (9.0-12.0)
--- NOTE | 2024-12-10 14:47 | Pharmacy Report ---
Pharmacy Glycemic Sign Off Nt - Date of Service December 10, 2024 - Assessment & Plan ASSESSMENT: * Pharmacy was consulted by Dr Richmond on 12/08/24 for glycemic control and to write orders per [facility] inpatient glycemic control protocol. * Major changes made by pharmacy to antidiabetic regimen include: * Very conservative bolus insulin regimen started and no changes have been made * Patient has been receiving/requiring 0 units of insulin per day for adequate glycemic control * BSGs ranging 101-147 mg/dl * Regimen has NO adjustments over the past 48hrs to achieve this level of control * Do not anticipate further changes in patient status that would quickly deteriorate glycemic control (i.e. patient to be NPO for upcoming procedure, steroids tapering, starting tube feedings, etc). * Please see recommendations for outpatient antidiabetic regimen below. PLAN FOR INPATIENT GLYCEMIC CONTROL: No changes needed to current regimen. * No basal insulin is needed * Continue NovoLog per scale ACHS/Q6hrs while NPO * Goal range = 110-140 mg/dl * CF = 30 mg/dl/unit * CR = none needed * Pharmacy is signing off of glycemic consult and will no longer be making adjustments to inpatient regimen. Please feel free to re-consult if needed. Thank you.
--- NOTE | 2024-12-10 15:28 | Hospitalist Progress Note ---
Date of Service December 10, 2024 Assessment & Plan (1) Metabolic encephalopathy: (2) Acute UTI: (3) Fall: (4) Acute thoracic back pain: (5) Acute neck pain: (6) Acute confusion: (7) Seizure: (8) SANCHEZ (nonalcoholic steatohepatitis): (9) Hepatic cirrhosis: (10) Diabetes mellitus, type 2: (11) Asthma: (12) GERD (gastroesophageal reflux disease): (13) Chronic hyponatremia: Plan 69 yo female with pmh of Liver cirrhosis, SANCHEZ, seizure disorder, Type II DM, HTN, Hyperlipidemia, Asthma is admitted with acute delirium started after fall injury she had 10 days ago. This is the first major fall of her life, not witnessed having any seizure at that moment. Per she was doing fine initially except from physical pain in head, back , arms but later showed confusion, waited for 8 days and saw PCP 2 days back, when she was referred to ED. UTI with E coli was diagnosed and trauma scan is negative except from compression fracture in thoracis level vertebrae.CBC, CMP looks unremarkable except from mild increase in her bili and LFTs. Serum ammonia level is within normal range, which potentially rules out hepatic encephalopathy. With D/D of UTI leading to delirium leading to fall-- admitted for observation and antibiotics treatment. Given her worsening of abnormal head movement, MRI brain work up is reasonable and neurology evaluation would be be valuable on Wednesday. Urine toxicology and ethanol level ordered as well to complete work up for encephalopathy. #Delirium Predisposing factor: UTI vs Fall Vs Stroke vs metabolic encephalopathy. - Acute change in mentation in last 7-10 days. - H/O fall 10 days back - E coli UTI sensitive to all except FLQ. - Trauma imaging rules out acute injury( CT thoracis spine/ CT head. CT AP). - Urine tox + Medical ethanol ordered today - Ammonia level WNL. - TSH : WNL - CMP/ CMP: Mild anemia, Chronic mild hyponatremia, K WNL - Blood CS: No growth in 48 hours. Plan: - Reality orientation qshift - Maximize morning light exposure - Encourage ambulation. - Avoid dehydration, constipation, and urinary retention - Enforce consistent sleep-wake schedule #Dystonic movement of head D/D : Keppra SE vs other brain pathology like Stroke, brainstem abnormality - There for few years. No swallowing issue, no speech problem before. - Acute worsening after trauma. - MRI Brain w/wo contrast today. - Neurology evaluation tomorrow. - Serum Keppra level ordered today. No f/u with neurology since 2021. #UTI - Ecoli sensitive to all except FQL. - Continue ceftriaxone. #Chronic hyponatremia - Na: 131( 5/4) - Previous 120s. - Other electrolytes WNL - Fluid restriction, dietary salt intake. - Trend AM labs, if < 130, we could actively treat #FENGI: - Eating normal , close to baseline. - Nutrition leigh looks normal, no IV fluids. #H/O Liver Cirrhosis - LFTs / bili mildly elevated yesterday, WNL today. INR: 1.2 - Progressed Cirrhosis from 2017 per CTAP. - Ammonia WNL- less likely hepatic encephalopathy. - No ascites on CT AP. #Diabetes mellitus, type 2: A1C: 4.7 ( 4/) Aspart sliding scale - CF 20; Carb ration 1:12 Hold metformin Other chronic #Hypertension: BP acceptable; Continue propranolol and spironolactone #GERD (gastroesophageal reflux disease):Continue PPI #Asthma:Continue Albuterol Dispo: Pending stability, stays home with Code status: Full code. Admission and Anticipated Discharge Date Admission Date: December 08, 2024 Supervising Physician Co-Signing Physician Notes ATTESTATION I also saw the patient and confirmed castano portions of the history and exam. I agree with the impression and plan in the resident documentation, and as summarized below. Patient awake and alert - answers questions appropriately, although mild confusion with more specific questions. She has noticeable dystonic movements of her head/neck and upper arms. This is my first day seeing her, so not sure if new or chronic - no mention of such in outpatient notes, so will need to obtain some collateral information from family. Additional per resident documentation Subjective Miss Zapien was wiggling in her bed with some abnormal head movement today when I saw her. She was responding to my few questions, she could tell me her full name, but she was not oriented to time/ place/ person. She does not remember that her was here to see her last day, even though she says she lives with her together. This afternoon was bedside, he endorses delirium is new after fall, she is far from her baseline. She has been having these abnormal head movements in past for recent few years, but definitely has worsened since fall. They have not seen any neurologist since 2021, when her last EEG was done. Since then her PCP is taking care of seizure meds and sergio is working well. No UTI sx like fever, pain she expressed that is aware of. Review of Systems Review of Systems: As per HPI Constitutional: as per Subjective / HPI Physical Exam Physical Exam: Constitutional: Restless, frequent movement of head, Delirious, on and off oriented to self, not oriented to time, place, person. HEENT: Bruise on forehead, Normocephalic, No conjunctival injection CVS: S1 S2 no murmur, Regular Rhythm, no LE edema Respiratory: BL equal air entry with NVBS. No rhonchi, wheezes, or crackles. No increased work of breathing GI: Nondistended MSK: No gross deformities noted Skin: Bruises in arm, forehead,back. Neuro: Dystonic movement of head, Delirious, on and off oriented to self, not oriented to time, place, person. Results & Data Results & Data Vital Signs (Past 12 Hours) Vital Signs Temp Pulse Resp BP Pulse Ox O2 Del Method 12/10/24 07:46 Room Air 12/10/24 07:07 36.7 C 59 L 16 133/65 93 Room Air Resident Activity Tracking Resident Involvement: Resident Care Provided Care Provided: Adult Hospital Medicine (3) Fall Encounter type: initial encounter Qualified Code(s): W19.XXXA - Unspecified fall, initial encounter (4) Acute thoracic back pain Back pain laterality: bilateral Qualified Code(s): M54.6 - Pain in thoracic spine
[2024-12-11 07:56] LABS: Hematocrit (blood only) 26.5 % (37.0-47.0); Hemoglobin 8.9 g/dl (12.0-16.0); Mean Corpuscular Hemoglobin 32.1 pg (25.0-34.0); Mean Corpuscular Hgb Conc 33.6 g/dL (32.0-36.0); Mean Corpuscular Volume 95.7 fL (80.0-100.0); Mean Platelet Volume 9.5 fL (9.4-12.4); Platelet Count 157 K/uL (130-400); RDW Coefficient of Variation 13.6 % (11.5-14.5); RDW Standard Deviation 47.6 fL (36.4-46.3); Red Blood Count 2.77 M/uL (4.20-5.40); White Blood Count 6.58 K/ul (4.8-10.8)
[2024-12-11 08:13] LABS: Albumin Globulin Ratio 0.8 (0.9-2); Albumin Level 2.9 gm/dl (3.4-5.0); BUN Creatinine Ratio 20.9 (10-20); Bilirubin,Total 1.8 mg/dl (0.2-1.0); Calcium 8.9 mg/dl (8.6-10.3); Creatinine Clr Calc Pharmacy 69.6 ml/min; Globulin 3.7 gm/dl (2.5-4.0); Potassium 4.3 mmol/L (3.5-5.1); Total Protein 6.6 gm/dl (6.0-8.3)
[2024-12-11] MEDS: GADOBUTROL 65ML VIAL IV ONE (14:02)
[2024-12-11 14:06] LABS: Amphetamines+Metham, Urine Neg (Neg); Barbiturates, Urine Neg (Neg); Benzodiazepine, Urine Neg (Neg); Cocaine, Urine Neg (Neg); Fentanyl, Urine Neg (Neg); MDMA (Ecstacy), Urine Neg (Neg); Marijuana, Urine Neg (Neg); Methadone, Urine Neg (Neg); Opiate, Urine Neg (Neg); Phencyclidine, Urine Neg (Neg)
--- NOTE | 2024-12-11 14:14 | Magnetic Resonance Report ---
MRI OF THE BRAIN COMBO CLINICAL HISTORY: Recent fall. COMPARISON STUDY: MRI of the brain February 02, 2022. Head CT December 08, 2024. TECHNIQUE: MRI of the brain was performed utilizing various T1 and T2-weighted sequences in the axial , sagittal, and coronal planes. Contrast-enhanced sequences were acquired following the administratio n of 9 cc of Gadavist. FINDINGS: Brain parenchyma: This exam is mildly compromised by motion artifact. There are no foci of restricted diffusion to suggest acute infarct. No acute intracranial hemorrhage, midline shift or mass effect i s present. There is no intracranial mass or pathologic enhancement. Extensive white matter T2 hyperin tense foci have mildly progressed since MRI of February 02, 2022. Ventricles, sulci, and cisterns: There is no hydrocephalus. The basal cisterns are patent. There are no extra-axial collections. Pituitary and sella: Unremarkable. Intracranial vasculature: Flow-voids for the major intracranial vessels are present. Orbits: Orbital contents are unremarkable. Sinuses and mastoids: Clear. Calvarium: No calvarial lesions are identified. Cervical cord: Partially visualized cervical spinal cord is normal in morphology and signal intensity . IMPRESSION: 1. No acute intracranial findings. Mild motion artifact. 2. Extensive small vessel disease which has mildly progressed since MRI of 02/02/2022. 3. No intracranial mass or pathologic enhancement. ACT 112: Negative or not required by law. Electronically signed by: Kurtis Rosa M.D. 12/11/2024 2:12 PM
--- NOTE | 2024-12-11 17:05 | Neurology Consultation ---
Date of Consultation December 11, 2024 Assessment & Plan (1) Non-Wilsonian hepatocerebral degeneration: Plan 69-year-old female with what looks like Non-Wilsonian hepatocerebral degeneration, occurring in the context of chronic liver disease, extensive cerebral white matter and pontine signal abnormalities on MRI. Clinically, she has an extrapyramidal movement disorder, dyskinesias, as well as an encephalopathy. She had a normal ceruloplasmin level in April 2022 which would probably make Tanmay's disease unlikely. I do not think she has Tourette's syndrome or acquired motor tic disorder. I do not think her abnormal movements are a side effect of venlafaxine or buspirone. Would recommend an up-to-date serum ceruloplasmin level, 24-hour urine copper excretion, serum copper level to further exclude Tanmay's disease. I have ordered these tests, as well as a serum zinc level. Would recommend a trial of clonazepam 0.5 mg twice daily for management of her dyskinesias. If clonazepam is not helpful, could consider a trial of Austedo or Ingrezza. These medications may not be on formulary, however. Patient may continue with levetiracetam 500 mg twice daily as ordered given her history of seizure. I do note that her previous EEG was negative for epileptiform abnormalities, however. I do not think her dyskinesias are a side effect of levetiracetam. Follow-up with results of levetiracetam level when available, typically takes 7 to 10 days. Perhaps her dyskinesias will improve with continued supportive medical care. Please call with any questions. Patient may follow-up with me in neurology clinic in 2 to 3 weeks after discharge. History of Present Illness Reason for Consultation: Abnormal movements Requesting Physician: Benita Attending Physician: Juaquin Richmond History of Present Illness The patient is a 69-year-old female who presented to the emergency department on December 08, 2024 for further assessment of a fall that occurred 8 days prior. She had seen her PCP earlier that day and was noted to have a large bruise on the left forehead. She has seemed more confused than usual as well. This patient does have a past medical history notable for chronic liver disease and seizures. She is prescribed Keppra. She is also prescribed BuSpar and Effexor for depression and anxiety. According to her spouse, who was at bedside, she has been exhibiting significant restlessness, unable to sit still with frequent dyskinetic movements of the head and neck as well as the upper limbs. She has also exhibited some abnormal vocalizations. He thinks these particular symptoms began gradually, possibly sometime within the past year, although they are much more noticeable recently. No known history of motor tic disorder or Tourette's syndrome. No known history of tardive dyskinesia. No known family history of Madison's disease. CT of the head completed December 08, 2024 was negative for hemorrhage or acute process. Brain MRI completed today reveals extensive small vessel disease. I did independently review these images. No evidence of acute stroke or chronic microhemorrhage. There is generalized atrophy. No hydrocephalus. There is extensive confluent white matter hyperintensity within the cerebral hemispheres on FLAIR sequences. There is extensive pontine hyperintensity on axial T2 sequences with a possible Trident sign. There is signal abnormality within the midbrain as well potentially consistent with "face of the giant Panda sign." I see that she had a ceruloplasmin level checked in April 2022, level was 34 which is within normal range. She has chronic hyponatremia. A recent ammonia level was normal, 58.0. She has had chronic mild elevation of her AST, slightly elevated at presentation, 41, subsequently normal. I have read an EEG for this patient in January 2022 in the context of encephalopathy, seizure-like activity. The EEG revealed slowing, no epileptiform abnormalities. Allergies Allergy/AdvReac Type Severity Reaction Status Date / Time CASANDRA Inhibitors Allergy Severe Angioedema Verified 12/08/24 17:31 Home Medications Medication Instructions Recorded Confirmed Type cholecalciferol (vitamin D3) 25 1,000 unit PO HS 10/28/19 12/08/24 History mcg (1,000 unit) tablet fluticasone propionate 50 2 spray intranasal DAILY PRN 02/16/23 12/08/24 History mcg/actuation nasal Allergy Symptoms spray,suspension (Flonase Allergy Relief) amlodipine 5 mg tablet 5 mg PO QAM #90 tabs 10/23/24 12/08/24 Rx atorvastatin 10 mg tablet 10 mg PO QPM #90 tabs 10/23/24 12/08/24 Rx buspirone 10 mg tablet 10 mg PO BID PRN anxiety #180 tabs 10/23/24 12/08/24 Rx furosemide 20 mg tablet 20 mg PO QAM #90 tabs 10/23/24 12/08/24 Rx levetiracetam 500 mg tablet 500 mg PO BID #180 tabs 10/23/24 12/08/24 Rx (Keppra) metformin 500 mg tablet,extended 1,000 mg (2 x 500 mg) PO HS #180 10/23/24 12/08/24 Rx release 24 hr tabs propranolol 40 mg tablet 40 mg PO BID #180 tabs 10/23/24 12/08/24 Rx spironolactone 25 mg tablet 25 mg PO BID #180 tabs 10/23/24 12/08/24 Rx venlafaxine 150 mg 150 mg PO HS #90 caps 10/23/24 12/08/24 Rx capsule,extended release 24 hr magnesium 250 mg tablet 250 mg PO HS #90 tabs 10/24/24 12/08/24 Rx albuterol sulfate 90 mcg/actuation 1 puff inhalation DIRECTED PRN 12/08/24 12/08/24 History aerosol inhaler Shortness Of Breath Or Wheezing famotidine 40 mg tablet 40 mg PO Q OTHER DAY 12/08/24 12/08/24 History omeprazole 20 mg capsule,delayed 20 mg PO Q OTHER DAY 12/08/24 12/08/24 History release Patient History Medical History History of colon polyps Hx of esophageal varices (~2016) History of anemia Hepatitis A hx 1960's - treated. Seizure-like activity 03/30/22>[facility] [place] Neurology in the past. PCP manages currently. STARTED ON KEPPRA (PT THINKS ELECTROLYTE PROBLEMS RELATED d/t low sodium and low magnesium) no seizures since starting Keppra. Last seizure January 2023 Pleural effusion associated with hepatic disorder Right-2017 History of pleural effusion RT 2/2 HEPATIC CIRRHOSIS - S/P THORACENTESIS History of benign breast biopsy Surgical History Hx of bilateral cataract extraction Hx of colonoscopy with polypectomy History of ankle surgery LT History of total abdominal hysterectomy and bilateral salpingo-oophorectomy History of tubal ligation History of thoracentesis RT 2017 History of esophagogastroduodenoscopy (EGD) History of tooth extraction Family History Grandfather (Maternal) Diabetes Coronary heart disease Dyslipidemia Hypercholesterolemia Hypertension Grandmother (Maternal) Ovarian cyst Stroke Father Pancreatic cancer Hypertension Stroke Mother Bladder cancer Hypertension Sister Hypertension Other No family history of adverse response to anesthesia Denies family history of Ovarian cancer Prostate cancer Myocardial infarction Breast cancer Social History Smoking Status: Former smoker Tobacco Type: Cigarettes Age Started Using Tobacco: 14; Age Quit Using Tobacco: 39; packs per day: 1; Cigarettes Per Day: 5 cigs/day; Second Hand Exposure: No; Do You Dip or Chew Tobacco: No; Hx Alcohol Use: Yes Alcohol type: wine Hx Substance Use: No Preferred Language: Icelandic Communication Ability: Effective Communication Ability Comment: intubated and sedated Visual Impairment: No Limitations Hearing Ability: Normal Freight Elevator Operator Required: No Beliefs That Will Affect Care: None marital status: Current Living Situation: Spouse Current Living Situation Comment: unknown current occupational status: employed Other Information That Helps Us Care for You: No Feels Safe at Home: Yes Safety Concerns: Feels Safe At This Time Physical Activity Frequency: 1-2 Times per Week Seatbelt Use: always Assistive Devices: Walker Assistive Devices Comment: pt. reports recently borrowed walker and wheelchair from someone Review of Systems Constitutional: + weakness Eyes: no blind spots and no diplopia Ear, Nose, Mouth, Throat: no hearing loss Respiratory: no cough and no dyspnea Cardiovascular: no chest pain and no palpitations Gastrointestinal: no abdominal pain, no nausea and no vomiting Genitourinary: no urinary incontinence Musculoskeletal: no myalgia Integumentary: no rash and no lesions Neurologic: as per Subjective / HPI, + abnormal movements and + confusion Psychiatric: + depression and + anxiety Hematologic / Lymphatic: + easy bruising; no easy bleeding Exam (Neuro) Constitutional: well developed and + thin Eyes: normal visual osborn by confrontation, PERRL and EOM intact bilaterally; no nystagmus Neurologic: Oriented to:: Person and Place; negative Time Memory: Remote Intact; negative Short Term Intact Attention: negative Span Intact Speech Fluency: negative Dysarthria or Dysfluency Speech Aphasia: negative Aphasia Fund of Knowledge: Vocabulary Cranial Nerves: Normal II, III, IV, , V, VII, VIII, IX, X, XI and XII Motor Strength: Normal Lower Extremities and Normal Upper Extremities Hypertonicity: Arms Muscle Bulk/Involuntary Movements: negative Rest Tremor (Arm) or Action Tremor Sensation: Light Touch Intact, Pain/Temperature Intact and Proprioception Intact Coordination: Finger-Nose Abnormal and Heel-Burton Abnormal Deep Tendon Reflexes: Rt Triceps: 2+, Lt Triceps: 2+, Rt Biceps: 2+, Lt Biceps: 2+, Rt Brachioradialis: 2+, Lt Brachioradialis: 2+, Rt Patellar: 2+, Lt Patellar: 2+, Rt Ankle: 1+ and Lt Ankle: 1+ Special Tests: negative Babinski Present Details: Patient appears to have mild jaundice although no scleral icterus. She exhibits involuntary dystonic movements of the head and neck musculature, no abnormal perioral movements or lingual movements. She exhibits some mild dystonic ex tensor posturing of the hands and wrists. No gross tremor, no wing beating tremor. No myoclonus. She did not exhibit any abnormal vocalizations. Results & Data Vital Signs (Past 12 Hours) Vital Signs Temp Pulse Resp BP BP Pulse Ox O2 Del Method 12/11/24 16:40 36.8 C 54 L 18 139/60 96 Room Air 12/11/24 12:32 36.7 C 56 L 18 109/54 L 93 Room Air Laboratory Results WBC 6.58, hemoglobin 8.9, hematocrit 26.5, platelet count 157, sodium 132, potassium 4.3, BUN 18, creatinine 0.86, glucose 105, calcium 8.9, magnesium 1.4, total bilirubin 1.8, AST 35, ALT 17 Coding Level of Care Code 93384 INT INP/OBS CARE /75MIN Diagnoses Non-Wilsonian hepatocerebral degeneration G31.89; K76.89 Time Spent (min) 80 Comment Total time includes patient contact, chart review, counseling, note preparation
--- NOTE | 2024-12-11 18:30 | Hospitalist Progress Note ---
Date of Service December 11, 2024 Assessment & Plan (1) Metabolic encephalopathy: (2) Acute UTI: (3) Fall: (4) Acute thoracic back pain: (5) Acute neck pain: (6) Acute confusion: (7) Seizure: (8) SANCHEZ (nonalcoholic steatohepatitis): (9) Hepatic cirrhosis: (10) Diabetes mellitus, type 2: (11) Asthma: (12) GERD (gastroesophageal reflux disease): (13) Chronic hyponatremia: Plan 69 yo female with pmh of Liver cirrhosis, SANCHEZ, seizure disorder, Type II DM, HTN, Hyperlipidemia, Asthma is admitted with acute delirium started after fall injury she had 10 days ago. This is the first major fall of her life, not witnessed having any seizure at that moment. Per she was doing fine initially except from physical pain in head, back , arms but later showed confusion, waited for 8 days and saw PCP 2 days back, when she was referred to ED. UTI with E coli was diagnosed and trauma scan is negative except from compression fracture in thoracis level vertebrae.CBC, CMP looks unremarkable except from mild increase in her bili and LFTs. Serum ammonia level is within normal range, which potentially rules out hepatic encephalopathy. With D/D of UTI leading to delirium leading to fall-- admitted for observation and antibiotics treatment. Given her worsening of abnormal head movement, MRI brain work up is reasonable and neurology evaluation would be be valuable on Wednesday. Urine toxicology and ethanol level ordered as well to complete work up for encephalopathy. #Delirium Predisposing factor: UTI vs Fall Vs Stroke vs metabolic encephalopathy. - Acute change in mentation in last 7-10 days. - H/O fall 10 days back - E coli UTI sensitive to all except FLQ. - Trauma imaging rules out acute injury( CT thoracis spine/ CT head. CT AP). - Urine tox + Medical ethanol ordered today - Ammonia level WNL. - TSH : WNL - CMP/ CMP: Mild anemia, Chronic mild hyponatremia, K WNL - Blood CS: No growth in 48 hours. Plan: - Reality orientation qshift - Maximize morning light exposure - Encourage ambulation. - Avoid dehydration, constipation, and urinary retention - Enforce consistent sleep-wake schedule #Dystonic movement of head D/D : Keppra SE vs other brain pathology like Stroke, brainstem abnormality - There for few years. No swallowing issue, no speech problem before. - Acute worsening after trauma. - MRI Brain w/wo contrast today. - Neurology evaluation: will evaluate for shahnaz's disease. - Serum Keppra level:pending. No f/u with neurology since 2021. #UTI - Ecoli sensitive to all except FQL. - Continue ceftriaxone. #Chronic hyponatremia - Na: 131( 5/4) - Previous 120s. - Other electrolytes WNL - Fluid restriction, dietary salt intake. - Trend AM labs, if < 130, we could actively treat #FENGI: - Eating normal , close to baseline. - Nutrition leigh looks normal, no IV fluids. #H/O Liver Cirrhosis - LFTs / bili mildly elevated yesterday, WNL today. INR: 1.2 - Progressed Cirrhosis from 2017 per CTAP. - Ammonia WNL- less likely hepatic encephalopathy. - No ascites on CT AP. #Diabetes mellitus, type 2: A1C: 4.7 ( 4/3) Aspart sliding scale - CF 20; Carb ration 1:12 Hold metformin Other chronic #Hypertension: BP acceptable; Continue propranolol and spironolactone #GERD (gastroesophageal reflux disease):Continue PPI #Asthma:Continue Albuterol Dispo: Pending stability, stays home with Code status: Full code. Admission and Anticipated Discharge Date Admission Date: December 08, 2024 Subjective 69 yo female remains confused and is a poor historian. Review of Systems Review of Systems: Unobtainable due to cognitive status Physical Exam Constitutional: WD/WN, vitals as above Eyes: PERRL, conjunctivae normal, anicteric sclerae ENMT: external ear and nose normal, oropharynx normal Neck: trachea midline, no thyromegaly Respiratory: normal respiratory effort, lungs clear to auscultation Cardiovascular: RRR, no murmur, no edema Gastrointestinal (Abdomen): normal bowel sounds, soft, nontender, no hepatosplenomegaly Musculoskeletal: no cyanosis or clubbing, extremities motor strength 5/5 Skin: no rashes, warm and dry Psychiatric: Orientation: oriented to person and oriented to place; + not oriented to time Results & Data Results & Data Vital Signs (Past 12 Hours) Vital Signs Temp Pulse Resp BP BP Pulse Ox O2 Del Method 12/11/24 16:40 36.8 C 54 L 18 139/60 96 Room Air 12/11/24 12:32 36.7 C 56 L 18 109/54 L 93 Room Air PG Care Time/CCT Total # of Minutes Spent Total Time Spent with Patient: Total time spent is greater than 50% in coordination of care (as documented) at patient's floor/unit and/or counseling patient: Coding Level of Care Code 56306 SUB INP/OBS CARE 3/50MIN Diagnoses Metabolic encephalopathy G93.41 Acute UTI N39.0 Fall W19.XXXA Encounter type: initial encounter Acute thoracic back pain M54.6 Back pain laterality: bilateral Acute neck pain M54.2 Acute confusion R41.0 Seizure R56.9 SANCHEZ (nonalcoholic steatohepatitis) K75.81 Hepatic cirrhosis K74.60 Diabetes mellitus, type 2 E11.9 Asthma J45.909 GERD (gastroesophageal reflux disease) K21.9 Chronic hyponatremia E87.1 (3) Fall Encounter type: initial encounter Qualified Code(s): W19.XXXA - Unspecified fall, initial encounter (4) Acute thoracic back pain Back pain laterality: bilateral Qualified Code(s): M54.6 - Pain in thoracic spine
[2024-12-12 07:48] LABS: Hematocrit (blood only) 25.8 % (37.0-47.0); Hemoglobin 8.7 g/dl (12.0-16.0); Mean Corpuscular Hgb Conc 33.7 g/dL (32.0-36.0); Mean Corpuscular Volume 94.9 fL (80.0-100.0); Mean Platelet Volume 9.5 fL (9.4-12.4); Platelet Count 154 K/uL (130-400); RDW Coefficient of Variation 13.8 % (11.5-14.5); RDW Standard Deviation 47.8 fL (36.4-46.3); Red Blood Count 2.72 M/uL (4.20-5.40)
[2024-12-12 08:02] LABS: BUN Creatinine Ratio 25.3 (10-20); Calcium 8.6 mg/dl (8.6-10.3); Creatinine Clr Calc Pharmacy 79.8 ml/min
--- NOTE | 2024-12-12 22:58 | Hospitalist Progress Note ---
Date of Service December 12, 2024 Assessment & Plan (1) Metabolic encephalopathy: (2) Acute UTI: (3) Fall: (4) Acute thoracic back pain: (5) Acute neck pain: (6) Acute confusion: (7) Seizure: (8) SANCHEZ (nonalcoholic steatohepatitis): (9) Hepatic cirrhosis: (10) Diabetes mellitus, type 2: (11) Asthma: (12) GERD (gastroesophageal reflux disease): (13) Chronic hyponatremia: Plan 69 yo female with pmh of Liver cirrhosis, SANCHEZ, seizure disorder, Type II DM, HTN, Hyperlipidemia, Asthma is admitted with acute delirium started after fall injury she had 10 days ago. This is the first major fall of her life, not witnessed having any seizure at that moment. Per she was doing fine initially except from physical pain in head, back , arms but later showed confusion, waited for 8 days and saw PCP 2 days back, when she was referred to ED. UTI with E coli was diagnosed and trauma scan is negative except from compression fracture in thoracis level vertebrae.CBC, CMP looks unremarkable except from mild increase in her bili and LFTs. Serum ammonia level is within normal range, which potentially rules out hepatic encephalopathy. With D/D of UTI leading to delirium leading to fall-- admitted for observation and antibiotics treatment. Given her worsening of abnormal head movement, MRI brain work up is reasonable and neurology evaluation would be be valuable on Wednesday. Urine toxicology and ethanol level ordered as well to complete work up for encephalopathy. #Delirium Predisposing factor: UTI vs Fall Vs Stroke vs metabolic encephalopathy. - Acute change in mentation in last 7-10 days. - H/O fall 10 days back - E coli UTI sensitive to all except FLQ. - Trauma imaging rules out acute injury( CT thoracis spine/ CT head. CT AP). - Urine tox + Medical ethanol ordered today - Ammonia level WNL. - TSH : WNL - CMP/ CMP: Mild anemia, Chronic mild hyponatremia, K WNL - Blood CS: No growth in 48 hours. Plan: - Reality orientation qshift - Maximize morning light exposure - Encourage ambulation. - Avoid dehydration, constipation, and urinary retention - Enforce consistent sleep-wake schedule -Patient continues to be confused. D/W spouse, this has been worsening over past 2 weeks but had been present before. may consider empiric lactulose. #Dystonic movement of head D/D : Keppra SE vs other brain pathology like Stroke, brainstem abnormality - There for few years. No swallowing issue, no speech problem before. - Acute worsening after trauma. - MRI Brain w/wo contrast today. - Neurology evaluation: will evaluate for shahnaz's disease. - Serum Keppra level:pending. No f/u with neurology since 2021. #UTI - Ecoli sensitive to all except FQL. - Continue ceftriaxone. #Chronic hyponatremia - Na: 131( 5/4) - Previous 120s. - Other electrolytes WNL - Fluid restriction, dietary salt intake. - Trend AM labs, if < 130, we could actively treat #FENGI: - Eating normal , close to baseline. - Nutrition leigh looks normal, no IV fluids. #H/O Liver Cirrhosis - LFTs / bili mildly elevated yesterday, WNL today. INR: 1.2 - Progressed Cirrhosis from 2017 per CTAP. - Ammonia WNL- less likely hepatic encephalopathy. - No ascites on CT AP. #Diabetes mellitus, type 2: A1C: 4.7 ( 4/3) Aspart sliding scale - CF 20; Carb ration 1:12 Hold metformin Other chronic #Hypertension: BP acceptable; Continue propranolol and spironolactone #GERD (gastroesophageal reflux disease):Continue PPI #Asthma:Continue Albuterol Dispo: Pending stability, stays home with Code status: Full code. Admission and Anticipated Discharge Date Admission Date: December 08, 2024 Subjective Patient remains confused. Physical Exam Constitutional: WD/WN, vitals as above Eyes: PERRL, conjunctivae normal, anicteric sclerae ENMT: external ear and nose normal, oropharynx normal Neck: trachea midline, no thyromegaly Respiratory: normal respiratory effort, lungs clear to auscultation Cardiovascular: RRR, no murmur, no edema Gastrointestinal (Abdomen): normal bowel sounds, soft, nontender, no hepatosplenomegaly Musculoskeletal: no cyanosis or clubbing, extremities motor strength 5/5 Skin: no rashes, warm and dry Neurologic: PERRL, EOMI, accommodation nl, no face palsy, no dysarthria Psychiatric: Orientation: oriented to person and oriented to place; + not oriented to time Results & Data Results & Data Vital Signs (Past 12 Hours) Vital Signs Temp Pulse Resp BP Pulse Ox O2 Del Method 12/12/24 21:48 Room Air 12/12/24 20:28 36.8 C 64 16 149/77 H 93 Room Air 12/12/24 14:13 36.4 C L 51 L 18 132/77 94 Room Air PG Care Time/CCT Total # of Minutes Spent Total Time Spent with Patient: Total time spent is greater than 50% in coordination of care (as documented) at patient's floor/unit and/or counseling patient: Coding Level of Care Code 93191 SUB INP/OBS CARE 3/50MIN Diagnoses Metabolic encephalopathy G93.41 Acute UTI N39.0 Fall W19.XXXA Encounter type: initial encounter Acute thoracic back pain M54.6 Back pain laterality: bilateral Acute neck pain M54.2 Acute confusion R41.0 Seizure R56.9 SANCHEZ (nonalcoholic steatohepatitis) K75.81 Hepatic cirrhosis K74.60 Diabetes mellitus, type 2 E11.9 Asthma J45.909 GERD (gastroesophageal reflux disease) K21.9 Chronic hyponatremia E87.1 (3) Fall Encounter type: initial encounter Qualified Code(s): W19.XXXA - Unspecified fall, initial encounter (4) Acute thoracic back pain Back pain laterality: bilateral Qualified Code(s): M54.6 - Pain in thoracic spine
[2024-12-12] MEDS: ENOXAPARIN INJ 40 MG/0.4 ML SYR SQ ONE (23:46)
[2024-12-13 06:05] LABS: Hematocrit (blood only) 25.1 % (37.0-47.0); Hemoglobin 8.5 g/dl (12.0-16.0); Mean Corpuscular Hemoglobin 32.2 pg (25.0-34.0); Mean Corpuscular Hgb Conc 33.9 g/dL (32.0-36.0); Mean Corpuscular Volume 95.1 fL (80.0-100.0); Mean Platelet Volume 9.5 fL (9.4-12.4); Platelet Count 156 K/uL (130-400); RDW Coefficient of Variation 13.9 % (11.5-14.5); RDW Standard Deviation 48.6 fL (36.4-46.3); Red Blood Count 2.64 M/uL (4.20-5.40); White Blood Count 6.64 K/ul (4.8-10.8)
[2024-12-13 06:24] LABS: Albumin Globulin Ratio 0.8 (0.9-2); Albumin Level 2.7 gm/dl (3.4-5.0); Bilirubin,Total 1.5 mg/dl (0.2-1.0); C Reactive Protein 4.19 mg/dl (0-0.5); Calcium 8.8 mg/dl (8.6-10.3); Creatinine Clr Calc Pharmacy 64.4 ml/min; Globulin 3.5 gm/dl (2.5-4.0); Potassium 4.4 mmol/L (3.5-5.1); Total Protein 6.2 gm/dl (6.0-8.3)
[2024-12-13] MEDS: PNEUMOCOCCAL VACCINE (PCV20) 20-VAL CONJ-DIP CRM/PF 0.5 ML SYR IM SCH (08:59)
[2024-12-13] MEDS ORDERED: clonazePAM 0.5 MG TAB PO SCH (09:00)
[2024-12-13] MEDS: busPIRone 5 MG TAB PO PRN (09:01)
[2024-12-13] MEDS: LACTULOSE SYRUP 30 GM/45 ML UDP PO SCH (09:50)
[2024-12-13] MEDS: ENOXAPARIN INJ 40 MG/0.4 ML SYR SQ SCH (21:20)
--- NOTE | 2024-12-13 22:45 | Hospitalist Progress Note ---
Date of Service December 13, 2024 Assessment & Plan (1) Metabolic encephalopathy: (2) Acute UTI: (3) Fall: (4) Acute thoracic back pain: (5) Acute neck pain: (6) Acute confusion: (7) Seizure: (8) SANCHEZ (nonalcoholic steatohepatitis): (9) Hepatic cirrhosis: (10) Diabetes mellitus, type 2: (11) Asthma: (12) GERD (gastroesophageal reflux disease): (13) Chronic hyponatremia: Plan 69 yo female with pmh of Liver cirrhosis, SANCHEZ, seizure disorder, Type II DM, HTN, Hyperlipidemia, Asthma is admitted with acute delirium started after fall injury she had 10 days ago. This is the first major fall of her life, not witnessed having any seizure at that moment. Per she was doing fine initially except from physical pain in head, back , arms but later showed confusion, waited for 8 days and saw PCP 2 days back, when she was referred to ED. UTI with E coli was diagnosed and trauma scan is negative except from compression fracture in thoracis level vertebrae.CBC, CMP looks unremarkable except from mild increase in her bili and LFTs. Serum ammonia level is within normal range, which potentially rules out hepatic encephalopathy. With D/D of UTI leading to delirium leading to fall-- admitted for observation and antibiotics treatment. Given her worsening of abnormal head movement, MRI brain work up is reasonable and neurology evaluation would be be valuable on Wednesday. Urine toxicology and ethanol level ordered as well to complete work up for encephalopathy. #Delirium Predisposing factor: UTI vs Fall Vs Stroke vs metabolic encephalopathy. - Acute change in mentation in last 7-10 days. - H/O fall 10 days back - E coli UTI sensitive to all except FLQ. - Trauma imaging rules out acute injury( CT thoracis spine/ CT head. CT AP). - Urine tox + Medical ethanol ordered today - Ammonia level now elevated, this may ultimately be the culprit. ordered aggressive lactulose - TSH : WNL - CMP/ CMP: Mild anemia, Chronic mild hyponatremia, K WNL - Blood CS: No growth in 48 hours. Plan: - Reality orientation qshift - Maximize morning light exposure - Encourage ambulation. 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 No swallowing issue, no speech problem before. - Acute worsening after trauma. - MRI Brain w/wo contrast today. - Neurology evaluation: will evaluate for shahnaz's disease. - Serum Keppra level:pending. No f/u with neurology since 2021. #UTI - Ecoli sensitive to all except FQL. - Continue ceftriaxone. #Chronic hyponatremia - Na: 131( 5/4) - Previous 120s. - Other electrolytes WNL - Fluid restriction, dietary salt intake. - Trend AM labs, if < 130, we could actively treat #FENGI: - Eating normal , close to baseline. - Nutrition leigh looks normal, no IV fluids. #H/O Liver Cirrhosis - LFTs / bili mildly elevated yesterday, WNL today. INR: 1.2 - Progressed Cirrhosis from 2017 per CTAP. - Ammonia WNL- less likely hepatic encephalopathy. - No ascites on CT AP. #Diabetes mellitus, type 2: A1C: 4.7 ( 4/3) Aspart sliding scale - CF 20; Carb ration 1:12 Hold metformin Other chronic #Hypertension: BP acceptable; Continue propranolol and spironolactone #GERD (gastroesophageal reflux disease):Continue PPI #Asthma:Continue Albuterol Dispo: Pending stability, stays home with Code status: Full code. Admission and Anticipated Discharge Date Admission Date: December 08, 2024 Subjective 69 yo female remains a poor historian, Fran at bedside, reports less head bopping. Physical Exam Constitutional: WD/WN, vitals as above Eyes: PERRL, conjunctivae normal, anicteric sclerae ENMT: external ear and nose normal, oropharynx normal Neck: trachea midline, no thyromegaly Respiratory: normal respiratory effort, lungs clear to auscultation Cardiovascular: RRR, no murmur, no edema Gastrointestinal (Abdomen): normal bowel sounds, soft, nontender, no hepatosplenomegaly Musculoskeletal: no cyanosis or clubbing, extremities motor strength 5/5 Skin: no rashes, warm and dry Neurologic: PERRL, EOMI, accommodation nl, no face palsy, no dysarthria Psychiatric: Orientation: oriented to person and oriented to place; + not oriented to time Results & Data Results & Data Vital Signs (Past 12 Hours) Vital Signs Temp Pulse Resp BP Pulse Ox O2 Del Method 12/13/24 19:55 36.2 C L 80 16 159/78 H 92 Room Air 12/13/24 16:22 36.6 C 52 L 18 149/65 H 97 Room Air PG Care Time/CCT Total # of Minutes Spent Total Time Spent with Patient: Total time spent is greater than 50% in coordination of care (as documented) at patient's floor/unit and/or counseling patient: Coding Level of Care Code 84892 SUB INP/OBS CARE 3/50MIN Diagnoses Metabolic encephalopathy G93.41 Acute UTI N39.0 Fall W19.XXXA Encounter type: initial encounter Acute thoracic back pain M54.6 Back pain laterality: bilateral Acute neck pain M54.2 Acute confusion R41.0 Seizure R56.9 SANCHEZ (nonalcoholic steatohepatitis) K75.81 Hepatic cirrhosis K74.60 Diabetes mellitus, type 2 E11.9 Asthma J45.909 GERD (gastroesophageal reflux disease) K21.9 Chronic hyponatremia E87.1 (3) Fall Encounter type: initial encounter Qualified Code(s): W19.XXXA - Unspecified fall, initial encounter (4) Acute thoracic back pain Back pain laterality: bilateral Qualified Code(s): M54.6 - Pain in thoracic spine
[2024-12-14 08:22] LABS: Hematocrit (blood only) 26.7 % (37.0-47.0); Hemoglobin 8.9 g/dl (12.0-16.0); Mean Corpuscular Hemoglobin 32.1 pg (25.0-34.0); Mean Corpuscular Hgb Conc 33.3 g/dL (32.0-36.0); Mean Corpuscular Volume 96.4 fL (80.0-100.0); Mean Platelet Volume 9.8 fL (9.4-12.4); Platelet Count 151 K/uL (130-400); RDW Standard Deviation 48.7 fL (36.4-46.3); Red Blood Count 2.77 M/uL (4.20-5.40); White Blood Count 6.27 K/ul (4.8-10.8)
[2024-12-14 08:46] LABS: Albumin Globulin Ratio 0.8 (0.9-2); Albumin Level 2.9 gm/dl (3.4-5.0); BUN Creatinine Ratio 31.5 (10-20); Bilirubin,Total 1.4 mg/dl (0.2-1.0); Calcium 8.9 mg/dl (8.6-10.3); Globulin 3.5 gm/dl (2.5-4.0); Potassium 4.2 mmol/L (3.5-5.1); Total Protein 6.4 gm/dl (6.0-8.3)
[2024-12-14] MEDS: LACTULOSE SYRUP 30 GM/45 ML UDP PO SCH (09:01)
--- NOTE | 2024-12-14 14:42 | Discharge Summary ---
Discharge Summary Date of Service December 14, 2024 Principal Dx & Hospital Course #1 = Principal Diagnosis (1) Metabolic encephalopathy: (2) Acute UTI: (3) Fall: (4) Acute thoracic back pain: (5) Acute neck pain: (6) Acute confusion: (7) Seizure: (8) SANCHEZ (nonalcoholic steatohepatitis): (9) Hepatic cirrhosis: (10) Diabetes mellitus, type 2: (11) Asthma: (12) GERD (gastroesophageal reflux disease): (13) Chronic hyponatremia: Plan 69 years old female with PMH of FULL CODE @ home, obesity with BMI 32.8 (height 167.6 cm; weight 92.2 kg), mild intermittent asthma, never intubated or mechanically ventilated, hyperlipidemia, HTN, non-insulin dependent DM2, allergic rhinitis on fluticasone 50ug/spray, 2 sprays to each nostril daily prn allergic rhinitis, GERD on omeprazole 20mg PO every other day, anxiety disorder on buspirone 10mg PO bid prn anxiety, major depression on venlafaxine 150mg PO qhs, seizure disorder on keppra 500mg PO bid, non-alcoholic steatohepatitis, and cryptogenic cirrhosis with portal HTN on propanolol 40mg PO bid and lasix 20mg PO qam, who was admitted to the inpatient hospitalist service @ [facility] on 12/08/2024 with acute toxic metabolic encephalopathy / acute delirium that started after fall injury she had 10 days prior to admission date 12/08/2024. This is the first major fall of her life, not witnessed having any seizure at that moment. Per she was doing fine initially except from physical pain in head, back , arms but later showed confusion, waited for 8 days and saw PCP 2 days back, when she was referred to ED. UTI with E coli was diagnosed and trauma scan is negative except from compression fracture in thoracis level vertebrae.CBC, CMP looks unremarkable except from mild increase in her bili and LFTs. Serum ammonia level is within normal range, which potentially rules out hepatic encephalopathy. With D/D of UTI leading to delirium leading to fall-- admitted for observation and ant ibiotics treatment. Given her worsening of abnormal head movement, MRI brain work up is reasonable and neurology evaluation would be be valuable on Wednesday. Urine toxicology and ethanol level ordered as well to complete work up for encephalopathy. The following medical issues were addressed while patient remained in [facility] from 12/08/2024 through 12/15/2024: #Delirium Predisposing factor: UTI vs Fall Vs Stroke vs metabolic encephalopathy. - Acute change in mentation in last 7-10 days. - H/O fall 10 days back - E coli UTI sensitive to all except FLQ. - Trauma imaging rules out acute injury( CT thoracis spine/ CT head. CT AP). - Ammonia level was elevated at 85 umol/L (12/13/2024, 6:51 am), this hyperam monemia was probably the proximal culprit for patient's acute toxic metabolic encephalopathy, which appears to have resolved with ongoing lactulose 30g PO tid (day #1 on 12/14/2024, 9:01 am). cf., post-treatment NH3 21 umol/L (12/14/2024, 8:07 am). Hence, patient will continue with lactulose 30g / 45mL PO tid on hospital discharge to [facility] on 12/15/2024. To this end, patient's [facility] ([address] [place] [address]) received an electronic prescription for lactulose 30g / 45mL PO tid, #1350mL, no refills, on 12/15/2024, prior to hospital discharge to [facility] ([place], [place]) on 12/15/2024. - TSH : WNL - CMP/ CMP: Mild anemia, Chronic mild hyponatremia, K WNL - Blood CS: No growth in 48 hours. Plan: - Reality orientation qshift - Maximize morning light exposure - Encourage ambulation. 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 No swallowing issue, no speech problem before. - Acute worsening after trauma. - MRI Brain w/wo contrast today. - Neurology evaluation: will evaluate for shahnaz's disease. - Serum Keppra level normal at 23.8 mcg/mL (12/10/2024, 5:48pm) (cf., normal keppra level range, 6.0 mcg/mL to 46.0 mcg/mL. Of note, patient has not followed up with Neurology Service since 2021. #UTI - E coli sensitive to all except FQL. - Patient received complete treatment of acute E. coli UTI with ceftriaxone 2g IV daily x 6 doses (12/08/2024, 4:39 pm to 12/13/2024, 5:12 pm). Observe off antibiotics as treatment of acute UTI is now complete. #Chronic hyponatremia - Na: 131(12/08/2024, 3:15pm; 12/14/2024, 8:01am). Asymptomatic. Most likely due to SIADH mechanism, which in turn, is due to cryptogenic cirrhosis. Observe. - Previous 120s. - Other electrolytes WNL - Fluid restriction, dietary salt intake. #FENGI: - Eating normal , close to baseline. - Nutrition leigh looks normal, no IV fluids. #H/O Liver Cirrhosis - LFTs / bili mildly elevated yesterday, WNL today. INR: 1.2 - Progressed Cirrhosis from 2017 per CTAP. - Ammonia WNL- less likely hepatic encephalopathy. - No ascites on CT AP. #Diabetes mellitus, type 2: A1C: 4.7 ( 4/3) Aspart sliding scale - CF 20; Carb ration 1:12 Patient did not receive her home-scheduled metformin 1000mg PO qhs while in [facility]. Patient will resume this home-scheduled medication on hospital discharge to [facility] ([place]) on 12/15/2024. Other chronic #Hypertension: BP acceptable; Continue propranolol and spironolactone #GERD (gastroesophageal reflux disease):Continue PPI #Asthma:Continue Albuterol Dispo: Pending stability, stays home with ; D/C to [facility] for short-term rehab in the 03/17/2025, 2:00pm, as patient's will transport patient to [facility] ([place]) himself on 03/17/2025, 2:00pm. Code status: Full code. Admission and Anticipated Discharge Date Admission HPI Per Admitting Provider 69 yo F with medical history of: SANCHEZ, Hyponatremia, Cerebrovascular disease, GERD, DMII. She presents to the hospital for change of mental status. Patient currently is a poor historian. History obtained by discussing case with ED provider and chart review. Patient was in the bathroom and lost her balance. She state that this was a mechanical fall and denies any symptoms prior to the fall. Patient wennt to see the PCP and was referred to the ED as patient appears confused. Patient has mild pain on the left frontal side of her forehead. Patient denies any change in vision, nausea, vomiting, or change in personality. reported patient was having foul smelling urine. Discharge Exam Constitutional General: Comfortable, coherent, cooperative. Wide awake and alert. Not confused, lethargic, or obtunded. Patient speaks in complete, fluent, and articulate sentences without pause, cough, or wheeze, with O2 sat 96% on room air (12/15/2024, 8:32 am). HEENT: Normocephalic, atraumatic. Extra-ocular muscles intact. Pupils equally round and reactive to light. No nystagmus, gaze paresis, anisocoria, miosis, mydriasis, hyphema, scleral injection, conjunctivitis, or pterygium. No otorrhea or rhinorrhea. No pharyngeal erythema, edema, or discharge. Neck: Supple, no stridor, bruit, goiter, or hepato-jugular reflux. Jugular venous pressure is estimated to be 3 cm above the sternal angle of Ignacio, which in turn, is 5 cm above the level of the right atrium; with jugular venous pressure estimated to be 8 cm, then, there is no jugular venous distention on 12/15/2024. Lymphatics: No cervical (anterior/posterior), supraclavicular, infraclavicular, axillary, epitrochlear, or inguinal adenopathy. Chest: Symmetric rise and fall with respirations. Non-tender to palpation. Lungs: Clear to auscultation and percussion. Heart: Regular rate and rhythm. S1 and S2 noted. No S3 or S4 summation gallop. No tripartite friction rub. Grade II/ early systolic murmur @ LLSB without radiation to the carotids, axilla, or back, and which remains invariant in regards to the respiratory cycle. Abdomen: Soft, non-tender, non-distended. No rebound, guarding, Rangel's sign, or organomegaly. Bowel sounds auscultated in all 4 quadrants. Extremities: No clubbing, cyanosis, or edema. 2+ pedal pulses bilaterally. Skin: No decubitus ulcer, exanthem, or enanthem. Genito-urinary: No urethral discharge. No xiong catheter. Neurology: Alert and oriented in regards to person, place, time, and situation. DTR+ and symmetric. 5/5 motor strength in all 4 extremities, both proximally and distally. No pronator drift. No facial droop. No dysarthria. No myoclonus, tremors, or tics. Psychiatry: No homicidal ideation. No suicidal ideation. No flat affect; smiles appropriately. Discharge Plan Discharge Items Patient Disposition: Transfer Custodial Fac Reason For Visit: FALL/ CONFUSION Discharge Diagnosis: Acute hepatic encephalopathy due to cryptogenic cirrhosis with portal HTN and ascites Condition on Discharge: Fair Activity: Resume your previous activity Bathing: No limitations Sexual Activity: When tolerated Exercise/Sports: As tolerated Driving/Machine Use: No limitations Weightbearing: Full weightbearing Non-emergency contact: Primary Care Provider Call non-emergency contact if: you have any medication questions Follow-up/Referrals: Madie Aguilar MD [Primary Care Provider] - Diet: Heart Healthy Addtl Attending Provider Instructions: See your PCP Dr. Madie Aguilar within 5 days of hospital discharge. Pending Studies at Discharge: No Stand-Alone Forms: My [facility] [place] [facility] [employer] Skilled Items Patient informed of condition?: Yes DNR: No Discharge Level of Care: Skilled Communicable Disease: No Discharge Prognosis: Stable Lines: None Urinary Catheter: No Medications and DC Order Prescriptions: New lactulose 10 gram/15 mL Solution 30 g PO TID Qty: 1350 0RF Continued magnesium 250 mg tablet 250 mg PO HS Qty: 90 1RF Hold Instructions: Not taking 10/2024 amlodipine 5 mg tablet 5 mg PO QAM Qty: 90 1RF atorvastatin 10 mg tablet 10 mg PO QPM Qty: 90 1RF propranolol 40 mg tablet 40 mg PO BID Qty: 180 1RF spironolactone 25 mg tablet 25 mg PO BID Qty: 180 1RF venlafaxine 150 mg capsule,extended release 24hr 150 mg PO HS Qty: 90 1RF metformin 500 mg tablet extended release 24 hr 1,000 mg PO HS Qty: 180 1RF levetiracetam [Keppra] 500 mg tablet 500 mg PO BID Qty: 180 1RF furosemide 20 mg tablet 20 mg PO QAM Qty: 90 1RF buspirone 10 mg tablet 10 mg PO BID PRN (Reason: anxiety) Qty: 180 1RF fluticasone propionate [Flonase Allergy Relief] 50 mcg/actuation spray,suspension 2 spray intranasal DAILY PRN (Reason: Allergy Symptoms) Rx Instructions: 2 sniffs in each nostril daily cholecalciferol (vitamin D3) 25 mcg (1,000 unit) Tablet 1,000 unit PO HS famotidine 40 mg tablet 40 mg PO Q OTHER DAY Rx Instructions: Alternate w/ Omeprazole every other day albuterol sulfate 90 mcg/actuation HFA aerosol inhaler 1 puff INHALATION DIRECTED PRN (Reason: Shortness Of Breath Or Wheezing) omeprazole 20 mg capsule,delayed release(DR/EC) 20 mg PO Q OTHER DAY Rx Instructions: Alternates w/ famotidine every other day Discharge Orders: Discharge Order (Routine); Ordered 12/15/24 Ordered By: Jp Nieves/Other Patient Handouts: Managing Type 2 Diabetes Admission Data Admit Date/Time: 12/08/24 16:53 Attending Provider: Jp Bauer Admit Provider: Juaquin Richmond Primary Care Provider: Madie Aguilar Other Providers: Kunal Sams; Fei Garcia; Chemo Pearce; Gita Fernández; Kaye Yoo; Dona Wheatley; Remigio Denny; [facility] Stay Data Consultations 12/08/24 16:41 ED Decision to Admit Stat 12/11/24 17:51 Consult Neurology Routine Diagnostic Imagining Performed 12/08/24 13:33 CT cervical spine wo con Stat CT head/brain wo con Stat CT thoracic spine wo con Stat 12/09/24 09:59 CT Abd and Pelvis [CT abd pelvis wo con] Urgent 12/11/24 00:26 MR brain wo/w con Routine Discharge Instructions Given to Patient (Per Discharging Provider) See your PCP Dr. Madie Aguilar within 5 days of hospital discharge. Supervising Physician Co-Signing Physician Notes ATTESTATION I also saw the patient and confirmed castano portions of the history and exam. I agree with the impression and plan in the resident documentation, and as summarized below. Patient awake and alert - answers questions appropriately, although mild confusion with more specific questions. She has noticeable dystonic movements of her head/neck and upper arms. This is my first day seeing her, so not sure if new or chronic - no mention of such in outpatient notes, so will need to obtain some collateral information from family. Additional per resident documentation Total Time Total Time Spent Total Time Spent (In Minutes): 35 minutes. Of this time period, 19 minutes were spent in coordinating patient's discharge. Coding Level of Care Code 82352 INP/OBS DISCH >30 MIN Diagnoses Metabolic encephalopathy G93.41 Acute UTI N39.0 Fall W19.XXXA Encounter type: initial encounter Acute thoracic back pain M54.6 Back pain laterality: bilateral Acute neck pain M54.2 Acute confusion R41.0 Seizure R56.9 SANCHEZ (nonalcoholic steatohepatitis) K75.81 Hepatic cirrhosis K74.60 Diabetes mellitus, type 2 E11.9 Asthma J45.909 GERD (gastroesophageal reflux disease) K21.9 Chronic hyponatremia E87.1
[2024-12-14 17:17] LABS: Ceruloplasmin 31 mg/dL (14-48); Copper, Serum 126 mcg/dL (70-175); Zinc 31 mcg/dL (60-130)
--- NOTE | 2024-12-14 19:47 | Hospitalist Progress Note ---
Date of Service December 14, 2024 Assessment & Plan (1) Metabolic encephalopathy: (2) Acute UTI: (3) Fall: (4) Acute thoracic back pain: (5) Acute neck pain: (6) Acute confusion: (7) Seizure: (8) SANCHEZ (nonalcoholic steatohepatitis): (9) Hepatic cirrhosis: (10) Diabetes mellitus, type 2: (11) Asthma: (12) GERD (gastroesophageal reflux disease): (13) Chronic hyponatremia: Plan 69 years old female with PMH of FULL CODE @ home, obesity with BMI 32.8 (height 167.6 cm; weight 92.2 kg), mild intermittent asthma, never intubated or mechanically ventilated, hyperlipidemia, HTN, non-insulin dependent DM2, allergic rhinitis on fluticasone 50ug/spray, 2 sprays to each nostril daily prn allergic rhinitis, GERD on omeprazole 20mg PO every other day, anxiety disorder on buspirone 10mg PO bid prn anxiety, major depression on venlafaxine 150mg PO qhs, seizure disorder on keppra 500mg PO bid, non-alcoholic steatohepatitis, and cryptogenic cirrhosis with portal HTN on propanolol 40mg PO bid and lasix 20mg PO qam, who was admitted to the inpatient hospitalist service @ [facility] on 12/08/2024 with acute toxic metabolic encephalopathy / acute delirium that started after fall injury she had 10 days prior to admission date 12/08/2024. This is the first major fall of her life, not witnessed having any seizure at that moment. Per she was doing fine initially except from physical pain in head, back , arms but later showed confusion, waited for 8 days and saw PCP 2 days back, when she was referred to ED. UTI with E coli was diagnosed and trauma scan is negative except from compression fracture in thoracis level vertebrae.CBC, CMP looks unremarkable except from mild increase in her bili and LFTs. Serum ammonia level is within normal range, which potentially rules out hepatic encephalopathy. With D/D of UTI leading to delirium leading to fall-- admitted for observation and antibiotics treatment. Given her worsening of abnormal head movement, MRI brain work up is reasonable and neurology evaluation would be be valuable on Wednesday. Urine toxicology and ethanol level ordered as well to complete work up for encephalopathy. The following medical issues are being addressed: #Delirium Predisposing factor: UTI vs Fall Vs Stroke vs metabolic encephalopathy. - Acute change in mentation in last 7-10 days. - H/O fall 10 days back - E coli UTI sensitive to all except FLQ. - Trauma imaging rules out acute injury( CT thoracis spine/ CT head. CT AP). - Urine tox + Medical ethanol ordered today - Ammonia level was elevated at 85 umol/L (12/13/2024, 6:51 am), this hyperammonemia was probably the proximal culprit for patient's acute toxic metabolic encephalopathy, which appears to have resolved with ongoing lactulose 30g PO tid (day #1 on 12/14/2024, 9:01 am). cf., post-treatment NH3 21 umol/L (12/14/2024, 8:07 am). - TSH : WNL - CMP/ CMP: Mild anemia, Chronic mild hyponatremia, K WNL - Blood CS: No growth in 48 hours. Plan: - Reality orientation qshift - Maximize morning light exposure - Encourage ambulation. 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 No swallowing issue, no speech problem before. - Acute worsening after trauma. - MRI Brain w/wo contrast today. - Neurology evaluation: will evaluate for shahnaz's disease. - Serum Keppra level:pending. No f/u with neurology since 2021. #UTI - E coli sensitive to all except FQL. - Continue ceftriaxone 2g IV daily x 6 doses (12/08/2024, 4:39 pm to 12/13/2024, 5:12 pm). Observe off antibiotics as treatment of acute UTI is now complete. #Chronic hyponatremia - Na: 131(12/08/2024, 3:15pm; 12/14/2024, 8:01am). Asymptomatic. Most likely due to SIADH mechanism, which in turn, is due to cryptogenic cirrhosis. Observe. - Previous 120s. - Other electrolytes WNL - Fluid restriction, dietary salt intake. - Trend AM labs, if < 130, we could actively treat #FENGI: - Eating normal , close to baseline. - Nutrition leigh looks normal, no IV fluids. #H/O Liver Cirrhosis - LFTs / bili mildly elevated yesterday, WNL today. INR: 1.2 - Progressed Cirrhosis from 2017 per CTAP. - Ammonia WNL- less likely hepatic encephalopathy. - No ascites on CT AP. #Diabetes mellitus, type 2: A1C: 4.7 ( 4/3) Aspart sliding scale - CF 20; Carb ration 1:12 Hold metformin Other chronic #Hypertension: BP acceptable; Continue propranolol and spironolactone #GERD (gastroesophageal reflux disease):Continue PPI #Asthma:Continue Albuterol Dispo: Pending stability, stays home with ; anticipate D/C to [facility] for short-term rehab in the 03/17/2025 am. Code status: Full code. Admission and Anticipated Discharge Date Admission Date: December 08, 2024 Subjective "I feel fine. I don't have any problems today. Thanks for asking me that." Review of Systems Constitutional: Negative for antecedent/coincident fevers, chills, diaphoresis, shortness of breath, dyspnea on exertion, cough, wheeze, sore throat, hemoptysis, chest pains, palpitations, pleurisy, nausea, vomiting, diarrhea, abdominal pain, pelvic pain, hematemesis, hematochezia, melena, hematuria, dysuria, frequency, urgency, headaches, dizziness, lightheadedness, visual changes, hearing changes, weakness, falls, syncope, trauma, travel history, sick contacts, or food/drug ingestions novel or new. All other review of systems are reported as negative by the patient on 12/14/2024. Physical Exam Constitutional: General: Comfortable, coherent, cooperative. Wide awake and alert. Not confused, lethargic, or obtunded. Patient speaks in complete, fluent, and articulate sentences without pause, cough, or wheeze, with O2 sat 95% on room a ir (12/14/2024, 3:14 pm). HEENT: Normocephalic, atraumatic. Extra-ocular muscles intact. Pupils equally round and reactive to light. No nystagmus, gaze paresis, anisocoria, miosis, mydriasis, hyphema, scleral injection, conjunctivitis, or pterygium. No otorrhea or rhinorrhea. No pharyngeal erythema, edema, or discharge. Neck: Supple, no stridor, bruit, goiter, or hepato-jugular reflux. Jugular venous pressure is estimated to be 3 cm above the sternal angle of Ignacio, which in turn, is 5 cm above the level of the right atrium; with jugular venous pressure estimated to be 8 cm, then, there is no jugular venous distention on 12/14/2024. Lymphatics: No cervical (anterior/posterior), supraclavicular, infraclavicular, axillary, epitrochlear, or inguinal adenopathy. Chest: Symmetric rise and fall with respirations. Non-tender to palpation. Lungs: Coarse breath sounds bilaterally. Heart: Regular rate and rhythm. S1 and S2 noted. No S3 or S4 summation gallop. No tripartite friction rub. Grade II/ early systolic murmur @ LLSB without radiation to the carotids, axilla, or back, and which remains invariant in regards to the respiratory cycle. Abdomen: Soft, non-tender, non-distended. No rebound, guarding, Rangel's sign, or organomegaly. Bowel sounds auscultated in all 4 quadrants. Extremities: No clubbing, cyanosis, or edema. 2+ pedal pulses bilaterally. Skin: No decubitus ulcer, exanthem, or enanthem. Genito-urinary: No urethral discharge. No xiong catheter. Neurology: Alert and oriented in regards to person, place, time, and situation. DTR+ and symmetric. 5/5 motor strength in all 4 extremities, both proximally and distally. No pronator drift. No facial droop. No dysarthria. Psychiatry: No homicidal ideation. No suicidal ideation. No flat affect; smiles appropriately. Results & Data Results & Data Vital Signs (Past 12 Hours) Vital Signs Temp Pulse Resp BP Pulse Ox O2 Del Method 12/14/24 15:14 36.9 C 54 L 16 124/60 95 Room Air 12/14/24 08:55 Room Air 12/14/24 08:04 37.0 C 60 16 120/43 L 97 Room Air Laboratory Results Abnormal lab results 12/12/24 12/13/24 12/14/24 Range/Units 07:28 20:21 07:52 RBC (4.20-5.40) M/uL Hgb (12.0-16.0) g/dl Hct (37.0-47.0) % RDW Std Deviation (36.4-46.3) fL Sodium (136-145) mmol/L BUN/Creatinine Ratio (10-20) Glucose (70-99(Fasting)) mg/dl POC Glucose 130 H 103 H (70-99) mg/dl Total Bilirubin (0.2-1.0) mg/dl Albumin (3.4-5.0) gm/dl Albumin/Globulin Ratio (0.9-2) Zinc 31 L (60-130) mcg/dL 12/14/24 12/14/24 12/14/24 Range/Units 08:01 12:00 16:52 RBC 2.77 L (4.20-5.40) M/uL Hgb 8.9 L (12.0-16.0) g/dl Hct 26.7 L (37.0-47.0) % RDW Std Deviation 48.7 H (36.4-46.3) fL Sodium 131 L (136-145) mmol/L BUN/Creatinine Ratio 31.5 H (10-20) Glucose 105 H (70-99(Fasting)) mg/dl POC Glucose 152 H 139 H (70-99) mg/dl Total Bilirubin 1.4 H (0.2-1.0) mg/dl Albumin 2.9 L (3.4-5.0) gm/dl Albumin/Globulin Ratio 0.8 L (0.9-2) Zinc (60-130) mcg/dL PG Care Time/CCT Total # of Minutes Spent Total Time Spent with Patient: Total time spent is greater than 50% in coordination of care (as documented) at patient's floor/unit and/or counseling patient: Coding Level of Care Code 72325 SUB INP/OBS CARE 2/35MIN Diagnoses Metabolic encephalopathy G93.41 Acute UTI N39.0 Fall W19.XXXA Encounter type: initial encounter Acute thoracic back pain M54.6 Back pain laterality: bilateral Acute neck pain M54.2 Acute confusion R41.0 Seizure R56.9 SANCHEZ (nonalcoholic steatohepatitis) K75.81 Hepatic cirrhosis K74.60 Diabetes mellitus, type 2 E11.9 Asthma J45.909 GERD (gastroesophageal reflux disease) K21.9 Chronic hyponatremia E87.1 (3) Fall Encounter type: initial encounter Qualified Code(s): W19.XXXA - Unspecified fall, initial encounter (4) Acute thoracic back pain Back pain laterality: bilateral Qualified Code(s): M54.6 - Pain in thoracic spine
[2024-12-15 08:33] VITALS: BP 135/57; PULSE 54; RESP 18; TEMP 98.2; O2SAT 96
[2024-12-17 02:01] LABS: Copper, 24 hr Urine 37 mcg/24 h (15-60); Total Volume, Copper 1287 mL
== END 2024-12-15 14:40 | DRG 441 ==
LOC: SUATTDRO → ED 12:34 → 3W 16:53 → SUATTDRO 16:53 → 3W 20:57 → 3N 12-10 18:39

== ENCOUNTER 2025-03-06 17:04 | Inpatient (IN) ==
--- NOTE | 2025-03-06 17:45 | Emergency Department Note ---
Impression & Plan Acute confusion, Acute UTI (urinary tract infection), Hyperammonemia, Generalized weakness, TE (acute kidney injury), Acute metabolic encephalopathy ED Provider Note HISTORY OF PRESENT ILLNESS: Patient is a 69-year-old female presenting with altered mental status. provides history, given the patient's confusion. He reports that the patient has been very confused and not acting like her normal self for the last 5 days. Reports her confusion has gotten progressively worse over that timeframe. He reports that 5 days ago she had woke up and was her normal self, but later that evening she had rolled out of bed and hit her head on the ground. He states she has had progressively worsening confusion ever since. He states that she is acting like she did back in November 2024 when she was diagnosed with hyperammonemia. He states she has been taking lactulose without any issues. Denies any nausea or vomiting. Denies any recent fevers. He states that patient is unable to walk and has been very weak over the last few days. He reports that after she was discharged from [place] [facility], she was ambulatory without any assistive devices, and today she was unable to get up out of bed and had to use a wheelchair. She is not on any anticoagulation or antiplatelet therapies. Denies any dysuria or hematuria. ROS: as above PHYSICAL EXAM: Constitutional: Patient appears in no acute distress. HENT: Head: Normocephalic. Ecchymosis to left frontal forehead. Eyes: EOMI, PERRL Mouth/Throat: Mucous membranes moist. Neck: Trachea midline. Neck supple. Cardiovascular: Bradycardic with regular rhythm. No murmurs, rubs or gallops. Intact distal pulses. Pulmonary/Chest: No respiratory distress. Breath sounds clear and equal bilaterally. No wheezes or rales. Abdominal: Abdomen soft, no tenderness, rebound or guarding. Musculoskeletal: No edema, tenderness or deformity noted. Skin: Warm and dry. No rash, erythema, pallor or cyanosis Neurological: Alert but confused. CN II-XII grossly intact, moving all extremities equally and fully. MDM: - Vitals signs showed bradycardia. - History obtained via patient's , given patient's confusion. History as above. - Chronic conditions affecting care: HTN; HLD; SANCHEZ; DM-2; GERD; hepatitis A - Differential diagnoses include, but are not limited to: Intracranial hemorrhage; CVA; UTI; pneumonia; electrolyte abnormalities; hyperammonemia - Order placed for continuous cardiac monitoring. At this time, monitor showed rate of 53 bpm with normal sinus rhythm, per my interpretation. - External medical records reviewed. Discharge summary dated 12/15/2024 was reviewed. Patient was admitted that time for delirium. She was noted to have a urinary tract infection and grew E. coli that was pansensitive except for fluoroquinolones. - EKG image interpreted by myself showed normal sinus rhythm. Rate bradycardic at 56 bpm. QT 472. No acute ischemic changes. - Laboratory workup interpreted by myself showed normal WBC; chronic anemia (Hgb 9.5); normal PT/INR; hyponatremia (Na 132); TE (Cr 1.32); elevated total bilirubin (1.7) with normal AST/ALT; elevated ammonia (87); normal troponin; normal procalcitonin - CXR image reviewed by myself negative for pneumonia, per my interpretation. However, radiology notes a new small focal opacity in the left lower lung zone. - CT head wo contrast negative for acute intracranial pathology. - UA showed evidence of infection. Patient given 2 g IV Rocephin. - Given patient's continued confusion, will admit to hospitalist service. - Discussion was had with mattress spring encaser about patient's case and need for admission - Hospitalist consulted for admission - Patient admitted to [facility] hospitalist service for further evaluation and management. ASSESSMENT AND PLAN: Diagnosis: Acute confusion; acute UTI; hyperammonemia; generalized weakness; TE; acute metabolic encephalopathy Plan: Admit Past Med/Surg History Problem List (Updated 03/06/25 @ 21:56 by Carmen Rodriguez MD) Acute metabolic encephalopathy (Acute) TE (acute kidney injury) (Acute) Generalized weakness (Acute) Hyperammonemia (Acute) Acute UTI (urinary tract infection) (Acute) Acute confusion (Acute) History of colon polyps Hypophosphatemia (Acute) Hypomagnesemia (Acute) Cerebrovascular disease Leg cramping (Acute) Tubular adenoma of colon Vitamin deficiency (Chronic) Lower extremity edema (Chronic) Anemia (Chronic) hx Allergic rhinitis (Chronic) Esophageal varices 2017 Hyperlipidemia (Chronic) Hypertension (Chronic) Hyponatremia Medical History Non-Wilsonian hepatocerebral degeneration Chronic hyponatremia Metabolic encephalopathy Acute UTI Fall Acute thoracic back pain Acute neck pain Closed head injury Acute confusion Seizure SANCHEZ (nonalcoholic steatohepatitis) Hepatic cirrhosis GERD (gastroesophageal reflux disease) Diabetes mellitus, type 2 Asthma History of colon polyps Hx of esophageal varices (~2017) History of anemia Hepatitis A Seizure-like activity Pleural effusion associated with hepatic disorder History of pleural effusion History of benign breast biopsy Surgical History Hx of bilateral cataract extraction Hx of colonoscopy with polypectomy History of ankle surgery History of total abdominal hysterectomy and bilateral salpingo-oophorectomy History of tubal ligation History of thoracentesis History of esophagogastroduodenoscopy (EGD) History of tooth extraction Family History Grandfather (Maternal) Diabetes Coronary heart disease Dyslipidemia Hypercholesterolemia Hypertension Grandmother (Maternal) Ovarian cyst Stroke Father Pancreatic cancer Hypertension Stroke Mother Bladder cancer Hypertension Sister Hypertension Other No family history of adverse response to anesthesia Denies family history of Ovarian cancer Prostate cancer Myocardial infarction Breast cancer Social History Smoking Status: Former smoker Tobacco Type: Cigarettes Age Started Using Tobacco: 14; Age Quit Using Tobacco: 39; packs per day: 1; Cigarettes Per Day: 5 cigs/day; Second Hand Exposure: No; Do You Dip or Chew Tobacco: No; Hx Alcohol Use: Yes Alcohol type: wine Hx Substance Use: No Preferred Language: Turkish Communication Ability: Effective Communication Ability Comment: intubated and sedated Visual Impairment: No Limitations Hearing Ability: Normal 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 Required: No Beliefs That Will Affect Care: None marital status: Current Living Situation: Spouse Current Living Situation Comment: unknown current occupational status: employed Feels Safe at Home: Yes Physical Activity Frequency: 1-2 Times per Week Seatbelt Use: always Assistive Devices: Walker Allergies Allergies Allergy/AdvReac Type Severity Reaction Status Date / Time CASANDRA Inhibitors Allergy Severe Angioedema Verified 03/06/25 21:31 Home Meds Home Medications Medication Instructions Recorded Confirmed cholecalciferol (vitamin D3) 25 1,000 unit PO HS 10/28/19 03/06/25 mcg (1,000 unit) tablet fluticasone propionate 50 2 spray intranasal DAILY PRN 02/16/23 03/06/25 mcg/actuation nasal Allergy Symptoms spray,suspension (Flonase Allergy Relief) albuterol sulfate 90 mcg/actuation 1 puff inhalation DIRECTED PRN 12/08/24 03/06/25 aerosol inhaler Shortness Of Breath Or Wheezing famotidine 40 mg tablet 40 mg PO Q OTHER DAY 12/08/24 03/06/25 furosemide 20 mg tablet 40 mg PO QAM 12/29/24 03/06/25 metformin 500 mg tablet,extended 1,000 mg PO HS 03/06/25 03/06/25 release 24 hr spironolactone 25 mg tablet 50 mg PO BID 03/06/25 03/06/25 Previous Rx's Medication Instructions Recorded amlodipine 5 mg tablet 5 mg PO QAM #90 tabs 10/23/24 atorvastatin 10 mg tablet 10 mg PO QPM #90 tabs 10/23/24 buspirone 10 mg tablet 10 mg PO BID PRN anxiety #180 tabs 10/23/24 levetiracetam 500 mg tablet 500 mg PO BID #180 tabs 10/23/24 (Keppra) propranolol 40 mg tablet 40 mg PO BID #180 tabs 10/23/24 venlafaxine 150 mg 150 mg PO HS #90 caps 10/23/24 capsule,extended release 24 hr magnesium 250 mg tablet 250 mg PO HS #90 tabs 10/24/24 blood sugar diagnostic (Accu-Chek #50 ea 01/05/25 Guide test strips) empagliflozin 10 mg tablet 10 mg PO DAILY #90 tabs 01/05/25 fluticasone furoate 100 1 inh inhalation DAILY #60 ea 01/05/25 mcg-vilanterol 25 mcg/dose inhalation powder (Breo Ellipta) lactulose 10 gram/15 mL oral 10 g (15 mL) PO TID #1,500 mL 02/08/25 solution omeprazole 20 mg capsule,delayed 20 mg PO Q OTHER DAY #45 caps 03/01/25 release Results & Data (ED) Vital Signs Vital Signs - 24 hr 03/06/25 17:12 03/06/25 17:49 03/06/25 17:49 Temperature 36.6 C Temperature Source Temporal Artery Scan Pulse Rate 55 L Pulse Rate [Apical] 55 L Respiratory Rate 16 20 Respiratory Effort / Characteristics Non-Labored Spontaneous Non-Labored Spontaneous Respiratory Depth Normal Normal Respiratory Pattern Blood Pressure 116/54 L Blood Pressure [Right Arm] 142/64 H Blood Pressure Mean 74 Blood Pressure Mean [Right Arm] 90 Blood Pressure Position Sitting Pulse Oximetry 99 99 98 Oxygen Delivery Method Room Air Room Air Room Air Sepsis Recent Fever Within 48 Hours No Sepsis New/Unexplained Change in Mental Status No Sepsis Action Taken by Nursing No Action Required 03/06/25 17:49 03/06/25 18:07 03/06/25 19:02 Temperature Temperature Source Pulse Rate 56 L Pulse Rate [Apical] 55 L Respiratory Rate 23 Respiratory Effort / Characteristics Non-Labored Spontaneous Respiratory Depth Normal Respiratory Pattern Blood Pressure Blood Pressure [Right Arm] 137/61 Blood Pressure Mean Blood Pressure Mean [Right Arm] 86 Blood Pressure Position Pulse Oximetry 98 94 Oxygen Delivery Method Room Air Room Air Sepsis Recent Fever Within 48 Hours Sepsis New/Unexplained Change in Mental Status Sepsis Action Taken by Nursing 03/06/25 19:04 03/06/25 19:31 03/06/25 21:00 Temperature Temperature Source Pulse Rate 56 L 56 L Pulse Rate [Apical] 53 L Respiratory Rate 15 20 15 Respiratory Effort / Characteristics Non-Labored Spontaneous Respiratory Depth Normal Respiratory Pattern Regular Blood Pressure 137/61 120/71 Blood Pressure [Right Arm] 113/62 Blood Pressure Mean 102 78 Blood Pressure Mean [Right Arm] 79 Blood Pressure Position Pulse Oximetry 92 100 99 Oxygen Delivery Method Room Air Room Air Room Air Sepsis Recent Fever Within 48 Hours Sepsis New/Unexplained Change in Mental Status Sepsis Action Taken by Nursing Laboratory Data 03/06/25 17:34 03/06/25 17:34 Lab Results 03/06/25 03/06/25 03/06/25 Range/Units 17:33 17:34 18:38 WBC 5.80 (4.8-10.8) K/ul RBC 3.37 L (4.20-5.40) M/uL Hgb 9.5 L (12.0-16.0) g/dl Hct 29.6 L (37.0-47.0) % MCV 87.8 (80.0-100.0) fL MCH 28.2 (25.0-34.0) pg MCHC 32.1 (32.0-36.0) g/dL RDW Std Deviation 47.5 H (36.4-46.3) fL RDW Coeff of Bianca 14.8 H (11.5-14.5) % Plt Count 166 (130-400) K/uL MPV 9.9 (9.4-12.4) fL Immature Gran % (Auto) 0.3 % Neut % (Auto) 74.9 % Lymph % (Auto) 9.5 % [place] % (Auto) 14.8 % Eos % (Auto) 0.0 % Baso % (Auto) 0.5 % Neut # (Auto) 4.34 (1.40-6.50) K/uL Lymph # (Auto) 0.55 L (1.20-3.40) K/uL [place] # (Auto) 0.86 H (0.11-0.59) K/uL Eos # (Auto) 0.00 (0.00-0.50) K/uL Baso # (Auto) 0.03 (0.00-0.20) K/uL Immature Gran # (Auto) 0.02 (0.01-0.20) K/uL PT 11.9 (9.0-12.0) Seconds INR 1.1 (0.9-1.1) APTT 29 (21-31) Seconds PTT Ratio 1.1 Sodium 132 L (136-145) mmol/L Potassium 4.0 (3.5-5.1) mmol/L Chloride 97 L (98-107) mmol/L Carbon Dioxide 24 (21-32) mmol/L Anion Gap 11 (3-11) BUN 22 (6-23) mg/dl Creatinine 1.32 H (0.6-1.2) mg/dl Est Cr Clr Drug Dosing Not Reportable eGFR 43.43 BUN/Creatinine Ratio 16.7 (10-20) Glucose 117 H (70-99(Fasting)) mg/dl Calcium 9.6 (8.6-10.3) mg/dl Magnesium 1.9 (1.7-2.4) mg/dl Total Bilirubin 1.7 H (0.2-1.0) mg/dl AST 29 (13-39) U/L ALT 17 (7-52) U/L Alkaline Phosphatase 67 (34-104) U/L Ammonia 87.0 H (18-72) umol/L Troponin I High Sens 4.5 (0-14) pg/ml Total Protein 8.0 (6.0-8.3) gm/dl Albumin 3.5 (3.4-5.0) gm/dl Globulin 4.5 H (2.5-4.0) gm/dl Albumin/Globulin Ratio 0.8 L (0.9-2) Procalcitonin 0.07 (0-0.5) ng/ml Urine Color Yellow Urine Appearance Clear (Clear) Urine pH 6.0 (4.5-7.5) Ur Specific [place] 1.010 (1.000-1.030) Urine Protein Negative (Negative) Urine Glucose (UA) 1+ H (Negative) Urine Ketones Negative (Negative) Urine Blood Negative (Negative) Urine Nitrite Negative (Negative) Urine Bilirubin Negative (Negative) Urine Urobilinogen Negative (Negative) Ur Leukocyte Esterase Trace H (Negative) Urine WBC (Auto) 0-5 (0-5) /hpf Urine RBC (Auto) 0-2 (0-2) /hpf U Hyaline Cast (Auto) 0-2 (0-2) /lpf U Epithel Cells (Auto) 0-2 (0-2) /hpf Urine Bacteria (Auto) 4+ H (None Seen) Urine Comment Administered Medications Discontinued Medications Ceftriaxone Sodium (Rocephin) 2,000 mg in 50 mls @ 100 mls/hr IV NOW STA Stop: 03/06/25 20:18 Last Infusion: 03/06/25 20:37 Dose: Infused Documented By: Admin: 03/06/25 20:02 Dose: 100 mls/hr Documented By: ERON Imaging Data Radiologist's Impression: Chest X-Ray 03/06/25 17:16 EXAM: XR chest 1V not portable CLINICAL HISTORY: Chest pain, nonspecific. TECHNIQUE: An X-ray image of the chest is obtained in AP projection. COMPARISON: Prior chest X-ray dated 12/08/2024. FINDINGS: Pulmonary Parenchyma: No evidence of consolidation, or collapse. New small focal opacity is noticed at the left lower lung zone, likely atelectatic band, less likely pneumonitis. No pulmonary nodules are identified. No evidence of pleural effusion or pleural thickening. Heart and Mediastinum: Heart size and shape are normal. No mediastinal widening or masses. No hilar or mediastinal lymphadenopathy. Bony Thorax: Bony thorax appears intact without fractures or deformities. Soft Tissues: Soft tissues overlying the chest wall are unremarkable. IMPRESSION: 1. New small focal opacity is noticed at the left lower lung zone, likely atelectatic band, less likely pneumonitis. 2. Unremarkable rest of the study. Electronically signed by Winston Valenzuela 03-06-2025 6:[address] 03/06/25 17:40 EXAM: CT head/brain wo con CLINICAL HISTORY: confusion TECHNIQUE: Axial non-contrast CT scan of the brain was performed from the skull base to the high parietal region. One of the following dose reduction techniques were utilized for this exam: Automated exposure control, adjustment of the mA and/or kV according to patient size, use of iterative reconstruction. DLP: 625.80 mGy.cm COMPARISON: Prior dated 12/08/2024 FINDINGS: Brain Parenchyma: Bilateral periventricular and subcortical hypodensities are suggestive of microvascular ischemic changes. No evidence of acute infarct, hemorrhage, or mass effect. Ventricular System: Ventricles are prominent in size and configuration. No evidence of hydrocephalus or ventricular enlargement. Subarachnoid Spaces: Prominent sulci and cisterns. No evidence of subarachnoid hemorrhage or extra-axial fluid collections. Cerebellum and Brainstem: No masses, lesions, or areas of abnormal density. Orbits: Normal appearance of the globes, optic nerves, and extraocular muscles. No evidence of orbital masses or abnormal density. Sinuses: Clear paranasal sinuses. No evidence of sinusitis or mucosal thickening. Mastoid Air Cells: Clear mastoid air cells. No evidence of mastoiditis. Skull: Normal skull morphology. IMPRESSION: 1. No area of acute infarction or hemorrhage is noted. 2. Changes of chronic microvascular angiopathy with age-appropriate senile atrophy. 3. No significant interval changes noted. Electronically signed by Winston Valenzuela 03-06-2025 8:49 PM Discharge Plan Visit Data Chief Complaint: Confusion Stated Complaint: DOC REFFERAL, CONFUSION WEAKNESS ED Provider: Carmen Rodriguez Discharge Problem: Acute confusion, Acute UTI (urinary tract infection), Hyperammonemia, Generalized weakness, TE (acute kidney injury), Acute metabolic encephalopathy Condition: Fair Forms Stand Alone Forms: [email or web address] Prescriptions Prescriptions: No Action magnesium 250 mg tablet 250 mg PO HS Qty: 90 1RF Hold Instructions: Not taking 10/2024 lactulose 10 gram/15 mL solution 10 g PO TID Qty: 1500 3RF Rx Instructions: PER PT'S "ONLY CAN GET 2 DOSES PER DAY". omeprazole 20 mg capsule,delayed release(DR/EC) 20 mg PO Q OTHER DAY Qty: 45 1RF Rx Instructions: Alternates w/ famotidine every other day amlodipine 5 mg tablet 5 mg PO QAM Qty: 90 1RF atorvastatin 10 mg tablet 10 mg PO QPM Qty: 90 1RF propranolol 40 mg tablet 40 mg PO BID Qty: 180 1RF venlafaxine 150 mg capsule,extended release 24hr 150 mg PO HS Qty: 90 1RF levetiracetam [Keppra] 500 mg tablet 500 mg PO BID Qty: 180 1RF buspirone 10 mg tablet 10 mg PO BID PRN (Reason: anxiety) Qty: 180 1RF fluticasone propionate [Flonase Allergy Relief] 50 mcg/actuation spray,suspension 2 spray intranasal DAILY PRN (Reason: Allergy Symptoms) Rx Instructions: 2 sniffs in each nostril daily empagliflozin 10 mg tablet 10 mg PO DAILY Qty: 90 3RF (DME) Accu-Chek Guide test strips Strip See Rx Instructions .Route Qty: 50 3RF Rx Instructions: As directed fluticasone furoate-vilanterol [Breo Ellipta] 100-25 mcg/dose blister with device 1 inh inhalation DAILY Qty: 60 2RF furosemide 20 mg tablet 40 mg PO QAM cholecalciferol (vitamin D3) 25 mcg (1,000 unit) Tablet 1,000 unit PO HS spironolactone 25 mg tablet 50 mg PO BID metformin 500 mg tablet extended release 24 hr 1,000 mg PO HS famotidine 40 mg tablet 40 mg PO Q OTHER DAY Rx Instructions: Alternate w/ Omeprazole every other day albuterol sulfate 90 mcg/actuation HFA aerosol inhaler 1 puff INHALATION DIRECTED PRN (Reason: Shortness Of Breath Or Wheezing) Referrals Referrals: Madie Aguilar MD [Primary Care Provider] -
[2025-03-06 17:53] LABS: Hematocrit (blood only) 29.6 % (37.0-47.0); Hemoglobin 9.5 g/dl (12.0-16.0); Immature Granulocytes # (auto) 0.02 K/uL (0.01-0.20); Immature Granulocytes % (auto) 0.3 %; Mean Corpuscular Hemoglobin 28.2 pg (25.0-34.0); Mean Corpuscular Volume 87.8 fL (80.0-100.0); Platelet Count 166 K/uL (130-400); RDW Standard Deviation 47.5 fL (36.4-46.3); Red Blood Count 3.37 M/uL (4.20-5.40); White Blood Count 5.80 K/ul (4.8-10.8)
[2025-03-06 18:10] LABS: Alanine Aminotransferase 17 U/L (7-52); Albumin Globulin Ratio 0.8 (0.9-2); Alkaline Phosphatase 67 U/L (34-104); Anion Gap 11 (3-11); Bilirubin,Total 1.7 mg/dl (0.2-1.0); Blood Urea Nitrogen 22 mg/dl (6-23); Calcium 9.6 mg/dl (8.6-10.3); Carbon Dioxide 24 mmol/L (21-32); Chloride 97 mmol/L (98-107); Globulin 4.5 gm/dl (2.5-4.0); Glucose 117 mg/dl (70-99(Fasting)); Magnesium 1.9 mg/dl (1.7-2.4); Potassium 4.0 mmol/L (3.5-5.1); Sodium 132 mmol/L (136-145); Total Protein 8.0 gm/dl (6.0-8.3)
[2025-03-06 18:23] LABS: INR 1.1 (0.9-1.1); Partial Thromboplastin Time 29 Seconds (21-31); Prothrombin Time 11.9 Seconds (9.0-12.0)
[2025-03-06 18:53] LABS: Appearance Urine Clear (Clear); Bacteria Urine Automated 4+ (None Seen); Cast Urine Automated 0-2 /lpf (0-2); Epithelial Cell Urine Auto 0-2 /hpf (0-2); Glucose Urine UA 1+ (Negative); RBC Urine Automated 0-2 /hpf (0-2); WBC Urine Automated 0-5 /hpf (0-5)
--- NOTE | 2025-03-06 18:57 | XRay Report ---
EXAM: XR chest 1V not portable CLINICAL HISTORY: Chest pain, nonspecific. TECHNIQUE: An X-ray image of the chest is obtained in AP projection. COMPARISON: Prior chest X-ray dated 12/08/2024. FINDINGS: Pulmonary Parenchyma: No evidence of consolidation, or collapse. New small focal opacity is noticed at the left lower lung zone, likely atelectatic band, less likely pneumonitis. No pulmonary nodules are identified. No evidence of pleural effusion or pleural thickening. Heart and Mediastinum: Heart size and shape are normal. No mediastinal widening or masses. No hilar or mediastinal lymphadenopathy. Bony Thorax: Bony thorax appears intact without fractures or deformities. Soft Tissues: Soft tissues overlying the chest wall are unremarkable. IMPRESSION: 1. New small focal opacity is noticed at the left lower lung zone, likely atelectatic band, less likely pneumonitis. 2. Unremarkable rest of the study. Electronically signed by Winston Valenzuela 03-06-2025 6:57 PM
[2025-03-06] MEDS: cefTRIAXone SODIUM 2,000 MG/50 ML BAG IV STA (20:02)
--- NOTE | 2025-03-06 20:50 | CT Scan Report ---
EXAM: CT head/brain wo con CLINICAL HISTORY: confusion TECHNIQUE: Axial non-contrast CT scan of the brain was performed from the skull base to the high parietal region. One of the following dose reduction techniques were utilized for this exam: Automated exposure control, adjustment of the mA and/or kV according to patient size, use of iterative reconstruction. DLP: 625.80 mGy.cm COMPARISON: Prior dated 12/08/2024 FINDINGS: Brain Parenchyma: Bilateral periventricular and subcortical hypodensities are suggestive of microvascular ischemic changes. No evidence of acute infarct, hemorrhage, or mass effect. Ventricular System: Ventricles are prominent in size and configuration. No evidence of hydrocephalus or ventricular enlargement. Subarachnoid Spaces: Prominent sulci and cisterns. No evidence of subarachnoid hemorrhage or extra-axial fluid collections. Cerebellum and Brainstem: No masses, lesions, or areas of abnormal density. Orbits: Normal appearance of the globes, optic nerves, and extraocular muscles. No evidence of orbital masses or abnormal density. Sinuses: Clear paranasal sinuses. No evidence of sinusitis or mucosal thickening. Mastoid Air Cells: Clear mastoid air cells. No evidence of mastoiditis. Skull: Normal skull morphology. IMPRESSION: 1. No area of acute infarction or hemorrhage is noted. 2. Changes of chronic microvascular angiopathy with age-appropriate senile atrophy. 3. No significant interval changes noted. Electronically signed by Winston Valenzuela 03-06-2025 8:49 PM
--- NOTE | 2025-03-06 22:41 | Hospitalist Progress Note ---
Date of Service March 06, 2025 Results & Data Results & Data Vital Signs (Past 12 Hours) Vital Signs Temp Pulse Pulse Resp BP BP Pulse Ox 03/06/25 21:00 53 L 15 113/62 99 03/06/25 19:31 56 L 20 120/71 100 03/06/25 19:04 56 L 15 137/61 92 03/06/25 19:02 55 L 23 137/61 94 03/06/25 18:07 56 L 03/06/25 17:49 98 03/06/25 17:49 55 L 20 142/64 H 98 03/06/25 17:49 99 03/06/25 17:12 36.6 C 55 L 16 116/54 L 99 O2 Del Method 03/06/25 21:00 Room Air 03/06/25 19:31 Room Air 03/06/25 19:04 Room Air 03/06/25 19:02 Room Air 03/06/25 18:07 03/06/25 17:49 Room Air 03/06/25 17:49 Room Air 03/06/25 17:49 Room Air 03/06/25 17:12 Room Air
[2025-03-06] MEDS: DAPTOmycin 850 MG in SYRINGE 0 ML IV ONE (23:49)
--- NOTE | 2025-03-07 00:15 | History & Physical Report ---
Date of Service March 07, 2025 Assessment & Plan (1) Acute metabolic encephalopathy: (2) Generalized weakness: (3) Hyperammonemia: (4) Acute UTI (urinary tract infection): (5) Acute confusion: (6) Hyperlipidemia: (7) Hypertension: (8) Non-Wilsonian hepatocerebral degeneration: (9) Closed head injury: (10) Seizure: (11) Hepatic cirrhosis: (12) GERD (gastroesophageal reflux disease): (13) Diabetes mellitus, type 2: (14) Asthma: Plan 69 year old female with PMHx of cirrhosis, anxiety/depression, GERD, non- Wilsonian hepatocerebral degeneration, seizure disorder, T2DM, asthma, HTN, HLD presenting with confusion and progressive weakness: #Metabolic Encephalopathy // #Hyperammonemia // #Acute UTI: CT head negative for acute changes, therefore suspect acute urinary tract infection is triggering factor for current pt presentation Recent urine cultures grew VRE and e. coli, will treat UTI with Daptomycin and Ceftriaxone Urine culture pending - narrow based on C&S Last discharged December 2024 on 30g TID of lactulose, but last Rx February 2025 was for 10g TID, will increase to 30g TID. Clarify home dose with . #Generalized Weakness: Independent ambulation at baseline until past few days PT/OT eval to determine appropriate dispo #HLD: Hold statin while on Dapto #T2DM: Hold Jardiance and Metformin SSI while inpatient #HTN/Esophageal varices/cirrhosis: continue amlodipine, spironolactone, furosemide, propranolol #Anxiety/Depression: continue Effexor, BuSpar #H/o seizures: Continue Keppra Dispo: Admit med-surg VTE ppx: Heparin FEN/GI: CC/HH diet, NSS@80ml/h x1L Full Code - please clarify with or discuss with patient once mentation improves History of Present Illness Primary Care Provider: Madie Aguilar MD 69 year old female with PMHx of cirrhosis, anxiety/depression, GERD, non- Wilsonian hepatocerebral degeneration, seizure disorder, T2DM, asthma, HTN, HLD presenting with confusion and progressive weakness. By the time patient assessed at bedside, had already gone home for the evening. Per patient, she had fall with closed head trauma 5 days ago - since then, she reports feeling fine, states that it was 's concern that brought her in for evaluation. Patient has h/o hepatic encephalopathy, was most recently discharged in December on Lactulose 30g TID. Based on last fill February 2025, appears patient may only be taking 10g TID. Patient states that administers her medications, reports being adherent. Reports having >2 bowel movements per day. Denies fevers, chills, urinary sx, nausea, vomiting, diarrhea. ED Course: CT head negative for acute changes. Ammonia 87 UA: trace LE, 4+ bacteria - Urine culture x2 in December grew: VRE and e.coli S/P Ceftriaxone x1 dose Allergies Allergy/AdvReac Type Severity Reaction Status Date / Time CASANDRA Inhibitors Allergy Severe Angioedema Verified 03/06/25 21:31 Home Medications Medication Instructions Recorded Confirmed Type cholecalciferol (vitamin D3) 25 1,000 unit PO HS 10/28/19 03/06/25 History mcg (1,000 unit) tablet fluticasone propionate 50 2 spray intranasal DAILY PRN 02/16/23 03/06/25 History mcg/actuation nasal Allergy Symptoms spray,suspension (Flonase Allergy Relief) amlodipine 5 mg tablet 5 mg PO QAM #90 tabs 10/23/24 03/06/25 Rx atorvastatin 10 mg tablet 10 mg PO QPM #90 tabs 10/23/24 03/06/25 Rx buspirone 10 mg tablet 10 mg PO BID PRN anxiety #180 tabs 10/23/24 03/06/25 Rx levetiracetam 500 mg tablet 500 mg PO BID #180 tabs 10/23/24 03/06/25 Rx (Keppra) propranolol 40 mg tablet 40 mg PO BID #180 tabs 10/23/24 03/06/25 Rx venlafaxine 150 mg 150 mg PO HS #90 caps 10/23/24 03/06/25 Rx capsule,extended release 24 hr magnesium 250 mg tablet 250 mg PO HS #90 tabs 10/24/24 03/06/25 Rx albuterol sulfate 90 mcg/actuation 1 puff inhalation DIRECTED PRN 12/08/24 03/06/25 History aerosol inhaler Shortness Of Breath Or Wheezing famotidine 40 mg tablet 40 mg PO Q OTHER DAY 12/08/24 03/06/25 History furosemide 20 mg tablet 40 mg PO QAM 12/29/24 03/06/25 History blood sugar diagnostic (Accu-Chek #50 ea 01/05/25 03/06/25 Rx Guide test strips) empagliflozin 10 mg tablet 10 mg PO DAILY #90 tabs 01/05/25 03/06/25 Rx fluticasone furoate 100 1 inh inhalation DAILY #60 ea 01/05/25 03/06/25 Rx mcg-vilanterol 25 mcg/dose inhalation powder (Breo Ellipta) lactulose 10 gram/15 mL oral 10 g (15 mL) PO TID #1,500 mL 02/08/25 03/06/25 Rx solution omeprazole 20 mg capsule,delayed 20 mg PO Q OTHER DAY #45 caps 03/01/25 03/06/25 Rx release metformin 500 mg tablet,extended 1,000 mg PO HS 03/06/25 03/06/25 History release 24 hr spironolactone 25 mg tablet 50 mg PO BID 03/06/25 03/06/25 History Past Med/Surg History Problem List (Updated 03/07/25 @ 01:29 by Sofia Cleveland) Acute metabolic encephalopathy (Acute) TE (acute kidney injury) (Acute) Generalized weakness (Acute) Hyperammonemia (Acute) Acute UTI (urinary tract infection) (Acute) Acute confusion (Acute) History of colon polyps Hypophosphatemia (Acute) Hypomagnesemia (Acute) Cerebrovascular disease Leg cramping (Acute) Tubular adenoma of colon Vitamin deficiency (Chronic) Lower extremity edema (Chronic) Anemia (Chronic) hx Allergic rhinitis (Chronic) Esophageal varices 2016 Hyperlipidemia (Chronic) Hypertension (Chronic) Hyponatremia Medical History Non-Wilsonian hepatocerebral degeneration Chronic hyponatremia Metabolic encephalopathy Acute UTI Fall Acute thoracic back pain Acute neck pain Closed head injury Acute confusion Seizure SANCHEZ (nonalcoholic steatohepatitis) Hepatic cirrhosis GERD (gastroesophageal reflux disease) Diabetes mellitus, type 2 Asthma History of colon polyps Hx of esophageal varices (~2016) History of anemia Hepatitis A Seizure-like activity Pleural effusion associated with hepatic disorder History of pleural effusion History of benign breast biopsy Surgical History Hx of bilateral cataract extraction Hx of colonoscopy with polypectomy History of ankle surgery History of total abdominal hysterectomy and bilateral salpingo-oophorectomy History of tubal ligation History of thoracentesis History of esophagogastroduodenoscopy (EGD) History of tooth extraction Family History Grandfather (Maternal) Diabetes Coronary heart disease Dyslipidemia Hypercholesterolemia Hypertension Grandmother (Maternal) Ovarian cyst Stroke Father Pancreatic cancer Hypertension Stroke Mother Bladder cancer Hypertension Sister Hypertension Other No family history of adverse response to anesthesia Denies family history of Ovarian cancer Prostate cancer Myocardial infarction Breast cancer Social History Smoking Status: Former smoker Tobacco Type: Cigarettes Age Started Using Tobacco: 14; Age Quit Using Tobacco: 39; packs per day: 1; Cigarettes Per Day: 5 cigs/day; Second Hand Exposure: No; Do You Dip or Chew Tobacco: No; Tobacco Cessation Education Requested by Patient: No Hx Alcohol Use: Yes Alcohol type: wine Hx Substance Use: No Preferred Language: Georgian Communication Ability: Effective Communication Ability Comment: intubated and sedated Visual Impairment: No Limitations Hearing Ability: Normal Field Supervisor Required: No Beliefs That Will Affect Care: None marital status: Current Living Situation: Spouse Current Living Situation Comment: unknown current occupational status: employed Other Information That Helps Us Care for You: No Feels Safe at Home: Yes Safety Concerns: Feels Safe At This Time Physical Activity Frequency: 1-2 Times per Week Seatbelt Use: always Assistive Devices: Walker and Wheelchair Review of Systems Review of Systems: as per HPI Physical Exam Physical Exam: Constitutional: no acute distress HEENT: NCAT, no conjunctival injection CV: RRR, extremities well-perfused, no LE edema Resp: lungs CTAB, no increased work of breathing GI: +mildly distended but soft, non-tender. normal bowel sounds. MSK: no gross deformities. 4/5 strength with hip flexion. Skin: warm, dry, no rash appreciated Neuro: oriented to self, place, and situation. +speech latency, some difficulty recalling information. +bilateral UE and orofacial dystonia. Results & Data Results & Data Vital Signs (Past 12 Hours) Vital Signs Temp Pulse Pulse Resp BP BP Pulse Ox 03/06/25 23:00 58 L 19 126/65 99 03/06/25 22:30 56 L 22 151/106 H 100 03/06/25 21:00 53 L 15 113/62 99 03/06/25 19:31 56 L 20 120/71 100 03/06/25 19:04 56 L 15 137/61 92 03/06/25 19:02 55 L 23 137/61 94 03/06/25 18:07 56 L 03/06/25 17:49 98 03/06/25 17:49 55 L 20 142/64 H 98 03/06/25 17:49 99 03/06/25 17:12 36.6 C 55 L 16 116/54 L 99 O2 Del Method 03/06/25 23:00 Room Air 03/06/25 22:30 Room Air 03/06/25 21:00 Room Air 03/06/25 19:31 Room Air 03/06/25 19:04 Room Air 03/06/25 19:02 Room Air 03/06/25 18:07 03/06/25 17:49 Room Air 03/06/25 17:49 Room Air 03/06/25 17:49 Room Air 03/06/25 17:12 Room Air Supervising Physician Co-Signing Physician Notes Attending addendum: I have physically seen this patient, have supervised the medical residents activities, and agree with the H&P unless as otherwise noted. Assessment and Plan: The patient is a 69-year-old female with past medical history including cirrhosis, anxiety/depression, GERD, Non-Wilsonian hepatic and cerebral degeneration, seizure disorder, diabetes mellitus type 2, asthma, hypertension, hyperlipidemia, history of hepatic encephalopathy. She presents to the emergency department with closed head trauma about 5 days ago, however, patient's became concerned and brought her to the emergency department for evaluation. Patient has a history of hepatic encephalopathy, with most r ecent discharge in December on lactulose 30 g p.o. 3 times daily. She reports that her administers her medications, and she has been taking medications as prescribed. Ammonia level in the emergency department was 87.0, urinalysis was suggestive of infection. #Hepatic encephalopathy/cirrhosis- Ammonia level 87.0 on admission Placed on lactulose 30 g p.o. 3 times daily, and titrate to 3 bowel movements per day Repeat ammonia level in a.m. May be triggered by concurrent urinary tract infection Continue spironolactone, propranolol, and furosemide #UTI- Follow urine culture and sensitivity Previous infection on 12/08/2024 with E. coli resistant to fluoroquinolones Infection also on 12/19/2024 with VRE Admitted on daptomycin IV and ceftriaxone IV IV fluids as noted #Status post fall- Occurred approximately [address] scan of head without contrast showed no areas of acute infarction or hemorrhage. There are changes of chronic microvascular angiopathy with age- appropriate senile atrophy #Diabetes mellitus- Hold metformin, empagliflozin Placed on Accu-Cheks with NovoLog SSI Resident Activity Tracking Resident Involvement: Resident Care Provided Care Provided: Adult Hospital Medicine (9) Closed head injury Encounter type: initial encounter Qualified Code(s): S09.90XA - Unspecified injury of head, initial encounter
[2025-03-07] MEDS ORDERED: ONDANSETRON INJ 2 MG/ML 2 ML VIAL IV PRN (01:30)
[2025-03-07] MEDS ORDERED: GLUCOSE 40% GEL 15 GM TUBE PO PRN (01:30)
[2025-03-07] MEDS ORDERED: GLUCOSE 10 TAB/TUBE PO PRN (01:30)
[2025-03-07] MEDS ORDERED: GLUCAGON FOR INJ 1 MG VIAL SQ PRN (01:30)
[2025-03-07] MEDS ORDERED: DEXTROSE 50% 50 ML SYRINGE IV PRN (01:30)
[2025-03-07] MEDS ORDERED: ACETAMINOPHEN 500 MG TAB PO PRN (01:30)
[2025-03-07] MEDS ORDERED: CARBOHYDRATES FOR HYPOGLYCEMIA PO PRN (01:30)
[2025-03-07] MEDS: SODIUM CHLORIDE 0.9% 1,000 ML IV SCH (01:40)
--- NOTE | 2025-03-07 03:47 | Billing Data ---
Date of Service March 07, 2025 Coding Level of Care Code 05256 INT INP/OBS CARE
[2025-03-07] MEDS: LACTULOSE SYRUP 10 GM/15 ML BTL 960 ML PO SCH (04:05)
[2025-03-07] MEDS: SPIRONOLACTONE 25 MG TAB PO SCH (04:05)
[2025-03-07] MEDS: levETIRAcetam 500 MG TAB PO SCH (04:05)
[2025-03-07 07:08] LABS: Hematocrit (blood only) 26.3 % (37.0-47.0); Hemoglobin 8.8 g/dl (12.0-16.0); Mean Corpuscular Hemoglobin 29.4 pg (25.0-34.0); Mean Corpuscular Volume 88.0 fL (80.0-100.0); Platelet Count 125 K/uL (130-400); RDW Standard Deviation 46.4 fL (36.4-46.3); Red Blood Count 2.99 M/uL (4.20-5.40); White Blood Count 4.06 K/ul (4.8-10.8)
[2025-03-07 07:35] LABS: Alanine Aminotransferase 14.0 U/L (7-52); Albumin Globulin Ratio 0.8 (0.9-2); Alkaline Phosphatase 46.0 U/L (34-104); Anion Gap 7.0 (3-11); Bilirubin,Total 1.4 mg/dl (0.2-1.0); Blood Urea Nitrogen 20.0 mg/dl (6-23); Calcium 9.0 mg/dl (8.6-10.3); Carbon Dioxide 26.0 mmol/L (21-32); Chloride 102.0 mmol/L (98-107); Creatinine Clr Calc Pharmacy 49.2 ml/min; Globulin 3.7 gm/dl (2.5-4.0); Glucose 104.0 mg/dl (70-99(Fasting)); Potassium 3.6 mmol/L (3.5-5.1); Sodium 135.0 mmol/L (136-145); Total Protein 6.6 gm/dl (6.0-8.3)
[2025-03-07] MEDS: busPIRone 5 MG TAB PO PRN (07:52)
[2025-03-07] MEDS: PROPRANOLOL HCL 20 MG TAB PO SCH (07:53)
[2025-03-07] MEDS: FUROSEMIDE 40 MG TAB PO SCH (07:53)
[2025-03-07] MEDS: FLUTICASONE/VILANTEROL 100/25MCG 14 PUFFS/INHALER INH SCH (07:54)
[2025-03-07] MEDS: HEPARIN SOD 5,000 UNIT/0.5 ML VIAL SQ SCH (08:44)
[2025-03-07] MEDS: INSULIN ASPART PER UNIT CHARGE SC SCH (08:44)
--- NOTE | 2025-03-07 08:46 | Hospitalist Progress Note ---
Date of Service March 07, 2025 Assessment & Plan (1) Acute metabolic encephalopathy: (2) Hyperammonemia: (3) Non-Wilsonian hepatocerebral degeneration: (4) Asymptomatic bacteriuria: Plan In summary this is a 69-year-old female who presented to [facility] due to progressive confusion found to have hyperammonemia in the setting of known hepatic cirrhosis consequential of non-Wilsonian hepatocerebral degeneration. #Acute metabolic encephalopathy in the setting of hyperammonemia Elevated ammonia at admission of 87, increased to 106 in the morning of 03/07; per the patient's report they occasionally take their lactulose once a day, pen ding corroboration from at this time given her mild confusion -Observe -Continue lactulose 30 g p.o. three times daily to titrate 2-3 easily passed bowel movements daily -Trend daily ammonia #Asymptomatic bacteriuria No associated symptoms of infection nor objective laboratory evidence of infection; clinically does not appear consistent with UTI; urinalysis with trace leukocyte esterase and bacteria, not indicative of active infection -Discontinue antibiotics at this time Diet: low fat diet DVT ppx: heparin 5000 U twice daily Access: Peripheral IV Code Status: Full Code Admission and Anticipated Discharge Date Admission Date: March 06, 2025 Subjective Ms. Zapien is a 69-year-old female whose active medical conditions include chronic cerebrovascular disease, hypertension, hyperlipidemia among other chronic medical conditions who presented to [facility] on 03/06 due to subacute altered mental status. Review of Systems Review of Systems: Constitutional: denies fevers, chills, malaise, fatigue Cardiovascular: denies angina, palpitations, syncope, peripheral edema Pulmonary: denies cough, dyspnea on exertion, pleuritic chest pain Gastrointestinal: denies nausea, emesis, dysphagia, regurgitation, dyspepsia, abdominal distension, constipation, diarrhea Genitourinary: denies dysuria, hematuria, urinary incontinence Neurologic: denies focal weakness, paresthesias or numbness, vision changes or diplopia, ataxia Musculoskeletal: denies arthralgias, progressive weakness Integumentary: denies new or developing rashes or lesions Physical Exam Physical Exam: General: Adult in no acute distress Vital Signs: Reviewed HEENT: Normocephalic, atraumatic; pupils equally reactive to light, extraocular motions intact; moist mucous membranes Neck: No palpable lymphadenopathy Pulmonary: symmetric chest wall excursion; CTAB Cardiovascular: Regular rate and rhythm with no murmurs, rubs, or gallops; S1 and S2 normal; bilateral radial and posterior tibial pulses 2+; trace bilateral lower extremity edema distal of the mid leg Gastrointestinal: Soft, nondistended; normal frequency and pitch of bowel sounds throughout; no palpable masses or organomegaly Neurologic: CN II-XII grossly intact; no discernible focal weakness nor paresthesias; asterixis noted with upper extremity extension Skin: scattered telangiectasias of the torso Results & Data Results & Data Vital Signs (Past 12 Hours) Vital Signs Temp Pulse Pulse Resp BP BP Pulse Ox 03/07/25 07:20 36.8 C 56 L 18 117/65 95 03/07/25 01:30 36.5 C 53 L 18 142/76 H 99 03/06/25 23:00 58 L 19 126/65 99 03/06/25 22:30 56 L 22 151/106 H 100 03/06/25 21:00 53 L 15 113/62 99 O2 Del Method 03/07/25 07:20 Room Air 03/07/25 01:30 Room Air 03/06/25 23:00 Room Air 03/06/25 22:30 Room Air 03/06/25 21:00 Room Air Laboratory Results 03/07/25 03/07/25 03/07/25 11:25 07:34 06:52 WBC 4.06 L RBC 2.99 L Hgb 8.8 L Hct 26.3 L MCV 88.0 MCH 29.4 MCHC 33.5 RDW Std Deviation 46.4 H RDW Coeff of Bianca 14.5 Plt Count 125 L MPV 9.4 Immature Gran % (Auto) Neut % (Auto) Lymph % (Auto) Garza % (Auto) Eos % (Auto) Baso % (Auto) Neut # (Auto) Lymph # (Auto) Garza # (Auto) Eos # (Auto) Baso # (Auto) Immature Gran # (Auto) PT INR APTT PTT Ratio Sodium 135 L Potassium 3.6 Chloride 102 Carbon Dioxide 26 Anion Gap 7 BUN 20 Creatinine 1.10 Est Cr Clr Drug Dosing 49.2 eGFR 54.06 BUN/Creatinine Ratio 18.2 Glucose 104 H POC Glucose 162 H 100 H Calcium 9.0 Magnesium Total Bilirubin 1.4 H AST 24 ALT 14 Alkaline Phosphatase 46 Ammonia 106.0 H Troponin I High Sens Total Protein 6.6 Albumin 2.9 L Globulin 3.7 Albumin/Globulin Ratio 0.8 L Procalcitonin Urine Color Urine Appearance Urine pH Ur Specific [place] Urine Protein Urine Glucose (UA) Urine Ketones Urine Blood Urine Nitrite Urine Bilirubin Urine Urobilinogen Ur Leukocyte Esterase Urine WBC (Auto) Urine RBC (Auto) U Hyaline Cast (Auto) U Epithel Cells (Auto) Urine Bacteria (Auto) Urine Comment 03/06/25 03/06/25 03/06/25 18:38 17:34 17:33 WBC 5.80 RBC 3.37 L Hgb 9.5 L Hct 29.6 L MCV 87.8 MCH 28.2 MCHC 32.1 RDW Std Deviation 47.5 H RDW Coeff of Bianca 14.8 H Plt Count 166 MPV 9.9 Immature Gran % (Auto) 0.3 Neut % (Auto) 74.9 Lymph % (Auto) 9.5 Garza % (Auto) 14.8 Eos % (Auto) 0.0 Baso % (Auto) 0.5 Neut # (Auto) 4.34 Lymph # (Auto) 0.55 L Garza # (Auto) 0.86 H Eos # (Auto) 0.00 Baso # (Auto) 0.03 Immature Gran # (Auto) 0.02 PT 11.9 INR 1.1 APTT 29 PTT Ratio 1.1 Sodium 132 L Potassium 4.0 Chloride 97 L Carbon Dioxide 24 Anion Gap 11 BUN 22 Creatinine 1.32 H Est Cr Clr Drug Dosing Not Reportable eGFR 43.43 BUN/Creatinine Ratio 16.7 Glucose 117 H POC Glucose Calcium 9.6 Magnesium 1.9 Total Bilirubin 1.7 H AST 29 ALT 17 Alkaline Phosphatase 67 Ammonia 87.0 H Troponin I High Sens 4.5 Total Protein 8.0 Albumin 3.5 Globulin 4.5 H Albumin/Globulin Ratio 0.8 L Procalcitonin 0.07 Urine Color Yellow Urine Appearance Clear Urine pH 6.0 Ur Specific [place] 1.010 Urine Protein Negative Urine Glucose (UA) 1+ H Urine Ketones Negative Urine Blood Negative Urine Nitrite Negative Urine Bilirubin Negative Urine Urobilinogen Negative Ur Leukocyte Esterase Trace H Urine WBC (Auto) 0-5 Urine RBC (Auto) 0-2 U Hyaline Cast (Auto) 0-2 U Epithel Cells (Auto) 0-2 Urine Bacteria (Auto) 4+ H Urine Comment Diagnostic Findings Chest X-Ray 03/06/25 17:16 EXAM: XR chest 1V not portable CLINICAL HISTORY: Chest pain, nonspecific. TECHNIQUE: An X-ray image of the chest is obtained in AP projection. COMPARISON: Prior chest X-ray dated 12/08/2024. FINDINGS: Pulmonary Parenchyma: No evidence of consolidation, or collapse. New small focal opacity is noticed at the left lower lung zone, likely atelectatic band, less likely pneumonitis. No pulmonary nodules are identified. No evidence of pleural effusion or pleural thickening. Heart and Mediastinum: Heart size and shape are normal. No mediastinal widening or masses. No hilar or mediastinal lymphadenopathy. Bony Thorax: Bony thorax appears intact without fractures or deformities. Soft Tissues: Soft tissues overlying the chest wall are unremarkable. IMPRESSION: 1. New small focal opacity is noticed at the left lower lung zone, likely atelectatic band, less likely pneumonitis. 2. Unremarkable rest of the study. Electronically signed by Winston Valenzuela 03-06-2025 6:[address] 03/06/25 17:40 EXAM: CT head/brain wo con CLINICAL HISTORY: confusion TECHNIQUE: Axial non-contrast CT scan of the brain was performed from the skull base to the high parietal region. One of the following dose reduction techniques were utilized for this exam: Automated exposure control, adjustment of the mA and/or kV according to patient size, use of iterative reconstruction. DLP: 625.80 mGy.cm COMPARISON: Prior dated 12/08/2024 FINDINGS: Brain Parenchyma: Bilateral periventricular and subcortical hypodensities are suggestive of microvascular ischemic changes. No evidence of acute infarct, hemorrhage, or mass effect. Ventricular System: Ventricles are prominent in size and configuration. No evidence of hydrocephalus or ventricular enlargement. Subarachnoid Spaces: Prominent sulci and cisterns. No evidence of subarachnoid hemorrhage or extra-axial fluid collections. Cerebellum and Brainstem: No masses, lesions, or areas of abnormal density. Orbits: Normal appearance of the globes, optic nerves, and extraocular muscles. No evidence of orbital masses or abnormal density. Sinuses: Clear paranasal sinuses. No evidence of sinusitis or mucosal thickening. Mastoid Air Cells: Clear mastoid air cells. No evidence of mastoiditis. Skull: Normal skull morphology. IMPRESSION: 1. No area of acute infarction or hemorrhage is noted. 2. Changes of chronic microvascular angiopathy with age-appropriate senile atrophy. 3. No significant interval changes noted. Electronically signed by Winston Valenzuela 03-06-2025 8:49 PM Medications Administered Home Medications Medication Instructions Recorded Confirmed Last Taken cholecalciferol (vitamin D3) 25 1,000 unit PO HS 10/28/19 03/06/25 03/05/25 mcg (1,000 unit) tablet fluticasone propionate 50 2 spray intranasal DAILY PRN 02/16/23 03/06/25 Unknown mcg/actuation nasal Allergy Symptoms spray,suspension (Flonase Allergy Relief) amlodipine 5 mg tablet 5 mg PO QAM #90 tabs 10/23/24 03/06/25 03/06/25 atorvastatin 10 mg tablet 10 mg PO QPM #90 tabs 10/23/24 03/06/25 03/05/25 buspirone 10 mg tablet 10 mg PO BID PRN anxiety #180 tabs 10/23/24 03/06/25 Unknown levetiracetam 500 mg tablet 500 mg PO BID #180 tabs 10/23/24 03/06/25 03/06/25 08:00 ([facility]) propranolol 40 mg tablet 40 mg PO BID #180 tabs 10/23/24 03/06/25 03/06/25 08:00 venlafaxine 150 mg 150 mg PO HS #90 caps 10/23/24 03/06/25 03/05/25 capsule,extended release 24 hr magnesium 250 mg tablet 250 mg PO HS #90 tabs 10/24/24 03/06/25 03/05/25 albuterol sulfate 90 mcg/actuation 1 puff inhalation DIRECTED PRN 12/08/24 03/06/25 Unknown aerosol inhaler Shortness Of Breath Or Wheezing famotidine 40 mg tablet 40 mg PO Q OTHER DAY 12/08/24 03/06/25 03/06/25 furosemide 20 mg tablet 40 mg PO QAM 12/29/24 03/06/25 03/06/25 blood sugar diagnostic (Accu-Chek #50 ea 01/05/25 03/06/25 Unknown Guide test strips) empagliflozin 10 mg tablet 10 mg PO DAILY #90 tabs 01/05/25 03/06/25 03/06/25 fluticasone furoate 100 1 inh inhalation DAILY #60 ea 01/05/25 03/06/25 03/06/25 mcg-vilanterol 25 mcg/dose inhalation powder (Breo Ellipta) lactulose 10 gram/15 mL oral 10 g (15 mL) PO TID #1,500 mL 02/08/25 03/06/25 03/06/25 08:00 solution omeprazole 20 mg capsule,delayed 20 mg PO Q OTHER DAY #45 caps 03/01/25 03/06/25 03/05/25 release metformin 500 mg tablet,extended 1,000 mg PO HS 03/06/25 03/06/25 03/05/25 release 24 hr spironolactone 25 mg tablet 50 mg PO BID 03/06/25 03/06/25 03/06/25 08:00 Active Medications Generic Name Dose Route Start Last Admin Trade Name Freq PRN Reason Stop Dose Admin Amlodipine Besylate 5 mg 03/07/25 09:00 03/07/25 07:52 Amlodipine Besylate 5 Mg Tab PO 04/06/25 08:59 5 mg QAM LIANA Administration Buspirone HCl 10 mg 03/07/25 01:30 03/07/25 07:52 Buspirone 5 Mg Tab PO 04/06/25 01:29 10 mg BID PRN Administration anxiety Fluticasone/Vilanterol 1 puffs 03/07/25 09:00 03/07/25 07:54 Fluticasone/Vilanterol 100/25mcg 14 Puffs/Inhaler INH 04/06/25 08:59 1 puffs DAILY LIANA Administration Furosemide 40 mg 03/07/25 09:00 03/07/25 07:53 Furosemide 40 Mg Tab PO 04/06/25 08:59 40 mg QAM LIANA Administration Heparin Sodium (Porcine) 5,000 units 03/07/25 09:00 03/07/25 08:44 Heparin Sod 5,000 Unit/0.5 Ml Vial SQ 04/06/25 08:59 5,000 units Q12 LIANA Administration Insulin Aspart 0 units 03/07/25 07:30 03/07/25 08:44 Insulin Aspart Per Unit Charge SC 04/06/25 07:29 2 units ACHS LIANA Administration Lactulose 30 gm 03/07/25 03:30 03/07/25 07:54 Lactulose Syrup 10 Gm/15 Ml Btl 960 Ml PO 04/06/25 03:29 30 gm TID LIANA Administration Levetiracetam 500 mg 03/07/25 01:30 03/07/25 07:51 Levetiracetam 500 Mg Tab PO 04/06/25 01:29 500 mg BID LIANA Administration Pantoprazole Sodium 40 mg 03/07/25 09:00 03/07/25 07:52 Pantoprazole 40 Mg Tab PO 04/06/25 08:59 40 mg Q48H LIANA Administration Propranolol HCl 40 mg 03/07/25 09:00 03/07/25 07:53 Propranolol Hcl 20 Mg Tab PO 04/06/25 08:59 Not Given BID LIANA Spironolactone 25 mg 03/07/25 01:30 03/07/25 07:53 Spironolactone 25 Mg Tab PO 04/06/25 01:29 25 mg BID LIANA Administration PG Care Time/CCT Total # of Minutes Spent Total Time Spent with Patient: Total time spent is greater than 50% in coordination of care (as documented) at patient's floor/unit and/or counseling patient: Coding Level of Care Code 73888 SUB INP/OBS CARE 3/50MIN History Detailed Exam Detailed Diagnoses Acute metabolic encephalopathy G93.41 Hyperammonemia E72.20 Non-Wilsonian hepatocerebral degeneration G31.89; K76.89 Asymptomatic bacteriuria R82.71
--- NOTE | 2025-03-07 09:39 | Neurology Consultation ---
Date of Consultation March 07, 2025 Assessment & Plan (1) Acute metabolic encephalopathy: History of Present Illness Attending Physician: Gary Leiva DO History of Present Illness S: pt this morning using toilet, per nursing she is doing well. she feels ok this morning. exam deferred as she was using toilet. admission HPI: Patient is a 69-year-old female presenting with altered mental status. provides history, given the patient's confusion. He reports that the patient has been very confused and not acting like her normal self for the last 5 days. Reports her confusion has gotten progressively worse over that timeframe. He reports that 5 days ago she had woke up and was her normal self, but later that evening she had rolled out of bed and hit her head on the ground. He states she has had progressively worsening confusion ever since. He states that she is acting like she did back in November 2024 when she was diagnosed with hyperammonemia. He states she has been taking lactulose without any issues. Denies any nausea or vomiting. Denies any recent fevers. He states that patient is unable to walk and has been very weak over the last few days. He reports that after she was [facility], she was ambulatory without any assistive devices, and today she was unable to get up out of bed and had to use a wheelchair. She is not on any anticoagulation or antiplatelet therapies. Denies any dysuria or hematuria. Allergies Allergy/AdvReac Type Severity Reaction Status Date / Time CASANDRA Inhibitors Allergy Severe Angioedema Verified 03/06/25 21:31 Home Medications Medication Instructions Recorded Confirmed Type cholecalciferol (vitamin D3) 25 1,000 unit PO HS 10/28/19 03/06/25 History mcg (1,000 unit) tablet fluticasone propionate 50 2 spray intranasal DAILY PRN 02/16/23 03/06/25 History mcg/actuation nasal Allergy Symptoms spray,suspension (Flonase Allergy Relief) amlodipine 5 mg tablet 5 mg PO QAM #90 tabs 10/23/24 03/06/25 Rx atorvastatin 10 mg tablet 10 mg PO QPM #90 tabs 10/23/24 03/06/25 Rx buspirone 10 mg tablet 10 mg PO BID PRN anxiety #180 tabs 10/23/24 03/06/25 Rx levetiracetam 500 mg tablet 500 mg PO BID #180 tabs 10/23/24 03/06/25 Rx (Keppra) propranolol 40 mg tablet 40 mg PO BID #180 tabs 10/23/24 03/06/25 Rx venlafaxine 150 mg 150 mg PO HS #90 caps 10/23/24 03/06/25 Rx capsule,extended release 24 hr magnesium 250 mg tablet 250 mg PO HS #90 tabs 10/24/24 03/06/25 Rx albuterol sulfate 90 mcg/actuation 1 puff inhalation DIRECTED PRN 12/08/24 03/06/25 History aerosol inhaler Shortness Of Breath Or Wheezing famotidine 40 mg tablet 40 mg PO Q OTHER DAY 12/08/24 03/06/25 History furosemide 20 mg tablet 40 mg PO QAM 12/29/24 03/06/25 History blood sugar diagnostic (Accu-Chek #50 ea 01/05/25 03/06/25 Rx Guide test strips) empagliflozin 10 mg tablet 10 mg PO DAILY #90 tabs 01/05/25 03/06/25 Rx fluticasone furoate 100 1 inh inhalation DAILY #60 ea 01/05/25 03/06/25 Rx mcg-vilanterol 25 mcg/dose inhalation powder (Breo Ellipta) lactulose 10 gram/15 mL oral 10 g (15 mL) PO TID #1,500 mL 02/08/25 03/06/25 Rx solution omeprazole 20 mg capsule,delayed 20 mg PO Q OTHER DAY #45 caps 03/01/25 03/06/25 Rx release metformin 500 mg tablet,extended 1,000 mg PO HS 03/06/25 03/06/25 History release 24 hr spironolactone 25 mg tablet 50 mg PO BID 03/06/25 03/06/25 History Patient History Medical History Non-Wilsonian hepatocerebral degeneration Chronic hyponatremia Metabolic encephalopathy Acute UTI Fall Acute thoracic back pain Acute neck pain Closed head injury Acute confusion Seizure SANCHEZ (nonalcoholic steatohepatitis) Hepatic cirrhosis GERD (gastroesophageal reflux disease) Diabetes mellitus, type 2 Asthma History of colon polyps Hx of esophageal varices (~2017) History of anemia Hepatitis A Seizure-like activity Pleural effusion associated with hepatic disorder History of pleural effusion History of benign breast biopsy Surgical History Hx of bilateral cataract extraction Hx of colonoscopy with polypectomy History of ankle surgery History of total abdominal hysterectomy and bilateral salpingo-oophorectomy History of tubal ligation History of thoracentesis History of esophagogastroduodenoscopy (EGD) History of tooth extraction Family History Grandfather (Maternal) Diabetes Coronary heart disease Dyslipidemia Hypercholesterolemia Hypertension Grandmother (Maternal) Ovarian cyst Stroke Father Pancreatic cancer Hypertension Stroke Mother Bladder cancer Hypertension Sister Hypertension Other No family history of adverse response to anesthesia Denies family history of Ovarian cancer Prostate cancer Myocardial infarction Breast cancer Social History Smoking Status: Former smoker Tobacco Type: Cigarettes Age Started Using Tobacco: 14; Age Quit Using Tobacco: 39; packs per day: 1; Cigarettes Per Day: 5 cigs/day; Second Hand Exposure: No; Do You Dip or Chew Tobacco: No; Tobacco Cessation Education Requested by Patient: No Hx Alcohol Use: Yes Alcohol type: wine Hx Substance Use: No Preferred Language: Vietnamese Communication Ability: Effective Communication Ability Comment: intubated and sedated Visual Impairment: No Limitations Hearing Ability: Normal Logging Specialist Required: No Beliefs That Will Affect Care: None marital status: Current Living Situation: Spouse Current Living Situation Comment: unknown current occupational status: employed Other Information That Helps Us Care for You: No Feels Safe at Home: Yes Safety Concerns: Feels Safe At This Time Physical Activity Frequency: 1-2 Times per Week Seatbelt Use: always Assistive Devices: Walker and Wheelchair Exam (Neuro) Physical Exam: Neuro: exam deferred as pt was using toilet. pt verbally followed command well and answer simple question well. chart reviewed. Impression: 69 female with known acquired Hepatocerebral degeneration with more confusion recently in setting of now elevated ammonia and Urine culture positive . Recommendations: pt well known to Dr. Garcia for her prior similar issues from her liver disease. tx hyperammonia. pt has known low zinc from 12/12/2024, consider zinc supplement to help with reducing ammonia level. not much to offer from neurology call again if new question. will sign off. Chart reviewed I have spent more than 50% educating patient about potential diagnosis and neurological evaluation and coordinating care with patient's treatment team. Total time spent (including chart review and coordination of care): 45 min (this includes chart review). Results & Data Vital Signs (Past 12 Hours) Vital Signs Temp Pulse Pulse Resp BP BP Pulse Ox 03/07/25 09:07 03/07/25 07:20 36.8 C 56 L 18 117/65 95 03/07/25 01:30 36.5 C 53 L 18 142/76 H 99 03/06/25 23:00 58 L 19 126/65 99 03/06/25 22:30 56 L 22 151/106 H 100 O2 Del Method 03/07/25 09:07 Room Air 03/07/25 07:20 Room Air 03/07/25 01:30 Room Air 03/06/25 23:00 Room Air 03/06/25 22:30 Room Air PG Care Time/CCT Total # of Minutes Spent Total Time Spent with Patient: Total time spent is greater than 50% in coordination of care (as documented) at patient's floor/unit and/or counseling patient: Coding Level of Care Code 15707 IN/OBS CONSULT LVL 3,45M Diagnoses Acute metabolic encephalopathy G93.41
[2025-03-07] MEDS ORDERED: cefTRIAXone SODIUM 2,000 MG/50 ML BAG IV SCH (20:00)
[2025-03-07] MEDS: MELATONIN 3 MG TAB PO PRN (20:30)
[2025-03-07] MEDS: CHOLECALCIFEROL 25 MCG (1000 UNITS) TAB PO SCH (20:30)
[2025-03-07] MEDS: MAGNESIUM OXIDE 400 MG TAB PO SCH (20:30)
[2025-03-07] MEDS: VENLAFAXINE HCL XR 150 MG CAPXR PO SCH (20:31)
[2025-03-07] MEDS ORDERED: DAPTOmycin 850 MG in SYRINGE 0 ML IV SCH (22:00)
[2025-03-08 08:06] VITALS: BP 144/67; PULSE 50; RESP 18; TEMP 97.9; O2SAT 98
[2025-03-08 11:40] LABS: Alanine Aminotransferase 17.0 U/L (7-52); Albumin Globulin Ratio 0.8 (0.9-2); Alkaline Phosphatase 63.0 U/L (34-104); Anion Gap 8.0 (3-11); Bilirubin,Total 1.8 mg/dl (0.2-1.0); Blood Urea Nitrogen 19.0 mg/dl (6-23); Calcium 9.6 mg/dl (8.6-10.3); Carbon Dioxide 23.0 mmol/L (21-32); Chloride 104.0 mmol/L (98-107); Creatinine Clr Calc Pharmacy 42.9 ml/min; Globulin 4.4 gm/dl (2.5-4.0); Glucose 200.0 mg/dl (70-99(Fasting)); Potassium 3.3 mmol/L (3.5-5.1); Sodium 135.0 mmol/L (136-145); Total Protein 7.8 gm/dl (6.0-8.3)
--- NOTE | 2025-03-08 13:46 | Discharge Summary ---
Discharge Summary Date of Service March 08, 2025 Principal Dx & Hospital Course #1 = Principal Diagnosis (1) Acute metabolic encephalopathy: (2) Hyperammonemia: (3) Non-Wilsonian hepatocerebral degeneration: (4) Asymptomatic bacteriuria: Plan In summary this is a 69-year-old female who presented to [facility] due to progressive confusion found to have hyperammonemia in the setting of known hepatic cirrhosis consequential of non-Wilsonian hepatocerebral degeneration. #Acute metabolic encephalopathy in the setting of hyperammonemia Elevated ammonia at admission of 87, increased to 106 in the morning of 03/07; per the patient's report they occasionally take their lactulose once a day, pending corroboration from at this time given her mild confusion; ammonia improved significantly to 44 on 03/08 with consistent use of their lactulose -Continue lactulose 30 g p.o. three times daily to titrate 2-3 easily passed bowel movements daily #Asymptomatic bacteriuria No associated symptoms of infection nor objective laboratory evidence of infection; clinically does not appear consistent with UTI; urinalysis with trace leukocyte esterase and bacteria, not indicative of active infection Notes For Next Care Provider Patient has some generalized restlessness that has accompanied their non-Tanmay gabino hepatocerebral degeneration Admission HPI Per Admitting Provider 69 year old female with PMHx of cirrhosis, anxiety/depression, GERD, non- Wilsonian hepatocerebral degeneration, seizure disorder, T2DM, asthma, HTN, HLD presenting with confusion and progressive weakness. By the time patient assessed at bedside, had already gone home for the evening. Per patient, she had fall with closed head trauma 5 days ago - since then, she reports feeling fine, states that it was 's concern that brought her in for evaluation. Patient has h/o hepatic encephalopathy, was most recently discharged in December on Lactulose 30g TID. Based on last fill February 2025, appears patient may only be taking 10g TID. Patient states that administers her medications, reports being adherent. Reports having >2 bowel movements per day. Denies fevers, chills, urinary sx, nausea, vomiting, diarrhea. ED Course: CT head negative for acute changes. Ammonia 87 UA: trace LE, 4+ bacteria - Urine culture x2 in December grew: VRE and e.coli S/P Ceftriaxone x1 dose Discharge Exam General: Adult in no acute distress Vital Signs: Reviewed HEENT: Normocephalic, atraumatic; pupils equally reactive to light, extraocular motions intact; moist mucous membranes Neck: No palpable lymphadenopathy Pulmonary: symmetric chest wall excursion; CTAB Cardiovascular: Regular rate and rhythm with no murmurs, rubs, or gallops; S1 and S2 normal; bilateral radial and posterior tibial pulses 2+; trace bilateral lower extremity edema distal of the mid leg Gastrointestinal: Soft, nondistended; normal frequency and pitch of bowel sounds throughout; no palpable masses or organomegaly Neurologic: CN II-XII grossly intact; no discernible focal weakness nor paresthesias; asterixis noted with upper extremity extension Skin: scattered telangiectasias of the torso Discharge Plan Discharge Items Patient Disposition: Home - Self-Care Reason For Visit: AMS Discharge Diagnosis: Acute metabolic encephalopathy consequential of hyperammonemia Condition on Discharge: Fair Activity: Resume your previous activity Weightbearing: Full weightbearing Non-emergency contact: Primary Care Provider, Protection Mgr and Neurologist Call non-emergency contact if: you have any medication questions and your symptoms worsen Follow-up/Referrals: Madie Aguilar MD [Primary Care Provider] - 03/16/25 3:00 pm Diet: Carb Consistent or DM2 Addtl Attending Provider Instructions: Please follow up with your primary care physician as well as neurologist after discharge. Additionally, please maintain your scheduled appointment with gastroenterology at [facility]. Pending Studies at Discharge: Yes Studies:: Continue to follow urine culture, NGTD at time of discharge Stand-Alone Forms: My [facility] Medications and DC Order Prescriptions: New lactulose 10 gram/15 mL solution 30 g PO TID 30 Days Qty: 4050 0RF Continued magnesium 250 mg tablet 250 mg PO HS Qty: 90 1RF Hold Instructions: Not taking 10/2024 lactulose 10 gram/15 mL solution 10 g PO TID Qty: 1500 3RF Rx Instructions: PER PT'S "ONLY CAN GET 2 DOSES PER DAY". omeprazole 20 mg capsule,delayed release(DR/EC) 20 mg PO Q OTHER DAY Qty: 45 1RF Rx Instructions: Alternates w/ famotidine every other day amlodipine 5 mg tablet 5 mg PO QAM Qty: 90 1RF atorvastatin 10 mg tablet 10 mg PO QPM Qty: 90 1RF propranolol 40 mg tablet 40 mg PO BID Qty: 180 1RF venlafaxine 150 mg capsule,extended release 24hr 150 mg PO HS Qty: 90 1RF levetiracetam [Keppra] 500 mg tablet 500 mg PO BID Qty: 180 1RF buspirone 10 mg tablet 10 mg PO BID PRN (Reason: anxiety) Qty: 180 1RF fluticasone propionate [Flonase Allergy Relief] 50 mcg/actuation spray,suspension 2 spray intranasal DAILY PRN (Reason: Allergy Symptoms) Rx Instructions: 2 sniffs in each nostril daily empagliflozin 10 mg tablet 10 mg PO DAILY Qty: 90 3RF (DME) Accu-Chek Guide test strips Strip See Rx Instructions .Route Qty: 50 3RF Rx Instructions: As directed fluticasone furoate-vilanterol [Breo Ellipta] 100-25 mcg/dose blister with device 1 inh inhalation DAILY Qty: 60 2RF cholecalciferol (vitamin D3) 25 mcg (1,000 unit) Tablet 1,000 unit PO HS metformin 500 mg tablet extended release 24 hr 1,000 mg PO HS famotidine 40 mg tablet 40 mg PO Q OTHER DAY Rx Instructions: Alternate w/ Omeprazole every other day albuterol sulfate 90 mcg/actuation HFA aerosol inhaler 1 puff INHALATION DIRECTED PRN (Reason: Shortness Of Breath Or Wheezing) No Action furosemide 20 mg tablet 40 mg PO QAM Qty: 180 1RF spironolactone 25 mg tablet 50 mg PO BID Qty: 360 1RF Discharge Orders: Discharge Order (Routine); Ordered 03/08/25 Ordered By: Gary Nieves/Other Patient Handouts: Lactulose Oral Solution, Managing Type 2 Diabetes Admission Data Admit Date/Time: 03/06/25 21:33 Attending Provider: Gary Leiva Admit Provider: Kale Carrera Primary Care Provider: Madie Aguilar Other Providers: Lan Moy; Kennan,[facility] Other Interventions: Discharge Summary Assessment (RN) Last Done: 03/08/25 10:48 Hospital Stay Data Consultations 03/06/25 20:04 ED Decision to Admit Stat Diagnostic Imagining Performed 03/06/25 17:40 CT head/brain wo con Stat Pending Results Patient Have Any Pending Studies at Discharge: Yes Discharge Instructions Given to Patient (Per Discharging Provider) Please follow up with your primary care physician as well as neurologist after discharge. Additionally, please maintain your scheduled appointment with gastroenterology at [facility]. Total Time Total Time Spent Total Time Spent (In Minutes): 80 Coding Level of Care Code 88502 INP/OBS DISCH >30 MIN Diagnoses Acute metabolic encephalopathy G93.41 Hyperammonemia E72.20 Non-Wilsonian hepatocerebral degeneration G31.89; K76.89 Asymptomatic bacteriuria R82.71
--- NOTE | 2025-03-09 22:42 | Electrocardiogram Report ---
Test Reason : Blood Pressure : */* mmHG Vent. Rate : 56 BPM Atrial Rate : 56 BPM P-R Int : 170 ms QRS Dur : 102 ms QT Int : 472 ms P-R-T Axes : 39 -10 47 degrees QTcB Int : 455 ms Sinus bradycardia Moderate voltage criteria for LVH, may be normal variant ( R in aVL , [place] product ) Nonspecific ST abnormality Abnormal ECG When compared with ECG of 30-Mar-2022 12:24, No significant change Confirmed by Moe Camarillo ([id number]) on 03/09/2025 10:42:30 PM Referred By: Fei Garcia Confirmed By: Moe Camarillo
== END 2025-03-08 13:49 | disposition home health service (06) | DRG 441 ==
LOC: ED 17:04 → 3E 21:33 → SUATTDRO 21:33 → 3E 03-07 01:08

== ENCOUNTER 2025-03-22 12:38 | Inpatient (IN) ==
[2025-03-22 13:25] LABS: Hematocrit (blood only) 27.7 % (37.0-47.0); Hemoglobin 9.2 g/dl (12.0-16.0); Immature Granulocytes # (auto) 0.01 K/uL (0.01-0.20); Immature Granulocytes % (auto) 0.2 %; Mean Corpuscular Hemoglobin 29.7 pg (25.0-34.0); Mean Corpuscular Volume 89.4 fL (80.0-100.0); Platelet Count 151 K/uL (130-400); RDW Standard Deviation 50.7 fL (36.4-46.3); Red Blood Count 3.10 M/uL (4.20-5.40); White Blood Count 4.94 K/ul (4.8-10.8)
--- NOTE | 2025-03-22 13:36 | Emergency Department Note ---
Impression & Plan Hyperammonemia, Confusion ED Provider Note CHIEF COMPLAINT: Confusion, involuntary movements, referred by home health aide HISTORY OF PRESENTING ILLNESS: The patient is a 78-year-old female with a PMH of hepatic encephalopathy, DM type II, HTN, hyperlipidemia, esophageal varices who presents to the emergency department with her due to increased confusion and worsening involuntary movements for the past couple of days. She was evaluated by the home health aide today who was concerned and called her primary care provider who requested that they come here. She is able to identify where she is tell me her name and date of , and follow simple verbal commands. She is slow to answer questions and has a wandering gaze. The confirms that she has been treated for high ammonia levels and is taking 15 mL lactulose 3 times a day but does report not being sure with the appropriate doses for her. He states that he has been told by many people that he should be taking 15 mL 3 times a day, 30 mL 3 times a day, as well as 45 mL 3 times a day and he is not sure which is the correct dosing. He states that he has stayed at 15. Patient reports 4 bowel movements yesterday and that they were loose. Today she reports only 1 bowel movement. She denies fevers, chest pain, shortness of breath, abdominal pain, or urinary symptoms. REVIEW OF SYSTEMS: See HPI for pertinent positives and pertinent negatives. ALLERGIES: CASANDRA inhibitors MEDICATIONS: See below PAST MEDICAL HISTORY: See below PHYSICAL EXAM: VITALS: Vitals are noted on the nurses note and reviewed by myself. Vital signs stable. GENERAL: 69-year-old female, in no acute distress, nondiaphoretic, well- developed well-nourished. SKIN: Capillary refill less than 2 seconds. HEENT: Normocephalic. PERRLA. EOMI. Nares patent. Mucous membranes moist. Neck is supple without nuchal rigidity. HEART: Regular rate and rhythm without murmurs gallops or rubs. LUNGS: CTA BL without wheezes, rales or rhonchi. No retractions or accessory muscle use. ABDOMEN: Positive BS x 4. Ascites on exam. Abdomen is soft and nontender. No guarding or rebound tenderness. MUSCULOSKELETAL: No gross musculoskeletal defects. No significant pedal edema. 2+ dorsal pedis pulse palpated bilaterally. NEURO: Patient was alert and oriented to person place and time. No focal neurological deficits. DIFFERENTIAL DIAGNOSIS: Elevated ammonia, hepatic encephalopathy, UTI, pyelonephritis, electrolyte abnormality, among others. ED COURSE AND MEDICAL DECISION MAKING: HISTORY FROM INDEPENDENT HISTORIAN: The patient herself and her . MEDICATIONS GIVEN: Lactulose 30 g PO MONITOR: Continuous awake overnight monitor: Order was placed for continuous awake overnight monitor. INTERPRETATION OF LABS: I interpreted the labs with full lab results as below in the lab section of this note. Pertinent lab results discussed in the MDM section below. INTERPRETATION OF IMAGING: Imaging studies were interpreted by myself and read by radiology as per the imaging section of this note. Chest x-ray - Cardiomegaly and mild interstitial thickening. Mild residual edema versus nonspecific interstitial inflammatory process. No lobar consolidation. CHRONIC MEDICAL CONDITIONS AFFECTING CARE: Hepatic cirrhosis, hepatic encephalopathy, esophageal varices. ESCALATION OF CARE CONSIDERED: Escalation of care was considered due to the patient's known liver cirrhosis and treatment of high ammonia levels with lactulose. She does have a history of hepatic encephalopathy and she presents with increased confusion and involuntary movements. A workup was completed here in the emergency department showing elevated ammonia levels, confusion, and urinalysis pending to rule out UTI. The patient was admitted to medicine for treatment of further work as well as awaiting urinalysis to rule out UTI. The patient was admitted to medicine for treatment and further workup. CONSULTATIONS: On-call [facility] hospitalist - Presented the patient to the provider discussing her new confusion and involuntary movements that are worse today. She was given a dose of lactulose here in the emergency department and her ammonia level has elevated from 47-75 over the last couple of days. Still waiting on a urine to rule out UTI. I do believe that the patient would benefit from admission until resolution of confusion and ammonia level maintenance. The provider agrees to evaluate the patient in for admission. MDM SUMMARY: I evaluated this 69-year-old female who presents to the emergency department with her due to worsening confusion and involuntary movements. See HPI and physical exam above. IV access was established and labs were obtained. No leukocytosis. Hemodynamically stable within her normal levels (RBC 3.10, hemoglobin 9.2, hematocrit 27.7). Coagulation panel within normal limits. No significant electrolyte abnormality. BUN 19. Creatinine 1.26. Ammonia elevated 75, 3 days ago this level was 47. All laboratory results were thoroughly reviewed with the patient and her . Chest x-ray shows cardiomegaly with mild interstitial thickening, no lobar consolidation. Urinalysis pending to rule out UTI upon admission. I had a long discussion with the patient as well as her regarding admission to the hospital for further workup of her confusion as well as maintaining her ammonia levels with her lactulose dosing at home. Both agreed to the outlined treatment plan and all questions were answered. Consultation with on-call [facility] hospitalist can be seen in detail above. The patient was admitted in stable condition. DIAGNOSIS: Hyperammonia anemia, confusion, extraparametal movements present The chart was completed utilizing [employer] voice recognition software. Grammatical errors, random word insertions, pronoun errors, and incomplete sentences are an occasional consequence of this system due to software limitations, ambient noise, and hardware issues. Any formal questions or concerns about the content, text, or information contained within the body of this dictation should be directly addressed to the provider for clarification. Past Med/Surg History Problem List (Updated 03/22/25 @ 22:38 by Ban Washington PA-C) Confusion (Acute) Hyperammonemia (Acute) Encephalopathy Gait disorder Hepatic encephalopathy Asymptomatic bacteriuria (Acute) Hepatic cirrhosis (Chronic) Diabetes mellitus, type 2 (Chronic) NIDDM Chronic hyponatremia Non-Wilsonian hepatocerebral degeneration Acute metabolic encephalopathy (Acute) TE (acute kidney injury) (Acute) Hyperammonemia (Acute) Allergic rhinitis (Chronic) Esophageal varices (Chronic) 2017 Hyperlipidemia (Chronic) Hypertension (Chronic) Medical History Tubular adenoma of colon Seizure GERD (gastroesophageal reflux disease) Asthma USES INHALER BEFORE EXERCISE History of colon polyps Hx of esophageal varices (~2016) History of anemia Hepatitis A hx 1959's - treated. Seizure-like activity 03/30/22[place] [place] [facility] [place]. PCP manages currently. STARTED ON KEPPRA (PT THINKS ELECTROLYTE PROBLEMS RELATED d/t low sodium and low magnesium) no seizures since starting Keppra. Last seizure January 2023 Pleural effusion associated with hepatic disorder Right-2017 History of pleural effusion RT 2/2 HEPATIC CIRRHOSIS - S/P THORACENTESIS History of benign breast biopsy Surgical History Hx of bilateral cataract extraction Hx of colonoscopy with polypectomy History of ankle surgery LT History of total abdominal hysterectomy and bilateral salpingo-oophorectomy History of tubal ligation History of thoracentesis RT 2017 History of esophagogastroduodenoscopy (EGD) History of tooth extraction Family History Grandfather (Maternal) Diabetes Coronary heart disease Dyslipidemia Hypercholesterolemia Hypertension Grandmother (Maternal) Ovarian cyst Stroke Father Pancreatic cancer Hypertension Stroke Mother Bladder cancer Hypertension Sister Hypertension Other No family history of adverse response to anesthesia Denies family history of Ovarian cancer Prostate cancer Myocardial infarction Breast cancer Social History Smoking Status: Former smoker Tobacco Type: Cigarettes Age Started Using Tobacco: 14; Age Quit Using Tobacco: 39; packs per day: 1; Cigarettes Per Day: 5 cigs/day; Second Hand Exposure: No; Do You Dip or Chew Tobacco: No; Hx Alcohol Use: Yes Alcohol type: wine Hx Substance Use: No Preferred Language: Turkish Communication Ability: Effective Communication Ability Comment: intubated and sedated Visual Impairment: No Limitations Hearing Ability: Normal [employer] Agent [employer] Required: No Beliefs That Will Affect Care: None marital status: Current Living Situation: Spouse Current Living Situation Comment: unknown current occupational status: employed Feels Safe at Home: Yes Physical Activity Frequency: 1-2 Times per Week Seatbelt Use: always Assistive Devices: Walker and Wheelchair Allergies Allergies Allergy/AdvReac Type Severity Reaction Status Date / Time CASANDRA Inhibitors Allergy Severe Angioedema Verified 03/19/25 11:40 Home Meds Home Medications Medication Instructions Recorded Confirmed cholecalciferol (vitamin D3) 25 1,000 unit PO HS 10/28/19 03/22/25 mcg (1,000 unit) tablet fluticasone propionate 50 2 spray intranasal DAILY PRN 02/16/23 03/22/25 mcg/actuation nasal Allergy Symptoms spray,suspension (Flonase Allergy Relief) albuterol sulfate 90 mcg/actuation 1 puff inhalation DIRECTED PRN 12/08/24 03/22/25 aerosol inhaler Shortness Of Breath Or Wheezing famotidine 40 mg tablet 40 mg PO Q OTHER DAY 12/08/24 03/22/25 metformin 500 mg tablet,extended 1,000 mg PO HS 03/06/25 03/22/25 release 24 hr Previous Rx's Medication Instructions Recorded amlodipine 5 mg tablet 5 mg PO QAM #90 tabs 10/23/24 atorvastatin 10 mg tablet 10 mg PO QPM #90 tabs 10/23/24 levetiracetam 500 mg tablet 500 mg PO BID #180 tabs 10/23/24 (Keppra) propranolol 40 mg tablet 40 mg PO BID #180 tabs 10/23/24 venlafaxine 150 mg 150 mg PO HS #90 caps 10/23/24 capsule,extended release 24 hr magnesium 250 mg tablet 250 mg PO HS #90 tabs 10/24/24 blood sugar diagnostic (Accu-Chek #50 ea 01/05/25 Guide test strips) empagliflozin 10 mg tablet 10 mg PO DAILY #90 tabs 01/05/25 fluticasone furoate 100 1 inh inhalation DAILY #60 ea 01/05/25 mcg-vilanterol 25 mcg/dose inhalation powder (Breo Ellipta) lactulose 10 gram/15 mL oral 10 g (15 mL) PO TID #1,500 mL 02/08/25 solution omeprazole 20 mg capsule,delayed 20 mg PO Q OTHER DAY #45 caps 03/01/25 release furosemide 20 mg tablet 40 mg (2 x 20 mg) PO QAM #180 tabs 03/12/25 spironolactone 50 mg tablet 50 mg PO BID #180 tabs 03/12/25 Results & Data (ED) Vital Signs Vital Signs - 24 hr 03/22/25 12:46 03/22/25 13:38 03/22/25 13:38 Temperature 36.5 C Temperature Source Oral Pulse Rate 50 L Pulse Rate [Apical] 53 L Respiratory Rate 20 14 Respiratory Effort / Characteristics Non-Labored Non-Labored Spontaneous Respiratory Depth Normal Normal Respiratory Pattern Regular Blood Pressure 112/62 Blood Pressure [Left Arm] 124/55 L Blood Pressure Mean 78 Blood Pressure Mean [Left Arm] 78 Blood Pressure Position [Left Arm] Semi-fowlers Pulse Oximetry 99 97 Oxygen Delivery Method Room Air Room Air Room Air Sepsis Recent Fever Within 48 Hours No Sepsis New/Unexplained Change in Mental Status Yes Sepsis Action Taken by Nursing No Action Required 03/22/25 14:07 Temperature Temperature Source Pulse Rate 52 L Pulse Rate [Apical] Respiratory Rate Respiratory Effort / Characteristics Respiratory Depth Respiratory Pattern Blood Pressure Blood Pressure [Left Arm] Blood Pressure Mean Blood Pressure Mean [Left Arm] Blood Pressure Position [Left Arm] Pulse Oximetry Oxygen Delivery Method Sepsis Recent Fever Within 48 Hours Sepsis New/Unexplained Change in Mental Status Sepsis Action Taken by Nursing Laboratory Data 03/22/25 13:00 03/22/25 13:00 Lab Results 03/22/25 Range/Units 13:00 WBC 4.94 (4.8-10.8) K/ul RBC 3.10 L (4.20-5.40) M/uL Hgb 9.2 L (12.0-16.0) g/dl Hct 27.7 L (37.0-47.0) % MCV 89.4 (80.0-100.0) fL MCH 29.7 (25.0-34.0) pg MCHC 33.2 (32.0-36.0) g/dL RDW Std Deviation 50.7 H (36.4-46.3) fL RDW Coeff of Bianca 15.6 H (11.5-14.5) % Plt Count 151 (130-400) K/uL MPV 10.1 (9.4-12.4) fL Immature Gran % (Auto) 0.2 % Neut % (Auto) 72.3 % Lymph % (Auto) 9.9 % Turner % (Auto) 17.0 % Eos % (Auto) 0.0 % Baso % (Auto) 0.6 % Neut # (Auto) 3.57 (1.40-6.50) K/uL Lymph # (Auto) 0.49 L (1.20-3.40) K/uL Turner # (Auto) 0.84 H (0.11-0.59) K/uL Eos # (Auto) 0.00 (0.00-0.50) K/uL Baso # (Auto) 0.03 (0.00-0.20) K/uL Immature Gran # (Auto) 0.01 (0.01-0.20) K/uL PT 12.8 H (9.0-12.0) Seconds INR 1.2 H (0.9-1.1) APTT 29 (21-31) Seconds PTT Ratio 1.1 Sodium 135 L (136-145) mmol/L Potassium 3.6 (3.5-5.1) mmol/L Chloride 100 (98-107) mmol/L Carbon Dioxide 28 (21-32) mmol/L Anion Gap 7 (3-11) BUN 19 (6-23) mg/dl Creatinine 1.26 H (0.6-1.2) mg/dl Est Cr Clr Drug Dosing 44.7 ml/min eGFR 45.93 BUN/Creatinine Ratio 15.1 (10-20) Glucose 104 H (70-99(Fasting)) mg/dl Calcium 9.0 (8.6-10.3) mg/dl Total Bilirubin 1.7 H (0.2-1.0) mg/dl AST 28 (13-39) U/L ALT 17 (7-52) U/L Alkaline Phosphatase 77 (34-104) U/L Ammonia 75.0 H (18-72) umol/L Total Protein 6.7 (6.0-8.3) gm/dl Albumin 3.2 L (3.4-5.0) gm/dl Globulin 3.5 (2.5-4.0) gm/dl Albumin/Globulin Ratio 0.9 (0.9-2) Administered Medications Heparin Sodium (Porcine) (Heparin Sod 5,000 Unit/0.5 Ml Vial) 5,000 units SQ Q12 LIANA Stop: 04/21/25 20:59 Last Admin: 03/22/25 20:31 Dose: 5,000 units Documented By: CITLALY Daptomycin 500 mg/ Syringe 10 mls @ 5 mls/min IV Q24H [facility]; Protocol Stop: 04/01/25 16:59 Last Admin: 03/22/25 17:14 Dose: 5 mls/min Documented By: DEZ Insulin Aspart (Insulin Aspart Per Unit Charge) 0 units SC ACHS LIANA Stop: 04/21/25 16:29 Last Admin: 03/22/25 20:24 Dose: Not Given Documented By: Admin: 03/22/25 16:54 Dose: Not Given Documented By: DEZ Lactulose (Lactulose Syrup 20 Gm/30 Ml Udc) 15 gm PO BID LIANA Stop: 04/21/25 20:59 Last Admin: 03/22/25 20:31 Dose: 15 gm Documented By: CITLALY Levetiracetam (Levetiracetam 500 Mg Tab) 500 mg PO BID LIANA Stop: 04/21/25 20:59 Last Admin: 03/22/25 20:31 Dose: 500 mg Documented By: CITLALY Magnesium Oxide (Magnesium Oxide 400 Mg Tab) 400 mg PO HS LIANA Stop: 04/21/25 20:59 Last Admin: 03/22/25 20:31 Dose: 400 mg Documented By: CITLALY Propranolol HCl (Propranolol Hcl 20 Mg Tab) 40 mg PO BID LIANA Stop: 04/21/25 20:59 Last Admin: 03/22/25 20:24 Dose: Not Given Documented By: CITLALY Spironolactone (Spironolactone 25 Mg Tab) 50 mg PO BID LIANA Stop: 04/21/25 20:59 Last Admin: 03/22/25 20:31 Dose: 50 mg Documented By: CITLALY Venlafaxine HCl (Venlafaxine Hcl Xr 150 Mg Capxr) 150 mg PO HS LIANA Stop: 04/21/25 20:59 Last Admin: 03/22/25 20:31 Dose: 150 mg Documented By: CITLALY Discontinued Medications Thiamine HCl 500 mg/ Sodium (Chloride) 55 mls @ 210 mls/hr IV NOW STA Stop: 03/22/25 16:52 Last Infusion: 03/22/25 17:30 Dose: Infused Documented By: Admin: 03/22/25 17:14 Dose: 210 mls/hr Documented By: DEZ Lactulose (Lactulose Syrup 20 Gm/30 Ml Udc) 30 gm PO NOW STA Stop: 03/22/25 14:08 Last Admin: 03/22/25 14:18 Dose: 30 gm Documented By: DESIRAE Imaging Data Radiologist's Impression: Chest X-Ray 03/22/25 13:50 XR chest 1V portable CLINICAL HISTORY: confusion COMPARISON STUDY: 03/06/2025 FINDINGS: The heart is enlarged. There is mild elevation of interstitium consistent with mild interstitial edema or interstitial inflammatory process. There is no focal pulmonary consolidation. IMPRESSION: 1. Cardiomegaly and mild interstitial thickening. Mild interstitial edema versus a nonspecific interstitial inflammatory process. 2. No evidence of lobar consolidation ACT 112: Negative or not required by law. Electronically signed by: Jef Viera M.D. 03/22/2025 2:36 PM Discharge Plan Visit Data Chief Complaint: Confusion Stated Complaint: CONFUSION, INVOLUNTARY MOVEMENTS, REF BY DOC ED Provider: Galo Lopez ED Midlevel Provider: Ban Washington Discharge Problem: Hyperammonemia, Confusion Patient Disposition: Admitted As Inpatient Condition: Fair Discharge Instructions Interventions: ED Discharge Assessment Last Done: 03/22/25 16:15 Addendum March 23, 2025 00:08 I was consulted by the Advanced Practice Provider and was substantively involved in the patient's visit.This includes aspects of the HPI, MDM, diagnostic interpretations, and disposition/plan. I discussed the case with the PATRIC and agree with the findings and plan as documented in PATRIC Felix's note.
[2025-03-22 13:43] LABS: Alanine Aminotransferase 17.0 U/L (7-52); Albumin Globulin Ratio 0.9 (0.9-2); Alkaline Phosphatase 77.0 U/L (34-104); Anion Gap 7.0 (3-11); Bilirubin,Total 1.7 mg/dl (0.2-1.0); Blood Urea Nitrogen 19.0 mg/dl (6-23); Calcium 9.0 mg/dl (8.6-10.3); Carbon Dioxide 28.0 mmol/L (21-32); Chloride 100.0 mmol/L (98-107); Creatinine Clr Calc Pharmacy 44.7 ml/min; Globulin 3.5 gm/dl (2.5-4.0); Glucose 104.0 mg/dl (70-99(Fasting)); Potassium 3.6 mmol/L (3.5-5.1); Sodium 135.0 mmol/L (136-145); Total Protein 6.7 gm/dl (6.0-8.3)
[2025-03-22 13:47] LABS: INR 1.2 (0.9-1.1); Partial Thromboplastin Time 29 Seconds (21-31); Prothrombin Time 12.8 Seconds (9.0-12.0)
[2025-03-22] MEDS: LACTULOSE SYRUP 20 GM/30 ML UDC PO STA (14:18)
--- NOTE | 2025-03-22 14:38 | XRay Report ---
XR chest 1V portable CLINICAL HISTORY: confusion COMPARISON STUDY: 03/06/2025 FINDINGS: The heart is enlarged. There is mild elevation of interstitium consistent with mild interst itial edema or interstitial inflammatory process. There is no focal pulmonary consolidation. IMPRESSION: 1. Cardiomegaly and mild interstitial thickening. Mild interstitial edema versus a nonspecific inters titial inflammatory process. 2. No evidence of lobar consolidation ACT 112: Negative or not required by law. Electronically signed by: Jef Viera M.D. 03/22/2025 2:36 PM
--- NOTE | 2025-03-22 15:32 | History & Physical Report ---
Date of Service March 22, 2025 Assessment & Plan (1) Encephalopathy: (2) Hepatic cirrhosis: (3) Diabetes mellitus, type 2: (4) Non-Wilsonian hepatocerebral degeneration: (5) Hypertension: Plan 69 year old female with PMHx of cirrhosis, anxiety/depression, GERD, non- Wilsonian hepatocerebral degeneration, seizure disorder, T2DM, asthma, HTN, HLD presenting with confusion and weakness. By the time patient assessed at bedside, had already gone home for the evening. She reports feeling fine, states that it was 's concern that brought her in for evaluation. Patient has h/o hepatic encephalopathy, was most recently discharged in December on Lactulose 10g TID.. Patient states that administers her medications, reports being adherent. Reports having >2 bowel movements per day up until today. . Denies fevers, chills, urinary sx, nausea, vomiting, diarrhea. #Encephalopathy, this is likely multifactorial although her ammonia is slightly above baseline her mental status is not significantly altered to be consistent with hepatic encephalopathy. Metabolic encephalopathy possibly from UTI present on admission given her previous admission with Enterococcus which is resistant to vancomycin repeat urine culture will be obtained and patient started on daptomycin. Given the fact that she previous is alcohol use and there is no thiamine level in the chart we will give her 500 mg of thiamine to see if this was related to thiamine deficient state. If she does not improve we may consider chronic daily thiamine therapy will add a B1 level on presentation #Diabetes will hold metformin at this time placed on sliding scale and continue Jardiance plus diabetic diet #Cirrhosis patient continues on spironolactone and Lasix with a low-salt diet her lactulose is 15 twice daily to try to improve adherence and compliance with less frequent dosing but the same amount per day #Hypertension continuing on propranolol furosemide and spironolactone (propranolol is also likely help portal hypertension) #Seizure disorder continues on her Keppra, for depression remains on venlafaxine #DVT prevention patient's INR is 1.20 she will be instituted on heparin therapy History of Present Illness Primary Care Provider: Madie Aguilar MD 69-year-old female with a history of Non-Wilsonian about cerebral degeneration. She has a history of significant alcohol use and cirrhosis typically taking lactulose therapy. She has this movement disorder and has seen neurology in the past. She has not follow-up with them routinely. She has a seizure disorder on chronic antiepileptic medications type 2 diabetes anxiety and depression. Reportedly she has brought him by her for increasing confusion. Reportedly she has been taking lactulose regularly and had 4 bowel movements a 1 day prior to admission but only 1 bowel movement today. The patient herself in the emergency department feels she is at her baseline she was able to have good conversations with me, she has involuntary uncontrolled movements. She has had no fevers she is have no abdominal pain she has had no dysuria. During her last hospital stay she had a VRE UTI which was elected not to be treated due to her being asymptomatic has left the room we cannot get any other detailed information is not yet available by phone Allergies Allergy/AdvReac Type Severity Reaction Status Date / Time CASANDRA Inhibitors Allergy Severe Angioedema Verified 03/19/25 11:40 Home Medications Medication Instructions Recorded Confirmed Type cholecalciferol (vitamin D3) 25 1,000 unit PO HS 10/28/19 03/22/25 History mcg (1,000 unit) tablet fluticasone propionate 50 2 spray intranasal DAILY PRN 02/16/23 03/22/25 History mcg/actuation nasal Allergy Symptoms spray,suspension (Flonase Allergy Relief) amlodipine 5 mg tablet 5 mg PO QAM #90 tabs 10/23/24 03/22/25 Rx atorvastatin 10 mg tablet 10 mg PO QPM #90 tabs 10/23/24 03/22/25 Rx levetiracetam 500 mg tablet 500 mg PO BID #180 tabs 10/23/24 03/22/25 Rx (Keppra) propranolol 40 mg tablet 40 mg PO BID #180 tabs 10/23/24 03/22/25 Rx venlafaxine 150 mg 150 mg PO HS #90 caps 10/23/24 03/22/25 Rx capsule,extended release 24 hr magnesium 250 mg tablet 250 mg PO HS #90 tabs 10/24/24 03/22/25 Rx albuterol sulfate 90 mcg/actuation 1 puff inhalation DIRECTED PRN 12/08/24 03/22/25 History aerosol inhaler Shortness Of Breath Or Wheezing famotidine 40 mg tablet 40 mg PO Q OTHER DAY 12/08/24 03/22/25 History blood sugar diagnostic (Accu-Chek #50 ea 01/05/25 03/19/25 Rx Guide test strips) empagliflozin 10 mg tablet 10 mg PO DAILY #90 tabs 01/05/25 03/22/25 Rx fluticasone furoate 100 1 inh inhalation DAILY #60 ea 01/05/25 03/22/25 Rx mcg-vilanterol 25 mcg/dose inhalation powder (Breo Ellipta) lactulose 10 gram/15 mL oral 10 g (15 mL) PO TID #1,500 mL 02/08/25 03/22/25 Rx solution omeprazole 20 mg capsule,delayed 20 mg PO Q OTHER DAY #45 caps 03/01/25 03/22/25 Rx release metformin 500 mg tablet,extended 1,000 mg PO HS 03/06/25 03/22/25 History release 24 hr furosemide 20 mg tablet 40 mg (2 x 20 mg) PO QAM #180 tabs 03/12/25 03/22/25 Rx spironolactone 50 mg tablet 50 mg PO BID #180 tabs 03/12/25 03/22/25 Rx Past Med/Surg History Problem List (Updated 03/22/25 @ 15:58 by Antione Camargo MD) Encephalopathy Gait disorder Hepatic encephalopathy Asymptomatic bacteriuria (Acute) Hepatic cirrhosis (Chronic) Diabetes mellitus, type 2 (Chronic) NIDDM Chronic hyponatremia Non-Wilsonian hepatocerebral degeneration Acute metabolic encephalopathy (Acute) TE (acute kidney injury) (Acute) Hyperammonemia (Acute) Allergic rhinitis (Chronic) Esophageal varices (Chronic) 2017 Hyperlipidemia (Chronic) Hypertension (Chronic) Medical History Tubular adenoma of colon Seizure GERD (gastroesophageal reflux disease) Asthma History of colon polyps Hx of esophageal varices (~2017) History of anemia Hepatitis A Seizure-like activity Pleural effusion associated with hepatic disorder History of pleural effusion History of benign breast biopsy Surgical History Hx of bilateral cataract extraction Hx of colonoscopy with polypectomy History of ankle surgery History of total abdominal hysterectomy and bilateral salpingo-oophorectomy History of tubal ligation History of thoracentesis History of esophagogastroduodenoscopy (EGD) History of tooth extraction Family History Grandfather (Maternal) Diabetes Coronary heart disease Dyslipidemia Hypercholesterolemia Hypertension Grandmother (Maternal) Ovarian cyst Stroke Father Pancreatic cancer Hypertension Stroke Mother Bladder cancer Hypertension Sister Hypertension Other No family history of adverse response to anesthesia Denies family history of Ovarian cancer Prostate cancer Myocardial infarction Breast cancer Social History Smoking Status: Never smoker Tobacco Type: Cigarettes Age Started Using Tobacco: 14; Age Quit Using Tobacco: 39; packs per day: 1; Cigarettes Per Day: 5 cigs/day; Second Hand Exposure: No; Do You Dip or Chew Tobacco: No; Hx Alcohol Use: Yes Alcohol type: wine Hx Substance Use: No Preferred Language: Yi Communication Ability: Effective Communication Ability Comment: intubated and sedated Visual Impairment: No Limitations Hearing Ability: Normal 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 Head exam is normocephalic atraumatic Neck is with JVD, thyromegaly, or carotid bruits. Lungs are clear to auscultation, no focal loss but diminished at the bases Cardiac exam, Rhythm is regular.. No murmurs, rubs or gallops. Abdominal exam reveals normal bowel sounds, soft distended ascites is present no rebound tenderness no Extremities are trace edematous and both pedal pulses are present Neurologic exam is alert and oriented, no focal loss of strength or sensation Skin is without bruises or rashes Results & Data Results & Data Vital Signs (Past 12 Hours) Vital Signs Temp Pulse Pulse Resp BP BP Pulse Ox 03/22/25 14:07 52 L 03/22/25 13:38 53 L 14 124/55 L 97 03/22/25 13:38 03/22/25 12:46 97.7 F 50 L 20 112/62 99 O2 Del Method 03/22/25 14:07 03/22/25 13:38 Room Air 03/22/25 13:38 Room Air 03/22/25 12:46 Room Air Laboratory Results Reviewed CBC reviewed chemistry reviewed ammonia level Code Status & VTE Plan VTE Prophylaxis Plan VTE Prophylaxis will be ordered: Yes PG Care Time/CCT Total # of Minutes Spent Total Time Spent with Patient: Total time spent is greater than 50% in coordination of care (as documented) at patient's floor/unit and/or counseling patient: Coding Level of Care Code 10723 INT INP/OBS CARE 375MIN Diagnoses Encephalopathy G93.40 Alcoholic cirrhosis of liver without ascites K70.30 Hepatic cirrhosis type: alcoholic cirrhosis Ascites presence: without ascites Diabetes mellitus, type 2 E11.9 Non-Wilsonian hepatocerebral degeneration G31.89; K76.89 Hypertension, unspecified type I10 Hypertension type: unspecified (2) Hepatic cirrhosis Hepatic cirrhosis type: alcoholic cirrhosis Ascites presence: without ascites Qualified Code(s): K70.30 - Alcoholic cirrhosis of liver without ascites (5) Hypertension Hypertension type: unspecified Qualified Code(s): I10 - Essential (primary) hypertension
[2025-03-22] MEDS ORDERED: GLUCOSE 10 TAB/TUBE PO PRN (16:30)
[2025-03-22] MEDS ORDERED: CARBOHYDRATES FOR HYPOGLYCEMIA PO PRN (16:30)
[2025-03-22] MEDS ORDERED: GLUCOSE 40% GEL 15 GM TUBE PO PRN (16:30)
[2025-03-22] MEDS ORDERED: GLUCAGON FOR INJ 1 MG VIAL SQ PRN (16:30)
[2025-03-22] MEDS ORDERED: DEXTROSE 50% 50 ML SYRINGE IV PRN (16:30)
[2025-03-22] MEDS ORDERED: ONDANSETRON INJ 2 MG/ML 2 ML VIAL IV PRN (16:30)
[2025-03-22] MEDS: INSULIN ASPART PER UNIT CHARGE SC SCH (16:54)
[2025-03-22] MEDS: THIAMINE HCL 500 MG in SODIUM CHLORIDE 0.9% 50 ML IV STA (17:14)
[2025-03-22] MEDS: DAPTOmycin 500 MG in SYRINGE 0 ML IV SCH (17:14)
[2025-03-22] MEDS: PROPRANOLOL HCL 20 MG TAB PO SCH (20:24)
[2025-03-22] MEDS: MAGNESIUM OXIDE 400 MG TAB PO SCH (20:31)
[2025-03-22] MEDS: SPIRONOLACTONE 25 MG TAB PO SCH (20:31)
[2025-03-22] MEDS: HEPARIN SOD 5,000 UNIT/0.5 ML VIAL SQ SCH (20:31)
[2025-03-22] MEDS: levETIRAcetam 500 MG TAB PO SCH (20:31)
[2025-03-22] MEDS: LACTULOSE SYRUP 20 GM/30 ML UDC PO SCH (20:31)
[2025-03-22] MEDS: VENLAFAXINE HCL XR 150 MG CAPXR PO SCH (20:31)
[2025-03-23] MEDS: FLUTICASONE PROPIONATE NA SPR 16 GM BTL PRN (08:14)
[2025-03-23] MEDS: FLUTICASONE/VILANTEROL 100/25MCG 14 PUFFS/INHALER INH SCH (08:15)
[2025-03-23] MEDS: FUROSEMIDE 40 MG TAB PO SCH (08:15)
[2025-03-23 10:40] LABS: Hematocrit (blood only) 24.9 % (37.0-47.0); Hemoglobin 8.1 g/dl (12.0-16.0); Mean Corpuscular Hemoglobin 29.1 pg (25.0-34.0); Mean Corpuscular Volume 89.6 fL (80.0-100.0); Platelet Count 112 K/uL (130-400); RDW Standard Deviation 50.7 fL (36.4-46.3); Red Blood Count 2.78 M/uL (4.20-5.40); White Blood Count 3.76 K/ul (4.8-10.8)
[2025-03-23 10:55] LABS: Anion Gap 5.0 (3-11); Bilirubin,Total 1.6 mg/dl (0.2-1.0); Calcium 8.6 mg/dl (8.6-10.3); Carbon Dioxide 27.0 mmol/L (21-32); Chloride 101.0 mmol/L (98-107); Potassium 3.6 mmol/L (3.5-5.1); Sodium 133.0 mmol/L (136-145)
[2025-03-23 11:01] LABS: Alanine Aminotransferase 14.0 U/L (7-52); Albumin Globulin Ratio 0.8 (0.9-2); Alkaline Phosphatase 68.0 U/L (34-104); Blood Urea Nitrogen 21.0 mg/dl (6-23); Creatinine Clr Calc Pharmacy 41.0 ml/min; Globulin 3.2 gm/dl (2.5-4.0); Glucose 151.0 mg/dl (70-99(Fasting)); Total Protein 5.8 gm/dl (6.0-8.3)
--- NOTE | 2025-03-23 11:32 | Hospitalist Progress Note ---
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 #Acute metabolic encephalopathy in the setting of hyperammonemia // Non- Wilsonian Hepatocerebral degeneration Initial ammonia presentation 75, increased to 95 on 03/23; earlier in the week of 03/18 the patient had outpatient laboratory assessment which was within normal range at 43. They endorse adherence with their prescribed regimen, there is documentation from the recent hospital reassessment at their primary care physician's office that they have been adherent with their regimen, and appeared improved at that time; the patient's spouse corroborates adherence with this regimen, endorses increased difficulty with taking care of the patient at home given their chorea further discussed below - Continue lactulose 30 g p.o. 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 Per the patient's report their symptoms have not progressed however comparing their current presentation to their previous, it does appear that their dariel movements have worsened; the patient's spouse is unable to describe if this progression has occurred, the patient denies any significant progression, states that they are able to take care of himself at home and complete their activities of daily living with minimal assistance; the patient's spouse states differently that they are requiring significant assistance Neurology consulted for assistance with management of the symptoms, recommendations for continued care in the outpatient setting #Alcohol use disorder, sustained remission Patient has a remote history of alcohol misuse, has been no previous assessment for metabolic complications other than her hepatic disease associated with alcohol misuse; her confusion and altered behavior may be related to a Warnicke/Korsakoff pathology however given her sustained period of abstinence, this is less likely unless it has been clinically unappreciated until her more recent progressive disease as discussed above Vitamin B1 measure pending #Asymptomatic Bacteriuria During previous hospitalization the patient had a urinalysis performed reflexively due to trace leukocyte esterase and noted bacteria, it did yield VRE which at that time was not treated given the absence of associated symptoms; she was started on daptomycin at the time of admission, this will be continued at this point in time with a low threshold for discontinuation given the absence of irma infectious findings -UA pending DVT ppx: start enoxaparin 40 mg SQ daily Admission and Anticipated Discharge Date Admission Date: March 22, 2025 Subjective Ms. Zapien is a 69-year-old female whose active medical conditions include chronic cerebrovascular disease, Non-Wilsonian hepatic cerebral degeneration among other chronic medical conditions who presented to [facility] on 03/22 due to subacute altered mental status. No acute overnight events; the patient feels well this morning with no specific concerns. She is not sure why she was brought to the hospital by her spouse; she does not feel that her coracoid movements have worsened since her previous hospitalization, she endorses no difficulty with ambulating about at home and feels that she is relatively independent with her activities of daily living. She further endorses adherence with her prescribed lactulose regimen, reports a serum lactulose level that was checked earlier the week of 03/18 that was within normal range. Review of Systems Review of Systems: Remaining review of constitutional, pulmonary, cardiovascular, gastrointestinal, genitourinary, musculoskeletal, neurologic, and integumentary systems was unremarkable except for pertinent positive and negative findings noted in the HPI above. Physical Exam Physical Exam: General: Adult female in no acute distress Vital Signs: reviewed HEENT: soft scleral icterus; normocephalic and atraumatic; pupils equally round reactive to light; extraocular motion intact; moist mucous membranes Pulmonary: symmetric chest wall excursion without restriction; clear to auscultation bilaterally Cardiovascular: regular rate and rhythm with no murmurs, rubs, or gallops; S1 and S2 normal; bilateral radial and posterior tibial pulses 2+; trace bilateral lower extremity distal to the mid leg Gastrointestinal: soft, nondistended; normal frequency and pitch bowel sounds throughout; no palpable masses nor organomegaly; hepatic border is nontender though notably firm Musculoskeletal: no significant muscle atrophy Neurologic: CN II-XII intact; no discernible focal weakness nor paresthesias; difficulty maintaining ocular fixation, however movements are intact; triceps and patellar DTR 2/4+ and symmetric; unable to assess for asterixis given the persistent high-frequency and moderate amplitude coagulated movements of the upper and lower extremities as well as involving the patient's torso Results & Data Results & Data Vital Signs (Past 12 Hours) Vital Signs Temp Pulse Resp BP Pulse Ox O2 Del Method 03/23/25 08:00 Room Air 03/23/25 07:24 36.7 C 55 L 15 92/50 L 94 Room Air PG Care Time/CCT Total # of Minutes Spent Total Time Spent with Patient: Total time spent is greater than 50% in coordination of care (as documented) at patient's floor/unit and/or counseling patient: Coding Level of Care Code 72598 SUB INP/OBS CARE 2/35MIN Diagnoses Acute metabolic encephalopathy G93.41 Hyperammonemia E72.20 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
[2025-03-23 11:50] LABS: Hemoglobin A1C 5.0 % (4.5-5.6)
--- NOTE | 2025-03-23 13:05 | Gastroenterology Progress Note ---
Date of Service March 23, 2025 Assessment & Plan Plan 69yowf with h/o Cirrhosis of liver complicated by varices and hepatic encephalopathy is seen today for worsening confusion with elevated ammonia despite Lactulose. (1) Cirrhosis with h/o HE and elevated ammonia. + UA. Hgb downtrending from 10g/dl to 8.1g/dl over the last 4 days. NH3 47.0 => 75.0 => 93.0 - Triggers of HE revewed ie, GIB, infection, dehydration, sedating medications and nutritional deficiencies considered - No obvious signs of bleeding clinically but Hgb is dropping. Hold Lovenox for now - This was stopped. Continue Pantoprazole and Famotidine as ordered. F/U CBC in AM - Continue treatment of UTI with Daptomycin - Continue with Lactulose 15G BID with goal of maintaining 3 soft BMs/day. - Repeat NH3 in the morning. - Further recommendations to come with Supervising GI provider on medical rounds. Please see co-signature comments. Admission and Anticipated Discharge Date Admission Date: March 22, 2025 Review of Systems Review of Systems: See HPI Physical Exam Physical Exam: Constitutional: NAD. Alert. Answering questions appropriately but inconsistent with answers. Respiratory: Breathing is even, non-labored. Lungs osborn are clear to auscultation anteriorly. Cardiovascular: Regular Rate and Rhythm, no murmurs, rubs or gallops appreciated. Gastrointestinal (Abdomen): Normoactive bowel sounds x4, soft. mild to moderate ascites. Non-tender. Musculoskeletal: Lying in bed comfortably. No peripheral edema. Results & Data Results & Data Vital Signs (Past 12 Hours) Vital Signs Temp Pulse Resp BP Pulse Ox O2 Del Method 03/23/25 11:35 97.5 F L 54 L 16 112/63 100 Room Air 03/23/25 08:00 Room Air 03/23/25 07:24 98.1 F 55 L 15 92/50 L 94 Room Air PG Care Time/CCT Total # of Minutes Spent Total Time Spent with Patient: Total time spent is greater than 50% in coordination of care (as documented) at patient's floor/unit and/or counseling patient: Coding
--- NOTE | 2025-03-23 17:13 | Gastrointestinal Consultation ---
Date of Consultation March 23, 2025 Assessment & Plan (1) Acute metabolic encephalopathy: Plan [id number] with h/o Cirrhosis of liver complicated by varices and hepatic encephalopathy is seen today for worsening confusion with elevated ammonia despite Lactulose. (1) Cirrhosis with h/o Encephalopathy and elevated ammonia. + UA. Hgb downtrending from 10g/dl to 8.1g/dl over the last 4 days. NH3 47.0 => 75.0 => 93.0 - Triggers of HE reviewed ie, GIB, infection, dehydration, sedating medications and nutritional deficiencies considered - No obvious signs of bleeding clinically but Hgb is dropping. Hold Lovenox for now - This was stopped. Continue Pantoprazole and Famotidine as ordered. F/U CBC in AM - Continue treatment of UTI with Daptomycin - Continue with Lactulose 15G BID with goal of maintaining 3 soft BMs/day. - Repeat NH3 in the morning. - Further recommendations to come with Supervising GI provider on medical rounds. Please see co-signature comments Supervising Physician Co-Signing Physician Notes Patient with cirrhosis and recurrent hepatic encephalopathy. His UTI. No definite gastrointestinal bleeding. Her counts have dropped but this was within the range of her usual hemoglobin from previous admissions. Ammonia steadily increasing since admission. She is on 15 g twice daily of lactulose. Can increase this temporarily to see if we can get her ammonia to decrease. Avoid hyponatremia and dehydration. No imaging studies of her abdomen on this admission. Abdomen is protuberant but soft. No definite tense ascites. No peripheral edema. Brain imaging shows no subdural hematoma. Some age-related atrophy. She is orientated to person she was able to name the place as [facility]. She was able to name Praneeth is president. Plan increase lactulose. Follow clinical course recheck ammonia. Abdominal ultrasound. Confusion potentially related to concomittent urinary tract infection. Underlying natural course of her illness History of Present Illness Reason for Consultation: Persistent NH3 despite Lactulose Requesting Physician: Dr. Leiva. Attending Physician: Gary Leiva, History of Present Illness The patient is a 78-year-old female with a PMH of hepatic encephalopathy, DM type II, HTN, hyperlipidemia, esophageal varices is seen today on GI rounds for elevated ammonia despite lactulose. Patient presented to [facility] ER with involuntary movements and confusion that had been increasing over the previous couple of days. She was seen by her PCP who advised her to come to ER. Per ER records patient was advised different Lactulose dosages. She was taking 15mL TID upon arrival which resulted in 4 BMs a day at that time. Today she was seen on the floor. She appears well and mildly confused. Answers questions appropriately but seems inconsistent with quantitative information about her condition. She reports that her liver disease is managed by her PCP. She's unsure what caused her liver disease. Discussed with nursing staff. Patient is putting out 4-5 bowel movements a day without melena or hematochezia. Denies any fevers, chills, SOB, cough, abdominal pain, N/V/D, melena or hematochezia. She denies any open sores. Denies any family history of liver disease. Denies any alcohol, tobacco or drug use. Pertinent Diagnostics. Labs 03/23/25 - - Hgb 8.1, Hct 24.9, Plt 112, WBC 3.76. Of note - Hgb was 10g/dl on 03/19/25. - Glucose 131, BUN 21, Na 1.39, Cl 101, CL 27, Na 133, K 3.6. T-Bili 1.6, AST 23, ALT 14, Alk Phos 68. Albumin 2.6 - UA + VRE EGD (Esophageal Varices) 12/13/23 Case Findings: Grade II varices were found in the middle third of the esophagus and in the lower third of the esophagus. The stomach was normal. The examined duodenum was normal. Impression: - Grade II esophageal varices. - Normal stomach. - Normal examined duodenum. - No specimens collected. Recommendation: - Resume previous diet. - Continue present medications. - Repeat upper endoscopy in 2 years for surveillance. - Return to primary care physician as previously scheduled. Screening Colonoscopy 09/14/22 Case Findings: The perianal and digital rectal examinations were normal. A 15 mm polyp was found in the sigmoid colon. The polyp was sessile. The polyp was removed with a piecemeal technique using a hot snare. Resection and retrieval were complete. Two sessile polyps were found in the rectum. The polyps were 2 to 4 mm in size. These polyps were removed with a cold snare. Resection and retrieval were complete. Multiple small-mouthed diverticula were found in the sigmoid colon. Non-bleeding internal hemorrhoids were found during retroflexion. The hemorrhoids were small. Impression: - One 15 mm polyp in the sigmoid colon, removed piecemeal using a hot snare. Resected and retrieved. - Two 2 to 4 mm polyps in the rectum, removed with a cold snare. Resected and retrieved. - Diverticulosis in the sigmoid colon. - Non-bleeding internal hemorrhoids. Recommendation: - Resume previous diet. - Continue present medications. - Repeat colonoscopy for surveillance based on pathology results. - Return to primary care physician as previously scheduled. Allergies Allergy/AdvReac Type Severity Reaction Status Date / Time CASANDRA Inhibitors Allergy Severe Angioedema Verified 03/19/25 11:40 Home Medications Medication Instructions Recorded Confirmed Type cholecalciferol (vitamin D3) 25 1,000 unit PO HS 10/28/19 03/22/25 History mcg (1,000 unit) tablet fluticasone propionate 50 2 spray intranasal DAILY PRN 02/16/23 03/22/25 History mcg/actuation nasal Allergy Symptoms spray,suspension (Flonase Allergy Relief) amlodipine 5 mg tablet 5 mg PO QAM #90 tabs 10/23/24 03/22/25 Rx atorvastatin 10 mg tablet 10 mg PO QPM #90 tabs 10/23/24 03/22/25 Rx levetiracetam 500 mg tablet 500 mg PO BID #180 tabs 10/23/24 03/22/25 Rx (Keppra) propranolol 40 mg tablet 40 mg PO BID #180 tabs 10/23/24 03/22/25 Rx venlafaxine 150 mg 150 mg PO HS #90 caps 10/23/24 03/22/25 Rx capsule,extended release 24 hr magnesium 250 mg tablet 250 mg PO HS #90 tabs 10/24/24 03/22/25 Rx albuterol sulfate 90 mcg/actuation 1 puff inhalation DIRECTED PRN 12/08/24 03/22/25 History aerosol inhaler Shortness Of Breath Or Wheezing famotidine 40 mg tablet 40 mg PO Q OTHER DAY 12/08/24 03/22/25 History blood sugar diagnostic (Accu-Chek #50 ea 01/05/25 03/19/25 Rx Guide test strips) empagliflozin 10 mg tablet 10 mg PO DAILY #90 tabs 01/05/25 03/22/25 Rx fluticasone furoate 100 1 inh inhalation DAILY #60 ea 01/05/25 03/22/25 Rx mcg-vilanterol 25 mcg/dose inhalation powder (Breo Ellipta) lactulose 10 gram/15 mL oral 10 g (15 mL) PO TID #1,500 mL 02/08/25 03/22/25 Rx solution omeprazole 20 mg capsule,delayed 20 mg PO Q OTHER DAY #45 caps 03/01/25 03/22/25 Rx release metformin 500 mg tablet,extended 1,000 mg PO HS 03/06/25 03/22/25 History release 24 hr furosemide 20 mg tablet 40 mg (2 x 20 mg) PO QAM #180 tabs 03/12/25 03/22/25 Rx spironolactone 50 mg tablet 50 mg PO BID #180 tabs 03/12/25 03/22/25 Rx Patient History Medical History Tubular adenoma of colon Seizure GERD (gastroesophageal reflux disease) Asthma USES INHALER BEFORE EXERCISE History of colon polyps Hx of esophageal varices (~2016) History of anemia Hepatitis A hx 1959's - treated. Seizure-like activity 03/30/22[place] [place] PCP manages currently. STARTED ON KEPPRA (PT THINKS ELECTROLYTE PROBLEMS RELATED d/t low sodium and low magnesium) no seizures since starting Keppra. Last seizure January 2023 Pleural effusion associated with hepatic disorder Right-2017 History of pleural effusion RT 2/2 HEPATIC CIRRHOSIS - S/P THORACENTESIS History of benign breast biopsy Surgical History Hx of bilateral cataract extraction Hx of colonoscopy with polypectomy History of ankle surgery LT History of total abdominal hysterectomy and bilateral salpingo-oophorectomy History of tubal ligation History of thoracentesis RT 2017 History of esophagogastroduodenoscopy (EGD) History of tooth extraction Family History Grandfather (Maternal) Diabetes Coronary heart disease Dyslipidemia Hypercholesterolemia Hypertension Grandmother (Maternal) Ovarian cyst Stroke Father Pancreatic cancer Hypertension Stroke Mother Bladder cancer Hypertension Sister Hypertension Other No family history of adverse response to anesthesia Denies family history of Ovarian cancer Prostate cancer Myocardial infarction Breast cancer Social History (Reviewed 03/22/25 @ 16:08 by NOHEMI Gallegos Smoking Status: Former smoker Tobacco Type: Cigarettes Age Started Using Tobacco: 14; Age Quit Using Tobacco: 39; packs per day: 1; Cigarettes Per Day: 5 cigs/day; Second Hand Exposure: No; Do You Dip or Chew Tobacco: No; Hx Alcohol Use: Yes Alcohol type: wine Hx Substance Use: No Preferred Language: Belarusian Communication Ability: Effective Communication Ability Comment: intubated and sedated Visual Impairment: No Limitations Hearing Ability: Normal Gallery Host Required: No Beliefs That Will Affect Care: None marital status: Current Living Situation: Spouse Current Living Situation Comment: unknown current occupational status: employed Feels Safe at Home: Yes Physical Activity Frequency: 1-2 Times per Week Seatbelt Use: always Assistive Devices: Walker Review of Systems Review of Systems: See HPI Physical Exam Physical Exam: Constitutional: NAD. Alert. Answering questions appropriately but inconsistent with answers. Respiratory: Breathing is even, non-labored. Lungs osborn are clear to auscultation anteriorly. Cardiovascular: Regular Rate and Rhythm, no murmurs, rubs or gallops appreciated. Gastrointestinal (Abdomen): Normoactive bowel sounds x4, soft. mild to moderate ascites. Non-tender. Musculoskeletal: Lying in bed comfortably. No peripheral edema. Results & Data Vital Signs (Past 12 Hours) Vital Signs Temp Pulse Resp BP BP Pulse Ox O2 Del Method 03/23/25 15:43 97.5 F L 51 L 16 110/57 L 100 Room Air 03/23/25 11:35 97.5 F L 54 L 16 112/63 100 Room Air 03/23/25 08:00 Room Air 03/23/25 07:24 98.1 F 55 L 15 92/50 L 94 Room Air PG Care Time/CCT Total # of Minutes Spent Total Time Spent with Patient: Total time spent is greater than 50% in coordination of care (as documented) at patient's floor/unit and/or counseling patient: Coding Level of Care Code 87731 IN/OBS CONSULT LVL 3,45M Diagnoses Acute metabolic encephalopathy G93.41
[2025-03-23] MEDS: LACTULOSE SYRUP 20 GM/30 ML UDC PO SCH (20:49)
[2025-03-23] MEDS ORDERED: ENOXAPARIN INJ 40 MG/0.4 ML SYR SQ SCH (21:00)
--- NOTE | 2025-03-24 01:53 | Ultrasound Report ---
Exam(s): US LIVER EXAM: US Abdomen Limited, Right Upper Quadrant CLINICAL HISTORY: Evaluate for ascites hepatoma. TECHNIQUE: Real-time ultrasound of the right upper quadrant with image documentation. COMPARISON: CT 12/09/2024, ultrasound 06/08/2024. FINDINGS: Liver: 17.4 cm in length. Coarse heterogeneous echotexture with nodular margins. No focal intrahepatic mass identified. No intrahepatic bile duct dilation. Gallbladder: Gallbladder sludge with small gallstones. No gallbladder wall thickening measuring 2.1 mm. Negative sonographic Rangel sign. Common bile duct: Poorly visualized, measuring up to 6 mm. No stones. Pancreas: Obscured by bowel gas. Right kidney: No hydronephrosis. Other: Right upper quadrant ascites, partially surrounding the liver. IMPRESSION: Coarse heterogeneous liver with nodular margins consistent with cirrhosis. No focal intrahepatic mass. Small gallstones with gallbladder sludge. No gallbladder wall thickening. No evidence for acute cholecystitis. No evidence for biliary obstruction. Pancreas obscured by bowel gas. Electronically signed by: Gilberto Sierra M.D. 03/24/25 01:52 AM
[2025-03-24 07:14] LABS: Hematocrit (blood only) 26.5 % (37.0-47.0); Hemoglobin 8.8 g/dl (12.0-16.0); Mean Corpuscular Hemoglobin 29.6 pg (25.0-34.0); Mean Corpuscular Volume 89.2 fL (80.0-100.0); Platelet Count 114 K/uL (130-400); RDW Standard Deviation 49.1 fL (36.4-46.3); Red Blood Count 2.97 M/uL (4.20-5.40); White Blood Count 4.14 K/ul (4.8-10.8)
[2025-03-24 07:18] LABS: Immature Granulocytes # (auto) 0.02 K/uL (0.01-0.20); Immature Granulocytes % (auto) 0.5 %
[2025-03-24 07:25] LABS: Anion Gap 8.0 (3-11); Bilirubin,Total 1.9 mg/dl (0.2-1.0); Calcium 8.8 mg/dl (8.6-10.3); Carbon Dioxide 24.0 mmol/L (21-32); Chloride 100.0 mmol/L (98-107); Potassium 3.8 mmol/L (3.5-5.1); Sodium 132.0 mmol/L (136-145)
[2025-03-24 07:31] LABS: Alanine Aminotransferase 12.0 U/L (7-52); Albumin Globulin Ratio 0.8 (0.9-2); Alkaline Phosphatase 62.0 U/L (34-104); Blood Urea Nitrogen 21.0 mg/dl (6-23); Creatinine Clr Calc Pharmacy 47.9 ml/min; Globulin 3.2 gm/dl (2.5-4.0); Glucose 73.0 mg/dl (70-99(Fasting)); Total Protein 5.8 gm/dl (6.0-8.3)
[2025-03-24] MEDS: FAMOTIDINE 20 MG TAB PO SCH (08:34)
--- NOTE | 2025-03-24 09:02 | Gastroenterology Progress Note ---
Date of Service March 24, 2025 Assessment & Plan (1) Acute metabolic encephalopathy: Plan: I am unable to assess today if she is better than yesterday. Ammonia level is better for what that is worth. If there is no reason why she cannot be on xifaxan then I would consider adding that to her regimen. Admission and Anticipated Discharge Date Admission Date: March 22, 2025 Subjective talkative and somewhat oriented although I have nothing to compare it to. Thought is was 1955 but that turns out to be her year of . Ammonia level down but question the significance of it if she isn't improving clinically. She thinks she "might be better than yesterday". Physical Exam Physical Exam: Almost having dyskinetic movements Constitutional: WD/WN, vitals as above Results & Data Vital Signs (Past 12 Hours) Vital Signs Temp Pulse Resp BP BP Pulse Ox O2 Del Method 03/24/25 08:27 55 L 130/72 03/24/25 07:12 36.6 C 59 L 16 109/39 L 96 Room Air 03/23/25 22:48 36.7 C 52 L 18 102/63 97 Room Air
--- NOTE | 2025-03-24 09:07 | Hospitalist Progress Note ---
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 #Acute metabolic encephalopathy in the setting of hyperammonemia // Non- Wilsonian Hepatocerebral degeneration Ammonia trend 75, 95, 47; earlier in the week of 03/18 the patient had outpatient laboratory assessment which was within normal range at 43. They endorse adherence with their prescribed regimen, there is documentation from the recent hospital reassessment at their primary care physician's office that they have been adherent with their regimen, and appeared improved at that time; the patient's spouse corroborates adherence with this regimen, endorses increased difficulty with taking care of the patient at home given their chorea further discussed below; given the rapid resolution with resuming the patient's lactulose therapy, suspect there is a component of either nonadherence and/or lack of medical literacy resulting in missed doses - Continue lactulose 30 g p.o. 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 Per the patient's report their symptoms have not progressed however comparing their current presentation to their previous, it does appear that their chorea movements have worsened; this objective finding is persistent to the morning of 03/24, though their ammonia level has significantly improved with the patient's choreoid movements remained limiting to completion of ADL and increased risk of discharge to home, anticipate consultation with neurology after ensuring sustained resolution of the patient's hyperammonemia #Alcohol use disorder, sustained remission Patient has a remote history of alcohol misuse, has been no previous assessment for metabolic complications other than her hepatic disease associated with alcohol misuse; her confusion and altered behavior may be related to a Warnicke/Korsakoff pathology however given her sustained period of abstinence, this is less likely unless it has been clinically unappreciated until her more recent progressive disease as discussed above Vitamin B1 measure pending #Asymptomatic Bacteriuria During previous hospitalization the patient had a urinalysis performed reflexively due to trace leukocyte esterase and noted bacteria, it did yield VRE which at that time was not treated given the absence of associated symptoms; she was started on daptomycin at the time of admission, this will be continued at this point in time with a low threshold for discontinuation given the absence of irma infectious findings -UA pending DVT ppx: continue enoxaparin 40 mg SQ daily Admission and Anticipated Discharge Date Admission Date: March 22, 2025 Anticipated date of discharge: 03/26/25 Subjective Ms. Zapien is a 69-year-old female whose active medical conditions include chronic cerebrovascular disease, Non-Wilsonian hepatic cerebral degeneration among other chronic medical conditions who presented to [facility] on 03/22 due to subacute altered mental status. No acute overnight events; the patient feels well this morning with no specific concerns. Review of Systems Review of Systems: Remaining review of constitutional, pulmonary, cardiovascular, gastrointestinal, genitourinary, musculoskeletal, neurologic, and integumentary systems was unremarkable except for pertinent positive and negative findings noted in the HPI above. Physical Exam Physical Exam: General: Adult female in no acute distress Vital Signs: reviewed HEENT: soft scleral icterus; normocephalic and atraumatic; pupils equally round reactive to light; extraocular motion intact; moist mucous membranes Pulmonary: symmetric chest wall excursion without restriction; clear to auscultation bilaterally Cardiovascular: regular rate and rhythm with no murmurs, rubs, or gallops; S1 and S2 normal; bilateral radial and posterior tibial pulses 2+; trace bilateral lower extremity distal to the mid leg Gastrointestinal: soft, protuberant; normal frequency and pitch bowel sounds throughout; no palpable masses nor organomegaly; resonant to percussion throughout; hepatic border is nontender though notably firm Musculoskeletal: no significant muscle atrophy Neurologic: CN II-XII intact; no discernible focal weakness nor paresthesias; difficulty maintaining ocular fixation, however movements are intact; unable to assess for asterixis given the persistent high-frequency and moderate amplitude coagulated movements of the upper and lower extremities as well as involving the patient's torso, unchanged in severity from 03/23 Results & Data Results & Data Vital Signs (Past 12 Hours) Vital Signs Temp Pulse Resp BP BP Pulse Ox O2 Del Method 03/23/25 22:48 36.7 C 52 L 18 102/63 97 Room Air 03/23/25 20:40 36.7 C 51 L 18 97/53 L 100 Room Air 03/23/25 19:30 Room Air PG Care Time/CCT Total # of Minutes Spent Total Time Spent with Patient: Total time spent is greater than 50% in coordination of care (as documented) at patient's floor/unit and/or counseling patient: Coding Level of Care Code 99283 SUB INP/OBS CARE 2/35MIN Diagnoses Acute metabolic encephalopathy G93.41 Hyperammonemia E72.20 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
[2025-03-24] MEDS: NAPROXEN 250 MG TAB PO ONE (13:29)
--- NOTE | 2025-03-25 07:10 | Hospitalist Progress Note ---
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 #Acute metabolic encephalopathy in the setting of hyperammonemia // Non- Wilsonian Hepatocerebral degeneration Ammonia trend 75, 95, 47; earlier in the week of 03/18 the patient had outpatient laboratory assessment which was within normal range at 43. They endorse adherence with their prescribed regimen, there is documentation from the recent hospital reassessment at their primary care physician's office that they have been adherent with their regimen, and appeared improved at that time; the patient's spouse corroborates adherence with this regimen, endorses increased difficulty with taking care of the patient at home given their chorea further discussed below; given the rapid resolution with resuming the patient's lactulose therapy, suspect there is a component of either nonadherence and/or lack of medical literacy resulting in missed doses - Continue lactulose 30 g p.o. 3 times daily, titrate to maintain 2-3 easily passed bowel movements daily - Started rifaximin 550 mg p.o. 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 Per the patient's report their symptoms have not progressed however comparing their current presentation to their previous, it does appear that their chorea movements have worsened; this objective finding is persistent to the morning of 03/24, though their ammonia level has significantly improved with the patient's choreoid movements remained limiting to completion of ADL and increased risk of discharge to home, anticipate consultation with neurology after ensuring sustained resolution of the patient's hyperammonemia #Alcohol use disorder, sustained remission Patient has a remote history of alcohol misuse, has been no previous assessment for metabolic complications other than her hepatic disease associated with alcohol misuse; her confusion and altered behavior may be related to a Warnicke/Korsakoff pathology however given her sustained period of abstinence, this is less likely unless it has been clinically unappreciated until her more recent progressive disease as discussed above Vitamin B1 measure pending #Asymptomatic Bacteriuria During previous hospitalization the patient had a urinalysis performed reflexively due to trace leukocyte esterase and noted bacteria, it did yield VRE which at that time was not treated given the absence of associated symptoms; she was started on daptomycin at the time of admission, discontinued 03/25 given lack of evidence for bacterial infection and contribution to current medical condition -UA pending DVT ppx: continue enoxaparin 40 mg SQ daily Admission and Anticipated Discharge Date Admission Date: March 22, 2025 Subjective Ms. Zapien is a 69-year-old female whose active medical conditions include chronic cerebrovascular disease, Non-Wilsonian hepatic cerebral degeneration among other chronic medical conditions who presented to [facility] on 03/22 due to subacute altered mental status. No acute overnight events; the patient feels well this morning with no specific concerns. Review of Systems Review of Systems: Remaining review of constitutional, pulmonary, cardiovascular, gastrointestinal, genitourinary, musculoskeletal, neurologic, and integumentary systems was unremarkable except for pertinent positive and negative findings noted in the HPI above. Physical Exam Physical Exam: General: Adult female in no acute distress Vital Signs: reviewed HEENT: soft scleral icterus; normocephalic and atraumatic; pupils equally round reactive to light; extraocular motion intact; moist mucous membranes Pulmonary: symmetric chest wall excursion without restriction; clear to auscultation bilaterally Cardiovascular: regular rate and rhythm with no murmurs, rubs, or gallops; S1 and S2 normal; bilateral radial and posterior tibial pulses 2+; trace bilateral lower extremity distal to the mid leg Gastrointestinal: soft, protuberant; normal frequency and pitch bowel sounds throughout; no palpable masses nor organomegaly; resonant to percussion throughout; hepatic border is nontender though notably firm Musculoskeletal: no significant muscle atrophy Neurologic: CN II-XII intact; no discernible focal weakness nor paresthesias; difficulty maintaining ocular fixation, however movements are intact; unable to assess for asterixis given the persistent high-frequency and moderate amplitude coagulated movements of the upper and lower extremities as well as involving the patient's torso, unchanged in severity from 03/23 Results & Data Results & Data Vital Signs (Past 12 Hours) Vital Signs Temp Pulse Resp BP Pulse Ox O2 Del Method 03/24/25 20:33 36.3 C L 50 L 16 114/60 99 Room Air Coding Level of Care Code 68214 SUB INP/OBS CARE MIN Diagnoses Acute metabolic encephalopathy G93.41 Hyperammonemia E72.20 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
[2025-03-25 07:29] LABS: Anion Gap 6.0 (3-11); Bilirubin,Total 2.0 mg/dl (0.2-1.0); Calcium 9.0 mg/dl (8.6-10.3); Carbon Dioxide 25.0 mmol/L (21-32); Chloride 98.0 mmol/L (98-107); Potassium 4.5 mmol/L (3.5-5.1); Sodium 129.0 mmol/L (136-145)
[2025-03-25 07:34] VITALS: TEMP 98.1
[2025-03-25 07:35] LABS: Alanine Aminotransferase 14.0 U/L (7-52); Albumin Globulin Ratio 0.9 (0.9-2); Alkaline Phosphatase 66.0 U/L (34-104); Blood Urea Nitrogen 22.0 mg/dl (6-23); Creatinine Clr Calc Pharmacy 47.5 ml/min; Globulin 3.4 gm/dl (2.5-4.0); Glucose 74.0 mg/dl (70-99(Fasting)); Total Protein 6.3 gm/dl (6.0-8.3)
--- NOTE | 2025-03-25 08:30 | Gastroenterology Progress Note ---
Date of Service March 25, 2025 Assessment & Plan (1) Acute metabolic encephalopathy: Plan: Seems to be doing well from my viewpoint. Better than yesterday. Plan per primary team Admission and Anticipated Discharge Date Admission Date: March 22, 2025 Subjective In good spirits. Eating breakfast smiling. Says she feels "great". Also says she feels back to normal. Xifaxan started yesterday Physical Exam Physical Exam: Pleasant, in no distress Constitutional: WD/WN, vitals as above Results & Data Vital Signs (Past 12 Hours) Vital Signs Temp Pulse Resp BP BP Pulse Ox O2 Del Method 03/25/25 07:33 36.7 C 63 18 132/65 97 Room Air 03/24/25 20:33 36.3 C L 50 L 16 114/60 99 Room Air
[2025-03-25 08:38] LABS: Hematocrit (blood only) 27.0 % (37.0-47.0); Hemoglobin 8.5 g/dl (12.0-16.0); Mean Corpuscular Hemoglobin 28.4 pg (25.0-34.0); Mean Corpuscular Volume 90.3 fL (80.0-100.0); Platelet Count 111 K/uL (130-400); RDW Standard Deviation 50.1 fL (36.4-46.3); Red Blood Count 2.99 M/uL (4.20-5.40); White Blood Count 3.99 K/ul (4.8-10.8)
[2025-03-25 20:47] VITALS: RESP 18
--- NOTE | 2025-03-26 07:22 | Hospitalist Progress Note ---
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 #Acute metabolic encephalopathy in the setting of hyperammonemia // Non- Wilsonian Hepatocerebral degeneration Ammonia trend 75, 95, 47; earlier in the week of 03/18 the patient had outpatient laboratory assessment which was within normal range at 43. They endorse adherence with their prescribed regimen, there is documentation from the recent hospital reassessment at their primary care physician's office that they have been adherent with their regimen, and appeared improved at that time; the patient's spouse corroborates adherence with this regimen, endorses increased difficulty with taking care of the patient at home given their chorea further discussed below; given the rapid resolution with resuming the patient's lactulose therapy, suspect there is a component of either nonadherence and/or lack of medical literacy resulting in missed doses - Continue lactulose 30 g p.o. 3 times daily, titrate to maintain 2-3 easily passed bowel movements daily - Started rifaximin 550 mg p.o. 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 Per the patient's report their symptoms have not progressed however comparing their current presentation to their previous, it does appear that their chorea movements have worsened; this objective finding is persistent to the morning of 03/24, though their ammonia level has significantly improved with the patient's choreoid movements remained limiting to completion of ADL and increased risk of discharge to home, anticipate consultation with neurology after ensuring sustained resolution of the patient's hyperammonemia #Alcohol use disorder, sustained remission Patient has a remote history of alcohol misuse, has been no previous assessment for metabolic complications other than her hepatic disease associated with alcohol misuse; her confusion and altered behavior may be related to a Warnicke/Korsakoff pathology however given her sustained period of abstinence, this is less likely unless it has been clinically unappreciated until her more recent progressive disease as discussed above Vitamin B1 measure pending #Asymptomatic Bacteriuria During previous hospitalization the patient had a urinalysis performed reflexively due to trace leukocyte esterase and noted bacteria, it did yield VRE which at that time was not treated given the absence of associated symptoms; she was started on daptomycin at the time of admission, discontinued 03/25 given lack of evidence for bacterial infection and contribution to current medical condition -UA pending DVT ppx: continue enoxaparin 40 mg SQ daily Admission and Anticipated Discharge Date Admission Date: March 22, 2025 Review of Systems Review of Systems: Remaining review of constitutional, pulmonary, cardiovascular, gastr ointestinal, genitourinary, musculoskeletal, neurologic, and integumentary systems was unremarkable except for pertinent positive and negative findings noted in the HPI above. Physical Exam Physical Exam: General: Adult female in no acute distress Vital Signs: reviewed HEENT: soft scleral icterus; normocephalic and atraumatic; pupils equally round reactive to light; extraocular motion intact; moist mucous membranes Pulmonary: symmetric chest wall excursion without restriction; clear to ausc ultation bilaterally Cardiovascular: regular rate and rhythm with no murmurs, rubs, or gallops; S1 and S2 normal; bilateral radial and posterior tibial pulses 2+; trace bilateral lower extremity distal to the mid leg Gastrointestinal: soft, protuberant; normal frequency and pitch bowel sounds throughout; no palpable masses nor organomegaly; resonant to percussion throughout; hepatic border is nontender though notably firm Musculoskeletal: no significant muscle atrophy Neurologic: CN II-XII intact; no discernible focal weakness nor paresthesias; difficulty maintaining ocular fixation, however movements are intact; unable to assess for asterixis given the persistent high-frequency and moderate amplitude coagulated movements of the upper and lower extremities as well as involving the patient's torso, unchanged in severity from 03/23 Results & Data Results & Data Vital Signs (Past 12 Hours) Vital Signs Temp Pulse Resp BP Pulse Ox O2 Del Method 03/25/25 20:12 36.7 C 52 L 18 125/36 L 97 Room Air PG Care Time/CCT Total # of Minutes Spent Total Time Spent with Patient: Total time spent is greater than 50% in coordination of care (as documented) at patient's floor/unit and/or counseling patient: Coding Diagnoses Acute metabolic encephalopathy G93.41 Hyperammonemia E72.20 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
[2025-03-26 07:37] VITALS: PULSE 58; O2SAT 96
[2025-03-26 10:39] VITALS: BP 132/65
--- NOTE | 2025-03-26 12:19 | Discharge Summary ---
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 #Acute metabolic encephalopathy in the setting of hyperammonemia // Non- Wilsonian Hepatocerebral degeneration Ammonia trend 75, 95, 47; earlier in the week of 03/18 the patient had outpatient laboratory assessment which was within normal range at 43. They endorse adherence with their prescribed regimen, there is documentation from the recent hospital reassessment at their primary care physician's office that they have been adherent with their regimen, and appeared improved at that time; the patient's spouse corroborates adherence with this regimen, endorses increased difficulty with taking care of the patient at home given their chorea further discussed below; given the rapid resolution with resuming the patient's lactulose therapy, suspect there is a component of either nonadherence and/or lack of medical literacy resulting in missed doses - Continue lactulose 30 g p.o. 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 Per the patient's report their symptoms have not progressed however comparing their current presentation to their previous, it does appear that their chorea movements have worsened; this objective finding is persistent to the morning of 03/24, though their ammonia level has significantly improved #Alcohol use disorder, sustained remission Patient has a remote history of alcohol misuse, has been no previous assessment for metabolic complications other than her hepatic disease associated with alcohol misuse; her confusion and altered behavior may be related to a Warnicke/Korsakoff pathology however given her sustained period of abstinence, this is less likely unless it has been clinically unappreciated until her more recent progressive disease as discussed above Vitamin B1 measure pending #Asymptomatic Bacteriuria During previous hospitalization the patient had a urinalysis performed reflexively due to trace leukocyte esterase and noted bacteria, it did yield VRE which at that time was not treated given the absence of associated symptoms; she was started on daptomycin at the time of admission, discontinued 03/25 given lack of evidence for bacterial infection and contribution to current medical condition -UA pending DVT ppx: continue enoxaparin 40 mg SQ daily Admission HPI Per Admitting Provider 69-year-old female with a history of Non-Wilsonian about cerebral degeneration. She has a history of significant alcohol use and cirrhosis typically taking lactulose therapy. She has this movement disorder and has seen neurology in the past. She has not follow-up with them routinely. She has a seizure disorder on chronic antiepileptic medications type 2 diabetes anxiety and depression. Reportedly she has brought him by her for increasing confusion. Reportedly she has been taking lactulose regularly and had 4 bowel movements a 1 day prior to admission but only 1 bowel movement today. The patient herself in the emergency department feels she is at her baseline she was able to have good conversations with me, she has involuntary uncontrolled movements. She has had no fevers she is have no abdominal pain she has had no dysuria. During her last hospital stay she had a VRE UTI which was elected not to be treated due to her being asymptomatic has left the room we cannot get any other detailed information is not yet available by phone Discharge Exam General: Adult in no acute distress Vital Signs: Reviewed HEENT: Normocephalic, atraumatic; pupils equally reactive to light, extraocular motions intact; moist mucous membranes Neck: No palpable lymphadenopathy Pulmonary: symmetric chest wall excursion; CTAB Cardiovascular: Regular rate and rhythm with no murmurs, rubs, or gallops; S1 and S2 normal; bilateral radial and posterior tibial pulses 2+; trace bilateral lower extremity edema distal of the mid leg Gastrointestinal: Soft, nondistended; normal frequency and pitch of bowel sounds throughout; no palpable masses or organomegaly Neurologic: CN II-XII grossly intact; no discernible focal weakness nor paresthesias; asterixis noted with upper extremity extension Skin: scattered telangiectasias of the torso Discharge Plan Discharge Items Patient Disposition: Home - Home Health Services Reason For Visit: ENCEPHALOPATHY Discharge Diagnosis: Metabolic encephalopathy secondary to hyperammonemia Condition on Discharge: Fair Activity: As commented below Non-emergency contact: Primary Care Provider, Specialist and Neurologist Call non-emergency contact if: you have any medication questions and your symptoms worsen Follow-up/Referrals: [facility] Gastroenterology [Provider Group] Madie Aguilar MD [Primary Care Provider] - 04/05/25 2:30 pm (with Brenda Flood) Marielena Voss DO [Physician] - (Non-wilsonian hepatocerebral degeneration; recurrent hospitalization for chorea; establish care) Diet: Carb Consistent or DM2 Fluids: 1800ml (7 cups) Addtl Attending Provider Instructions: You were admitted to [facility] for a recurrent episode of hepatic encephalopathy in the setting of Non-Wilsonian hepatic cerebral degeneration. With regard to the patient's presenting acute metabolic encephalopathy, it appears that there is been confusion with regard to the dosing of the patient's lactulose at home given its concentration dose as listed on the bottle 10 g per 15 mL. It was reviewed with the patient's spouse who administers her medications that the patient should be receiving 45 mL of this medication 3 times daily, which can be titrated every 3 to 4 days to achieve 2-3 soft bowel movements daily. It was further advised that if the patient's dose is adjusted at home that the patient's spouse contact her PCPs office to request a serum ammonia assessment after this adjustment in order to ensure that she remains with an ammonia level less than 50 with titration of this dose. They was further advised that the patient not take any additional bowel altering medications such as fiber, bulking agents, or other medications to reduce their frequency or firm her bowel movements as this will alter the efficacy of this medication In your discharge orders I have a referral placed to a local can sterilizer as well as a return appointment with your local dentist private practice for continued care. Thank you for choosing [facility] as your healthcare provider. Pending Studies at Discharge: No Stand-Alone Forms: My [facility] Medications and DC Order Prescriptions: Continued magnesium 250 mg tablet 250 mg PO HS Qty: 90 1RF Hold Instructions: Not taking 10/2024 omeprazole 20 mg capsule,delayed release(DR/EC) 20 mg PO Q OTHER DAY Qty: 45 1RF Rx Instructions: Alternates w/ famotidine every other day furosemide 20 mg tablet 40 mg PO QAM Qty: 180 0RF spironolactone 50 mg tablet 50 mg PO BID Qty: 180 0RF amlodipine 5 mg tablet 5 mg PO QAM Qty: 90 1RF atorvastatin 10 mg tablet 10 mg PO QPM Qty: 90 1RF propranolol 40 mg tablet 40 mg PO BID Qty: 180 1RF venlafaxine 150 mg capsule,extended release 24hr 150 mg PO HS Qty: 90 1RF levetiracetam [Keppra] 500 mg tablet 500 mg PO BID Qty: 180 1RF fluticasone propionate [Flonase Allergy Relief] 50 mcg/actuation spray,suspension 2 spray intranasal DAILY PRN (Reason: Allergy Symptoms) Rx Instructions: 2 sniffs in each nostril daily empagliflozin 10 mg tablet 10 mg PO DAILY Qty: 90 3RF (DME) Accu-Chek Guide test strips Strip See Rx Instructions .Route Qty: 50 3RF Rx Instructions: As directed fluticasone furoate-vilanterol [Breo Ellipta] 100-25 mcg/dose blister with device 1 inh inhalation DAILY Qty: 60 2RF cholecalciferol (vitamin D3) 25 mcg (1,000 unit) Tablet 1,000 unit PO HS metformin 500 mg tablet extended release 24 hr 1,000 mg PO HS famotidine 40 mg tablet 40 mg PO Q OTHER DAY Rx Instructions: Alternate w/ Omeprazole every other day albuterol sulfate 90 mcg/actuation HFA aerosol inhaler 1 puff INHALATION DIRECTED PRN (Reason: Shortness Of Breath Or Wheezing) Changed lactulose 10 gram/15 mL solution 45 ml PO TID 30 Days Qty: 1500 3RF Rx Instructions: PER PT'S "ONLY CAN GET 2 DOSES PER DAY". Discharge Orders: Discharge Order (Routine); Ordered 03/26/25 Ordered By: Gary Leiva Admission Data Admit Date/Time: 03/22/25 15:02 Attending Provider: Gary Leiva Admit Provider: Antione Camargo Primary Care Provider: Madie Aguilar Other Providers: Antione Camargo; Elise Talbot; Al Fernández; Theodora Bonilla; Benita Dalton; Mima Monaco; Sweta Reddy; Pete Nunez; Chance Moe; Cristian Mcghee; Nolberto Wahl Alyssa; Carla Ye; Jyoti Harris; Ana Javier; Mary Jo Adams; Dennis Llanos; Bernabe Mercado; Marielena Voss; Janny Arboleda Jr; Steven Darden; Feliciano Del Angel; Mychal Sims; Jeffery Jolley; Cortney Mckinley; Dillan Fierro I; Pauline Thompson; Ja Bishop; Nas Pandey; Gilberto Cho; Leon Deleon; [facility] Other Interventions: Discharge Summary Assessment (RN) Last Done: 03/26/25 10:37 Hospital Stay Data Consultations 03/22/25 14:48 ED Decision to Admit Stat 03/23/25 11:10 Consult Gastroenterology Routine Diagnostic Imagining Performed 03/23/25 17:37 US liver Routine Pending Results Patient Have Any Pending Studies at Discharge: No Discharge Instructions Given to Patient (Per Discharging Provider) You were admitted to [facility] for a recurrent episode of hepatic encephalopathy in the setting of Non-Wilsonian hepatic cerebral degeneration. With regard to the patient's presenting acute metabolic encephalopathy, it appears that there is been confusion with regard to the dosing of the patient's lactulose at home given its concentration dose as listed on the bottle 10 g per 15 mL. It was reviewed with the patient's spouse who administers her medications that the patient should be receiving 45 mL of this medication 3 times daily, which can be titrated every 3 to 4 days to achieve 2-3 soft bowel movements daily. It was further advised that if the patient's dose is adjusted at home that the patient's spouse contact her PCPs office to request a serum ammonia assessment after this adjustment in order to ensure that she remains with an ammonia level less than 50 with titration of this dose. They was further advised that the patient not take any additional bowel altering medications such as fiber, bulking agents, or other medications to reduce their frequency or firm her bowel movements as this will alter the efficacy of this medication In your discharge orders I have a referral placed to a local can sterilizer as well as a return appointment with your local dentist private practice for continued care. Thank you for choosing [facility] as your healthcare provider. 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
--- NOTE | 2025-03-26 15:03 | Electrocardiogram Report ---
Test Reason : Blood Pressure : */* mmHG Vent. Rate : 51 BPM Atrial Rate : 51 BPM P-R Int : 156 ms QRS Dur : 104 ms QT Int : 494 ms P-R-T Axes : 56 -5 47 degrees QTcB Int : 455 ms Sinus bradycardia with sinus arrhythmia Unusual complex in V2 Borderline ECG When compared with ECG of 06-Mar-2025 17:48, No significant change was found Confirmed by Sage Pope [id number]) on 03/26/2025 3:03:15 PM Referred By: REFERRED SELF Confirmed By: Sage Pope
== END 2025-03-26 13:24 | disposition home health service (06) | DRG 642 ==
LOC: ED 12:38 → SUATTDRO 15:02 → 3W 15:02